=== PATIENT | male | born 1940 | race African-American/Black ===

== ENCOUNTER → 2020-08-04 13:08 | Outpatient (BNVA) | payer MEDICARE, MEDICAID, SELFPAY | PROVIDERS: Visit Provider Surgery | DX: G20 Parkinson's disease (principal) | CPT/HCPCS: 99204; 99214 ==

== ENCOUNTER 2020-08-17 15:13 | Inpatient (IN) | payer MEDICARE, SELFPAY ==
[2020-08-17] VITALS (9 sets, daily range): BP systolic 99–136; BP diastolic 62–77; PULSE 88–119; RESP 16–25; TEMP 36.8–38.9; O2SAT 96–100; BMI 16.5
--- NOTE | 2020-08-17 15:51 | CT_ITS ---
EXAM: CT scan of the chest, abdomen, and pelvis. INDICATION: Seizure. Concern for aspiration. Abdominal distention. COMPARISON: CT of chest 06/09/[address] abdomen pelvis 06/25/2020 TECHNIQUE: Multidetector helical imaging of the chest, abdomen, and pelvis was obtained from the thoracic inlet through the pubic symphysis. Coronal and sagittal reformatted images that were obtained were also reviewed. Evaluation is limited due to motion artifact. DLP: 918 mGy-cm FINDINGS: CHEST: Central airways are patent. Lungs are adequately aerated. Fine parenchymal evaluation is limited due to respiratory motion artifact, however, there is no gross lobar consolidation appreciated. There are mild emphysematous changes again noted. There is minimal dependent atelectasis appreciated. No pleural effusion or pneumothorax. No large pulmonary mass, however, evaluation for small pulmonary nodules is suboptimal. The heart is mildly enlarged. Coronary artery calcified are present. There is no pericardial effusion. A few nonpathologically enlarged mediastinal lymph nodes are again noted and appear stable. Nonaneurysmal thoracic aorta. No axillary lymphadenopathy. ABDOMEN/PELVIS: The liver is normal in size but demonstrates diffusely decreased attenuation. 1 cm hypodensity within the posterior right hepatic lobe which is too small to accurately characterize. The gallbladder is decompressed and therefore not accurately evaluated. The pancreas, spleen and adrenal glands are unremarkable. Symmetrically sized kidneys without renal calculi or hydronephrosis. Small bowel is nondilated but primarily Fluid-filled. There are scattered air-fluid levels within small bowel. The colon is also primarily fluid-filled with similar distention of the sigmoid colon and rectal vault. There is gaseous distention primarily involving the mid colon with some scattered nonspecific air-fluid levels. There is no gross retroperitoneal lymphadenopathy. Nonaneurysmal abdominal aorta which demonstrates moderate atherosclerotic disease. The bladder is well-distended and normal in appearance. Unremarkable prostate gland. No inguinal lymphadenopathy. No gross free pelvic fluid. OSSEOUS STRUCTURES Diffuse osteopenia. [id number] diffuse degenerative changes of the thoracolumbar spine. Similar sclerotic density of the T2 vertebral body. IMPRESSION: 1. Examination limited secondary to motion artifact. 2. Fine parenchymal evaluation is limited due to respiratory motion artifact, however, there is no gross lobar consolidation appreciated. 3. Chronic colonic distention which is primarily fluid-filled. Fluid is also noted throughout normal caliber loops of small bowel. There are scattered air-fluid levels throughout the small and large bowel. Findings are most suggestive of an infectious etiology. Clinical correlation is recommended. 4. Diffusely decreased liver attenuation suggesting hepatic steatosis. Correlation with liver enzymes recommended. This CT examination was performed using dose optimization techniques as appropriate, variously including the following: *Automated exposure control *Adjustment of mA and/or kV according to patient size (this includes techniques or standardized protocols for targeted exams where dose is matched to indication/reason for exam; i.e. extremities or head) *Use of iterative reconstruction technique
--- NOTE | 2020-08-17 15:51 | CT_ITS ---
EXAMINATION: CT HEAD WITHOUT CONTRAST CLINICAL INFORMATION: Seizure. COMPARISON: CTA head from 10/24/2018. TECHNIQUE: Contiguous axial imaging was performed from the skull base to vertex without intravenous administration of contrast. This CT examination was performed using dose optimization techniques as appropriate, variously including the following: *Automated exposure control. *Adjustment of mA and/or kV according to patient size (this includes techniques or standardized protocols for targeted exams where dose is matched to indication/reason for exam; i.e. extremities or head). *Use of iterative reconstruction technique. DLP: 733 mGy-cm FINDINGS: There is no evidence of acute intracranial hemorrhage or edematous territorial infarction. Basal ganglia mineralization. Confluent hypoattenuation in the periventricular and deep white matter. Pandey-white matter differentiation is preserved. There is a degree of proportional prominence of the ventricles and sulcal spaces that is progressed compared to 2018. However, the ventricles may be further disproportionately enlarged relative to the extraventricular CSF space. The posterior callosal angle is decreased (51 degrees) when measured on a corrected coronal image, orthogonal to the anterior commissure-posterior commissure line. No abnormal mass effect or midline shift. No extra-axial fluid collections. Calcific atherosclerotic disease of the intracranial internal carotid arteries. No hyperdense vessel sign. No acute soft tissue or osseous abnormalities. Advanced degeneration of the left temporomandibular joint. The mastoid air cells and paranasal sinuses are clear. Left-sided lens extraction. IMPRESSION: 1. No evidence of acute intracranial hemorrhage or edematous territorial infarction. 2. Chronic extensive underlying white matter disease. 3. Generalized cerebral volume loss. There is a degree of generalized cerebral volume loss has progressed compared to 2018. However, the ventricles may be further disproportionately enlarged relative to the extraventricular CSF space in the posterior callosal angle is decreased. Recommend correlation with symptoms of normal pressure hydrocephalus.
--- NOTE | 2020-08-17 15:55 | ED_ITS ---
HPI - Seizure General Chief Complaint: Seizure Stated Complaint: SEIZURE-LIKE ACTIVITY Time Seen by Provider: 08/17/20 15:47 Source: EMS Mode of arrival: EMS Limitations: altered mental status History of Present Illness HPI Narrative: 79 y/o male with history of Parkinson's dementia, dysphagia, COPD, CKD, seizures who is presenting from SNF with seizure like activity. Spoke with patient's daughter Jennifer who witnessed the event. She states when she went for a visit at the half-way today her dad was less responsive and his eyes were fluttering. She also states his hands were clenched and shaking. This hap pened for a few moments. She called his name and he turned his head and said her name and then these actions happened again. She states the nursing staff there was doing a sternal rub and having difficulty arousing him. She states he had COVID about 2 months ago and has not been the same since. His health is overall been declinging. At baseline he is his AAO x1, dependent of all ADL's. MD complaint: possible seizure Seizure History: Yes Place: Home Related Data Home Medications Medication Instructions Recorded Confirmed acetaminophen 325 mg tablet 650 mg PO Q4H PRN 08/04/20 albuterol sulfate 90 mcg/actuation 2 puff INHALATION Q4-6H PRN 08/04/20 aerosol inhaler amlodipine 10 mg tablet 10 mg PO DAILY 08/04/20 aspirin 81 mg tablet,delayed 81 mg PO DAILY 08/04/20 release bisacodyl 10 mg rectal suppository 10 mg [place] DAILY PRN 08/04/20 carbidopa 25 mg-levodopa 100 mg tab PO 08/04/20 tablet celecoxib 200 mg capsule 200 mg PO DAILY 08/04/20 cholecalciferol (vitamin D3) 1,250 1,250 mcg PO QWEEK 08/04/20 mcg (50,000 unit) tablet divalproex 125 mg capsule,delayed mg PO 08/04/20 release sprinkle docusate sodium 100 mg capsule 100 mg PO BID 08/04/20 donepezil 10 mg tablet 10 mg PO DAILY 08/04/20 escitalopram oxalate 5 mg tablet 5 mg PO DAILY 08/04/20 magnesium hydroxide 400 mg/5 mL 400 mg PO DAILY PRN 08/04/20 oral suspension memantine 5 mg tablet 5 mg PO BID 08/04/20 metoclopramide HCl 10 mg tablet 10 mg PO QID 08/04/20 polyethylene glycol 3350 17 17 g PO DAILY 08/04/20 gram/dose oral powder sodium bicarbonate 650 mg tablet 650 mg PO QID PRN 08/04/20 terazosin 1 mg capsule 1 mg PO DAILY 08/04/20 Allergies Allergy/AdvReac Type Severity Reaction Status Date / Time No Known Allergies Allergy Unverified 07/15/20 14:49 Review of Systems Review of Systems: Yes Unobtainable due to mental status PMFSH Past Medical History Attestation statement: The following information was validated with the patient. Source: unable to obtain Social History Social History Advance Directives: No Advance Directives Information Provided: No Physical Exam Vital Signs: Vital Signs: Vital Signs Temp Pulse Resp BP Pulse Ox 08/17/20 16:46 102 F H 105 H 18 120/68 99 08/17/20 15:39 127/77 08/17/20 15:23 102.0 F H 119 H 25 H 97 Body Mass Index 16.5 Appearance: minimally responsive, appears unwell Eyes: Pupils equal, round and sluggish to light ENT: Pharynx dry mucous membranes, Neck: Normal inspection. Neck supple. CVS:tachycardic, regular rhythm. Pulses normal. Respiratory:gurling respirations, mild respiratory distress. rhonchi throughout Abdomen: Softly distended, hyperactive BS. unable to assess tenderness. Skin: Skin warm and dry. Normal skin color. Normal skin turgor. No rashes. Extremities: No lower extremity edema. contractures to all 4 extremities Neuro: minimally responsive, does not respond to painful stimuli, eyes open upon manual opening, does not track. Course Course Course Narrative: 79 with multiple comorbidities presenting with seizure like activity - found to have a fever of 102 here with large liquid BM and abdominal distention. Mental status is poor but he is protecting his airway. FULL CODE status was confirmed with his LATHA Rodriguez, daughter. Ferraro scan pending as well as labs including valproic acid level. She states he does not have seizures often. Unclear if true seizure given he was verbal with her in the middle of the event. Broad spectrum abx ordered - ddx includes but not limited to colitis, pneumonia, UTI, C diff, cholecystitis. Reevaluation(s) Reevaluation #1: Mental status slowly improving, slightly more awake now. Valproic acid level low at 18 - spoke with Pharmacy about IV loading dose which has been ordered. CT scan limited due to motion artifact but shows infectious etiology with air- fluid levels throughout the entire small and large bowel - no obstruction noted. UA still pending. Patient has been broadly covered with vanco/zosyn but will add flagyl for additional anaerobic/intra-abdominal coverage. C diff added as well, given characteristics of BM here. Will require admission. Spoke with daughter and updated her on clinical condition. All questions were answered. Signed out to Tigist SHOOK. Time: 17:20 MDM - Seizure Lab Data Result diagrams: 08/17/20 16:09 08/17/20 16:09 Labs: Lab Results 08/17/20 08/17/20 08/17/20 Range/Units 16:09 16:09 16:09 WBC 12.1 H (4.8-10.8) X10*3/uL RBC 3.67 L (4.60-5.80) X10*6/uL Hgb 10.4 L (14.0-18.0) g/dl Hct 34.0 L (42-52) % MCV 92.6 (80-98) fL MCH 28.3 (27.0-33.0) pg MCHC 30.6 L (31.0-36.0) g/dl RDW 13.4 (11.0-16.0) % Plt Count 295 (160-400) X10*3/uL MPV 9.7 (9.4-12.4) fL Immature Gran % (Auto) 0.3 (0.0-0.4) % Neut % (Auto) 87.3 H (45-73) % Lymph % (Auto) 5.5 L (20-40) % [place] % (Auto) 6.6 (2-11) % Eos % (Auto) 0.1 (0-4) % Baso % (Auto) 0.2 (0-2) % Lymph # (Auto) 0.7 L (1.2-4.9) X10*3/uL [place] # (Auto) 0.8 (0.1-1.2) X10*3/uL Eos # (Auto) 0.0 (0.0-0.4) X10*3/uL Baso # (Auto) 0.0 (0.0-0.2) X10*3/uL Abs Immat Gran (auto) 0.04 H (0.00-0.03) X10*3/uL Absolute Neuts (auto) 10.6 H (2.0-8.3) X10*3/uL Absolute Nucleated RBC 0.000 (0.0-0.012) X10*3/uL Nucleated RBC % (auto) 0.0 (0.0-0.2) /100WBC Smear Tech's Comments VERIFIED Sodium 142 (135-145) mmol/L Potassium 4.1 (3.3-5.1) mmol/l Chloride 107 (96-108) mmol/L Carbon Dioxide 20 L (22-29) mmol/L Anion Gap 19 (12-20) BUN 34 H (9-16) mg/dL Creatinine 2.08 H (0.5-1.4) mg/dL Estim Creat Clear Calc 19.5 Estimated GFR 31 Random Glucose 150 H (60-115) mg/dL Calcium 9.9 (8.4-10.2) mg/dL Total Bilirubin 0.5 (0.0-1.0) mg/dL Direct Bilirubin 0.2 (0.0-0.5) mg/dL AST 19 (5-37) U/L ALT 6 (0-40) U/L Alkaline Phosphatase 60 (39-117) U/L Total Protein 8.9 H (6.5-8.0) g/dL Albumin 3.8 (3.5-5.0) g/dL Valproic Acid 18.9 L (50.0-100.0) mcg/mL Critical Care Time Critical Care Time Critical Care Time: Yes Total Critical Care Time: 45 Attestation: I attest to time spent caring for this patient. He is critically ill with life threatening condition that required frequent bedside monitoring and reassessment of his mental status and airway.
[2020-08-17 16:28] LABS: Basophils Percent Auto 0.2 % (0-2); Eosinophils Percent Auto 0.1 % (0-4); Hemoglobin 10.4 g/dl (14.0-18.0); Imm Gran Abs Auto 0.04 X10*3/uL (0.00-0.03); Imm Gran Pct Auto 0.3 % (0.0-0.4); Lymphocytes Absolute Auto 0.7 X10*3/uL (1.2-4.9); Lymphocytes Percent Auto 5.5 % (20-40); MANUAL DIFF FLAG SCAN; Mean Corpuscular HGB Conc 30.6 g/dl (31.0-36.0); Mean Corpuscular Hemoglobin 28.3 pg (27.0-33.0); Mean Corpuscular Volume 92.6 fL (80-98); Mean Platelet Volume 9.7 fL (9.4-12.4); Monocytes Absolute Auto 0.8 X10*3/uL (0.1-1.2); Monocytes Percent Auto 6.6 % (2-11); Neutrophils Absolute Auto 10.6 X10*3/uL (2.0-8.3); Neutrophils Percent Auto 87.3 % (45-73); Platelet Count 295 X10*3/uL (160-400); Red Blood Count 3.67 X10*6/uL (4.60-5.80); Red Cell Distribution Width 13.4 % (11.0-16.0); SCAN SMEAR FLAG 1; White Blood Count 12.1 X10*3/uL (4.8-10.8)
[2020-08-17] MEDS: 0.9 % Sodium Chloride 1,000 ML 999 ML IVCONT ×2 (16:30→17:58)
[2020-08-17] MEDS: Acetaminophen Supp 650 MG SUPP.RECT PR (16:30)
[2020-08-17 16:47] LABS: SLIDE REVIEW VERIFIED
[2020-08-17 16:50] LABS: Albumin Level 3.8 g/dL (3.5-5.0); Alkaline Phosphatase 60 U/L (39-117); Anion Gap 19 (12-20); Aspartate Amino Transferase 19 U/L (5-37); Bilirubin Direct 0.2 mg/dL (0.0-0.5); Bilirubin Total 0.5 mg/dL (0.0-1.0); Blood Urea Nitrogen 34 mg/dL (9-16); Calcium 9.9 mg/dL (8.4-10.2); Carbon Dioxide 20 mmol/L (22-29); Chloride 107 mmol/L (96-108); Creatinine Clr Calc Pharmacy 19.5; Estimated Glomerular Filt Rate 31; Glucose Random 150 mg/dL (60-115); Potassium 4.1 mmol/l (3.3-5.1); Sodium 142 mmol/L (135-145); Total Protein 8.9 g/dL (6.5-8.0)
[2020-08-17 16:52] LABS: Valproate 18.9 mcg/mL (50.0-100.0)
[2020-08-17 17:04] LABS: Alanine Aminotransferase 6 U/L (0-40)
[2020-08-17] MEDS: Piperacillin Sodium/Tazobactam 3.375 GM in 0.9 % Sodium Chloride 50 ML IV (17:06)
[2020-08-17 17:20] LABS: Base Excess VBG -3.4 mmol/L; HCO3 VBG 23 mmol/L; Oxygen Saturation VBG 70.8 %; PCO2 VBG 45 mmhg; PO2 VBG 42 mmhg; pH VBG 7.32 (7.32-7.43)
[2020-08-17 17:46] LABS: Lactic Acid 2.2 mmol/L (0.5-2.0)
[2020-08-17] MEDS: vancomycin HCL 750 MG in 0.9 % Sodium Chloride 250 ML 265 MG IV (17:54)
[2020-08-17 18:01] LABS: Glucose Urine UA NEG (NEG); Leukocyte Esterase Urine NEG (NEG); Nitrite Urine NEG (NEG); PH 5.5 (5.0-8.0); Specific Gravity - Urine >= 1.030 (1.005-1.025); Urine Blood NEG (NEG); Urine Ketones NEG (NEG); Urine Protein 2+ MG/DL (NEG-TRACE)
[2020-08-17 18:02] LABS: Appearance Urine CLEAR; Color Urine YELLOW
[2020-08-17 18:13] LABS: RBC Urine 0-2 /HPF (0)
[2020-08-17] MEDS: metroNIDAZOLE/NS 500 MG/100 ML PIGGYBACK 100 MG IV (19:16)
--- NOTE | 2020-08-17 19:17 | PC.NURSE ---
Pt awake and resting in stretcher watching tv. Ns and Flagyl up and running w/o difficulty, site intact. Pt on monitor with SR with hr 94, PO 98% on 2L NC.
[2020-08-17 19:20] LABS: SARS COV2 PCR INHOUSE POSITIVE (Negative)
[2020-08-17 19:34] LABS: Reflex Lactate? Lactic Acid Added
[2020-08-17 20:52] LABS: ~Lactic Acid-LAB USE ONLY 2.5 mmol/L (0.5-2.0)
--- NOTE | 2020-08-17 21:14 | P.HPIM_ITS ---
History of Present Illness Date of Service: 08/17/20 Chief Complaint: Seizure 79 y/o male with extensive PMHX including Parkinson disease with dementia and failure to thrive who presented from home due to Seizure like activity. Patient was discharged recently from our facility, admitted due to sepsis secondary to PNA, found to be covid positive 2 months ago. Now patient presented from SNF as was found by daughter in the facility to be having jerky like movements. Patient is known to have hx of seizure. Upon evaluation in the ED the valproic acid levels were found to be low for what a loading dose IV was given. Mental status of the patient is slowly getting back to baseline, awake but not following verbal commands. On previous admission mental state was noted to be AAOx1. Ferraro CT was ordered per ED and the only thing pertinent was evidence of air-fluid level in large/small bowel which was concerning for possible infectious etiology and as well in the ED patient had several watery bowel movement for what C diff work up was ordered and patient started on Broad spectrum antibx. Decision for admission was made at 5 pm but medicine called for admission at 8 pm 08/17/20. Patient seen and evaluated in the ED, laying down in bed in no acute distress, lethargic, not responsive to verbal stimuli. Abdomen noted to be distended but not tender to touch. vitals stable. Isolation room as repeat covid test today if found to be positive. Past Medical History: HTN, Constipation, Parkinson disease with features of dementia, seizures, BPH, CKD, COPD, Failure to thrive PSx: unknown Toxic habits: No documented hx of alcohol abuse, smoking or IVDA Review of Systems Review of Systems: Yes Other (unable to be obtained given mental status) [facility] Functional capacity: independent ambulation Family history: reviewed and not pertinent Social History Advance Directives: No Advance Directives Information Provided: No Meds Allergies Allergy/AdvReac Type Severity Reaction Status Date / Time No Known Allergies Allergy Unverified 07/15/20 14:49 Home Medications Medication Instructions Recorded Confirmed Type acetaminophen 325 mg tablet 650 mg PO Q4H PRN 08/04/20 History albuterol sulfate 90 mcg/actuation 2 puff INHALATION Q4-6H PRN 08/04/20 History aerosol inhaler amlodipine 10 mg tablet 10 mg PO DAILY 08/04/20 History aspirin 81 mg tablet,delayed 81 mg PO DAILY 08/04/20 History release bisacodyl 10 mg rectal suppository 10 mg [place] DAILY PRN 08/04/20 History carbidopa 25 mg-levodopa 100 mg tab PO 08/04/20 History tablet celecoxib 200 mg capsule 200 mg PO DAILY 08/04/20 History cholecalciferol (vitamin D3) 1,250 1,250 mcg PO QWEEK 08/04/20 History mcg (50,000 unit) tablet divalproex 125 mg capsule,delayed mg PO 08/04/20 History release sprinkle docusate sodium 100 mg capsule 100 mg PO BID 08/04/20 History donepezil 10 mg tablet 10 mg PO DAILY 08/04/20 History escitalopram oxalate 5 mg tablet 5 mg PO DAILY 08/04/20 History magnesium hydroxide 400 mg/5 mL 400 mg PO DAILY PRN 08/04/20 History oral suspension memantine 5 mg tablet 5 mg PO BID 08/04/20 History metoclopramide HCl 10 mg tablet 10 mg PO QID 08/04/20 History polyethylene glycol 3350 17 17 g PO DAILY 08/04/20 History gram/dose oral powder sodium bicarbonate 650 mg tablet 650 mg PO QID PRN 08/04/20 History terazosin 1 mg capsule 1 mg PO DAILY 08/04/20 History divalproex 500 mg PO BEDTIME 08/17/20 08/17/20 History Physical Exam Vital Signs and Narrative: Vital Signs: Last Vital Signs Temp 98.9 F 08/17/20 20:00 Pulse 95 08/17/20 20:00 Resp 16 08/17/20 20:00 BP 123/77 08/17/20 20:00 Pulse Ox 98 08/17/20 20:00 Body Mass Index 16.5 Const: General: no acute distress and lethargic Orientation/consciousness: lethargic HENMT: Head: Yes normal to inspection Eyes: General: appearance normal, both eyes and all related structures Neck: Yes normal visual inspection Chest: Chest palpation & inspection: normal inspection of the chest Resp: Effort & Inspection: normal respiratory effort Cardio: Jugular venous distension: no JVD Rhythm: regular rhythm Heart sounds: S1 normal heart sound present and S2 normal heart sound present GI: Inspection: Yes distended and Yes other (nontender ) Skin: General skin exam: no rashes or lesions noted Neuro: General: other (awake but lethargic, not responding to verbal stimuli ) Extrem: General: Yes other (mildly contracted ) Results Labs Labs: Laboratory Tests 08/17/20 08/17/20 08/17/20 16:09 16:09 16:09 WBC 12.1 H RBC 3.67 L Hgb 10.4 L Hct 34.0 L MCV 92.6 MCH 28.3 MCHC 30.6 L RDW 13.4 Plt Count 295 MPV 9.7 Immature Gran % (Auto) 0.3 Neut % (Auto) 87.3 H Lymph % (Auto) 5.5 L [place] % (Auto) 6.6 Eos % (Auto) 0.1 Baso % (Auto) 0.2 Lymph # (Auto) 0.7 L [place] # (Auto) 0.8 Eos # (Auto) 0.0 Baso # (Auto) 0.0 Abs Immat Gran (auto) 0.04 H Absolute Neuts (auto) 10.6 H Absolute Nucleated RBC 0.000 Nucleated RBC % (auto) 0.0 Smear Tech's Comments VERIFIED VBG pH VBG pCO2 VBG Oxygen Liters/Min VBG pO2 VBG HCO3 VBG O2 Saturation VBG Base Excess Sodium 142 Potassium 4.1 Chloride 107 Carbon Dioxide 20 L Anion Gap 19 BUN 34 H Creatinine 2.08 H Estim Creat Clear Calc 19.5 Estimated GFR 31 Random Glucose 150 H Lactic Acid Lactic Acid Fup @ 2Hr Calcium 9.9 Total Bilirubin 0.5 Direct Bilirubin 0.2 AST 19 ALT 6 Alkaline Phosphatase 60 Total Creatine Kinase Total Protein 8.9 H Albumin 3.8 Urine Color Urine Appearance Urine pH Ur Specific [place] Urine Protein Urine Glucose (UA) Urine Ketones Urine Blood Urine Nitrite Ur Leukocyte Esterase Urine RBC Urine WBC Ur Squamous Epith Cells Urine Bacteria Valproic Acid 18.9 L Coronavirus (PCR) 08/17/20 08/17/20 08/17/20 17:04 17:04 17:43 WBC RBC Hgb Hct MCV MCH MCHC RDW Plt Count MPV Immature Gran % (Auto) Neut % (Auto) Lymph % (Auto) [place] % (Auto) Eos % (Auto) Baso % (Auto) Lymph # (Auto) [place] # (Auto) Eos # (Auto) Baso # (Auto) Abs Immat Gran (auto) Absolute Neuts (auto) Absolute Nucleated RBC Nucleated RBC % (auto) Smear Tech's Comments VBG pH 7.32 VBG pCO2 45 VBG Oxygen Liters/Min VBG pO2 42 VBG HCO3 23 VBG O2 Saturation 70.8 VBG Base Excess -3.4 Sodium Potassium Chloride Carbon Dioxide Anion Gap BUN Creatinine Estim Creat Clear Calc Estimated GFR Random Glucose Lactic Acid 2.2 H* Lactic Acid Fup @ 2Hr Calcium Total Bilirubin Direct Bilirubin AST ALT Alkaline Phosphatase Total Creatine Kinase Total Protein Albumin Urine Color YELLOW Urine Appearance CLEAR Urine pH 5.5 Ur Specific [place] >= 1.030 H Urine Protein 2+ H Urine Glucose (UA) NEG Urine Ketones NEG Urine Blood NEG Urine Nitrite NEG Ur Leukocyte Esterase NEG Urine RBC 0-2 Urine WBC 1-4 Ur Squamous Epith Cells NONE Urine Bacteria NONE Valproic Acid Coronavirus (PCR) 08/17/20 08/17/20 08/17/20 17:43 18:51 20:15 WBC RBC Hgb Hct MCV MCH MCHC RDW Plt Count MPV Immature Gran % (Auto) Neut % (Auto) Lymph % (Auto) [place] % (Auto) Eos % (Auto) Baso % (Auto) Lymph # (Auto) [place] # (Auto) Eos # (Auto) Baso # (Auto) Abs Immat Gran (auto) Absolute Neuts (auto) Absolute Nucleated RBC Nucleated RBC % (auto) Smear Tech's Comments VBG pH VBG pCO2 VBG Oxygen Liters/Min VBG pO2 VBG HCO3 VBG O2 Saturation VBG Base Excess Sodium Potassium Chloride Carbon Dioxide Anion Gap BUN Creatinine Estim Creat Clear Calc Estimated GFR Random Glucose Lactic Acid Lactic Acid Fup @ 2Hr 2.5 H* Calcium Total Bilirubin Direct Bilirubin AST ALT Alkaline Phosphatase Total Creatine Kinase 299 H Total Protein Albumin Urine Color Urine Appearance Urine pH Ur Specific [place] Urine Protein Urine Glucose (UA) Urine Ketones Urine Blood Urine Nitrite Ur Leukocyte Esterase Urine RBC Urine WBC Ur Squamous Epith Cells Urine Bacteria Valproic Acid Coronavirus (PCR) POSITIVE A Assessment and Plan (1) Seizure disorder: Status: Acute (2) Chronic constipation: Status: Acute (3) Parkinsons disease: Problem details: He has been referred for peg tube placement because of his inconsistent oral intake. I explained to the daughter Danni Lee who is the healthcare proxy, the technique of PEG tube placement. I had a long discussion with her about the risks including but not limited to bleeding, infections, injury to bowel, tube dislodgement, loss of airway doing the procedure, leak around tube site, blood clots, pneumonia, as well as benefits and alternatives. She says he understands but does not feel ready to decide on this today. She states that she will think about it and will call the office once she decides to proceed. She was given educational literature on PEG tube placement and care. Status: Acute (4) Dementia: Status: Acute Seizure likely secondary to medication noncompliance Mental status now returning to normal Loading dose of valproate given per ED. Will continue with home meds phototypesetting equipment monitor / IMC Seizure precautions NPO as of now. Advance diet as tolerated (honey thick as per previous CAR PILOT eval on previous admission) Evaluated by Surgery for possible PEG placement but family still to decide Will continue with Zosyn for now for gram neg and anaerobic coverage given findings on CT of possible infectious process Follow up C diff studies Isolation for now given positive covid Neurology consult for seizure Infectious diseas consult given possible underlying GI infection
[2020-08-17] MEDS: 0.9 % Sodium Chloride 500 ML 75 ML IV (21:45)
[2020-08-17] MEDS: Piperacillin Sodium/Tazobactam 2.25 GM in 0.9 % Sodium Chloride 50 ML IV (21:53)
[2020-08-17 22:18] LABS: Reflex Lactate? 2 Y
[2020-08-17] MEDS: Heparin Sodium,Porcine 5,000 UNIT/ML VIAL 5000 UNIT SUBCUT (23:14)
[2020-08-17] MEDS: 0.9 % Sodium Chloride Flush 3 ML SYRINGE IVFLUSH (23:14)
[2020-08-18 00:03] LABS: ~Lactic Acid-LAB USE ONLY 2.7 mmol/L (0.5-2.0)
[2020-08-18] MEDS: 0.9 % Sodium Chloride 500 ML 999 ML IVCONT (00:40)
[2020-08-18 04:00] VITALS: BP 121/68; PULSE 94; RESP 20; TEMP 36.7; O2SAT 99
[2020-08-18] MEDS: 0.9 % Sodium Chloride 500 ML 75 ML IV ×3 (04:30→20:56)
[2020-08-18 05:29] LABS: CDIFF Ag Negative (Negative); CDIFF Internal ctrl Dots and bkg OK (V); CDiff Toxin Negative (Negative)
[2020-08-18] MEDS: Piperacillin Sodium/Tazobactam 2.25 GM in 0.9 % Sodium Chloride 50 ML IV ×3 (05:29→20:55)
[2020-08-18] MEDS: Heparin Sodium,Porcine 5,000 UNIT/ML VIAL 5000 UNIT SUBCUT ×3 (06:04→22:59)
[2020-08-18 06:28] LABS: MANUAL DIFF FLAG NO
[2020-08-18 06:40] LABS: Basophils Percent Auto 0.2 % (0-2); Eosinophils Percent Auto 0.1 % (0-4); Hematocrit 27.7 % (42-52); Hemoglobin 8.4 g/dl (14.0-18.0); Imm Gran Abs Auto 0.05 X10*3/uL (0.00-0.03); Imm Gran Pct Auto 0.3 % (0.0-0.4); Lymphocytes Absolute Auto 0.9 X10*3/uL (1.2-4.9); Lymphocytes Percent Auto 6.3 % (20-40); Mean Corpuscular HGB Conc 30.3 g/dl (31.0-36.0); Mean Corpuscular Hemoglobin 28.3 pg (27.0-33.0); Mean Corpuscular Volume 93.3 fL (80-98); Mean Platelet Volume 10.1 fL (9.4-12.4); Monocytes Absolute Auto 1.1 X10*3/uL (0.1-1.2); Monocytes Percent Auto 7.4 % (2-11); Neutrophils Absolute Auto 12.4 X10*3/uL (2.0-8.3); Neutrophils Percent Auto 85.7 % (45-73); Platelet Count 255 X10*3/uL (160-400); Red Blood Count 2.97 X10*6/uL (4.60-5.80); Red Cell Distribution Width 13.5 % (11.0-16.0); White Blood Count 14.5 X10*3/uL (4.8-10.8)
[2020-08-18 07:48] VITALS: BP 122/66; PULSE 83; RESP 18; TEMP 37.3; O2SAT 98
[2020-08-18 08:02] LABS: Anion Gap 16 (12-20); Blood Urea Nitrogen 34 mg/dL (9-16); Carbon Dioxide 17 mmol/L (22-29); Chloride 116 mmol/L (96-108); Creatinine Clr Calc Pharmacy 21.2; Estimated Glomerular Filt Rate 34; Glucose Random 119 mg/dL (60-115); Potassium 3.5 mmol/l (3.3-5.1); Sodium 145 mmol/L (135-145)
[2020-08-18 08:56] LABS: Calcium 8.7 mg/dL (8.4-10.2)
--- NOTE | 2020-08-18 10:40 | P.CDIC_ITS ---
CDI Concurrent Query Service Date: 08/18/20 Documentation Clarification: Please clarify if you are treating a proba ble/suspected/likely or confirmed: Sepsis, present on admission Provider Response: Other (Sepsis presented at admission) Other Diagnosis: Sepsis presented at admission PLEASE DO NOT DELETE/MODIFY EXISTING CONTENT Additional information is needed in order to code to the highest accuracy and appropriate Severity of Illness (SOI). Please clarify the information noted below in your progress notes and discharge summary. Risk Factors/Clinical Indicators/Treatments 79 year old male admitted with witnessed seizure, altered mental status, abdominal distention. T 102.0, P 119, RR 25, BP 123/77, 97% WBC 12.1 Repeat COVID test positive C Diff pending Treated with IV antibiotic, IVF, loading dose valproate CDS: Fanny Beltran RN Contact Number: [phone] Please Review the information above and exercise your independent professional judgment in responding to the query. If you concur, pleas document in the PROGRESS NOTES and DISCHARGE SUMMARY. If you do not agree with the query, please document in the query above. THIS QUERY IS PART OF THE PERMANENT MEDICAL RECORD
--- NOTE | 2020-08-18 10:49 | P.CDIC_ITS ---
CDI Concurrent Query Service Date: 08/18/20 Documentation Clarification: Please clarify if you are treating a proba ble/suspected/likely or confirmed: CKD stage 3 Provider Response: CKD Stage 3 PLEASE DO NOT DELETE/MODIFY EXISTING CONTENT Additional information is needed in order to code to the highest accuracy and appropriate Severity of Illness (SOI). Please clarify the information noted below in your progress notes and discharge summary. Risk Factors/Clinical Indicators/Treatments 79 year old male admitted with TINA on CKD. Past medical history: CKD, Parkinsons Dementia, FTT, COPD, Seizure BUN/Creatinine on admission: 34/2.08 BUN/Creatinine on 06/25/20: 13/1.60 CDS: Fanny Beltran RN Contact Number: [phone] Please Review the information above and exercise your independent professional judgment in responding to the query. If you concur, pleas document in the PROGRESS NOTES and DISCHARGE SUMMARY. If you do not agree with the query, please document in the query above. THIS QUERY IS PART OF THE PERMANENT MEDICAL RECORD
--- NOTE | 2020-08-18 11:19 | MHC.CM.PN ---
Patient is a LTC Resident at [facility] and per Daughter/HCP/Cherry, the goal is for him to return there. CM has initiated and will follow for dc planning. IMM addressed with Cherry. PER CHERRY- NO INFORMATION IS TO BE GIVEN OUT REGARDING PATIENT, TO ANYONE ELSE BUT HER, MD, ADMINISTRATION, RN AWARE (AND ASKED TO PASS ON IN SHIFT REPORT) and note put on front of chart.
--- NOTE | 2020-08-18 11:20 | PM.NEUROCN ---
History of Present Illness Data of Consult Primary Care Provider: Unknown Physician 79 y/o man with PMHx of dementia, parkinsonism, renal failure, and generalized seizure disorder since 2018. He was recently treated for sepsis and COVID infection. He was brought to hospital after he was found to be seizing. In ER he was noted be slowly recovering. At this time, he was unable to provide any history. Review of Systems Review of Systems: Unable to peform. [facility] Past Medical History Functional capacity: independent ambulation Family History Family history: reviewed and not pertinent Social History Social History Household Members: Other Housing Other:: [facility] Smoking Status: Unknown if ever smoked Use of substances other than those prescribed or required for medical reasons: Unable to respond Currently Displaying Signs/Symptoms of Drug Intoxication Withdrawal: No Advance Directives: No Advance Directives Information Provided: No Do you have thoughts of harming others: None Do you have a plan to hurt others: No Plan Recently lost weight without trying: Unsure service: No Current occupational status: retired [employer]s Allergies Allergy/AdvReac Type Severity Reaction Status Date / Time No Known Allergies Allergy Unverified 07/15/20 14:49 Home Medications Medication Instructions Recorded Confirmed Type acetaminophen 325 mg tablet 650 mg PO Q4H PRN 08/04/20 08/18/20 History albuterol sulfate 90 mcg/actuation 2 puff INHALATION Q4-6H PRN 08/04/20 08/18/20 History aerosol inhaler amlodipine 10 mg tablet 10 mg PO DAILY 08/04/20 08/18/20 History aspirin 81 mg tablet,delayed 81 mg PO DAILY 08/04/20 08/18/20 History release bisacodyl 10 mg rectal suppository 10 mg [place] DAILY PRN 08/04/20 08/18/20 History carbidopa 25 mg-levodopa 100 mg 2 tab PO 08/04/20 History tablet celecoxib 200 mg capsule 200 mg PO DAILY 08/04/20 08/18/20 History cholecalciferol (vitamin D3) 1,250 1,250 mcg PO QMONTH 08/04/20 08/18/20 History mcg (50,000 unit) tablet divalproex 125 mg capsule,delayed 250 mg PO QAM 08/04/20 08/18/20 History release sprinkle docusate sodium 100 mg capsule 100 mg PO BID 08/04/20 08/18/20 History donepezil 10 mg tablet 10 mg PO DAILY 08/04/20 08/18/20 History escitalopram oxalate 5 mg tablet 5 mg PO DAILY 08/04/20 08/18/20 History magnesium hydroxide 400 mg/5 mL 400 mg PO DAILY PRN 08/04/20 08/18/20 History oral suspension memantine 5 mg tablet 10 mg PO BID 08/04/20 08/18/20 History metoclopramide HCl 10 mg tablet 10 mg PO QID 08/04/20 08/18/20 History polyethylene glycol 3350 17 17 g PO DAILY 08/04/20 08/18/20 History gram/dose oral powder sodium bicarbonate 650 mg tablet 650 mg PO TID PRN 08/04/20 08/18/20 History terazosin 1 mg capsule 1 mg PO DAILY 08/04/20 08/18/20 History divalproex 500 mg PO BEDTIME 08/17/20 08/17/20 History Physical Exam Vital Signs: Vital Signs: Vital Signs Temp Pulse Resp BP Pulse Ox 08/18/20 07:48 99.2 F 83 18 122/66 98 08/18/20 04:00 98.1 F 94 20 121/68 99 08/17/20 23:49 98.7 F 88 20 116/66 96 08/17/20 22:00 98.2 F 104 H 22 H 117/74 100 08/17/20 20:00 98.9 F 95 16 123/77 98 08/17/20 18:30 95 24 H 120/67 98 08/17/20 18:01 98.9 F 96 99/62 99 08/17/20 17:45 102 H 108/64 100 08/17/20 16:46 102 F H 105 H 18 120/68 99 08/17/20 15:39 127/77 08/17/20 15:23 102.0 F H 119 H 25 H 97 Body Mass Index 16.5 Very drowy, not responsive to verbal, withdraws with pain, EOMI, unable to check visual talley. NO obvious shaking or movement or posturing. DTRs are absent, plantars are flat. Exam is limited. Results Labs CBC & Chem 7: 08/18/20 05:49 08/18/20 05:49 Labs: Short CBC 08/17/20 08/18/20 Range/Units 16:09 05:49 WBC 12.1 H 14.5 H (4.8-10.8) X10*3/uL Hgb 10.4 L 8.4 L (14.0-18.0) g/dl Hct 34.0 L 27.7 L (42-52) % Plt Count 295 255 (160-400) X10*3/uL BMP 08/17/20 08/18/20 16:09 05:49 Sodium 142 145 Potassium 4.1 3.5 Chloride 107 116 H Carbon Dioxide 20 L 17 L BUN 34 H 34 H Creatinine 2.08 H 1.91 H Calcium 9.9 8.7 Cardiac Enzymes 08/17/20 Range/Units 18:51 Total Creatine Kinase 299 H (38-174) U/L Liver Function 08/17/20 Range/Units 16:09 Total Bilirubin 0.5 (0.0-1.0) mg/dL Direct Bilirubin 0.2 (0.0-0.5) mg/dL AST 19 (5-37) U/L ALT 6 (0-40) U/L Alkaline Phosphatase 60 (39-117) U/L Albumin 3.8 (3.5-5.0) g/dL Urine 08/17/20 Range/Units 17:43 Urine Color YELLOW Urine Appearance CLEAR Urine pH 5.5 (5.0-8.0) Ur Specific [place] >= 1.030 H (1.005-1.025) Urine Protein 2+ H (NEG-TRACE) MG/DL Urine Glucose (UA) NEG (NEG) MG/DL CT WO: mod severe diff atrophy, mod severe MVD Assessment and Plan (1) Seizure disorder: Status: Acute Impression: uncontrolled seizure d/o rec: increase depakote to 500mg bid (2) Dementia: Status: Acute PRN treatment (3) Parkinsons disease: Problem details: He has been referred for peg tube placement because of his inconsistent oral intake. I explained to the daughter Danni Lee who is the healthcare proxy, the technique of PEG tube placement. I had a long discussion with her about the risks including but not limited to bleeding, infections, injury to bowel, tube dislodgement, loss of airway doing the procedure, leak around tube site, blood clots, pneumonia, as well as benefits and alternatives. She says he understands but does not feel ready to decide on this today. She states that she will think about it and will call the office once she decides to proceed. She was given educational literature on PEG tube placement and care. Status: Acute (4) Multifactorial dementia: Status: Acute (5) Cerebral microvascular disease: Status: Acute (6) Encephalopathy: Status: Acute Multifactorial encephalopathy rec: ideally, an LP to r/o encephalitis. If not, broad spectrum antibiotics including coverage for Herpes
[2020-08-18 11:47] VITALS: BP 143/80; PULSE 93; RESP 18; TEMP 38.2; O2SAT 95
[2020-08-18 13:21] VITALS: BMI 16.5
--- NOTE | 2020-08-18 13:24 | MHC.CLN ---
PT IS SEVERELY MALNOURISHED WILL START ENSURE AND MEGHNA TO PROMOTE WOUND HEALING AND INCREASE KC[facility] FAMILY DECIDING ON PEG PLACEMENT-PLEASE CONSULT IF TF NEEDED SEE ALSO NUTRITION ASSESSMENT
--- NOTE | 2020-08-18 13:26 | HO.PM.IMPN ---
Subjective Subjective Date of Service: 08/18/20 Interval History: Seen and evaluated this morning Sleepy, laying in his bed Opens eyes to stimuli Nonverbal this morning Reported fever overnight No other overnight events Physical Exam Vital Signs: Vital Signs: Vital Signs Temp Pulse Resp BP Pulse Ox 08/18/20 11:47 100.7 F H 93 18 143/80 H 95 08/18/20 07:48 99.2 F 83 18 122/66 98 08/18/20 04:00 98.1 F 94 20 121/68 99 08/17/20 23:49 98.7 F 88 20 116/66 96 08/17/20 22:00 98.2 F 104 H 22 H 117/74 100 08/17/20 20:00 98.9 F 95 16 123/77 98 08/17/20 18:30 95 24 H 120/67 98 08/17/20 18:01 98.9 F 96 99/62 99 08/17/20 17:45 102 H 108/64 100 08/17/20 16:46 102 F H 105 H 18 120/68 99 08/17/20 15:39 127/77 08/17/20 15:23 102.0 F H 119 H 25 H 97 Body Mass Index 16.5 Constitutional : Sleepy, difficult to arouse, not in distress Neck : Normal inspection, Supple Cardiovascular : RRR, S1 S2, no lower extremity edema Respiratory : Good bilateral air entry, no crackles, wheezes or rhonchi Gastrointestinal: soft, lax, Normal bowel sounds, Non tender Skin : Warm/Dry, No rash Neurological : Difficult to arouse, altered, No focal deficit Objective Data Current Medications Generic Name Dose Route Start Last Admin Trade Name Freq PRN Reason Stop Dose Admin Divalproex Sodium 500 mg 08/18/20 21:00 Divalproex Sodium Er 500 Mg Tab.Er.24h PO BEDTIME RAQUEL Heparin Sodium (Porcine) 5,000 unit 08/17/20 23:00 08/18/20 06:04 Heparin Sodium,Porcine 5,000 Unit/Ml Vial SUBCUT 5,000 unit Q8H RAQUEL Administration Sodium Chloride 500 mls @ 75 mls/hr 08/17/20 21:15 08/18/20 12:11 Ns IV 75 mls/hr .Q6H40M RAQUEL Administration Piperacillin Sod/Tazobactam 50 mls @ 100 mls/hr 08/17/20 22:00 08/18/20 06:05 Sod 2.25 gm/ Sodium Chloride IV Infused Q8H RAQUEL Infusion Sodium Chloride 3 ml 08/18/20 00:00 08/18/20 08:57 0.9 % Sodium Chloride Flush 3 Ml Syringe IVFLUSH Not Given QSHIFT RAQUEL Labs CBC & Chem 7: 08/18/20 05:49 08/18/20 05:49 Assessment and Plan (1) Seizure disorder: Status: Acute (2) Colitis: Status: Acute (3) Chronic constipation: Status: Acute (4) Parkinsons disease: Problem details: Status: Acute (5) Encephalopathy: Status: Acute Assessment and Plan: A 79 years old male with PMH of HTN, Parkinson's, seizure disorder, CKD who presents to the hospital home with breakthrough seizure activity and fever. Breakthrough seizure Secondary to low level valproic acid Go given IV valproic acid Restart his home medications Seizure precautions Advanced diet as tolerated Sepsis Intra-abdominal infection Pending blood cultures Spiking fevers, Elevated WBcs CT scan of the abdomen concerning of possible infection, colitis continue Zosyn IV next [place]yme to get GI evaluation Negative for C diff Foot wound to get wound care team Med reconciliation not Done yet, asked the nurse and pharmacy to fix id To resume his home medication afterward DVT PPX Heparin
[2020-08-18 15:33] VITALS: BP 150/68; PULSE 98; RESP 16; TEMP 38.6; O2SAT 93
[2020-08-18] MEDS: 0.9 % Sodium Chloride Flush 3 ML SYRINGE IVFLUSH ×2 (15:53→22:59)
[2020-08-18] MEDS: Acetaminophen Supp 650 MG SUPP.RECT PR (15:54)
[2020-08-18] MEDS: Divalproex Sodium Sprinkles 125 MG CAP.DR.SPR 500 MG PO (17:16)
[2020-08-18] MEDS: Carbidopa/Levodopa 25/100 TABLET 2 TAB PO (17:16)
[2020-08-18 19:15] VITALS: TEMP 37.2
[2020-08-18 19:18] VITALS: BP 115/61; PULSE 88; RESP 16; TEMP 37.3; O2SAT 94
[2020-08-18] MEDS: Memantine HCl 5 MG TABLET PO (20:54)
--- NOTE | 2020-08-18 22:16 | PC.NURSE ---
Pt unable to swallow 2100 medications, including depakote. Pt encouraged to swallow but pockets food in mouth. Suction needed. MD made aware, no new orders at this time. Will continue to monitor.
[2020-08-19] VITALS: BP 127/73; PULSE 93; RESP 20; TEMP 36.7; O2SAT 96
[2020-08-19] MEDS: 0.9 % Sodium Chloride 500 ML 75 ML IV (03:57)
[2020-08-19 04:00] VITALS: BP 135/71; PULSE 91; RESP 22; TEMP 37.4; O2SAT 92
[2020-08-19] MEDS: Piperacillin Sodium/Tazobactam 2.25 GM in 0.9 % Sodium Chloride 50 ML IV ×3 (05:18→22:10)
[2020-08-19 06:21] LABS: MANUAL DIFF FLAG NO
[2020-08-19 06:33] LABS: Basophils Percent Auto 0.3 % (0-2); Eosinophils Percent Auto 0.1 % (0-4); Hematocrit 27.8 % (42-52); Hemoglobin 8.6 g/dl (14.0-18.0); Imm Gran Abs Auto 0.08 X10*3/uL (0.00-0.03); Imm Gran Pct Auto 0.7 % (0.0-0.4); Lymphocytes Percent Auto 8.2 % (20-40); Mean Corpuscular HGB Conc 30.9 g/dl (31.0-36.0); Mean Corpuscular Hemoglobin 29.4 pg (27.0-33.0); Mean Corpuscular Volume 94.9 fL (80-98); Monocytes Absolute Auto 0.9 X10*3/uL (0.1-1.2); Monocytes Percent Auto 7.2 % (2-11); Neutrophils Percent Auto 83.5 % (45-73); Platelet Count 272 X10*3/uL (160-400); Red Blood Count 2.93 X10*6/uL (4.60-5.80); Red Cell Distribution Width 13.7 % (11.0-16.0)
[2020-08-19 06:56] LABS: INTERNATIONAL NORM RATIO 1.2 (0.9-1.1); Prothrombin Time 14.3 SEC (10.8-13.0)
[2020-08-19 07:18] LABS: Alanine Aminotransferase < 6 U/L (0-40); Albumin Level 3.2 g/dL (3.5-5.0); Alkaline Phosphatase 46 U/L (39-117); Anion Gap 13 (12-20); Aspartate Amino Transferase 12 U/L (5-37); Bilirubin Direct 0.2 mg/dL (0.0-0.5); Bilirubin Total 0.4 mg/dL (0.0-1.0); Blood Urea Nitrogen 28 mg/dL (9-16); Calcium 9.2 mg/dL (8.4-10.2); Carbon Dioxide 17 mmol/L (22-29); Chloride 121 mmol/L (96-108); Creatinine Clr Calc Pharmacy 25.2; Estimated Glomerular Filt Rate 42; Glucose Random 93 mg/dL (60-115); Potassium 3.1 mmol/l (3.3-5.1); Sodium 148 mmol/L (135-145); Total Protein 7.5 g/dL (6.5-8.0)
[2020-08-19 08:32] VITALS: BP 145/76; PULSE 87; RESP 18; TEMP 37.2; O2SAT 94
[2020-08-19] MEDS: Heparin Sodium,Porcine 5,000 UNIT/ML VIAL 5000 UNIT SUBCUT ×3 (08:32→23:41)
[2020-08-19] MEDS: Divalproex Sodium Sprinkles 125 MG CAP.DR.SPR 500 MG PO ×2 (08:32→22:08)
[2020-08-19] MEDS: 0.9 % Sodium Chloride Flush 3 ML SYRINGE IVFLUSH ×3 (08:33→23:41)
[2020-08-19] MEDS: Aspirin Enteric Coated 81 MG TABLET.DR PO (08:42)
[2020-08-19] MEDS: amLODIPine Besylate 10 MG TABLET PO (08:42)
[2020-08-19] MEDS: Carbidopa/Levodopa 25/100 TABLET 2 TAB PO ×3 (08:46→22:05)
[2020-08-19] MEDS: Donepezil HCl 10 MG TABLET PO (08:54)
[2020-08-19] MEDS: Memantine HCl 5 MG TABLET PO ×2 (08:54→22:05)
[2020-08-19] MEDS: KCl 20 mEq in 5 % Dextrose 20 MEQ/1,000 ML IV.SOLN 60 MEQ IVCONT (09:34)
[2020-08-19 12:24] VITALS: BP 126/61; PULSE 87; RESP 18; TEMP 36.3; O2SAT 97
--- NOTE | 2020-08-19 13:59 | P.PNIM_ITS ---
Subjective Subjective Interval History: Seen and evaluated this morning More awake this morning, nonverbal, laying in his bed Was able to eat with help from the nurse No other overnight events Physical Exam Vital Signs: Vital Signs: Vital Signs Temp Pulse Resp BP Pulse Ox 08/19/20 12:24 97.4 F 87 18 126/61 97 08/19/20 08:32 98.9 F 87 18 145/76 H 94 08/19/20 04:00 99.3 F 91 22 H 135/71 92 08/19/20 00:00 98.1 F 93 20 127/73 96 08/18/20 19:18 99.2 F 88 16 115/61 94 08/18/20 19:15 98.9 F 08/18/20 15:33 101.4 F H 98 16 150/68 H 93 Body Mass Index 16.5 Constitutional : More alert this morning, not in distress Neck : Normal inspection, Supple Cardiovascular : RRR, S1 S2, no lower extremity edema Respiratory : Good bilateral air entry, no crackles, wheezes or rhonchi Gastrointestinal: soft, lax, Normal bowel sounds, Non tender Skin : Warm/Dry, No rash Neurological : altered, nonverbal, No focal deficit Objective Data Current Medications Generic Name Dose Route Start Last Admin Trade Name Freq PRN Reason Stop Dose Admin Acetaminophen 650 mg 08/18/20 13:43 08/18/20 15:54 Acetaminophen Supp 650 Mg Supp.Rect MS 650 mg Q4H PRN Administration Pain and Fever Amlodipine Besylate 10 mg 08/19/20 09:00 08/19/20 08:42 Amlodipine Besylate 10 Mg Tablet PO 10 mg DAILY RAQUEL Administration Protocol Aspirin 81 mg 08/19/20 09:00 08/19/20 08:42 Aspirin Enteric Coated 81 Mg Tablet.Dr PO 81 mg DAILY RAQUEL Administration Carbidopa/Levodopa 2 tab 08/18/20 17:00 08/19/20 12:52 Carbidopa/Levodopa 25/100 Tablet PO 2 tab QID RAQUEL Administration Divalproex Sodium 500 mg 08/18/20 21:00 08/18/20 20:56 Divalproex Sodium Er 500 Mg Tab.Er.24h PO Not Given BEDTIME RAQUEL Divalproex Sodium 500 mg 08/18/20 16:45 08/19/20 08:32 Divalproex Sodium Sprinkles 125 Mg Spr PO 500 mg TID RAQUEL Administration Docusate Sodium 100 mg 08/18/20 21:00 08/19/20 08:46 Docusate Sodium 100 Mg Capsule PO Not Given BID ON LICENSE OF [facility] Donepezil HCl 10 mg 08/19/20 09:00 08/19/20 08:54 Donepezil Hcl 10 Mg Tablet PO 10 mg DAILY RAQUEL Administration Heparin Sodium (Porcine) 5,000 unit 08/17/20 23:00 08/19/20 08:32 Heparin Sodium,Porcine 5,000 Unit/Ml Vial SUBCUT 5,000 unit Q8H RAQUEL Administration Piperacillin Sod/Tazobactam 50 mls @ 100 mls/hr 08/17/20 22:00 08/19/20 05:57 Sod 2.25 gm/ Sodium Chloride IV Infused Q8H RAQUEL Infusion Potassium Chloride/Dextrose 20 meq in 1,000 mls @ 60 mls/hr 08/19/20 09:00 08/19/20 09:34 IVCONT 60 mls/hr .[id number] RAQUEL Administration Acyclovir Sodium 480 mg/ 109.6 mls @ 109.997 mls/hr 08/19/20 11:00 08/19/20 12:52 Dextrose IV 110 mls/hr Q24H RAQUEL Administration Memantine 5 mg 08/18/20 21:00 08/19/20 08:54 Memantine Hcl 5 Mg Tablet PO 5 mg BID RAQUEL Administration Polyethylene Glycol 17 gm 08/19/20 09:00 08/19/20 08:46 Polyethylene Glycol 3350 17 Gm Powd.Pack PO Not Given DAILY ON LICENSE OF [facility] Sodium Chloride 3 ml 08/18/20 00:00 08/19/20 08:33 0.9 % Sodium Chloride Flush 3 Ml Syringe IVFLUSH 3 ml QSHIFT RAQUEL Administration Labs CBC & Chem 7: 08/19/20 05:50 08/19/20 05:50 Microbiology Microbiology Results: Microbiology 08/17/20 17:04 Blood - Venous Blood Culture - Preliminary No growth after 24 hours. 08/17/20 16:09 Blood - Venous Blood Culture - Preliminary No growth after 24 hours. Assessment and Plan (1) Seizure disorder: Status: Acute (2) Colitis: Status: Acute (3) Chronic constipation: Status: Acute (4) Parkinsons disease: Problem details: Status: Acute (5) Encephalopathy: Status: Acute Assessment and Plan: A 79 years old male with PMH of HTN, Parkinson's, seizure disorder, CKD who presents to the hospital home with breakthrough seizure activity and fever. Breakthrough seizure, seizure disorder Secondary to low level valproic acid Start Valproic acid 500 mg bid Neurology input appreciate; possible meningitis Seems less likely given patient improved mental status off Abx continue Seizure precautions Advanced diet as tolerated Sepsis, resolved Intra-abdominal infection Pending blood cultures no more fevers, Elevated WBcs CT scan of the abdomen concerning of possible colitis continue Zosyn IV GI input appreciate; chronic picutre, constipation possible, consider NG tube to check stool Ag Negative for C diff Hypernatremia Na went up to 148 DC NS Start D5 Hypokalemia To give replacement with IVF follow BMP Foot wound No clear infection but mainly sloughing of skin and bad odor to get wound care team Parkinson Continue Sinemet, Memantin To resume rest of his home medication DVT PPX Heparin
--- NOTE | 2020-08-19 14:16 | CONS_ITS ---
DATE OF SERVICE: 08/19/2020 REFERRING PHYSICIAN: Kerwin Malloy MD REASON FOR CONSULTATION: Fever, abnormal CT, and question of intraabdominal infection. HISTORY OF PRESENT ILLNESS: The patient is a 79-year-old man, who was admitted to the hospital on August 17 after presenting to the emergency department from his nursing facility with seizure activity and failure to thrive. He reportedly had several watery bowel movements and C diff testing was obtained, which was negative. As part of his evaluation, he underwent CT scanning of the abdomen and pelvis, which is reviewed with Dr. Beasley. This shows dilation of loops of colon with fluid-filled liquid with air-fluid levels, small bowel also had fluid-filled areas, but no dilation. There was no surrounding inflammatory change. There was one area with possible thickening versus under distention in the descending colon. Nursing reports the patient has had some loose stools, but no rectal bleeding and no complaints of abdominal pain. The patient provides no history due to dementia and Parkinson disease. PAST MEDICAL HISTORY: 1. Colon polyps with last colonoscopy in 12/28/2015 with limited visualization due to a poor prep. 2. Parkinson disease. 3. Hypertension. 4. COPD. 5. Dementia. 6. Renal insufficiency. 7. Vitamin D deficiency. 8. COVID infection earlier this year. 9. Seizure disorder. 10. Failure to thrive. CURRENT MEDICATIONS: Current medication list is reviewed in the chart. ALLERGIES: THERE ARE NONE REPORTED. FAMILY HISTORY: This is reviewed in the chart and is noncontributory. SOCIAL HISTORY: He has been residing at the nursing facility and is not reported to smoke or abuse alcohol. REVIEW OF SYSTEMS: This is not obtainable. PHYSICAL EXAMINATION: GENERAL: Reveals a pleasant, elderly male, who provides no history. He does appear to answer yes or no to questions, although it is not clear how much he understands. VITAL SIGNS: Stable. He has had a T-max of 101.4 on August 18 at 15:33. SKIN: Anicteric. HEENT: No scleral icterus. NECK: Without lymphadenopathy or thyromegaly. LUNGS: Show diminished breath sounds. HEART: Regular, S1 and S2. No murmur. ABDOMEN: Soft. There is some mild distention. Bowel sounds are present. He does not appear to be tender to palpation. EXTREMITIES: Trace edema. LABORATORY DATA: White blood cell count of 12, hematocrit 27.8. CT scanning is reviewed as above. IMPRESSION: Abnormal CT scan with diarrhea. At this point, his CT scan is very similar in appearance to prior scans and I suspect he has some chronic constipative symptoms due to his limited mobility and bed rest. He has also had previous evaluation for this and was last seen by Dr. Persaud in 2018 with what was thought to be a postobstructive diarrhea. At this point, he appears to be tolerating a diet and I would recommend fiber supplementation with Metamucil. I would obtain stool specimens to rule out other treatable infectious etiologies, although he does not appear to have any evidence of colitis on his CT scan. The finding as described above is unclear in significance and could be further evaluated electively with colonoscopy if aggressive intervention is desired, although with his current clinical condition, he would probably require an NG tube placement for administration of a bowel prep given his limited colonoscopy in 2016. It seems unlikely that there is a significant finding in the area in question and he certainly does not appear to have any evidence of colitis or inflammatory bowel disease on CT scanning. I would recommend continuing supportive care. I do not see anything on his CT scan that clinically requires antibiotics from a GI standpoint unless his stool studies show something otherwise. Thanks for asking me to see him. I will follow him in the hospital with you. MD EVERT Flowers/SKYLA / [id number]
[2020-08-19 15:33] LABS: Anion Gap 13 (12-20); Blood Urea Nitrogen 29 mg/dL (9-16); Calcium 9.1 mg/dL (8.4-10.2); Carbon Dioxide 19 mmol/L (22-29); Chloride 121 mmol/L (96-108); Creatinine Clr Calc Pharmacy 23.6; Estimated Glomerular Filt Rate 39; Glucose Random 105 mg/dL (60-115); Potassium 2.9 mmol/l (3.3-5.1); Sodium 150 mmol/L (135-145)
[2020-08-19 15:37] VITALS: BP 117/58; PULSE 91; RESP 18; TEMP 36.1; O2SAT 96
--- NOTE | 2020-08-19 16:52 | P.CONGS_ITS ---
History of Present Illness Consult details Narrative: the patient is a 79-year-old male with multiple problems consistent with ho of HTN, Parkinson's, seizure disorder, CKD chronic constipation immobilization. He was admitted at the hospital for questionable increased seizure activity and colitis and in the process it was noted that he a wound on his right toe. He has not been mobile and not moving in walking. He had COVID about 2 months ago and since then has been more lethargic and week in his assisted. He has not been verbal and communicative d in a consistent accurate way Review of Systems Review of Systems: Yes Unobtainable due to mental condition [facility] Past Medical History Functional capacity: independent ambulation Family History Family history: reviewed and not pertinent Social History Social History Household Members: Other Housing Other:: [facility] Smoking Status: Unknown if ever smoked Use of substances other than those prescribed or required for medical reasons: Unable to respond Currently Displaying Signs/Symptoms of Drug Intoxication Withdrawal: No Advance Directives: No Advance Directives Information Provided: No Do you have thoughts of harming others: None Do you have a plan to hurt others: No Plan Recently lost weight without trying: Unsure service: No Current occupational status: retired Meds Allergies Allergy/AdvReac Type Severity Reaction Status Date / Time No Known Allergies Allergy Unverified 07/15/20 14:49 Home Medications Medication Instructions Recorded Confirmed Type acetaminophen 650 mg PO Q4H PRN 08/18/20 08/18/20 History albuterol sulfate 2 inh INHALATION Q4H PRN 08/18/20 08/18/20 History amlodipine 10 mg PO DAILY 08/18/20 08/18/20 History aspirin 81 mg PO DAILY 08/18/20 08/18/20 History bisacodyl 10 mg [place] DAILY PRN 08/18/20 08/18/20 History carbidopa-levodopa 2 tab PO QID 08/18/20 08/18/20 History carbidopa-levodopa [Sinemet] 2 tab PO QID 08/18/20 08/18/20 History celecoxib 200 mg PO DAILY 08/18/20 08/18/20 History cholecalciferol (vitamin D3) 1,250 mcg PO QMONTH 08/18/20 08/18/20 History divalproex 250 mg PO TID 08/18/20 08/18/20 History docusate sodium 100 mg PO BID 08/18/20 08/18/20 History donepezil 10 mg PO DAILY 08/18/20 08/18/20 History escitalopram oxalate 5 mg PO DAILY 08/18/20 08/18/20 History gabapentin 100 mg PO BID 08/18/20 08/18/20 History memantine 5 mg PO BID 08/18/20 08/18/20 History metoclopramide HCl 10 mg PO QIDACHS 08/18/20 08/18/20 History polyethylene glycol 3350 [Miralax] 17 g PO DAILY 08/18/20 08/18/20 History sodium bicarbonate 650 mg PO TID PRN 08/18/20 08/18/20 History terazosin 1 mg PO BEDTIME 08/18/20 08/18/20 History Physical Exam Vital Signs: Vital Signs: Vital Signs Temp Pulse Resp BP Pulse Ox 08/19/20 15:37 97.0 F 91 18 117/58 L 96 08/19/20 12:24 97.4 F 87 18 126/61 97 08/19/20 08:32 98.9 F 87 18 145/76 H 94 08/19/20 04:00 99.3 F 91 22 H 135/71 92 08/19/20 00:00 98.1 F 93 20 127/73 96 08/18/20 19:18 99.2 F 88 16 115/61 94 08/18/20 19:15 98.9 F Body Mass Index 16.5 Constitutional : More alert this morning, not in distress Skin: Other: patient has a wound along the medial aspect of his right great toe with skin breakdown down to some fatty tissue and sloughing off of the superficial epidermal lining. There is some discoloration mild odor. He has palpable pedal pulses. Wounds: wounds noted Results Labs Result diagrams: 08/19/20 05:50 08/19/20 14:47 Labs: Abnormal lab results 08/19/20 08/19/20 08/19/20 Range/Units 05:50 05:50 05:50 WBC 12.0 H (4.8-10.8) X10*3/uL RBC 2.93 L (4.60-5.80) X10*6/uL Hgb 8.6 L (14.0-18.0) g/dl Hct 27.8 L (42-52) % MCHC 30.9 L (31.0-36.0) g/dl Immature Gran % (Auto) 0.7 H (0.0-0.4) % Neut % (Auto) 83.5 H (45-73) % Lymph % (Auto) 8.2 L (20-40) % Lymph # (Auto) 1.0 L (1.2-4.9) X10*3/uL Abs Immat Gran (auto) 0.08 H (0.00-0.03) X10*3/uL Absolute Neuts (auto) 10.0 H (2.0-8.3) X10*3/uL PT 14.3 H (10.8-13.0) SEC INR 1.2 H (0.9-1.1) Sodium 148 H (135-145) mmol/L Potassium 3.1 L (3.3-5.1) mmol/l Chloride 121 H (96-108) mmol/L Carbon Dioxide 17 L (22-29) mmol/L BUN 28 H (9-16) mg/dL Creatinine 1.61 H (0.5-1.4) mg/dL Albumin 3.2 L (3.5-5.0) g/dL 08/19/ Range/Units 14:47 WBC (4.8-10.8) X10*3/uL RBC (4.60-5.80) X10*6/uL Hgb (14.0-18.0) g/dl Hct (42-52) % MCHC (31.0-36.0) g/dl Immature Gran % (Auto) (0.0-0.4) % Neut % (Auto) (45-73) % Lymph % (Auto) (20-40) % Lymph # (Auto) (1.2-4.9) X10*3/uL Abs Immat Gran (auto) (0.00-0.03) X10*3/uL Absolute Neuts (auto) (2.0-8.3) X10*3/uL PT (10.8-13.0) SEC INR (0.9-1.1) Sodium 150 H (135-145) mmol/L Potassium 2.9 L (3.3-5.1) mmol/l Chloride 121 H (96-108) mmol/L Carbon Dioxide 19 L (22-29) mmol/L BUN 29 H (9-16) mg/dL Creatinine 1.72 H (0.5-1.4) mg/dL Albumin (3.5-5.0) g/dL Short CBC 08/19/20 Range/Units 05:50 WBC 12.0 H (4.8-10.8) X10*3/uL Hgb 8.6 L (14.0-18.0) g/dl Hct 27.8 L (42-52) % Plt Count 272 (160-400) X10*3/uL BMP 08/19/20 08/19/20 05:50 14:47 Sodium 148 H 150 H Potassium 3.1 L 2.9 L Chloride 121 H 121 H Carbon Dioxide 17 L 19 L BUN 28 H 29 H Creatinine 1.61 H 1.72 H Calcium 9.2 9.1 Liver Function 08/19/20 Range/Units 05:50 Total Bilirubin 0.4 (0.0-1.0) mg/dL Direct Bilirubin 0.2 (0.0-0.5) mg/dL AST 12 (5-37) U/L ALT < 6 (0-40) U/L Alkaline Phosphatase 46 D (39-117) U/L Albumin 3.2 L (3.5-5.0) g/dL Urine 08/17/20 Range/Units 17:43 Urine Color YELLOW Urine Appearance CLEAR Urine pH 5.5 (5.0-8.0) Ur Specific [place] >= 1.030 H (1.005-1.025) Urine Protein 2+ H (NEG-TRACE) MG/DL Urine Glucose (UA) NEG (NEG) MG/DL All other labs normal. Assessment and Plan (1) Seizure disorder: Status: Acute (2) Colitis: Status: Acute (3) Chronic constipation: Status: Acute (4) Parkinsons disease: Problem details: Status: Acute (5) Encephalopathy: Status: Acute A 79 years old male withho PMH of HTN, Parkinson's, seizure disorder, CKD w presents to the hospital home with breakthrough seizure activity and fever. Patient with right medial foot wound probably secondary to some pressure from immobilization and being ill. Plan is to just cleaned off the area and apply some calcium alginate to the wound and wrap. He currently is on antibiotics 1st colitis and the medication will be helpful for his wound is well. Try to keep the leg elevated and prevent other pressure wounds from occurring on other areas of his sacrum back and extremities. If the patient is discharged in still has an open wound in place will be happy to see and follow him here in the wound care clinic as an outpatient.
[2020-08-19 20:00] VITALS: BP 130/68; PULSE 85; RESP 18; TEMP 36.2; O2SAT 96
[2020-08-19 21:13] LABS: Anion Gap 13 (12-20); Blood Urea Nitrogen 28 mg/dL (9-16); Calcium 9.1 mg/dL (8.4-10.2); Carbon Dioxide 19 mmol/L (22-29); Chloride 120 mmol/L (96-108); Creatinine Clr Calc Pharmacy 23.2; Estimated Glomerular Filt Rate 38; Glucose Random 133 mg/dL (60-115); Potassium 2.9 mmol/l (3.3-5.1); Sodium 149 mmol/L (135-145)
[2020-08-19] MEDS: KCl 20 mEq in 5 % Dextrose 20 MEQ/1,000 ML IV.SOLN 125 MEQ IVCONT (23:01)
[2020-08-20] VITALS (7 sets, daily range): BP systolic 134–167; BP diastolic 64–78; PULSE 73–100; RESP 18–20; TEMP 36.2–38.1; O2SAT 95–98
[2020-08-20 04:26] LABS: SARS COV2 IgG Positive (Negative)
[2020-08-20] MEDS: Piperacillin Sodium/Tazobactam 2.25 GM in 0.9 % Sodium Chloride 50 ML IV ×3 (06:02→21:29)
[2020-08-20] MEDS: Heparin Sodium,Porcine 5,000 UNIT/ML VIAL 5000 UNIT SUBCUT ×3 (06:04→23:30)
[2020-08-20 06:16] LABS: MANUAL DIFF FLAG NO
[2020-08-20 06:32] LABS: Basophils Percent Auto 0.3 % (0-2); Eosinophils Percent Auto 0.4 % (0-4); Hematocrit 26.5 % (42-52); Hemoglobin 8.1 g/dl (14.0-18.0); Imm Gran Abs Auto 0.06 X10*3/uL (0.00-0.03); Imm Gran Pct Auto 0.6 % (0.0-0.4); Lymphocytes Absolute Auto 0.9 X10*3/uL (1.2-4.9); Lymphocytes Percent Auto 8.7 % (20-40); Mean Corpuscular HGB Conc 30.6 g/dl (31.0-36.0); Mean Corpuscular Hemoglobin 28.7 pg (27.0-33.0); Mean Platelet Volume 9.8 fL (9.4-12.4); Monocytes Absolute Auto 0.9 X10*3/uL (0.1-1.2); Neutrophils Absolute Auto 8.7 X10*3/uL (2.0-8.3); Platelet Count 268 X10*3/uL (160-400); Red Blood Count 2.82 X10*6/uL (4.60-5.80); Red Cell Distribution Width 13.8 % (11.0-16.0); White Blood Count 10.6 X10*3/uL (4.8-10.8)
[2020-08-20 06:55] LABS: Alanine Aminotransferase < 6 U/L (0-40); Albumin Level 3.2 g/dL (3.5-5.0); Alkaline Phosphatase 44 U/L (39-117); Anion Gap 11 (12-20); Aspartate Amino Transferase 11 U/L (5-37); Bilirubin Direct 0.2 mg/dL (0.0-0.5); Bilirubin Total 0.3 mg/dL (0.0-1.0); Blood Urea Nitrogen 23 mg/dL (9-16); Carbon Dioxide 19 mmol/L (22-29); Chloride 117 mmol/L (96-108); Creatinine Clr Calc Pharmacy 25.5; Estimated Glomerular Filt Rate 42; Glucose Random 116 mg/dL (60-115); Potassium 3.1 mmol/l (3.3-5.1); Sodium 144 mmol/L (135-145); Total Protein 7.4 g/dL (6.5-8.0)
[2020-08-20] MEDS: Donepezil HCl 10 MG TABLET PO (07:51)
[2020-08-20] MEDS: Aspirin Enteric Coated 81 MG TABLET.DR PO (07:51)
[2020-08-20] MEDS: Carbidopa/Levodopa 25/100 TABLET 2 TAB PO ×3 (07:51→16:44)
[2020-08-20] MEDS: 0.9 % Sodium Chloride Flush 3 ML SYRINGE IVFLUSH ×3 (07:52→23:30)
[2020-08-20] MEDS: Divalproex Sodium Sprinkles 125 MG CAP.DR.SPR 500 MG PO (07:52)
[2020-08-20] MEDS: amLODIPine Besylate 10 MG TABLET PO (07:52)
[2020-08-20] MEDS: Memantine HCl 5 MG TABLET PO (07:52)
[2020-08-20] MEDS: KCl 20 mEq in 5 % Dextrose 20 MEQ/1,000 ML IV.SOLN 125 MEQ IVCONT ×2 (07:53→16:45)
[2020-08-20] MEDS: Docusate Sodium 100 MG CAPSULE PO (07:53)
[2020-08-20] MEDS: polyethylene glycoL 3350 17 GM POWD.PACK PO (07:53)
--- NOTE | 2020-08-20 11:12 | MHC.CLN ---
F/U PT CONTINUES WITH POOR PO DIET RX: PUREED WITH HT LIQ-APPROPRIATE ENSURE AND MEGHNA IN PLACE TO PROMOTE WOUND HEALING FOLLOWING
--- NOTE | 2020-08-20 15:32 | P.PNIM_ITS ---
Subjective Subjective Interval History: Seen and evaluated this morning More awake this morning, nonverbal, laying in his bed Was able to eat with help from the nurse No other overnight events Physical Exam Vital Signs: Vital Signs: Vital Signs Temp Pulse Resp BP Pulse Ox 08/20/20 11:05 100.0 F 73 143/75 H 95 08/20/20 08:00 98.2 F 74 18 134/64 98 08/20/20 03:34 99.2 F 77 18 142/67 H 97 08/20/20 00:00 98.3 F 76 18 143/71 H 98 08/19/20 20:00 97.2 F 85 18 130/68 96 08/19/20 15:37 97.0 F 91 18 117/58 L 96 Body Mass Index 16.5 Constitutional : More alert this morning, not in distress Neck : Normal inspection, Supple Cardiovascular : RRR, S1 S2, no lower extremity edema Respiratory : Good bilateral air entry, no crackles, wheezes or rhonchi Gastrointestinal: soft, lax, Normal bowel sounds, Non tender Skin : Warm/Dry, No rash Neurological : altered, nonverbal, No focal deficit Objective Data Current Medications Generic Name Dose Route Start Last Admin Trade Name Freq PRN Reason Stop Dose Admin Acetaminophen 650 mg 08/18/20 13:43 08/18/20 15:54 Acetaminophen Supp 650 Mg Supp.Rect [place] 650 mg Q4H PRN Administration Pain and Fever Amlodipine Besylate 10 mg 08/19/20 09:00 08/20/20 07:52 Amlodipine Besylate 10 Mg Tablet PO 10 mg DAILY RAQUEL Administration Protocol Aspirin 81 mg 08/19/20 09:00 08/20/20 07:51 Aspirin Enteric Coated 81 Mg Tablet. PO 81 mg DAILY RAQUEL Administration Carbidopa/Levodopa 2 tab 08/18/20 17:00 08/20/20 13:02 Carbidopa/Levodopa 25/100 Tablet PO 2 tab QID RAQUEL Administration Divalproex Sodium 500 mg 08/19/20 21:00 08/20/20 07:52 Divalproex Sodium Sprinkles 125 Mg Sage. PO 500 mg BID RAQUEL Administration Docusate Sodium 100 mg 08/18/20 21:00 08/20/20 07:53 Docusate Sodium 100 Mg Capsule PO 100 mg BID RAQUEL Administration Donepezil HCl 10 mg 08/19/20 09:00 08/20/20 07:51 Donepezil Hcl 10 Mg Tablet PO 10 mg DAILY RAQUEL Administration Heparin Sodium (Porcine) 5,000 unit 08/17/20 23:00 08/20/20 06:04 Heparin Sodium,Porcine 5,000 Unit/Ml Vial SUBCUT 5,000 unit Q8H RAQUEL Administration Piperacillin Sod/Tazobactam 50 mls @ 100 mls/hr 08/17/20 22:00 08/20/20 13:33 Sod 2.25 gm/ Sodium Chloride IV Infused Q8H RAQUEL Infusion Potassium Chloride/Dextrose 20 meq in 1,000 mls @ 125 mls/hr 08/19/20 09:00 08/20/20 07:53 IVCONT 125 mls/hr .Q8H RAQUEL Administration Acyclovir Sodium 480 mg/ 109.6 mls @ 109.997 mls/hr 08/19/20 11:00 08/20/20 12:06 Dextrose IV Infused Q24H RAQUEL Infusion Memantine 5 mg 08/18/20 21:00 08/20/20 07:52 Memantine Hcl 5 Mg Tablet PO 5 mg BID RAQUEL Administration Non-Formulary Medication 1 applicatio 08/20/20 09:00 08/20/20 07:52 Calcium Alginate TOPICAL 1 applicatio DAILY RAQUEL Administration Polyethylene Glycol 17 gm 08/19/20 09:00 08/20/20 07:53 Polyethylene Glycol 3350 17 Gm Powd.Pack PO 17 gm DAILY RAQUEL Administration Sodium Chloride 3 ml 08/18/20 00:00 08/20/20 07:52 0.9 % Sodium Chloride Flush 3 Ml Syringe IVFLUSH 3 ml QSHIFT RAQUEL Administration Labs CBC & Chem 7: 08/20/20 05:49 08/20/20 05:50 Microbiology Microbiology Results: Microbiology 08/17/20 17:04 Blood - Venous Blood Culture - Preliminary No growth after 48 hours. 08/17/20 16:09 Blood - Venous Blood Culture - Preliminary No growth after 48 hours. Assessment and Plan (1) Seizure disorder: Status: Acute (2) Colitis: Status: Acute (3) Chronic constipation: Status: Acute (4) Parkinsons disease: Problem details: Status: Acute (5) Encephalopathy: Status: Acute Assessment and Plan: A 79 years old male with PMH of HTN, Parkinson's, seizure disorder, CKD who presents to the hospital home with breakthrough seizure activity and fever. Breakthrough seizure, seizure disorder Secondary to low level valproic acid Continue Valproic acid 500 mg bid Neurology input appreciate; no need for CFS analysis or antiviral continue Seizure precautions Advanced diet as tolerated Sepsis, resolved Intra-abdominal infection Pending blood cultures no more fevers, Elevated WBcs CT scan of the abdomen concerning of possible colitis continue Zosyn IV GI input appreciate; chronic picutre, constipation possible, consider NG tube to check stool Ag Negative for C diff Hypernatremia Na improved to 144 this morning DC NS continue D5 Covid 19 Patient has positive test, had the infection previously No on O2, no respiratory symptoms at this point His general lethargy, hypernatremia could be half-way effects from the previous infection Hypokalemia improved To give replacement with IVF follow BMP Foot wound No clear infection but mainly sloughing of skin and bad odor wound care team input cleaned off the area and apply some calcium alginate to the wound and wrap follow up at wound clinic after dc Parkinson Continue Sinemet, Memantin To resume rest of his home medication DVT PPX Heparin
[2020-08-20] MEDS: Acetaminophen Supp 650 MG SUPP.RECT PR (20:12)
--- NOTE | 2020-08-21 01:20 | PC.NURSE ---
Pt @ 2029 lethargic and unable to swallow pm meds, attempt @ 2099 & 2129, opens eyes but does not open mouth for pm meds 9even after turning & cleaninng pt/. 2199 pt with turning/repos opens eyes & mouth & whispers that he'd try to swallow. once food in mouth eyes closed & would not swallow, despite encouragement, mason suctioned meds out. will [facility] hospitalist.
[2020-08-21 03:19] VITALS: BP 146/68; PULSE 86; RESP 19; TEMP 37.7; O2SAT 96
[2020-08-21] MEDS: Piperacillin Sodium/Tazobactam 2.25 GM in 0.9 % Sodium Chloride 50 ML IV ×3 (05:51→22:35)
[2020-08-21] MEDS: Heparin Sodium,Porcine 5,000 UNIT/ML VIAL 5000 UNIT SUBCUT ×3 (05:52→22:42)
[2020-08-21 06:53] LABS: MANUAL DIFF FLAG NO
[2020-08-21 07:10] VITALS: BP 129/57; PULSE 85; RESP 20; TEMP 37.6; O2SAT 98
[2020-08-21 07:12] LABS: Basophils Percent Auto 0.2 % (0-2); Eosinophils Percent Auto 0.3 % (0-4); Hematocrit 26.3 % (42-52); Hemoglobin 8.1 g/dl (14.0-18.0); Imm Gran Abs Auto 0.06 X10*3/uL (0.00-0.03); Imm Gran Pct Auto 0.6 % (0.0-0.4); Lymphocytes Percent Auto 9.4 % (20-40); Mean Corpuscular HGB Conc 30.8 g/dl (31.0-36.0); Mean Corpuscular Hemoglobin 28.4 pg (27.0-33.0); Mean Corpuscular Volume 92.3 fL (80-98); Mean Platelet Volume 9.8 fL (9.4-12.4); Monocytes Absolute Auto 0.8 X10*3/uL (0.1-1.2); Monocytes Percent Auto 7.9 % (2-11); Neutrophils Absolute Auto 8.3 X10*3/uL (2.0-8.3); Neutrophils Percent Auto 81.6 % (45-73); Platelet Count 288 X10*3/uL (160-400); Red Blood Count 2.85 X10*6/uL (4.60-5.80); White Blood Count 10.2 X10*3/uL (4.8-10.8)
[2020-08-21 07:36] LABS: Anion Gap 13 (12-20); Blood Urea Nitrogen 14 mg/dL (9-16); Calcium 8.8 mg/dL (8.4-10.2); Carbon Dioxide 17 mmol/L (22-29); Chloride 114 mmol/L (96-108); Creatinine Clr Calc Pharmacy 31.2; Estimated Glomerular Filt Rate 53; Glucose Random 97 mg/dL (60-115); Potassium 3.3 mmol/l (3.3-5.1); Sodium 141 mmol/L (135-145)
[2020-08-21] MEDS: 0.9 % Sodium Chloride Flush 3 ML SYRINGE IVFLUSH ×2 (07:52→14:08)
[2020-08-21] MEDS: KCl 20 mEq in 5 % Dextrose 20 MEQ/1,000 ML IV.SOLN 75 MEQ IVCONT (07:55)
[2020-08-21 11:06] VITALS: BP 116/69; PULSE 86; RESP 20; TEMP 37.7; O2SAT 97
--- NOTE | 2020-08-21 12:18 | HO.PM.IMPN ---
Subjective Subjective Interval History: Seen and evaluated this morning awake this morning with stimulation, nonverbal, laying in his bed not able to eat with help from the nurse No other overnight events Physical Exam Vital Signs: Vital Signs: Vital Signs Temp Pulse Resp BP Pulse Ox 08/21/20 11:06 99.8 F 86 20 116/69 97 08/21/20 07:10 99.7 F 85 20 129/57 L 98 08/21/20 03:19 99.9 F 86 19 146/68 H 96 08/20/20 23:21 100.2 F 86 19 140/64 H 98 08/20/20 19:12 100.5 F H 100 19 166/78 H 96 08/20/20 16:00 97.2 F 94 20 167/77 H 96 Body Mass Index 16.5 Constitutional : alert with stimulation, not interactive, not in distress Neck : Normal inspection, Supple Cardiovascular : RRR, S1 S2, no lower extremity edema Respiratory : Good bilateral air entry, no crackles, wheezes or rhonchi Gastrointestinal: soft, lax, Normal bowel sounds, Non tender Skin : Warm/Dry, No rash Neurological : altered, nonverbal, No focal deficit Objective Data Current Medications Generic Name Dose Route Start Last Admin Trade Name Freq PRN Reason Stop Dose Admin Acetaminophen 650 mg 08/18/20 13:43 08/20/20 20:12 Acetaminophen Supp 650 Mg Supp.Rect [place] 650 mg Q4H PRN Administration Pain and Fever Amlodipine Besylate 10 mg 08/19/20 09:00 08/21/20 08:36 Amlodipine Besylate 10 Mg Tablet PO Not Given DAILY [facility] Protocol Aspirin 81 mg 08/19/20 09:00 08/21/20 08:36 Aspirin Enteric Coated 81 Mg Tablet. PO Not Given DAILY [facility] Carbidopa/Levodopa 2 tab 08/18/20 17:00 08/21/20 08:36 Carbidopa/Levodopa 25/100 Tablet PO Not Given QID [facility] Divalproex Sodium 500 mg 08/19/20 21:00 08/21/20 08:36 Divalproex Sodium Sprinkles 125 Mg Cap. PO Not Given BID [facility] Docusate Sodium 100 mg 08/18/20 21:00 08/21/20 08:36 Docusate Sodium 100 Mg Capsule PO Not Given BID [facility] Donepezil HCl 10 mg 08/19/20 09:00 08/21/20 08:37 Donepezil Hcl 10 Mg Tablet PO Not Given DAILY [facility] Heparin Sodium (Porcine) 5,000 unit 08/17/20 23:00 08/21/20 05:52 Heparin Sodium,Porcine 5,000 Unit/Ml Vial SUBCUT 5,000 unit Q8H RAQUEL Administration Piperacillin Sod/Tazobactam 50 mls @ 100 mls/hr 08/17/20 22:00 08/21/20 07:08 Sod 2.25 gm/ Sodium Chloride IV Infused Q8H RAQUEL Infusion Potassium Chloride/Dextrose 20 meq in 1,000 mls @ 75 mls/hr 08/19/20 09:00 08/21/20 07:55 IVCONT 75 mls/hr .[id number] RAQUEL Administration Memantine 5 mg 08/18/20 21:00 08/21/20 08:37 Memantine Hcl 5 Mg Tablet PO Not Given BID [facility] Non-Formulary Medication 1 applicatio 08/20/20 09:00 08/21/20 07:53 Calcium Alginate TOPICAL 1 applicatio DAILY RAQUEL Administration Polyethylene Glycol 17 gm 08/19/20 09:00 08/21/20 08:37 Polyethylene Glycol 3350 17 Gm Powd.Pack PO Not Given DAILY [facility] Sodium Chloride 3 ml 08/18/20 00:00 08/21/20 07:52 0.9 % Sodium Chloride Flush 3 Ml Syringe IVFLUSH 3 ml QSHIFT RAQUEL Administration Labs CBC & Chem 7: 08/21/20 06:16 08/21/20 06:16 Microbiology Microbiology Results: Microbiology 08/17/20 17:04 Blood - Venous Blood Culture - Preliminary No growth after 48 hours. 08/17/20 16:09 Blood - Venous Blood Culture - Preliminary No growth after 48 hours. Assessment and Plan (1) Seizure disorder: Status: Acute (2) Colitis: Status: Acute (3) Chronic constipation: Status: Acute (4) Parkinsons disease: Problem details: Status: Acute (5) Encephalopathy: Status: Acute Assessment and Plan: A 79 years old male with PMH of HTN, Parkinson's, seizure disorder, CKD who presents to the hospital home with breakthrough seizure activity and fever. Breakthrough seizure, seizure disorder Secondary to low level valproic acid no more seizures inpatient Continue Valproic acid 500 mg bid Neurology input appreciate; no need for CFS analysis or antiviral continue Seizure precautions Advanced diet as tolerated Sepsis, resolved Intra-abdominal infection negative blood cultures no more fevers, Elevated WBcs CT scan of the abdomen concerning of possible colitis continue Zosyn IV GI input appreciate; chronic picutre, constipation possible, consider NG tube to check stool Ag Negative for C diff Hypernatremia Na improved to 141 this morning continue D5 Covid 19 Patient has positive test, had the infection previously Likelky immune, +ve IgG No on O2, no respiratory symptoms at this point His general lethargy, hypernatremia could be intermodal dispatcher effects from the previous infection Hypokalemia To give replacement with IVF follow BMP Foot wound No clear infection but mainly sloughing of skin and bad odor wound care team input cleaned off the area and apply some calcium alginate to the wound and wrap follow up at wound clinic after dc Parkinson Continue Sinemet, Memantin To resume rest of his home medication DVT PPX Heparin
--- NOTE | 2020-08-21 13:01 | W.MHC.ACPN ---
Advanced Care Planning Note Advanced Care Planning Note Discussed with: family member(s) and surrogate Time spent (in minutes): 20 Narrative: I had a chance to speak with the daughter and healthcare proxy the patient kyra oseguera. We discussed current hospital stay and ongoing medical problems with the goals of care. The patient presented to the hospital with reported seizures. It was also reported decreased oral intake, mental status and activity over the last few weeks. He has recent COVID-19 infection which she did not recover totally from it. Since admission the patient has been lethargic, barely waking up, not eating much and not taking all his oral medications. He has been treated for suspected colitis and hypernatremia. At this point the HCP would like to continue all the medical treatment. We discussed code status which she believe he should remain as full code. I explained CPR to her in the risk that carries for some on his age and medical problems but she insisted on keeping him as a full code. She will discuss that with her brother as well and will continue to follow up. Problems Discussed (1) Failure to thrive: (2) Seizure disorder: (3) Colitis: (4) Chronic constipation: (5) Parkinsons disease: (6) Encephalopathy: (7) Multifactorial dementia: (8) Epileptic seizure:
[2020-08-21 16:00] VITALS: BP 144/68; PULSE 87; RESP 20; TEMP 37.2; O2SAT 96
[2020-08-21] MEDS: Valproic Acid (as Sodium Salt) 500 MG in Dextrose 5 % 50 ML 55 MG IV (18:30)
[2020-08-21 20:00] VITALS: BP 151/72; PULSE 92; RESP 20; TEMP 38.6; O2SAT 94
[2020-08-21] MEDS: Acetaminophen Supp 650 MG SUPP.RECT PR (20:19)
[2020-08-21] MEDS: Carbidopa/Levodopa 25/100 TABLET 2 TAB PO (20:24)
[2020-08-21] MEDS: Memantine HCl 5 MG TABLET PO (20:24)
[2020-08-21 22:29] LABS: OBS Int Ctl Valid YES; OBS1 NEG (NEG)
[2020-08-21 22:56] LABS: Leukocytes Stool Qualitative NEGATIVE (NEGATIVE)
[2020-08-22] VITALS (7 sets, daily range): BP systolic 137–169; BP diastolic 63–74; PULSE 82–90; RESP 18–20; TEMP 36.6–37.4; O2SAT 95–98
[2020-08-22] MEDS: KCl 20 mEq in 5 % Dextrose 20 MEQ/1,000 ML IV.SOLN 50 MEQ IVCONT (02:37)
[2020-08-22] MEDS: Piperacillin Sodium/Tazobactam 2.25 GM in 0.9 % Sodium Chloride 50 ML IV (05:37)
--- NOTE | 2020-08-22 06:22 | PC.NURSE ---
PT LETHARGIC, DOES NOT MOVE UNLESS HE IS REPOSITIONED. WAS AWAKE OFF AND ON DURING THE NIGHT. WAS ABLE TO TAKE HIS HS MEDS CRUSHED IN APPLESAUCE. INCONTINENT OF LIQUID BROWN STOOL. RECTAL TUBE INSERTED WITHOUT DIFFICULTY. STOOL SAMPLE OBTAINED. JASEN CARE GIVEN. BARRIER CREAM APPLIED TO JASEN AREA. EXTERNAL MALE CATHETER IN PLACE DRAINING DHEERAJ URINE. TEMP UP TO 101.4 AX. PT RECEIVED TYLENOL SUPP WITH GOOD EFFECT. BEDBATH GIVEN. PT REPOSITIONED Q2H. ON SPECIAL CARE MATTRESS FOR SKIN. DSG RT FOOT D&I.
[2020-08-22] MEDS: Heparin Sodium,Porcine 5,000 UNIT/ML VIAL 5000 UNIT SUBCUT ×3 (06:41→23:12)
[2020-08-22 07:46] LABS: Anion Gap 14 (12-20); Blood Urea Nitrogen 13 mg/dL (9-16); Calcium 8.8 mg/dL (8.4-10.2); Carbon Dioxide 18 mmol/L (22-29); Chloride 112 mmol/L (96-108); Creatinine Clr Calc Pharmacy 32.2; Estimated Glomerular Filt Rate 55; Glucose Random 92 mg/dL (60-115); Potassium 3.4 mmol/l (3.3-5.1); Sodium 141 mmol/L (135-145)
[2020-08-22 09:11] LABS: Valproate 17.2 mcg/mL (50.0-100.0)
[2020-08-22] MEDS: Aspirin Enteric Coated 81 MG TABLET.DR PO (10:25)
[2020-08-22] MEDS: Carbidopa/Levodopa 25/100 TABLET 2 TAB PO ×3 (10:25→17:19)
[2020-08-22] MEDS: Valproic Acid (as Sodium Salt) 500 MG in Dextrose 5 % 50 ML 55 MG IV ×2 (10:25→23:17)
[2020-08-22] MEDS: amLODIPine Besylate 10 MG TABLET PO (10:26)
[2020-08-22] MEDS: Memantine HCl 5 MG TABLET PO (10:26)
[2020-08-22] MEDS: 0.9 % Sodium Chloride Flush 3 ML SYRINGE IVFLUSH ×3 (10:27→17:19)
[2020-08-22] MEDS: Donepezil HCl 10 MG TABLET PO (10:40)
[2020-08-22 11:35] LABS: CDIFF Ag Negative (Negative); CDIFF Internal ctrl Dots and bkg OK (V); CDiff Toxin Negative (Negative)
--- NOTE | 2020-08-22 11:55 | P.PNIM_ITS ---
Subjective Subjective Date of Service: 08/22/20 Interval History: Seen and evaluated this morning awake this morning with stimulation, nonverbal, laying in his bed very weak and wasnot able to eat with help from the nurse on most of the day yesterday and this morning No other overnight events Physical Exam Vital Signs: Vital Signs: Vital Signs Temp Pulse Resp BP Pulse Ox 08/22/20 08:00 99.4 F 82 20 138/64 96 08/22/20 03:25 98.3 F 87 20 143/63 H 98 08/22/20 00:11 99.2 F 90 18 140/74 H 95 08/21/20 20:00 101.4 F H 92 20 151/72 H 94 08/21/20 16:00 99.0 F 87 20 144/68 H 96 Body Mass Index 16.5 Constitutional : alert with stimulation, lethargic, not interactive, not in distress Neck : Normal inspection, Supple Cardiovascular : RRR, S1 S2, no lower extremity edema Respiratory : Good bilateral air entry, no crackles, wheezes or rhonchi Gastrointestinal: soft, lax, Normal bowel sounds, Non tender Skin : Warm/Dry, No rash Neurological : altered, nonverbal, No focal deficit Objective Data Current Medications Generic Name Dose Route Start Last Admin Trade Name Freq PRN Reason Stop Dose Admin Acetaminophen 650 mg 08/18/20 13:43 08/21/20 20:19 Acetaminophen Supp 650 Mg Supp.Rect [place] 650 mg Q4H PRN Administration Pain and Fever Amlodipine Besylate 10 mg 08/19/20 09:00 08/22/20 10:26 Amlodipine Besylate 10 Mg Tablet PO 10 mg DAILY RAQUEL Administration Protocol Aspirin 81 mg 08/19/20 09:00 08/22/20 10:25 Aspirin Enteric Coated 81 Mg Tablet.Dr PO 81 mg DAILY RAQUEL Administration Carbidopa/Levodopa 2 tab 08/18/20 17:00 08/22/20 10:25 Carbidopa/Levodopa 25/100 Tablet PO 2 tab QID RAQUEL Administration Docusate Sodium 100 mg 08/18/20 21:00 08/22/20 10:28 Docusate Sodium 100 Mg Capsule PO Not Given BID RAQUEL Donepezil HCl 10 mg 08/19/20 09:00 08/22/20 10:40 Donepezil Hcl 10 Mg Tablet PO 10 mg DAILY RAQUEL Administration Heparin Sodium (Porcine) 5,000 unit 08/17/20 23:00 08/22/20 06:41 Heparin Sodium,Porcine 5,000 Unit/Ml Vial SUBCUT 5,000 unit Q8H RAQUEL Administration Valproic Acid 500 mg/ Dextrose 55 mls @ 55 mls/hr 08/21/20 16:30 08/22/20 10:25 IV 55 mls/hr BID RAQUEL Administration Memantine 5 mg 08/18/20 21:00 08/22/20 10:26 Memantine Hcl 5 Mg Tablet PO 5 mg BID RAQUEL Administration Non-Formulary Medication 1 applicatio 08/20/20 09:00 08/22/20 10:27 Calcium Alginate TOPICAL 1 applicatio DAILY RAQUEL Administration Polyethylene Glycol 17 gm 08/19/20 09:00 08/22/20 10:28 Polyethylene Glycol 3350 17 Gm Powd.Pack PO Not Given DAILY RAQUEL Sodium Chloride 3 ml 08/18/20 00:00 08/22/20 10:27 0.9 % Sodium Chloride Flush 3 Ml Syringe IVFLUSH 3 ml QSHIFT RAQUEL Administration Labs CBC & Chem 7: 08/21/20 06:16 08/22/20 06:33 Microbiology Microbiology Results: Microbiology 08/21/20 21:51 Stool Stool Culture - Preliminary Culture in progress. 08/17/20 17:04 Blood - Venous Blood Culture - Preliminary No growth after 48 hours. 08/17/20 16:09 Blood - Venous Blood Culture - Preliminary No growth after 48 hours. Assessment and Plan (1) Failure to thrive: Status: Acute (2) Seizure disorder: Status: Acute (3) Colitis: Status: Acute (4) Chronic constipation: Status: Acute (5) Parkinsons disease: Problem details: Status: Acute (6) Encephalopathy: Status: Acute Assessment and Plan: A 79 years old male with PMH of HTN, Parkinson's, seizure disorder, CKD who presents to the hospital home with breakthrough seizure activity and fever. Breakthrough seizure, seizure disorder Secondary to low level valproic acid Continue Valproic acid 500 mg bid Neurology input appreciate; no need for CFS analysis or antiviral continue Seizure precautions Advanced diet as tolerated Sepsis, resolved Intra-abdominal infection, colitis Negative blood cultures no more fevers, Elevated WBcs CT scan of the abdomen concerning of possible colitis , GI does not thing the patient has acute infection though he received total of 5 days of antibiotics Discontinue Zosyn IV GI input appreciate; chronic picture, constipation possible, consider NG tube to check stool Ag diarrhea Rectal tube placed overnight Negative for C diff at admission, to recheck for ongoing diarrhea hold antibiotics for now Failure to Thrive Patient unable to eat or drink by himself, very weak to eat with anesthesiologist assistant Discussed with his HCP, to get a PICC tube Surgical consult placed for PEG tube placement Hypernatremia Na improved to 141 this morning DC NS continue D5 Covid 19 Patient has positive test, had the infection previously No on O2, no respiratory symptoms at this point His general lethargy, hypernatremia could be senior living effects from the previous infection Hypokalemia improved To give replacement with IVF follow BMP Foot wound No clear infection but mainly sloughing of skin and bad odor wound care team input cleaned off the area and apply some calcium alginate to the wound and wrap follow up at wound clinic after dc Parkinson Continue Sinemet, Memantin To resume rest of his home medication DVT PPX Heparin (7) Multifactorial dementia: Status: Acute (8) Epileptic seizure: Status: Acute
[2020-08-23] MEDS: 0.9 % Sodium Chloride Flush 3 ML SYRINGE IVFLUSH ×2 (00:22→08:47)
[2020-08-23 04:00] VITALS: BP 170/89; PULSE 97; RESP 18; TEMP 36.9; O2SAT 94
[2020-08-23 06:09] LABS: MANUAL DIFF FLAG NO
[2020-08-23 06:12] LABS: Basophils Percent Auto 0.3 % (0-2); Eosinophils Absolute Auto 0.2 X10*3/uL (0.0-0.4); Eosinophils Percent Auto 1.4 % (0-4); Hematocrit 25.9 % (42-52); Hemoglobin 8.2 g/dl (14.0-18.0); Imm Gran Abs Auto 0.07 X10*3/uL (0.00-0.03); Imm Gran Pct Auto 0.6 % (0.0-0.4); Lymphocytes Absolute Auto 1.1 X10*3/uL (1.2-4.9); Lymphocytes Percent Auto 9.9 % (20-40); Mean Corpuscular HGB Conc 31.7 g/dl (31.0-36.0); Mean Corpuscular Hemoglobin 28.8 pg (27.0-33.0); Mean Corpuscular Volume 90.9 fL (80-98); Monocytes Absolute Auto 0.8 X10*3/uL (0.1-1.2); Monocytes Percent Auto 7.3 % (2-11); Neutrophils Absolute Auto 9.2 X10*3/uL (2.0-8.3); Neutrophils Percent Auto 80.5 % (45-73); Platelet Count 283 X10*3/uL (160-400); Red Blood Count 2.85 X10*6/uL (4.60-5.80); Red Cell Distribution Width 14.1 % (11.0-16.0); White Blood Count 11.5 X10*3/uL (4.8-10.8)
[2020-08-23 06:38] LABS: Anion Gap 15 (12-20); Blood Urea Nitrogen 11 mg/dL (9-16); Calcium 9.2 mg/dL (8.4-10.2); Carbon Dioxide 18 mmol/L (22-29); Chloride 112 mmol/L (96-108); Creatinine Clr Calc Pharmacy 35.3; Estimated Glomerular Filt Rate > 60; Glucose Random 100 mg/dL (60-115); Potassium 3.7 mmol/l (3.3-5.1); Sodium 141 mmol/L (135-145)
[2020-08-23 08:00] VITALS: BP 158/83; PULSE 98; RESP 17; TEMP 36.6; O2SAT 96
[2020-08-23] MEDS: Dextrose 5 % 1,000 ML 50 ML IVCONT (08:47)
--- NOTE | 2020-08-23 09:11 | MHC.CM.PN ---
dc plan is to return to [facility] when medically stable. cm to cont. to follow.
[2020-08-23] MEDS: Valproic Acid (as Sodium Salt) 500 MG in Dextrose 5 % 50 ML 55 MG IV ×2 (10:53→20:10)
--- NOTE | 2020-08-23 11:29 | P.CONGS_ITS ---
History of Present Illness Consult details Consult date: 08/23/20 Narrative: 79-year-old male with longstanding Parkinson's disease, seizure disorder, admitted to the hospital for seizure episodes last 08/17/2020.r I had actually seen him in the office on August 04 for consultation for PEG tube placement. In view of his Parkinson's disease and dementia, he has had very inconsistent oral intake. His daughter Danni was not yet ready to decide on this at that time. However, the patient has had continued decrease in oral intake. He was therefore referred back to me as an inpatient today For PEG tube placement. The patient has had no further seizure episodes. He has also tested COVID positive in May 2020. He was tested last week and he was still positive although he had already has immunoglobulins as well. He does not have any obvious cough or fever. He is not communicative in does not have any significant verbal output. He has been bedbound for 2 years. Review of Systems Review of Systems: Yes Unobtainable due to mental condition PMFSH Past Medical History Functional capacity: independent ambulation Family History Family history: reviewed and not pertinent Social History Social History Household Members: Other Housing Other:: [facility] Smoking Status: Unknown if ever smoked Use of substances other than those prescribed or required for medical reasons: Unable to respond Currently Displaying Signs/Symptoms of Drug Intoxication Withdrawal: No Advance Directives: No Advance Directives Information Provided: No Do you have thoughts of harming others: None Do you have a plan to hurt others: No Plan Recently lost weight without trying: Unsure service: No Current occupational status: retired [employer] Allergies Allergy/AdvReac Type Severity Reaction Status Date / Time No Known Allergies Allergy Unverified 07/15/20 14:49 Home Medications Medication Instructions Recorded Confirmed Type acetaminophen 650 mg PO Q4H PRN 08/18/20 08/18/20 History albuterol sulfate 2 inh INHALATION Q4H PRN 08/18/20 08/18/20 History amlodipine 10 mg PO DAILY 08/18/20 08/18/20 History aspirin 81 mg PO DAILY 08/18/20 08/18/20 History bisacodyl 10 mg AR DAILY PRN 08/18/20 08/18/20 History carbidopa-levodopa 2 tab PO QID 08/18/20 08/18/20 History carbidopa-levodopa [Sinemet] 2 tab PO QID 08/18/20 08/18/20 History celecoxib 200 mg PO DAILY 08/18/20 08/18/20 History cholecalciferol (vitamin D3) 1,250 mcg PO QMONTH 08/18/20 08/18/20 History divalproex 250 mg PO TID 08/18/20 08/18/20 History docusate sodium 100 mg PO BID 08/18/20 08/18/20 History donepezil 10 mg PO DAILY 08/18/20 08/18/20 History escitalopram oxalate 5 mg PO DAILY 08/18/20 08/18/20 History gabapentin 100 mg PO BID 08/18/20 08/18/20 History memantine 5 mg PO BID 08/18/20 08/18/20 History metoclopramide HCl 10 mg PO QIDACHS 08/18/20 08/18/20 History polyethylene glycol 3350 [Miralax] 17 g PO DAILY 08/18/20 08/18/20 History sodium bicarbonate 650 mg PO TID PRN 08/18/20 08/18/20 History terazosin 1 mg PO BEDTIME 08/18/20 08/18/20 History Physical Exam Vital Signs: Vital Signs: Vital Signs Temp Pulse Resp BP Pulse Ox 08/23/20 08:00 97.8 F 98 17 158/83 H 96 08/23/20 04:00 98.5 F 97 18 170/89 H 94 08/22/20 23:56 98.9 F 84 19 169/73 H 96 08/22/20 19:35 98.6 F 84 18 143/71 H 98 08/22/20 16:35 97.9 F 82 18 137/73 96 08/22/20 12:00 85 18 Body Mass Index 16.5 Const: Other: Not communicative, appears bedbound General: no acute distress Neck: Neck: No lymphadenopathy Resp: Effort & Inspection: normal respiratory effort Auscultation: clear to auscultation bilaterally Cardio: Rate: regular rate GI: Other: Soft, nondistended, no guarding or rebound, no abdominal wall scars Neuro: Other: nonverbal, not communicative Results Labs Result diagrams: 08/23/20 05:43 08/23/20 05:43 Labs: Abnormal lab results 08/23/20 08/23/20 Range/Units 05:43 05:43 WBC 11.5 H (4.8-10.8) X10*3/uL RBC 2.85 L (4.60-5.80) X10*6/uL Hgb 8.2 L (14.0-18.0) g/dl Hct 25.9 L (42-52) % Immature Gran % (Auto) 0.6 H (0.0-0.4) % Neut % (Auto) 80.5 H (45-73) % Lymph % (Auto) 9.9 L (20-40) % Lymph # (Auto) 1.1 L (1.2-4.9) X10*3/uL Abs Immat Gran (auto) 0.07 H (0.00-0.03) X10*3/uL Absolute Neuts (auto) 9.2 H (2.0-8.3) X10*3/uL Chloride 112 H (96-108) mmol/L Carbon Dioxide 18 L (22-29) mmol/L Short CBC 08/23/20 Range/Units 05:43 WBC 11.5 H (4.8-10.8) X10*3/uL Hgb 8.2 L (14.0-18.0) g/dl Hct 25.9 L (42-52) % Plt Count 283 (160-400) X10*3/uL BMP 08/23/20 05:43 Sodium 141 Potassium 3.7 Chloride 112 H Carbon Dioxide 18 L BUN 11 Creatinine 1.15 Calcium 9.2 Urine 08/17/20 Range/Units 17:43 Urine Color YELLOW Urine Appearance CLEAR Urine pH 5.5 (5.0-8.0) Ur Specific [place] >= 1.030 H (1.005-1.025) Urine Protein 2+ H (NEG-TRACE) MG/DL Urine Glucose (UA) NEG (NEG) MG/DL All other labs normal. Imaging Abdomen CT scan report/results: report reviewed and image reviewed Assessment and Plan (1) Failure to thrive: Status: Acute 79-year-old male with Parkinson's disease, dementia, failure to thrive. He was referred to me for PEG tube placement. I had a long discussion with his daughter Danni at [phone]. I explained to her the technique of PEG tube placement which will be under anesthesia. I discussed the risks including but not limited to bleeding, infections, tube dislodgement, loss of airway, leakage around the PEG site, inherent risks of anesthesia, blood clots, pneumonia, as well as the benefits and alternatives. She says he understands and wants to proceed. The patient has tested COVID positive but has been covered positive since May. He also has positive antibodies already. As per the medical service, he is unlikely to be infective at this time. We will schedule him for PEG tube placement in the operating room tomorrow. I have discussed the above with the hospitalist service.
[2020-08-23 12:00] VITALS: BP 145/78; PULSE 90; RESP 19; TEMP 36.8; O2SAT 94
--- NOTE | 2020-08-23 13:16 | MHC.CLN ---
F/U PEG PLACEMENT SCHEDULED FOR 08/24 RECOMMEND TF JEVITY AT MAX GOAL RATE 60CC/HR WITH 120CC WATER FLUSHES Q SHIFT TO PROVIDE 1526KCALS (32KCALS/KG), 64G PROTEIN (1.3G/KG), 1562CC TOTAL WATER FROM FORMULA AND FLUSHES (32.5CC/KG) MONITOR TOLERANCE, RESIDUALS AND LYTES FOLLOWING
--- NOTE | 2020-08-23 14:50 | HO.PM.IMPN ---
Subjective Subjective Interval History: Seen and evaluated this morning More awake this morning, make eye contact and try to speak ,nonverbal, laying in his bed overall weakness and not eating much of his diet No other overnight events Physical Exam Vital Signs: Vital Signs: Vital Signs Temp Pulse Resp BP Pulse Ox 08/23/20 12:00 98.3 F 90 19 145/78 H 94 08/23/20 08:00 97.8 F 98 17 158/83 H 96 08/23/20 04:00 98.5 F 97 18 170/89 H 94 08/22/20 23:56 98.9 F 84 19 169/73 H 96 08/22/20 19:35 98.6 F 84 18 143/71 H 98 08/22/20 16:35 97.9 F 82 18 137/73 96 Body Mass Index 16.5 Constitutional : alert with stimulation, lethargic, mildly interactive, not in distress Neck : Normal inspection, Supple Cardiovascular : RRR, S1 S2, no lower extremity edema Respiratory : Good bilateral air entry, no crackles, wheezes or rhonchi Gastrointestinal: soft, lax, Normal bowel sounds, Non tender Skin : Warm/Dry, No rash Neurological : altered, nonverbal, No focal deficit Objective Data Current Medications Generic Name Dose Route Start Last Admin Trade Name Freq PRN Reason Stop Dose Admin Acetaminophen 650 mg 08/18/20 13:43 08/21/20 20:19 Acetaminophen Supp 650 Mg Supp.Rect RI 650 mg Q4H PRN Administration Pain and Fever Amlodipine Besylate 10 mg 08/19/20 09:00 08/23/20 08:48 Amlodipine Besylate 10 Mg Tablet PO Not Given DAILY [facility] Protocol Aspirin 81 mg 08/19/20 09:00 08/23/20 08:48 Aspirin Enteric Coated 81 Mg Tablet.Dr PO Not Given DAILY [facility] Carbidopa/Levodopa 2 tab 08/18/20 17:00 08/23/20 12:26 Carbidopa/Levodopa 25/100 Tablet PO Not Given QID [facility] Donepezil HCl 10 mg 08/19/20 09:00 08/23/20 08:49 Donepezil Hcl 10 Mg Tablet PO Not Given DAILY [facility] Heparin Sodium (Porcine) 5,000 unit 08/17/20 23:00 08/23/20 06:02 Heparin Sodium,Porcine 5,000 Unit/Ml Vial SUBCUT Not Given Q8H [facility] Dextrose 1,000 mls @ 50 mls/hr 08/23/20 08:45 08/23/20 08:47 D5w IVCONT 50 mls/hr .Q20H RAQUEL Administration Valproic Acid 500 mg/ Dextrose 55 mls @ 55 mls/hr 08/23/20 09:45 08/23/20 11:54 IV Infused BID RAQUEL Infusion Cefazolin Sodium/Dextrose 2 gm in 50 mls @ 100 mls/hr 08/23/20 14:25 Ancef IV 08/23/20 14:54 PREOP ONE Memantine 5 mg 08/18/20 21:00 08/23/20 08:49 Memantine Hcl 5 Mg Tablet PO Not Given BID [facility] Non-Formulary Medication 1 applicatio 08/20/20 09:00 08/23/20 08:49 Calcium Alginate TOPICAL 1 applicatio DAILY RAQUEL Administration Sodium Chloride 3 ml 08/18/20 00:00 08/23/20 08:47 0.9 % Sodium Chloride Flush 3 Ml Syringe IVFLUSH 3 ml QSHIFT RAQUEL Administration Labs CBC & Chem 7: 08/23/20 05:43 08/23/20 05:43 Microbiology Microbiology Results: Microbiology 08/21/20 21:51 Stool Stool Culture - Preliminary Normal so far. 08/17/20 17:04 Blood - Venous Blood Culture - Final No growth after 5 days. 08/17/20 16:09 Blood - Venous Blood Culture - Final No growth after 5 days. Assessment and Plan (1) Failure to thrive: Status: Acute (2) Seizure disorder: Status: Acute (3) Colitis: Status: Acute (4) Chronic constipation: Status: Acute (5) Parkinsons disease: Problem details: Status: Acute (6) Encephalopathy: Status: Acute Assessment and Plan: A 79 years old male with PMH of HTN, Parkinson's, seizure disorder, CKD who presents to the hospital home with breakthrough seizure activity and fever. Breakthrough seizure, seizure disorder Secondary to low level valproic acid Continue Valproic acid 500 mg bid Neurology input appreciate; no need for CFS analysis or antiviral continue Seizure precautions Advanced diet as tolerated Sepsis, resolved Intra-abdominal infection, colitis Negative blood cultures no more fevers, Elevated WBcs CT scan of the abdomen concerning of possible colitis , GI does not thing the patient has acute infection though he received total of 5 days of antibiotics Discontinue Zosyn IV GI input appreciate; chronic picture, constipation possible, consider NG tube pending stool cultures diarrhea improving Rectal tube placed 10\ Negative for C diff at admission, to recheck for ongoing diarrhea hold antibiotics and laxatives for now Failure to Thrive Patient unable to eat or drink by himself, very weak to eat with residential assistant Discussed with his HCP, to get a PICC tube Surgical consult placed for PEG tube placement Sunday morning Hypernatremia Na improved to 141 this morning continue D5 Covid 19 Patient has positive test, had the infection previously No on O2, no respiratory symptoms at this point His general lethargy, 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
--- NOTE | 2020-08-23 15:33 | PC.NURSE ---
Patient rectal tube removed at 1430, with 300cc of bile colored stool. Skin around coccyx discolored, barrier cream applied and patient being frequently repositioned off of buttocks and has an airloss bed.
[2020-08-23 15:54] VITALS: BP 169/83; PULSE 98; RESP 20; TEMP 36.4; O2SAT 97
[2020-08-23] MEDS: Heparin Sodium,Porcine 5,000 UNIT/ML VIAL 5000 UNIT SUBCUT ×2 (16:45→22:05)
[2020-08-23 19:38] VITALS: BP 147/75; PULSE 96; RESP 18; TEMP 36.8; O2SAT 95
[2020-08-24] VITALS (14 sets, daily range): BP systolic 114–162; BP diastolic 59–77; PULSE 79–99; RESP 18–20; TEMP 36.1–38.1; O2SAT 93–100; BMI 24.3
[2020-08-24] MEDS: Dextrose 5 % 1,000 ML 50 ML IVCONT (04:47)
[2020-08-24 06:35] LABS: MANUAL DIFF FLAG NO
[2020-08-24 06:45] LABS: Basophils Percent Auto 0.2 % (0-2); Eosinophils Absolute Auto 0.1 X10*3/uL (0.0-0.4); Eosinophils Percent Auto 1.1 % (0-4); Hematocrit 25.8 % (42-52); Hemoglobin 8.1 g/dl (14.0-18.0); Imm Gran Abs Auto 0.06 X10*3/uL (0.00-0.03); Imm Gran Pct Auto 0.6 % (0.0-0.4); Lymphocytes Percent Auto 10.2 % (20-40); Mean Corpuscular HGB Conc 31.4 g/dl (31.0-36.0); Mean Corpuscular Hemoglobin 28.1 pg (27.0-33.0); Mean Corpuscular Volume 89.6 fL (80-98); Mean Platelet Volume 9.9 fL (9.4-12.4); Monocytes Absolute Auto 0.9 X10*3/uL (0.1-1.2); Monocytes Percent Auto 9.6 % (2-11); Neutrophils Absolute Auto 7.6 X10*3/uL (2.0-8.3); Neutrophils Percent Auto 78.3 % (45-73); Platelet Count 306 X10*3/uL (160-400); Red Blood Count 2.88 X10*6/uL (4.60-5.80); Red Cell Distribution Width 14.2 % (11.0-16.0); White Blood Count 9.7 X10*3/uL (4.8-10.8)
[2020-08-24 07:13] LABS: Anion Gap 14 (12-20); Blood Urea Nitrogen 9 mg/dL (9-16); Calcium 8.9 mg/dL (8.4-10.2); Carbon Dioxide 20 mmol/L (22-29); Chloride 109 mmol/L (96-108); Estimated Glomerular Filt Rate > 60; Glucose Random 105 mg/dL (60-115); Potassium 3.1 mmol/l (3.3-5.1); Sodium 140 mmol/L (135-145)
[2020-08-24] MEDS: Valproic Acid (as Sodium Salt) 500 MG in Dextrose 5 % 50 ML 55 MG IV ×2 (08:22→20:20)
[2020-08-24] MEDS: 0.9 % Sodium Chloride Flush 3 ML SYRINGE IVFLUSH ×2 (08:24→16:49)
[2020-08-24 10:03] LABS: Adenovirus PCR Not Detected (Not Detect.); Bordetella parapertussis PCR Not Detected (Not Detect.); Bordetella pertussis PCR Not Detected (Not Detect.); Chlamydia pneumoniae PCR Not Detected (Not Detect.); Coronavirus 229E PCR Not Detected (Not Detect.); Coronavirus HKU1 PCR Not Detected (Not Detect.); Coronavirus NL63 PCR Not Detected (Not Detect.); Coronavirus OC43 PCR Not Detected (Not Detect.); Human metapneumovirus PCR Not Detected (Not Detect.); Influenza A PCR Not Detected (Not Detect.); Influenza B PCR Not Detected (Not Detect.); Mycoplasma pneumoniae PCR Not Detected (Not Detect.); Parainfluenza 1 PCR Not Detected (Not Detect.); Parainfluenza 2 PCR Not Detected (Not Detect.); Parainfluenza 3 PCR Not Detected (Not Detect.); Parainfluenza 4 PCR Not Detected (Not Detect.); RSV PCR Not Detected (Not Detect.); Rhino/Enterovirus PCR Not Detected (Not Detect.); SARS-CoV-2 PCR Not Detected (Not Detect.)
--- NOTE | 2020-08-24 12:03 | MHC.SHP ---
Pre-Procedural Eval Section B Chief Complaint: SEIZURE-LIKE ACTIVITY Allergies: Allergies Allergy/AdvReac Type Severity Reaction Status Date / Time No Known Allergies Allergy Unverified 07/15/20 14:49 Plan Patient has been examined and remains a candidate for the planned procedure
[2020-08-24] MEDS: ceFAZolin Sodium/Dextrose,Iso 2 GM/50 ML PIGGYBACK IV (12:43)
--- NOTE | 2020-08-24 13:11 | PM.OP ---
Brief Operative Note Date of procedure: 08/24/20 Pre-op diagnosis: Failure to thrive Post-op diagnosis: same Procedure: Percutaneous endoscopic gastrostomy tube placement Implants: PEG tube Surgeon: ALEXANDER HERNANDEZ MD Anesthesia: MAC Health Care Administrator: Gini Hernandez Estimated blood loss (mL): 2 Pathology: none sent Condition: stable Disposition: PACU
--- NOTE | 2020-08-24 13:18 | P.CONAN_ITS ---
[facility] Past Medical History Functional capacity: independent ambulation Social History Social History Household Members: Other Housing Other:: [facility] Smoking Status: Unknown if ever smoked Use of substances other than those prescribed or required for medical reasons: Unable to respond Currently Displaying Signs/Symptoms of Drug Intoxication Withdrawal: No Advance Directives: No Advance Directives Information Provided: No Do you have thoughts of harming others: None Do you have a plan to hurt others: No Plan Recently lost weight without trying: Unsure service: No Current occupational status: retired [employer] Allergies Allergy/AdvReac Type Severity Reaction Status Date / Time No Known Allergies Allergy Unverified 07/15/20 14:49 Home Medications Medication Instructions Recorded Confirmed Type acetaminophen 650 mg PO Q4H PRN 08/18/20 08/18/20 History albuterol sulfate 2 inh INHALATION Q4H PRN 08/18/20 08/18/20 History amlodipine 10 mg PO DAILY 08/18/20 08/18/20 History aspirin 81 mg PO DAILY 08/18/20 08/18/20 History bisacodyl 10 mg NE DAILY PRN 08/18/20 08/18/20 History carbidopa-levodopa 2 tab PO QID 08/18/20 08/18/20 History carbidopa-levodopa [Sinemet] 2 tab PO QID 08/18/20 08/18/20 History celecoxib 200 mg PO DAILY 08/18/20 08/18/20 History cholecalciferol (vitamin D3) 1,250 mcg PO QMONTH 08/18/20 08/18/20 History divalproex 250 mg PO TID 08/18/20 08/18/20 History docusate sodium 100 mg PO BID 08/18/20 08/18/20 History donepezil 10 mg PO DAILY 08/18/20 08/18/20 History escitalopram oxalate 5 mg PO DAILY 08/18/20 08/18/20 History gabapentin 100 mg PO BID 08/18/20 08/18/20 History memantine 5 mg PO BID 08/18/20 08/18/20 History metoclopramide HCl 10 mg PO QIDACHS 08/18/20 08/18/20 History polyethylene glycol 3350 [Miralax] 17 g PO DAILY 08/18/20 08/18/20 History sodium bicarbonate 650 mg PO TID PRN 08/18/20 08/18/20 History terazosin 1 mg PO BEDTIME 08/18/20 08/18/20 History Exam Exam Date and Time: August 24, 2020 1318 Height,Weight and Vital Signs: Height 5 ft 7 in Weight 70.632 kg Last Vital Signs Temp 97 F 08/24/20 12:21 Pulse 90 08/24/20 12:21 Resp 18 08/24/20 12:21 BP 149/66 H 08/24/20 12:21 Pulse Ox 97 08/24/20 12:21 Pertinent Lab Results Pertinent Lab Results: Laboratory Tests 08/17/20 08/17/20 08/17/20 16:09 16:09 16:09 WBC 12.1 H RBC 3.67 L Hgb 10.4 L Hct 34.0 L MCV 92.6 MCH 28.3 MCHC 30.6 L RDW 13.4 Plt Count 295 MPV 9.7 Immature Gran % (Auto) 0.3 Neut % (Auto) 87.3 H Lymph % (Auto) 5.5 L [place] % (Auto) 6.6 Eos % (Auto) 0.1 Baso % (Auto) 0.2 Lymph # (Auto) 0.7 L [place] # (Auto) 0.8 Eos # (Auto) 0.0 Baso # (Auto) 0.0 Abs Immat Gran (auto) 0.04 H Absolute Neuts (auto) 10.6 H Absolute Nucleated RBC 0.000 Nucleated RBC % (auto) 0.0 Smear Tech's Comments VERIFIED PT INR VBG pH VBG pCO2 VBG Oxygen Liters/Min VBG pO2 VBG HCO3 VBG O2 Saturation VBG Base Excess Sodium 142 Potassium 4.1 Chloride 107 Carbon Dioxide 20 L Anion Gap 19 BUN 34 H Creatinine 2.08 H Estim Creat Clear Calc 19.5 Estimated GFR 31 Random Glucose 150 H Lactic Acid Lactic Acid Fup @ 2Hr Lactic Acid Fup @ 4Hr Calcium 9.9 Total Bilirubin 0.5 Direct Bilirubin 0.2 AST 19 ALT 6 Alkaline Phosphatase 60 Total Creatine Kinase Total Protein 8.9 H Albumin 3.8 Urine Color Urine Appearance Urine pH Ur Specific [place] Urine Protein Urine Glucose (UA) Urine Ketones Urine Blood Urine Nitrite Ur Leukocyte Esterase Urine RBC Urine WBC Ur Squamous Epith Cells Urine Bacteria Stool Occult Blood Stool Leukocytes, Qual Valproic Acid 18.9 L Respiratory Panel Koehler Adenovirus (Rapid PCR) B.pert (TEM-PCR) B.parapertussis DNA PCR C. pneumoniae DNA (PCR) C. difficile Toxin A&B C. difficile Antigen C. difficile Interpret Coronavirus (PCR) Coronavirus OC43 (PCR) Coronavirus HKU1 (PCR) Coronavirus 229E (PCR) Coronavirus NL63 (PCR) Human Metapneumovir PCR Influenza A (RT-PCR) Influenza B (RT-PCR) M. pneumoniae (PCR) Parainfluenza 1 (PCR) Parainfluenza 2 (PCR) Parainfluenza 3 (PCR) Parainfluenza 4 (PCR) RSV (PCR) Entero/Rhino (PCR) SARS-CoV-2 RNA (RT-PCR) SARS-CoV-2 IgG Ab 08/17/20 08/17/20 08/17/20 17:04 17:04 17:43 WBC RBC Hgb Hct MCV MCH MCHC RDW Plt Count MPV Immature Gran % (Auto) Neut % (Auto) Lymph % (Auto) [place] % (Auto) Eos % (Auto) Baso % (Auto) Lymph # (Auto) [place] # (Auto) Eos # (Auto) Baso # (Auto) Abs Immat Gran (auto) Absolute Neuts (auto) Absolute Nucleated RBC Nucleated RBC % (auto) Smear Tech's Comments PT INR VBG pH 7.32 VBG pCO2 45 VBG Oxygen Liters/Min VBG pO2 42 VBG HCO3 23 VBG O2 Saturation 70.8 VBG Base Excess -3.4 Sodium Potassium Chloride Carbon Dioxide Anion Gap BUN Creatinine Estim Creat Clear Calc Estimated GFR Random Glucose Lactic Acid 2.2 H* Lactic Acid Fup @ 2Hr Lactic Acid Fup @ 4Hr Calcium Total Bilirubin Direct Bilirubin AST ALT Alkaline Phosphatase Total Creatine Kinase Total Protein Albumin Urine Color YELLOW Urine Appearance CLEAR Urine pH 5.5 Ur Specific [place] >= 1.030 H Urine Protein 2+ H Urine Glucose (UA) NEG Urine Ketones NEG Urine Blood NEG Urine Nitrite NEG Ur Leukocyte Esterase NEG Urine RBC 0-2 Urine WBC 1-4 Ur Squamous Epith Cells NONE Urine Bacteria NONE Stool Occult Blood Stool Leukocytes, Qual Valproic Acid Respiratory Panel Koehler Adenovirus (Rapid PCR) B.pert (TEM-PCR) B.parapertussis DNA PCR C. pneumoniae DNA (PCR) C. difficile Toxin A&B C. difficile Antigen C. difficile Interpret Coronavirus (PCR) Coronavirus OC43 (PCR) Coronavirus HKU1 (PCR) Coronavirus 229E (PCR) Coronavirus NL63 (PCR) Human Metapneumovir PCR Influenza A (RT-PCR) Influenza B (RT-PCR) M. pneumoniae (PCR) Parainfluenza 1 (PCR) Parainfluenza 2 (PCR) Parainfluenza 3 (PCR) Parainfluenza 4 (PCR) RSV (PCR) Entero/Rhino (PCR) SARS-CoV-2 RNA (RT-PCR) SARS-CoV-2 IgG Ab 08/17/20 08/17/20 08/17/20 17:43 18:51 20:15 WBC RBC Hgb Hct MCV MCH MCHC RDW Plt Count MPV Immature Gran % (Auto) Neut % (Auto) Lymph % (Auto) [place] % (Auto) Eos % (Auto) Baso % (Auto) Lymph # (Auto) [place] # (Auto) Eos # (Auto) Baso # (Auto) Abs Immat Gran (auto) Absolute Neuts (auto) Absolute Nucleated RBC Nucleated RBC % (auto) Smear Tech's Comments PT INR VBG pH VBG pCO2 VBG Oxygen Liters/Min VBG pO2 VBG HCO3 VBG O2 Saturation VBG Base Excess Sodium Potassium Chloride Carbon Dioxide Anion Gap BUN Creatinine Estim Creat Clear Calc Estimated GFR Random Glucose Lactic Acid Lactic Acid Fup @ 2Hr 2.5 H* Lactic Acid Fup @ 4Hr Calcium Total Bilirubin Direct Bilirubin AST ALT Alkaline Phosphatase Total Creatine Kinase 299 H Total Protein Albumin Urine Color Urine Appearance Urine pH Ur Specific [place] Urine Protein Urine Glucose (UA) Urine Ketones Urine Blood Urine Nitrite Ur Leukocyte Esterase Urine RBC Urine WBC Ur Squamous Epith Cells Urine Bacteria Stool Occult Blood Stool Leukocytes, Qual Valproic Acid Respiratory Panel Koehler Adenovirus (Rapid PCR) B.pert (TEM-PCR) B.parapertussis DNA PCR C. pneumoniae DNA (PCR) C. difficile Toxin A&B C. difficile Antigen C. difficile Interpret Coronavirus (PCR) POSITIVE A Coronavirus OC43 (PCR) Coronavirus HKU1 (PCR) Coronavirus 229E (PCR) Coronavirus NL63 (PCR) Human Metapneumovir PCR Influenza A (RT-PCR) Influenza B (RT-PCR) M. pneumoniae (PCR) Parainfluenza 1 (PCR) Parainfluenza 2 (PCR) Parainfluenza 3 (PCR) Parainfluenza 4 (PCR) RSV (PCR) Entero/Rhino (PCR) SARS-CoV-2 RNA (RT-PCR) SARS-CoV-2 IgG Ab 08/17/20 08/18/20 08/18/20 23:11 04:45 05:49 WBC 14.5 H RBC 2.97 L Hgb 8.4 L Hct 27.7 L MCV 93.3 MCH 28.3 MCHC 30.3 L RDW 13.5 Plt Count 255 MPV 10.1 Immature Gran % (Auto) 0.3 Neut % (Auto) 85.7 H Lymph % (Auto) 6.3 L [place] % (Auto) 7.4 Eos % (Auto) 0.1 Baso % (Auto) 0.2 Lymph # (Auto) 0.9 L [place] # (Auto) 1.1 Eos # (Auto) 0.0 Baso # (Auto) 0.0 Abs Immat Gran (auto) 0.05 H Absolute Neuts (auto) 12.4 H Absolute Nucleated RBC 0.000 Nucleated RBC % (auto) 0.0 Smear Tech's Comments PT INR VBG pH VBG pCO2 VBG Oxygen Liters/Min VBG pO2 VBG HCO3 VBG O2 Saturation VBG Base Excess Sodium Potassium Chloride Carbon Dioxide Anion Gap BUN Creatinine Estim Creat Clear Calc Estimated GFR Random Glucose Lactic Acid Lactic Acid Fup @ 2Hr Lactic Acid Fup @ 4Hr 2.7 H* Calcium Total Bilirubin Direct Bilirubin AST ALT Alkaline Phosphatase Total Creatine Kinase Total Protein Albumin Urine Color Urine Appearance Urine pH Ur Specific [place] Urine Protein Urine Glucose (UA) Urine Ketones Urine Blood Urine Nitrite Ur Leukocyte Esterase Urine RBC Urine WBC Ur Squamous Epith Cells Urine Bacteria Stool Occult Blood Stool Leukocytes, Qual Valproic Acid Respiratory Panel Koehler Adenovirus (Rapid PCR) B.pert (TEM-PCR) B.parapertussis DNA PCR C. pneumoniae DNA (PCR) C. difficile Toxin A&B Negative C. difficile Antigen Negative C. difficile Interpret SEE NOTE Coronavirus (PCR) Coronavirus OC43 (PCR) Coronavirus HKU1 (PCR) Coronavirus 229E (PCR) Coronavirus NL63 (PCR) Human Metapneumovir PCR Influenza A (RT-PCR) Influenza B (RT-PCR) M. pneumoniae (PCR) Parainfluenza 1 (PCR) Parainfluenza 2 (PCR) Parainfluenza 3 (PCR) Parainfluenza 4 (PCR) RSV (PCR) Entero/Rhino (PCR) SARS-CoV-2 RNA (RT-PCR) SARS-CoV-2 IgG Ab 08/18/20 08/19/20 08/19/20 05:49 05:50 05:50 WBC 12.0 H RBC 2.93 L Hgb 8.6 L Hct 27.8 L MCV 94.9 MCH 29.4 MCHC 30.9 L RDW 13.7 Plt Count 272 MPV 10.0 Immature Gran % (Auto) 0.7 H Neut % (Auto) 83.5 H Lymph % (Auto) 8.2 L [place] % (Auto) 7.2 Eos % (Auto) 0.1 Baso % (Auto) 0.3 Lymph # (Auto) 1.0 L [place] # (Auto) 0.9 Eos # (Auto) 0.0 Baso # (Auto) 0.0 Abs Immat Gran (auto) 0.08 H Absolute Neuts (auto) 10.0 H Absolute Nucleated RBC 0.000 Nucleated RBC % (auto) 0.0 Smear Tech's Comments PT 14.3 H INR 1.2 H VBG pH VBG pCO2 VBG Oxygen Liters/Min VBG pO2 VBG HCO3 VBG O2 Saturation VBG Base Excess Sodium 145 Potassium 3.5 Chloride 116 H Carbon Dioxide 17 L Anion Gap 16 BUN 34 H Creatinine 1.91 H Estim Creat Clear Calc 21.2 Estimated GFR 34 Random Glucose 119 H Lactic Acid Lactic Acid Fup @ 2Hr Lactic Acid Fup @ 4Hr Calcium 8.7 Total Bilirubin Direct Bilirubin AST ALT Alkaline Phosphatase Total Creatine Kinase Total Protein Albumin Urine Color Urine Appearance Urine pH Ur Specific [place] Urine Protein Urine Glucose (UA) Urine Ketones Urine Blood Urine Nitrite Ur Leukocyte Esterase Urine RBC Urine WBC Ur Squamous Epith Cells Urine Bacteria Stool Occult Blood Stool Leukocytes, Qual Valproic Acid Respiratory Panel Koehler Adenovirus (Rapid PCR) B.pert (TEM-PCR) B.parapertussis DNA PCR C. pneumoniae DNA (PCR) C. difficile Toxin A&B C. difficile Antigen C. difficile Interpret Coronavirus (PCR) Coronavirus OC43 (PCR) Coronavirus HKU1 (PCR) Coronavirus 229E (PCR) Coronavirus NL63 (PCR) Human Metapneumovir PCR Influenza A (RT-PCR) Influenza B (RT-PCR) M. pneumoniae (PCR) Parainfluenza 1 (PCR) Parainfluenza 2 (PCR) Parainfluenza 3 (PCR) Parainfluenza 4 (PCR) RSV (PCR) Entero/Rhino (PCR) SARS-CoV-2 RNA (RT-PCR) SARS-CoV-2 IgG Ab 08/19/20 08/19/20 08/19/20 05:50 14:47 16:57 WBC RBC Hgb Hct MCV MCH MCHC RDW Plt Count MPV Immature Gran % (Auto) Neut % (Auto) Lymph % (Auto) [place] % (Auto) Eos % (Auto) Baso % (Auto) Lymph # (Auto) [place] # (Auto) Eos # (Auto) Baso # (Auto) Abs Immat Gran (auto) Absolute Neuts (auto) Absolute Nucleated RBC Nucleated RBC % (auto) Smear Tech's Comments PT INR VBG pH VBG pCO2 VBG Oxygen Liters/Min VBG pO2 VBG HCO3 VBG O2 Saturation VBG Base Excess Sodium 148 H 150 H Potassium 3.1 L 2.9 L Chloride 121 H 121 H Carbon Dioxide 17 L 19 L Anion Gap 13 13 BUN 28 H 29 H Creatinine 1.61 H 1.72 H Estim Creat Clear Calc 25.2 23.6 Estimated GFR 42 39 Random Glucose 93 105 Lactic Acid Lactic Acid Fup @ 2Hr Lactic Acid Fup @ 4Hr Calcium 9.2 9.1 Total Bilirubin 0.4 Direct Bilirubin 0.2 AST 12 ALT < 6 Alkaline Phosphatase 46 D Total Creatine Kinase Total Protein 7.5 Albumin 3.2 L Urine Color Urine Appearance Urine pH Ur Specific [place] Urine Protein Urine Glucose (UA) Urine Ketones Urine Blood Urine Nitrite Ur Leukocyte Esterase Urine RBC Urine WBC Ur Squamous Epith Cells Urine Bacteria Stool Occult Blood Stool Leukocytes, Qual Valproic Acid Respiratory Panel Koehler Adenovirus (Rapid PCR) B.pert (TEM-PCR) B.parapertussis DNA PCR C. pneumoniae DNA (PCR) C. difficile Toxin A&B C. difficile Antigen C. difficile Interpret Coronavirus (PCR) Coronavirus OC43 (PCR) Coronavirus HKU1 (PCR) Coronavirus 229E (PCR) Coronavirus NL63 (PCR) Human Metapneumovir PCR Influenza A (RT-PCR) Influenza B (RT-PCR) M. pneumoniae (PCR) Parainfluenza 1 (PCR) Parainfluenza 2 (PCR) Parainfluenza 3 (PCR) Parainfluenza 4 (PCR) RSV (PCR) Entero/Rhino (PCR) SARS-CoV-2 RNA (RT-PCR) SARS-CoV-2 IgG Ab Positive 08/19/20 08/20/20 08/20/20 20:16 05:49 05:50 WBC 10.6 RBC 2.82 L Hgb 8.1 L Hct 26.5 L MCV 94.0 MCH 28.7 MCHC 30.6 L RDW 13.8 Plt Count 268 MPV 9.8 Immature Gran % (Auto) 0.6 H Neut % (Auto) 82.0 H Lymph % (Auto) 8.7 L [place] % (Auto) 8.0 Eos % (Auto) 0.4 Baso % (Auto) 0.3 Lymph # (Auto) 0.9 L [place] # (Auto) 0.9 Eos # (Auto) 0.0 Baso # (Auto) 0.0 Abs Immat Gran (auto) 0.06 H Absolute Neuts (auto) 8.7 H Absolute Nucleated RBC 0.000 Nucleated RBC % (auto) 0.0 Smear Tech's Comments PT INR VBG pH VBG pCO2 VBG Oxygen Liters/Min VBG pO2 VBG HCO3 VBG O2 Saturation VBG Base Excess Sodium 149 H 144 Potassium 2.9 L 3.1 L Chloride 120 H 117 H Carbon Dioxide 19 L 19 L Anion Gap 13 11 L BUN 28 H 23 H Creatinine 1.75 H 1.59 H Estim Creat Clear Calc 23.2 25.5 Estimated GFR 38 42 Random Glucose 133 H 116 H Lactic Acid Lactic Acid Fup @ 2Hr Lactic Acid Fup @ 4Hr Calcium 9.1 9.0 Total Bilirubin 0.3 Direct Bilirubin 0.2 AST 11 ALT < 6 Alkaline Phosphatase 44 Total Creatine Kinase Total Protein 7.4 Albumin 3.2 L Urine Color Urine Appearance Urine pH Ur Specific [place] Urine Protein Urine Glucose (UA) Urine Ketones Urine Blood Urine Nitrite Ur Leukocyte Esterase Urine RBC Urine WBC Ur Squamous Epith Cells Urine Bacteria Stool Occult Blood Stool Leukocytes, Qual Valproic Acid Respiratory Panel Koehler Adenovirus (Rapid PCR) B.pert (TEM-PCR) B.parapertussis DNA PCR C. pneumoniae DNA (PCR) C. difficile Toxin A&B C. difficile Antigen C. difficile Interpret Coronavirus (PCR) Coronavirus OC43 (PCR) Coronavirus HKU1 (PCR) Coronavirus 229E (PCR) Coronavirus NL63 (PCR) Human Metapneumovir PCR Influenza A (RT-PCR) Influenza B (RT-PCR) M. pneumoniae (PCR) Parainfluenza 1 (PCR) Parainfluenza 2 (PCR) Parainfluenza 3 (PCR) Parainfluenza 4 (PCR) RSV (PCR) Entero/Rhino (PCR) SARS-CoV-2 RNA (RT-PCR) SARS-CoV-2 IgG Ab 08/21/20 08/21/20 08/21/20 06:16 06:16 21:51 WBC 10.2 RBC 2.85 L Hgb 8.1 L Hct 26.3 L MCV 92.3 MCH 28.4 MCHC 30.8 L RDW 14.0 Plt Count 288 MPV 9.8 Immature Gran % (Auto) 0.6 H Neut % (Auto) 81.6 H Lymph % (Auto) 9.4 L [place] % (Auto) 7.9 Eos % (Auto) 0.3 Baso % (Auto) 0.2 Lymph # (Auto) 1.0 L [place] # (Auto) 0.8 Eos # (Auto) 0.0 Baso # (Auto) 0.0 Abs Immat Gran (auto) 0.06 H Absolute Neuts (auto) 8.3 Absolute Nucleated RBC 0.000 Nucleated RBC % (auto) 0.0 Smear Tech's Comments PT INR VBG pH VBG pCO2 VBG Oxygen Liters/Min VBG pO2 VBG HCO3 VBG O2 Saturation VBG Base Excess Sodium 141 Potassium 3.3 Chloride 114 H Carbon Dioxide 17 L Anion Gap 13 BUN 14 Creatinine 1.30 Estim Creat Clear Calc 31.2 Estimated GFR 53 Random Glucose 97 Lactic Acid Lactic Acid Fup @ 2Hr Lactic Acid Fup @ 4Hr Calcium 8.8 Total Bilirubin Direct Bilirubin AST ALT Alkaline Phosphatase Total Creatine Kinase Total Protein Albumin Urine Color Urine Appearance Urine pH Ur Specific [place] Urine Protein Urine Glucose (UA) Urine Ketones Urine Blood Urine Nitrite Ur Leukocyte Esterase Urine RBC Urine WBC Ur Squamous Epith Cells Urine Bacteria Stool Occult Blood NEG Stool Leukocytes, Qual Valproic Acid Respiratory Panel Koehler Adenovirus (Rapid PCR) B.pert (TEM-PCR) B.parapertussis DNA PCR C. pneumoniae DNA (PCR) C. difficile Toxin A&B C. difficile Antigen C. difficile Interpret Coronavirus (PCR) Coronavirus OC43 (PCR) Coronavirus HKU1 (PCR) Coronavirus 229E (PCR) Coronavirus NL63 (PCR) Human Metapneumovir PCR Influenza A (RT-PCR) Influenza B (RT-PCR) M. pneumoniae (PCR) Parainfluenza 1 (PCR) Parainfluenza 2 (PCR) Parainfluenza 3 (PCR) Parainfluenza 4 (PCR) RSV (PCR) Entero/Rhino (PCR) SARS-CoV-2 RNA (RT-PCR) SARS-CoV-2 IgG Ab 08/21/20 08/21/20 08/22/20 21:51 21:51 06:33 WBC RBC Hgb Hct MCV MCH MCHC RDW Plt Count MPV Immature Gran % (Auto) Neut % (Auto) Lymph % (Auto) [place] % (Auto) Eos % (Auto) Baso % (Auto) Lymph # (Auto) [place] # (Auto) Eos # (Auto) Baso # (Auto) Abs Immat Gran (auto) Absolute Neuts (auto) Absolute Nucleated RBC Nucleated RBC % (auto) Smear Tech's Comments PT INR VBG pH VBG pCO2 VBG Oxygen Liters/Min VBG pO2 VBG HCO3 VBG O2 Saturation VBG Base Excess Sodium 141 Potassium 3.4 Chloride 112 H Carbon Dioxide 18 L Anion Gap 14 BUN 13 Creatinine 1.26 Estim Creat Clear Calc 32.2 Estimated GFR 55 Random Glucose 92 Lactic Acid Lactic Acid Fup @ 2Hr Lactic Acid Fup @ 4Hr Calcium 8.8 Total Bilirubin Direct Bilirubin AST ALT Alkaline Phosphatase Total Creatine Kinase Total Protein Albumin Urine Color Urine Appearance Urine pH Ur Specific [place] Urine Protein Urine Glucose (UA) Urine Ketones Urine Blood Urine Nitrite Ur Leukocyte Esterase Urine RBC Urine WBC Ur Squamous Epith Cells Urine Bacteria Stool Occult Blood Stool Leukocytes, Qual NEGATIVE Valproic Acid 17.2 L Respiratory Panel Koehler Adenovirus (Rapid PCR) B.pert (TEM-PCR) B.parapertussis DNA PCR C. pneumoniae DNA (PCR) C. difficile Toxin A&B Negative C. difficile Antigen Negative C. difficile Interpret SEE NOTE Coronavirus (PCR) Coronavirus OC43 (PCR) Coronavirus HKU1 (PCR) Coronavirus 229E (PCR) Coronavirus NL63 (PCR) Human Metapneumovir PCR Influenza A (RT-PCR) Influenza B (RT-PCR) M. pneumoniae (PCR) Parainfluenza 1 (PCR) Parainfluenza 2 (PCR) Parainfluenza 3 (PCR) Parainfluenza 4 (PCR) RSV (PCR) Entero/Rhino (PCR) SARS-CoV-2 RNA (RT-PCR) SARS-CoV-2 IgG Ab 08/23/20 08/23/20 08/24/20 05:43 05:43 06:07 WBC 11.5 H 9.7 RBC 2.85 L 2.88 L Hgb 8.2 L 8.1 L Hct 25.9 L 25.8 L MCV 90.9 89.6 MCH 28.8 28.1 MCHC 31.7 31.4 RDW 14.1 14.2 Plt Count 283 306 MPV 10.0 9.9 Immature Gran % (Auto) 0.6 H 0.6 H Neut % (Auto) 80.5 H 78.3 H Lymph % (Auto) 9.9 L 10.2 L [place] % (Auto) 7.3 9.6 Eos % (Auto) 1.4 1.1 Baso % (Auto) 0.3 0.2 Lymph # (Auto) 1.1 L 1.0 L [place] # (Auto) 0.8 0.9 Eos # (Auto) 0.2 0.1 Baso # (Auto) 0.0 0.0 Abs Immat Gran (auto) 0.07 H 0.06 H Absolute Neuts (auto) 9.2 H 7.6 Absolute Nucleated RBC 0.000 0.000 Nucleated RBC % (auto) 0.0 0.0 Smear Tech's Comments PT INR VBG pH VBG pCO2 VBG Oxygen Liters/Min VBG pO2 VBG HCO3 VBG O2 Saturation VBG Base Excess Sodium 141 Potassium 3.7 Chloride 112 H Carbon Dioxide 18 L Anion Gap 15 BUN 11 Creatinine 1.15 Estim Creat Clear Calc 35.3 Estimated GFR > 60 Random Glucose 100 Lactic Acid Lactic Acid Fup @ 2Hr Lactic Acid Fup @ 4Hr Calcium 9.2 Total Bilirubin Direct Bilirubin AST ALT Alkaline Phosphatase Total Creatine Kinase Total Protein Albumin Urine Color Urine Appearance Urine pH Ur Specific [place] Urine Protein Urine Glucose (UA) Urine Ketones Urine Blood Urine Nitrite Ur Leukocyte Esterase Urine RBC Urine WBC Ur Squamous Epith Cells Urine Bacteria Stool Occult Blood Stool Leukocytes, Qual Valproic Acid Respiratory Panel Koehler Adenovirus (Rapid PCR) B.pert (TEM-PCR) B.parapertussis DNA PCR C. pneumoniae DNA (PCR) C. difficile Toxin A&B C. difficile Antigen C. difficile Interpret Coronavirus (PCR) Coronavirus OC43 (PCR) Coronavirus HKU1 (PCR) Coronavirus 229E (PCR) Coronavirus NL63 (PCR) Human Metapneumovir PCR Influenza A (RT-PCR) Influenza B (RT-PCR) M. pneumoniae (PCR) Parainfluenza 1 (PCR) Parainfluenza 2 (PCR) Parainfluenza 3 (PCR) Parainfluenza 4 (PCR) RSV (PCR) Entero/Rhino (PCR) SARS-CoV-2 RNA (RT-PCR) SARS-CoV-2 IgG Ab 08/24/20 08/24/20 06:07 09:52 WBC RBC Hgb Hct MCV MCH MCHC RDW Plt Count MPV Immature Gran % (Auto) Neut % (Auto) Lymph % (Auto) [place] % (Auto) Eos % (Auto) Baso % (Auto) Lymph # (Auto) [place] # (Auto) Eos # (Auto) Baso # (Auto) Abs Immat Gran (auto) Absolute Neuts (auto) Absolute Nucleated RBC Nucleated RBC % (auto) Smear Tech's Comments PT INR VBG pH VBG pCO2 VBG Oxygen Liters/Min VBG pO2 VBG HCO3 VBG O2 Saturation VBG Base Excess Sodium 140 Potassium 3.1 L Chloride 109 H Carbon Dioxide 20 L Anion Gap 14 BUN 9 Creatinine 1.07 Estim Creat Clear Calc 38.0 Estimated GFR > 60 Random Glucose 105 Lactic Acid Lactic Acid Fup @ 2Hr Lactic Acid Fup @ 4Hr Calcium 8.9 Total Bilirubin Direct Bilirubin AST ALT Alkaline Phosphatase Total Creatine Kinase Total Protein Albumin Urine Color Urine Appearance Urine pH Ur Specific [place] Urine Protein Urine Glucose (UA) Urine Ketones Urine Blood Urine Nitrite Ur Leukocyte Esterase Urine RBC Urine WBC Ur Squamous Epith Cells Urine Bacteria Stool Occult Blood Stool Leukocytes, Qual Valproic Acid Respiratory Panel Koehler See Note Adenovirus (Rapid PCR) Not Detected B.pert (TEM-PCR) Not Detected B.parapertussis DNA PCR Not Detected C. pneumoniae DNA (PCR) Not Detected C. difficile Toxin A&B C. difficile Antigen C. difficile Interpret Coronavirus (PCR) Coronavirus OC43 (PCR) Not Detected Coronavirus HKU1 (PCR) Not Detected Coronavirus 229E (PCR) Not Detected Coronavirus NL63 (PCR) Not Detected Human Metapneumovir PCR Not Detected Influenza A (RT-PCR) Not Detected Influenza B (RT-PCR) Not Detected M. pneumoniae (PCR) Not Detected Parainfluenza 1 (PCR) Not Detected Parainfluenza 2 (PCR) Not Detected Parainfluenza 3 (PCR) Not Detected Parainfluenza 4 (PCR) Not Detected RSV (PCR) Not Detected Entero/Rhino (PCR) Not Detected SARS-CoV-2 RNA (RT-PCR) Not Detected SARS-CoV-2 IgG Ab Airway Mallampati Class: III (Uncooperative to exam) TM Dist: >3cm Neck ROM: Limited (Uncooperative to exam) Loose/Missing/Broken Teeth: Yes (Uncooperative to exam; 1 or 2 natural lower teeth. Otherwise he seems to be edentulous) Heart: RRR Assessment and Plan Assessment Anesthesia Assessment: Anesthesia Plan Discussed (W daughter Jennifer) Final Anesthetic Review NPO: Yes ASA Class: IV Final Preanesthetic Review: Consent Obtained/Reviewed (From Jennifer (daughter)) Anesthetic Plan Anesthetic Plan: MAC: Disposition: Standard PACU
--- NOTE | 2020-08-24 13:45 | PC.NURSE ---
pt only scoring 7 on aldrette scale. pt is contracted and nonverbal at baseline. pt responds to touch with some movement.
--- NOTE | 2020-08-24 14:27 | P.PNIM_ITS ---
Subjective Subjective Date of Service: 08/24/20 Interval History: unable to obtain Respiratory Respiratory: Reports no additional respiratory complaints Gastrointestinal Gastrointestinal: Reports no additional gastrointestinal complaints Physical Exam Vital Signs: Vital Signs: Vital Signs Temp Pulse Resp BP Pulse Ox 08/24/20 13:45 96.9 F 82 18 138/66 99 08/24/20 13:30 80 18 121/62 100 08/24/20 13:25 79 20 120/60 100 08/24/20 13:20 79 18 119/59 L 100 08/24/20 13:15 96.9 F 80 20 114/60 100 08/24/20 12:21 97 F 90 18 149/66 H 97 08/24/20 07:52 97.6 F 86 18 156/76 H 97 08/24/20 03:15 99.1 F 90 19 162/77 H 93 08/24/20 00:36 99.3 F 08/24/20 00:00 100.6 F H 92 19 157/71 H 96 08/23/20 19:38 98.3 F 96 18 147/75 H 95 08/23/20 15:54 97.5 F 98 20 169/83 H 97 Body Mass Index 24.3 General: non verbal Resp: diminished CVS: S1,S2,RRR GI: soft, non tender, non distended Neuro: motor grossly intact Psych: ipmaired insight Objective Data Current Medications Generic Name Dose Route Start Last Admin Trade Name Freq PRN Reason Stop Dose Admin Acetaminophen 650 mg 08/18/20 13:43 08/21/20 20:19 Acetaminophen Supp 650 Mg Supp.Rect [place] 650 mg Q4H PRN Administration Pain and Fever Amlodipine Besylate 10 mg 08/19/20 09:00 08/24/20 08:24 Amlodipine Besylate 10 Mg Tablet PO Not Given DAILY [facility] Protocol Aspirin 81 mg 08/19/20 09:00 08/24/20 08:24 Aspirin Enteric Coated 81 Mg Tablet.Dr PO Not Given DAILY [facility] Carbidopa/Levodopa 2 tab 08/18/20 17:00 08/24/20 12:18 Carbidopa/Levodopa 25/100 Tablet PO Not Given QID [facility] Donepezil HCl 10 mg 08/19/20 09:00 08/24/20 08:24 Donepezil Hcl 10 Mg Tablet PO Not Given DAILY [facility] Heparin Sodium (Porcine) 5,000 unit 08/17/20 23:00 08/24/20 04:48 Heparin Sodium,Porcine 5,000 Unit/Ml Vial SUBCUT Not Given Q8H [facility] Dextrose 1,000 mls @ 50 mls/hr 08/23/20 08:45 08/24/20 04:47 D5w IVCONT 50 mls/hr .Q20H [facility] Administration Valproic Acid 500 mg/ Dextrose 55 mls @ 55 mls/hr 08/23/20 09:45 08/24/20 09:22 IV Infused BID [facility] Infusion Memantine 5 mg 08/18/20 21:00 08/24/20 08:24 Memantine Hcl 5 Mg Tablet PO Not Given BID [facility] Morphine Sulfate 2 mg 08/24/20 14:05 Morphine Sulfate 2 Mg/Ml Cartridge IVPUSH Q4H PRN Pain, Severe (Pain Scale 7-10) Non-Formulary Medication 1 applicatio 08/20/20 09:00 08/24/20 08:24 Calcium Alginate TOPICAL 1 applicatio DAILY [facility] Administration Ondansetron HCl 4 mg 08/24/20 13:23 Ondansetron Hcl 4 Mg/2 Ml Vial IVPUSH ONCE PRN Nausea and Vomiting Oxycodone HCl 5 mg 08/24/20 14:05 Oxycodone Hcl Immed Release 5 Mg Tablet PO Q4H PRN Pain, Moderate (Pain Scale 4-6 Sodium Chloride 3 ml 08/18/20 00:00 08/24/20 08:24 0.9 % Sodium Chloride Flush 3 Ml Syringe IVFLUSH 3 ml QSHIFT [facility] Administration Labs CBC & Chem 7: 08/24/20 06:07 08/24/20 06:07 Microbiology Microbiology Results: Microbiology 08/21/20 21:51 Stool Stool Culture - Final 08/17/20 17:04 Blood - Venous Blood Culture - Final No growth after 5 days. 08/17/20 16:09 Blood - Venous Blood Culture - Final No growth after 5 days. 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 Breakthrough seizure, seizure disorder Secondary to low level valproic acid Continue Valproic acid 500 mg bid Neurology input appreciate; no need for CSF analysis or antiviral continue Seizure precautions Advanced diet as tolerated Sepsis, resolved Intra-abdominal infection, colitis Negative blood cultures no more fevers, Elevated WBcs CT scan of the abdomen concerning of possible colitis , GI does not thing the patient has acute infection though he received total of 5 days of antibiotics Discontinued Zosyn IV GI input appreciate; chronic picture, constipation possible, consider NG tube pending stool cultures Failure to Thrive Patient unable to eat or drink by himself, very weak to eat with employment legal assistant plan for peg tube Covid 19 positive viral shedding, patient has positive antibodies, no active infection Foot wound No clear infection but mainly sloughing of skin and bad odor wound care team input cleaned off the area and apply some calcium alginate to the wound and wrap follow up at wound clinic after dc Parkinson Continue Sinemet, Memantin DVT PPX Heparin
--- NOTE | 2020-08-24 15:03 | W.PM.IDCN ---
History of Present Illness Data of Consult Service Date: 08/24/20 Requesting physician: Fransico Maloney Primary Care Provider: Unknown Physician HPI Reason for consult: COVID tests He has Parkinsons worsening and cant take po He was brought to ER for ?seizures and worsening jerky movements of body He had COVID with testing done in spring and positive PCR He has positive antibodies Review of Systems Review of Systems: Yes Unobtainable due to mental status Neurologic: Reports confusion Psychiatric: Psychiatric: Reports confusion [facility] Past Medical History Medical History (Updated 08/28/20 @ 14:44 by Sonny Persaud) Anemia Fever Functional capacity: independent ambulation Family History Family history: reviewed and not pertinent Social History Social History Household Members: Other Housing Other:: [facility] Smoking Status: Unknown if ever smoked Use of substances other than those prescribed or required for medical reasons: Unable to respond Currently Displaying Signs/Symptoms of Drug Intoxication Withdrawal: No Advance Directives: No Advance Directives Information Provided: No Do you have thoughts of harming others: None Do you have a plan to hurt others: No Plan Recently lost weight without trying: Unsure service: No Current occupational status: retired [employer] Allergies Allergy/AdvReac Type Severity Reaction Status Date / Time No Known Allergies Allergy Unverified 07/15/20 14:49 Home Medications Medication Instructions Recorded Confirmed Type acetaminophen 650 mg PO Q4H PRN 08/18/20 08/18/20 History albuterol sulfate 2 inh INHALATION Q4H PRN 08/18/20 08/18/20 History amlodipine 10 mg PO DAILY 08/18/20 08/18/20 History aspirin 81 mg PO DAILY 08/18/20 08/18/20 History bisacodyl 10 mg [place] DAILY PRN 08/18/20 08/18/20 History carbidopa-levodopa 2 tab PO QID 08/18/20 08/18/20 History carbidopa-levodopa [Sinemet] 2 tab PO QID 08/18/20 08/18/20 History celecoxib 200 mg PO DAILY 08/18/20 08/18/20 History cholecalciferol (vitamin D3) 1,250 mcg PO QMONTH 08/18/20 08/18/20 History divalproex 250 mg PO TID 08/18/20 08/18/20 History docusate sodium 100 mg PO BID 08/18/20 08/18/20 History donepezil 10 mg PO DAILY 08/18/20 08/18/20 History escitalopram oxalate 5 mg PO DAILY 08/18/20 08/18/20 History gabapentin 100 mg PO BID 08/18/20 08/18/20 History memantine 5 mg PO BID 08/18/20 08/18/20 History metoclopramide HCl 10 mg PO QIDACHS 08/18/20 08/18/20 History polyethylene glycol 3350 [Miralax] 17 g PO DAILY 08/18/20 08/18/20 History sodium bicarbonate 650 mg PO TID PRN 08/18/20 08/18/20 History terazosin 1 mg PO BEDTIME 08/18/20 08/18/20 History Physical Exam Vital Signs: Vital Signs: Vital Signs Temp Pulse Resp BP Pulse Ox 08/24/20 14:23 97.0 F 86 18 161/74 H 96 08/24/20 13:45 96.9 F 82 18 138/66 99 08/24/20 13:30 80 18 121/62 100 08/24/20 13:25 79 20 120/60 100 08/24/20 13:20 79 18 119/59 L 100 08/24/20 13:15 96.9 F 80 20 114/60 100 08/24/20 12:21 97 F 90 18 149/66 H 97 08/24/20 07:52 97.6 F 86 18 156/76 H 97 08/24/20 03:15 99.1 F 90 19 162/77 H 93 08/24/20 00:36 99.3 F 08/24/20 00:00 100.6 F H 92 19 157/71 H 96 08/23/20 19:38 98.3 F 96 18 147/75 H 95 08/23/20 15:54 97.5 F 98 20 169/83 H 97 Body Mass Index 24.3 Const: General: confusion and ill appearing Orientation/consciousness: confusion HENMT: Head: Yes normal to inspection Mouth: Normal oral and palatal mucosa present Eyes: General: appearance normal, both eyes and all related structures Resp: Effort & Inspection: normal respiratory effort Cardio: Rate: regular rate Rhythm: regular rhythm GI: Inspection: Yes normal to inspection : General: Yes no CVA tenderness Back/Spine/Pelvis: Back: no CVA tenderness Neuro: General: confusion Extrem: General: Yes normal to inspection Assessment and Plan (1) COVID-19: Problem details: He has positive nasal swab for months He probably had disease in spring He has antibodies positive Status: Acute OK for procedure GT under usual precautions for that procedure No further COVID testing Results Labs CBC & Chem 7: 08/29/20 05:52 08/29/20 05:52 Labs: Short CBC 08/24/20 Range/Units 06:07 WBC 9.7 (4.8-10.8) X10*3/uL Hgb 8.1 L (14.0-18.0) g/dl Hct 25.8 L (42-52) % Plt Count 306 (160-400) X10*3/uL BMP 08/24/20 06:07 Sodium 140 Potassium 3.1 L Chloride 109 H Carbon Dioxide 20 L BUN 9 Creatinine 1.07 Calcium 8.9 Microbiology Microbiology Results: Microbiology 08/21/20 21:51 Stool Stool Culture - Final 08/17/20 17:04 Blood - Venous Blood Culture - Final No growth after 5 days. 08/17/20 16:09 Blood - Venous Blood Culture - Final No growth after 5 days.
--- NOTE | 2020-08-24 15:43 | OP_ITS ---
SURGEON: Ran Rapp MD INDICATIONS: The patient is a 79-year-old male with a long history of Parkinson disease with progressive worsening, along with failure to thrive. I have been therefore asked to do a PEG tube placement. I explained this procedure to his daughter, Danni. I reviewed the risks including, but not limited to bleeding, infections, bowel injury, tube dislodgement, and leakage as well as benefits and alternatives, and he had given consent. PREOPERATIVE DIAGNOSIS: POSTOPERATIVE DIAGNOSIS: PROCEDURE PERFORMED: Percutaneous endoscopic gastrostomy tube placement. ESTIMATED BLOOD LOSS: COMPLICATIONS: ANESTHESIA: ASSISTANTS: Gini Hernandez PA-C. SPECIMENS: PREOPERATIVE DIAGNOSES: Parkinson's disease, failure to thrive. POSTOPERATIVE DIAGNOSES: Parkinson's disease, failure to thrive. DESCRIPTION OF PROCEDURE: The patient was brought to the operating room, placed in a slightly reclined position under monitored anesthesia care. A bite block was in position. A surgical time-out was done. I inserted the Olympus gastroscope through the bite block into the oropharynx. The vocal cords were visualized. The esophageal lesion was seen posterior to this. The esophageal lesion was intubated and we proceeded to gently advance the scope through the entire length of the esophagus into the stomach. The rugae were identified. We insufflated the stomach to distend this. We then observed for transillumination. We were able to clearly see transillumination. On the left upper quadrant just below the subcostal margin. We proceeded to apply finger pressure on this area and the indentation on the stomach was clearly seen with the gastroscope. I therefore chose this spot for the PEG tube. The large bore needle with a sheathwas inserted through this into the stomach lumen. The needle was removed. The plastic cannula sheath was kept in place and through this, the guidewire was inserted. We applied the snare on this guidewire and pulled this out through the oral cavity. We looped this guidewire with the feeding tube. We pulled out the guidewire from the abdominal wall and through the mouth into the esophagus all the way until this was snug on the abdominal wall. I reinserted the scope and the inner bolster of the feeding tube was seen and appeared to be in good position on the anterior stomach wall. We pulled out the gastroscope. We tightened the external bolster on the skin. The procedure was then completed. The patient tolerated the procedure well and there were no complications noted. There was minimal blood loss. The patient was then transferred to the recovery room with stable vital signs. MD MYRON Mao/SKYLA / [id number] MTDD
--- NOTE | 2020-08-24 15:50 | PM.EVENT ---
Event Note Event Note: seen earlier postop good pain control stable VS abd soft daughter Danni updated ok to start PEG feed tomorrow repeat COVID test this morning - negative
[2020-08-24] MEDS: Heparin Sodium,Porcine 5,000 UNIT/ML VIAL 5000 UNIT SUBCUT ×2 (16:49→22:41)
[2020-08-25] MEDS: Dextrose 5 % 1,000 ML 50 ML IVCONT (01:03)
[2020-08-25 03:31] VITALS: BP 127/71; PULSE 69; RESP 19; TEMP 36.2; O2SAT 95
[2020-08-25] MEDS: Heparin Sodium,Porcine 5,000 UNIT/ML VIAL 5000 UNIT SUBCUT ×2 (06:19→12:45)
[2020-08-25 06:21] LABS: MANUAL DIFF FLAG NO
[2020-08-25 06:41] LABS: Basophils Percent Auto 0.2 % (0-2); Eosinophils Percent Auto 0.3 % (0-4); Hematocrit 27.2 % (42-52); Hemoglobin 8.7 g/dl (14.0-18.0); Imm Gran Abs Auto 0.08 X10*3/uL (0.00-0.03); Imm Gran Pct Auto 0.7 % (0.0-0.4); Lymphocytes Percent Auto 9.1 % (20-40); Mean Corpuscular Hemoglobin 28.3 pg (27.0-33.0); Mean Corpuscular Volume 88.6 fL (80-98); Mean Platelet Volume 10.1 fL (9.4-12.4); Monocytes Absolute Auto 0.9 X10*3/uL (0.1-1.2); Monocytes Percent Auto 7.7 % (2-11); Neutrophils Absolute Auto 9.3 X10*3/uL (2.0-8.3); Platelet Count 322 X10*3/uL (160-400); Red Blood Count 3.07 X10*6/uL (4.60-5.80); Red Cell Distribution Width 14.4 % (11.0-16.0); White Blood Count 11.3 X10*3/uL (4.8-10.8)
[2020-08-25 06:55] LABS: Anion Gap 15 (12-20); Blood Urea Nitrogen 11 mg/dL (9-16); Calcium 8.8 mg/dL (8.4-10.2); Carbon Dioxide 22 mmol/L (22-29); Chloride 103 mmol/L (96-108); Creatinine Clr Calc Pharmacy 46.2; Estimated Glomerular Filt Rate 58; Glucose Fasting 115 mg/dL (60-99); Potassium 3.4 mmol/l (3.3-5.1); Sodium 137 mmol/L (135-145)
[2020-08-25 08:00] VITALS: BP 140/67; PULSE 101; RESP 20; TEMP 36.7; O2SAT 94
--- NOTE | 2020-08-25 08:01 | PC.NURSE ---
Dr Rapp saw patient post peg placement. Plan to start using today, trickle tube feed. Can give meds through tube as well. Dr Rapp will speak to hospitalist.
--- NOTE | 2020-08-25 08:32 | MHC.CM.PN ---
at this time dc plan is to return to [facility]. cm to cont. to follow.
--- NOTE | 2020-08-25 09:21 | PM.PNGS ---
Subjective Subjective Interval history: No events overnight Was in urinary retention however Physical Exam Vital Signs: Vital Signs: Vital Signs Temp Pulse Resp BP Pulse Ox 08/25/20 08:00 98.0 F 101 H 20 140/67 H 94 08/25/20 03:31 97.2 F 69 19 127/71 95 08/24/20 23:25 97.3 F 95 19 139/70 93 08/24/20 19:46 97.5 F 99 20 143/77 H 95 08/24/20 16:05 97.8 F 86 18 134/68 100 08/24/20 14:23 97.0 F 86 18 161/74 H 96 08/24/20 13:45 96.9 F 82 18 138/66 99 08/24/20 13:30 80 18 121/62 100 08/24/20 13:25 79 20 120/60 100 08/24/20 13:20 79 18 119/59 L 100 08/24/20 13:15 96.9 F 80 20 114/60 100 08/24/20 12:21 97 F 90 18 149/66 H 97 Body Mass Index 24.3 Const: General: no acute distress GI: Other: Soft, nondistended, no guarding or rebound, peg tube in place, site dry Progress Note: A&P Assessment and plan (1) Failure to thrive: Status: Acute Assessment and Plan: Status post PEG placement Okay to start feeds today at low rate, increased to target as per recommendations by the fire engine pump operator Abdomen soft Reported to be in urinary retention - straight catheterization as needed Discussed with hospitalist service Patient had negative COVID test yesterday - does not need isolation Fall Risk Details Current Medications: Current Medications Generic Name Dose Route Start Last Admin Trade Name Freq PRN Reason Stop Dose Admin Acetaminophen 650 mg 08/18/20 13:43 08/21/20 20:19 Acetaminophen Supp 650 Mg Supp.Rect [place] 650 mg Q4H PRN Administration Pain and Fever Amlodipine Besylate 10 mg 08/19/20 09:00 08/24/20 08:24 Amlodipine Besylate 10 Mg Tablet PO Not Given DAILY [facility] Protocol Aspirin 81 mg 08/19/20 09:00 08/24/20 08:24 Aspirin Enteric Coated 81 Mg Tablet.Dr PO Not Given DAILY [facility] Carbidopa/Levodopa 2 tab 08/18/20 17:00 08/24/20 21:35 Carbidopa/Levodopa 25/100 Tablet PO Not Given QID [facility] Donepezil HCl 10 mg 08/19/20 09:00 08/24/20 08:24 Donepezil Hcl 10 Mg Tablet PO Not Given DAILY [facility] Heparin Sodium (Porcine) 5,000 unit 08/17/20 23:00 08/25/20 06:19 Heparin Sodium,Porcine 5,000 Unit/Ml Vial SUBCUT 5,000 unit Q8H [facility] Administration Dextrose 1,000 mls @ 50 mls/hr 08/23/20 08:45 08/25/20 01:03 D5w IVCONT 50 mls/hr .Q20H [facility] Administration Valproic Acid 500 mg/ Dextrose 55 mls @ 55 mls/hr 08/23/20 09:45 08/24/20 21:35 IV Infused BID [facility] Infusion Memantine 5 mg 08/18/20 21:00 08/24/20 21:35 Memantine Hcl 5 Mg Tablet PO Not Given BID [facility] Morphine Sulfate 2 mg 08/24/20 14:05 Morphine Sulfate 2 Mg/Ml Cartridge IVPUSH Q4H PRN Pain, Severe (Pain Scale 7-10) Non-Formulary Medication 1 applicatio 08/20/20 09:00 08/24/20 08:24 Calcium Alginate TOPICAL 1 applicatio DAILY [facility] Administration Ondansetron HCl 4 mg 08/24/20 13:23 Ondansetron Hcl 4 Mg/2 Ml Vial IVPUSH ONCE PRN Nausea and Vomiting Oxycodone HCl 5 mg 08/24/20 14:05 Oxycodone Hcl Immed Release 5 Mg Tablet PO Q4H PRN Pain, Moderate (Pain Scale 4-6 Sodium Chloride 3 ml 08/18/20 00:00 08/25/20 02:47 0.9 % Sodium Chloride Flush 3 Ml Syringe IVFLUSH Not Given QSHIFT [facility] Time Spent With Patient Time: Total time spent is greater than 50% in coordination of care (as documented) at patient's floor/unit and/or counseling patient: Time with patient: less than 15 minutes
[2020-08-25] MEDS: Valproic Acid (as Sodium Salt) 500 MG in Dextrose 5 % 50 ML 55 MG IV ×2 (10:45→20:58)
[2020-08-25 10:47] VITALS: BP 140/67; PULSE 101
[2020-08-25] MEDS: amLODIPine Besylate 10 MG TABLET PO (10:47)
[2020-08-25] MEDS: Donepezil HCl 10 MG TABLET PO (10:47)
[2020-08-25] MEDS: Memantine HCl 5 MG TABLET PO ×2 (10:47→20:59)
[2020-08-25] MEDS: Carbidopa/Levodopa 25/100 TABLET 2 TAB PO ×4 (10:48→20:58)
[2020-08-25] MEDS: Aspirin Enteric Coated 81 MG TABLET.DR PO (10:48)
[2020-08-25] MEDS: 0.9 % Sodium Chloride Flush 3 ML SYRINGE IVFLUSH ×2 (10:49→16:57)
--- NOTE | 2020-08-25 11:09 | HO.PM.IMPN ---
Subjective Subjective Date of Service: 08/25/20 Interval History: no complaints Physical Exam Vital Signs: Vital Signs: Vital Signs Temp Pulse Resp BP Pulse Ox 08/25/20 10:47 101 H 140/67 H 08/25/20 08:00 98.0 F 101 H 20 140/67 H 94 08/25/20 03:31 97.2 F 69 19 127/71 95 08/24/20 23:25 97.3 F 95 19 139/70 93 08/24/20 19:46 97.5 F 99 20 143/77 H 95 08/24/20 16:05 97.8 F 86 18 134/68 100 08/24/20 14:23 97.0 F 86 18 161/74 H 96 08/24/20 13:45 96.9 F 82 18 138/66 99 08/24/20 13:30 80 18 121/62 100 08/24/20 13:25 79 20 120/60 100 08/24/20 13:20 79 18 119/59 L 100 08/24/20 13:15 96.9 F 80 20 114/60 100 08/24/20 12:21 97 F 90 18 149/66 H 97 Body Mass Index 24.3 General: non verbal Resp: diminished CVS: S1,S2,RRR GI: soft, non tender, non distended Neuro: motor grossly intact Psych: ipmaired insight Objective Data Current Medications Generic Name Dose Route Start Last Admin Trade Name Freq PRN Reason Stop Dose Admin Acetaminophen 650 mg 08/18/20 13:43 08/21/20 20:19 Acetaminophen Supp [address] 650 mg Q4H PRN Administration Pain and Fever Amlodipine Besylate 10 mg 08/19/20 09:00 08/25/20 10:47 Amlodipine Besylate 10 Mg Tablet PO 10 mg DAILY [facility] Administration Protocol Aspirin 81 mg 08/19/20 09:00 08/25/20 10:48 Aspirin Enteric Coated 81 Mg Tablet.Dr PO 81 mg DAILY [facility] Administration Carbidopa/Levodopa 2 tab 08/18/20 17:00 08/25/20 10:48 Carbidopa/Levodopa 25/100 Tablet PO 2 tab QID [facility] Administration Donepezil HCl 10 mg 08/19/20 09:00 08/25/20 10:47 Donepezil Hcl 10 Mg Tablet PO 10 mg DAILY [facility] Administration Heparin Sodium (Porcine) 5,000 unit 08/17/20 23:00 08/25/20 06:19 Heparin Sodium,Porcine 5,000 Unit/Ml Vial SUBCUT 5,000 unit Q8H [facility] Administration Valproic Acid 500 mg/ Dextrose 55 mls @ 55 mls/hr 08/23/20 09:45 08/25/20 10:45 IV 55 mls/hr BID [facility] Administration Memantine 5 mg 08/18/20 21:00 08/25/20 10:47 Memantine Hcl 5 Mg Tablet PO 5 mg BID [facility] Administration Morphine Sulfate 2 mg 08/24/20 14:05 Morphine Sulfate 2 Mg/Ml Cartridge IVPUSH Q4H PRN Pain, Severe (Pain Scale 7-10) Non-Formulary Medication 1 applicatio 08/20/20 09:00 08/24/20 08:24 Calcium Alginate TOPICAL 1 applicatio DAILY [facility] Administration Ondansetron HCl 4 mg 08/24/20 13:23 Ondansetron Hcl 4 Mg/2 Ml Vial IVPUSH ONCE PRN Nausea and Vomiting Oxycodone HCl 5 mg 08/24/20 14:05 Oxycodone Hcl Immed Release 5 Mg Tablet PO Q4H PRN Pain, Moderate (Pain Scale 4-6 Sodium Chloride 3 ml 08/18/20 00:00 08/25/20 10:49 0.9 % Sodium Chloride Flush 3 Ml Syringe IVFLUSH 3 ml QSHIFT [facility] Administration Labs CBC & Chem 7: 08/25/20 06:02 08/25/20 06:02 Microbiology Microbiology Results: Microbiology 08/21/20 21:51 Stool Stool Culture - Final 08/17/20 17:04 Blood - Venous Blood Culture - Final No growth after 5 days. 08/17/20 16:09 Blood - Venous Blood Culture - Final No growth after 5 days. 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
[2020-08-25 11:25] VITALS: BP 153/73; PULSE 103; RESP 18; TEMP 36.5; O2SAT 92
--- NOTE | 2020-08-25 13:56 | HO.POSTANES ---
Post Anesthesia Evaluation Post Anesthesia Evaluation Vital Signs: Vital Signs Temp Pulse Resp BP Pulse Ox 08/25/20 11:25 97.7 F 103 H 18 153/73 H 92 08/25/20 10:47 101 H 140/67 H 08/25/20 08:00 98.0 F 101 H 20 140/67 H 94 08/25/20 03:31 97.2 F 69 19 127/71 95 Anesthesia: Monitored Mental Status: Awake Pain Control: Satisfactory Nausea/Vomiting: None Hydration: Adequate Anesthesia-Related Issues: No Anes. Related Issues
[2020-08-25 16:00] VITALS: BP 132/80; PULSE 72; RESP 18; TEMP 36.7; O2SAT 94
[2020-08-25 19:29] VITALS: BP 113/61; PULSE 86; RESP 20; TEMP 36.8; O2SAT 93
[2020-08-26] VITALS (9 sets, daily range): BP systolic 114–148; BP diastolic 57–80; PULSE 62–101; RESP 16–22; TEMP 36.4–38.8; O2SAT 93–98; BMI 24.3
[2020-08-26] MEDS: Acetaminophen Supp 650 MG SUPP.RECT PR ×2 (02:16→22:21)
[2020-08-26] MEDS: Heparin Sodium,Porcine 5,000 UNIT/ML VIAL 5000 UNIT SUBCUT ×4 (02:17→21:39)
[2020-08-26 06:18] LABS: MANUAL DIFF FLAG NO
[2020-08-26 06:27] LABS: Basophils Percent Auto 0.2 % (0-2); Eosinophils Percent Auto 0.4 % (0-4); Hematocrit 27.8 % (42-52); Hemoglobin 8.5 g/dl (14.0-18.0); Imm Gran Abs Auto 0.06 X10*3/uL (0.00-0.03); Imm Gran Pct Auto 0.5 % (0.0-0.4); Lymphocytes Absolute Auto 0.8 X10*3/uL (1.2-4.9); Lymphocytes Percent Auto 7.4 % (20-40); Mean Corpuscular HGB Conc 30.6 g/dl (31.0-36.0); Mean Corpuscular Hemoglobin 28.1 pg (27.0-33.0); Mean Corpuscular Volume 92.1 fL (80-98); Mean Platelet Volume 11.8 fL (9.4-12.4); Monocytes Percent Auto 8.9 % (2-11); Neutrophils Absolute Auto 9.1 X10*3/uL (2.0-8.3); Neutrophils Percent Auto 82.6 % (45-73); Platelet Count 224 X10*3/uL (160-400); Red Blood Count 3.02 X10*6/uL (4.60-5.80); Red Cell Distribution Width 14.9 % (11.0-16.0); White Blood Count 11.1 X10*3/uL (4.8-10.8)
[2020-08-26 07:02] LABS: Anion Gap 15 (12-20); Blood Urea Nitrogen 17 mg/dL (9-16); Calcium 8.6 mg/dL (8.4-10.2); Carbon Dioxide 20 mmol/L (22-29); Chloride 105 mmol/L (96-108); Creatinine Clr Calc Pharmacy 40.8; Estimated Glomerular Filt Rate 50; Glucose Fasting 121 mg/dL (60-99); Potassium 3.3 mmol/l (3.3-5.1); Sodium 137 mmol/L (135-145)
[2020-08-26] MEDS: Carbidopa/Levodopa 25/100 TABLET 2 TAB PO ×3 (09:11→15:56)
[2020-08-26] MEDS: Aspirin Enteric Coated 81 MG TABLET.DR PO (09:11)
[2020-08-26] MEDS: amLODIPine Besylate 10 MG TABLET PO (09:11)
[2020-08-26] MEDS: Memantine HCl 5 MG TABLET PO (09:11)
[2020-08-26] MEDS: Donepezil HCl 10 MG TABLET PO (09:11)
[2020-08-26] MEDS: Valproic Acid (as Sodium Salt) 500 MG in Dextrose 5 % 50 ML 55 MG IV (09:12)
[2020-08-26] MEDS: 0.9 % Sodium Chloride Flush 3 ML SYRINGE IVFLUSH ×3 (09:12→21:40)
[2020-08-26] MEDS: Piperacillin Sodium/Tazobactam 3.375 GM in 0.9 % Sodium Chloride 50 ML IV ×2 (12:32→21:39)
--- NOTE | 2020-08-26 17:26 | HO.PM.IMPN ---
Subjective Subjective Date of Service: 08/26/20 Interval History: Breakthrough seizure Review of Systems No new seizure events, opens eyes as per staff that seems like similar yesterday. Physical Exam Vital Signs: Vital Signs: Vital Signs Temp Pulse Resp BP Pulse Ox 08/26/20 15:23 98.2 F 82 18 140/80 H 96 08/26/20 12:00 97.6 F 62 18 131/76 94 08/26/20 09:11 81 148/68 H 08/26/20 07:54 98.3 F 101 H 22 H 119/65 96 08/26/20 04:00 98.6 F 96 22 H 123/57 L 93 08/26/20 00:00 100.4 F 90 20 114/64 94 08/25/20 19:29 98.3 F 86 20 113/61 93 Body Mass Index 24.3 Physical exam: Cvs: rrr, [id number] , no murmur res: clear to auscultation ,no rhonchii or wheezing abd: no rebound or guarding ,nt, bs present. ext :pulses present , no cyanosis neuro: nonfocal. Objective Data Current Medications Generic Name Dose Route Start Last Admin Trade Name Freq PRN Reason Stop Dose Admin Acetaminophen 650 mg 08/18/20 13:43 08/26/20 02:16 Acetaminophen Supp 650 Mg Supp.Rect DE 650 mg Q4H PRN Administration Pain and Fever Amlodipine Besylate 10 mg 08/27/20 09:00 Amlodipine Besylate 10 Mg Tablet G-TUBE DAILY [facility] Protocol Aspirin 81 mg 08/26/20 17:23 Aspirin Enteric Coated 81 Mg Tablet.Dr PO DAILY [facility] Carbidopa/Levodopa 2 tab 08/26/20 21:00 Carbidopa/Levodopa 25/100 Tablet G-TUBE QID [facility] Donepezil HCl 10 mg 08/27/20 09:00 Donepezil Hcl 5 Mg Tablet G-TUBE DAILY [facility] Heparin Sodium (Porcine) 5,000 unit 08/17/20 23:00 08/26/20 15:00 Heparin Sodium,Porcine 5,000 Unit/Ml Vial SUBCUT 5,000 unit Q8H [facility] Administration Piperacillin Sod/Tazobactam 50 mls @ 100 mls/hr 08/26/20 12:00 08/26/20 13:02 Sod 3.375 gm/ Sodium Chloride IV Infused Q8H [facility] Infusion Memantine 5 mg 08/26/20 21:00 Memantine Hcl 5 Mg Tablet G-TUBE BID [facility] Non-Formulary Medication 1 applicatio 08/20/20 09:00 08/26/20 09:15 Calcium Alginate TOPICAL Not Given DAILY [facility] Ondansetron HCl 4 mg 08/24/20 13:23 Ondansetron Hcl 4 Mg/2 Ml Vial IVPUSH ONCE PRN Nausea and Vomiting Oxycodone HCl 5 mg 08/24/20 14:05 Oxycodone Hcl Immed Release 5 Mg Tablet PO Q4H PRN Pain, Moderate (Pain Scale 4-6 Sodium Chloride 3 ml 08/18/20 00:00 08/26/20 15:01 0.9 % Sodium Chloride Flush 3 Ml Syringe IVFLUSH 3 ml QSHIFT [facility] Administration Labs CBC & Chem 7: 08/26/20 05:42 08/27/20 05:42 Microbiology Microbiology Results: Microbiology 08/21/20 21:51 Stool Stool Culture - Final 08/17/20 17:04 Blood - Venous Blood Culture - Final No growth after 5 days. 08/17/20 16:09 Blood - Venous Blood Culture - Final No growth after 5 days. 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 1.Breakthrough seizure, seizure disorder Secondary to low level valproic acid Continue Valproic acid 500 mg bid As per chart review: Neurology arzate recommended to continue above valproic acid. 2.Sepsis, resolved Intra-abdominal infection, colitis Negative blood cultures Still has intermittent fevers , Elevated WBcs CT scan of the abdomen concerning of possible colitis , GI does not thing the patient has acute infection though he received total of 5 days of antibiotics Patient has intermittent fever-id recommended start back Zosyn . 3.Failure to Thrive Patient unable to eat or drink by himself, very weak to eat with esl instructional assistant s/p peg 08/24 started tube feeds today, jevity, goal of 60cc/hr Will add free water Hold morphine and oxycodone. 4.Covid 19 positive, now negative viral shedding, patient has positive antibodies, no active infection 5. Foot wound: No clear infection but mainly sloughing of skin and bad odor wound care team input cleaned off the area and apply some calcium alginate to the wound and wrap follow up at wound clinic after dc Parkinson Continue Sinemet, Memantin DVT PPX Heparin
[2020-08-26] MEDS: Memantine HCl 5 MG TABLET G-TUBE (21:39)
[2020-08-26] MEDS: Carbidopa/Levodopa 25/100 TABLET 2 TAB G-TUBE (21:39)
[2020-08-26] MEDS: Divalproex Sodium Sprinkles 125 MG CAP.DR.SPR 500 MG PO (21:39)
--- NOTE | 2020-08-27 | XR_ITS ---
EXAMINATION: XR CHEST CLINICAL INFORMATION: Fever. COMPARISON: 06/09/2020 chest radiograph. TECHNIQUE: Frontal view of the chest was obtained. FINDINGS: No significant abnormality is noted involving the heart, lungs, mediastinum, bony thorax or soft tissues. XR/XR chest 1V IMPRESSION: No acute cardiopulmonary process.
[2020-08-27 03:00] VITALS: BP 117/55; PULSE 88; RESP 20; TEMP 37.8; O2SAT 98
[2020-08-27] MEDS: Piperacillin Sodium/Tazobactam 3.375 GM in 0.9 % Sodium Chloride 50 ML IV (03:43)
[2020-08-27 06:52] LABS: Anion Gap 18 (12-20); Blood Urea Nitrogen 21 mg/dL (9-16); Calcium 8.6 mg/dL (8.4-10.2); Carbon Dioxide 20 mmol/L (22-29); Chloride 104 mmol/L (96-108); Estimated Glomerular Filt Rate 42; Glucose Random 118 mg/dL (60-115); Potassium 3.8 mmol/l (3.3-5.1); Sodium 138 mmol/L (135-145)
[2020-08-27 07:00] VITALS: BP 131/62; PULSE 95; RESP 22; TEMP 39.2; O2SAT 100
[2020-08-27] MEDS: Heparin Sodium,Porcine 5,000 UNIT/ML VIAL 5000 UNIT SUBCUT ×3 (08:14→20:35)
[2020-08-27] MEDS: 0.9 % Sodium Chloride 500 ML 80 ML IV (08:15)
[2020-08-27] MEDS: amLODIPine Besylate 10 MG TABLET G-TUBE (08:16)
[2020-08-27] MEDS: Divalproex Sodium Sprinkles 125 MG CAP.DR.SPR 500 MG PO ×2 (08:16→20:34)
[2020-08-27] MEDS: 0.9 % Sodium Chloride Flush 3 ML SYRINGE IVFLUSH ×2 (08:16→20:35)
[2020-08-27] MEDS: Carbidopa/Levodopa 25/100 TABLET 2 TAB G-TUBE ×4 (08:17→20:34)
[2020-08-27] MEDS: Donepezil HCl 5 MG TABLET 10 MG G-TUBE (08:17)
[2020-08-27] MEDS: Aspirin Enteric Coated 81 MG TABLET.DR PO (08:18)
[2020-08-27] MEDS: Memantine HCl 5 MG TABLET G-TUBE ×2 (08:18→20:34)
[2020-08-27] MEDS: Acetaminophen Supp 650 MG SUPP.RECT PR (09:28)
[2020-08-27 11:17] VITALS: BP 110/67; PULSE 80; RESP 18; TEMP 36.7; O2SAT 95
[2020-08-27 11:35] LABS: Lactic Acid 0.9 mmol/L (0.5-2.0)
--- NOTE | 2020-08-27 13:50 | HO.PM.IMPN ---
Subjective Subjective Date of Service: 08/27/20 Interval History: ? drug fevers vs met sepsis criteria Review of Systems Patient is awake try to mumble but otherwise unable to answer any questions Physical Exam Vital Signs: Vital Signs: Vital Signs Temp Pulse Resp BP Pulse Ox 08/27/20 11:17 98.1 F 80 18 110/67 95 08/27/20 07:00 102.6 F H 95 22 H 131/62 100 08/27/20 03:00 100.0 F 88 20 117/55 L 98 08/26/20 23:10 98.6 F 88 18 128/76 98 08/26/20 22:21 101.9 F H 08/26/20 20:00 98.3 F 90 16 123/60 93 08/26/20 15:23 98.2 F 82 18 140/80 H 96 Body Mass Index 24.3 Physical exam: Cvs: rrr, [id number] , no murmur res: Grossly fair air entry slightly diminished at bases. abd: no rebound or guarding ,nt, bs present. ext pulses present , no cyanosis neuro: nonfocal. Objective Data Current Medications Generic Name Dose Route Start Last Admin Trade Name Freq PRN Reason Stop Dose Admin Acetaminophen 650 mg 08/18/20 13:43 08/27/20 09:28 Acetaminophen Supp 650 Mg Supp.Rect [place] 650 mg Q4H PRN Administration Pain and Fever Acetaminophen 650 mg 08/27/20 09:41 Acetaminophen 325 Mg Tablet G-TUBE Q6H PRN Fever Amlodipine Besylate 10 mg 08/27/20 09:00 08/27/20 08:16 Amlodipine Besylate 10 Mg Tablet G-TUBE 10 mg DAILY [facility] Administration Protocol Aspirin 81 mg 08/26/20 17:23 08/27/20 08:18 Aspirin Enteric Coated 81 Mg Tablet. PO 81 mg DAILY [facility] Administration Carbidopa/Levodopa 2 tab 08/26/20 21:00 08/27/20 08:17 Carbidopa/Levodopa 25/100 Tablet G-TUBE 2 tab QID [facility] Administration Divalproex Sodium 500 mg 08/26/20 21:00 08/27/20 08:16 Divalproex Sodium Sprinkles 125 Mg Cap.Spr PO 500 mg BID [facility] Administration Donepezil HCl 10 mg 08/27/20 09:00 08/27/20 08:17 Donepezil Hcl 5 Mg Tablet G-TUBE 10 mg DAILY [facility] Administration Heparin Sodium (Porcine) 5,000 unit 08/17/20 23:00 08/27/20 08:14 Heparin Sodium,Porcine 5,000 Unit/Ml Vial SUBCUT 5,000 unit Q8H [facility] Administration Sodium Chloride 500 mls @ 80 mls/hr 08/27/20 08:00 08/27/20 08:15 Ns IV 08/27/20 14:14 80 mls/hr .[id number] [facility] Administration Memantine 5 mg 08/26/20 21:00 08/27/20 08:18 Memantine Hcl 5 Mg Tablet G-TUBE 5 mg BID [facility] Administration Non-Formulary Medication 1 applicatio 08/20/20 09:00 08/27/20 08:24 Calcium Alginate TOPICAL Not Given DAILY [facility] Ondansetron HCl 4 mg 08/24/20 13:23 Ondansetron Hcl 4 Mg/2 Ml Vial IVPUSH ONCE PRN Nausea and Vomiting Oxycodone HCl 5 mg 08/24/20 14:05 Oxycodone Hcl Immed Release 5 Mg Tablet PO Q4H PRN Pain, Moderate (Pain Scale 4-6 Sodium Chloride 3 ml 08/18/20 00:00 08/27/20 08:16 0.9 % Sodium Chloride Flush 3 Ml Syringe IVFLUSH 3 ml QSHIFT [facility] Administration Labs CBC & Chem 7: 08/27/20 17:30 08/27/20 05:42 Microbiology Microbiology Results: Microbiology 08/21/20 21:51 Stool Stool Culture - Final 08/17/20 17:04 Blood - Venous Blood Culture - Final No growth after 5 days. 08/17/20 16:09 Blood - Venous Blood Culture - Final No growth after 5 days. Assessment and Plan (1) Failure to thrive: Status: Acute (2) Encephalopathy: Status: Acute (3) Epileptic seizure: Status: Acute (4) Colitis: Status: Acute (5) Seizure disorder: Status: Acute (6) Chronic constipation: Status: Acute (7) Parkinsons disease: Problem details: Status: Acute (8) Multifactorial dementia: Status: Acute Assessment and Plan: A 79 years old male with PMH of HTN, Parkinson's, seizure disorder, CKD who presented to the hospital home with breakthrough seizure activity and fever. 1.Breakthrough seizure, seizure disorder Secondary to low level valproic acid Continue Valproic acid 500 mg bid As per chart review: Neurology arzate recommended to continue above valproic acid. 2.Sepsis Intra-abdominal infection, colitis Negative blood cultures Still has intermittent fevers , Elevated WBcs CT scan of the abdomen concerning of possible colitis , GI does not thing the patient has acute infection though he received total of 5 days of antibiotics Met sepsis criteria this morning-chest x-ray negative, lactic acid normal, blood cultures sent and UA added. Will continue to monitor with Zosyn Discussed with Dr. Ventura question of drug fever may need to take off Zosyn. 3. TINA question multifactorial-failure to thrive, urinary retention' Monitor PVR Straight cath as needed above 350 mL 4.Failure to Thrive Patient unable to eat or drink by himself, very weak to eat with executive sales assistant s/p peg 08/24 started tube feeds today, jevity, goal of 60cc/hr Will add free water Hold morphine and oxycodone. 5.Normocytic anemia : ? multifactorial repeated h/h seems 7.8 /24.9-? component of hemodilution on ivf type and cross iron panel ,b12 an folate added . occult blood added moniter h/h 6. tina/urinary retention: pvr and prn striaght cath -may need forte if needs frquent cath moniter renal function closely. 7.Covid 19 positive, now negative thought to be-viral shedding, patient has positive antibodies, no active infection 8. Foot wound: No clear infection but mainly sloughing of skin and bad odor wound care team input cleaned off the area and apply some calcium alginate to the wound and wrap follow up at wound clinic after dc 9.Parkinson Continue Sinemet, Memantin DVT PPX hold Heparin due to anemia , mech devices ordered .
[2020-08-27 14:48] LABS: Color Urine DARK YELLOW; Glucose Urine UA NEG (NEG); Leukocyte Esterase Urine NEG (NEG); Nitrite Urine NEG (NEG); PH 5.5 (5.0-8.0); Specific Gravity - Urine 1.025 (1.005-1.025); Urine Blood NEG (NEG); Urine Ketones NEG (NEG); Urine Protein 2+ MG/DL (NEG-TRACE)
[2020-08-27 14:49] LABS: Appearance Urine HAZY
[2020-08-27 14:55] LABS: Amorphous Sediment Urine 3+ /LPF; RBC Urine 0 /HPF (0); Squamous Epithelial Cell Urine 1+ /LPF; WBC Urine 0 /HPF (0-4)
[2020-08-27 15:00] VITALS: BP 140/63; PULSE 94; RESP 20; TEMP 36.4; O2SAT 93
[2020-08-27 15:56] LABS: Hematocrit 23.3 % (42-52); Hemoglobin 7.4 g/dl (14.0-18.0); Mean Corpuscular HGB Conc 31.8 g/dl (31.0-36.0); Mean Corpuscular Hemoglobin 28.2 pg (27.0-33.0); Mean Corpuscular Volume 88.9 fL (80-98); Mean Platelet Volume 10.5 fL (9.4-12.4); Platelet Count 317 X10*3/uL (160-400); Red Blood Count 2.62 X10*6/uL (4.60-5.80); Red Cell Distribution Width 14.6 % (11.0-16.0); White Blood Count 13.9 X10*3/uL (4.8-10.8)
--- NOTE | 2020-08-27 16:24 | PM.IDPN ---
Subjective Subjective Date of Service: 08/27/20 Interval History: he has fever to 102.4 Tmax He has no old lines His CXR is normal Objective Data Labs CBC & Chem 7: 08/29/20 05:52 08/29/20 05:52 Labs: Laboratory Results - last 24 hr 08/27/20 08/27/20 08/27/20 05:42 10:34 13:59 WBC RBC Hgb Hct MCV MCH MCHC RDW Plt Count MPV Absolute Nucleated RBC Nucleated RBC % (auto) Sodium 138 Potassium 3.8 Chloride 104 Carbon Dioxide 20 L Anion Gap 18 BUN 21 H Creatinine 1.60 H Estim Creat Clear Calc 35.0 Estimated GFR 42 Random Glucose 118 H Lactic Acid 0.9 Calcium 8.6 Urine Color DARK YELLOW Urine Appearance HAZY Urine pH 5.5 Ur Specific Fitzgerald 1.025 Urine Protein 2+ H Urine Glucose (UA) NEG Urine Ketones NEG Urine Blood NEG Urine Nitrite NEG Ur Leukocyte Esterase NEG Urine RBC 0 Urine WBC 0 Ur Squamous Epith Cells 1+ Amorphous Sediment 3+ Urine Bacteria NONE Granular Casts 1-4 08/27/20 15:21 WBC 13.9 H RBC 2.62 L Hgb 7.4 L Hct 23.3 L MCV 88.9 MCH 28.2 MCHC 31.8 RDW 14.6 Plt Count 317 D MPV 10.5 Absolute Nucleated RBC 0.000 Nucleated RBC % (auto) 0.0 Sodium Potassium Chloride Carbon Dioxide Anion Gap BUN Creatinine Estim Creat Clear Calc Estimated GFR Random Glucose Lactic Acid Calcium Urine Color Urine Appearance Urine pH Ur Specific Fitzgerald Urine Protein Urine Glucose (UA) Urine Ketones Urine Blood Urine Nitrite Ur Leukocyte Esterase Urine RBC Urine WBC Ur Squamous Epith Cells Amorphous Sediment Urine Bacteria Granular Casts Microbiology Microbiology Results: Microbiology 08/21/20 21:51 Stool Stool Culture - Final 08/17/20 17:04 Blood - Venous Blood Culture - Final No growth after 5 days. 08/17/20 16:09 Blood - Venous Blood Culture - Final No growth after 5 days. Physical Exam Vital Signs: Vital Signs: Vital Signs Temp Pulse Resp BP Pulse Ox 08/27/20 15:00 97.5 F 94 20 140/63 H 93 08/27/20 11:17 98.1 F 80 18 110/67 95 08/27/20 07:00 102.6 F H 95 22 H 131/62 100 08/27/20 03:00 100.0 F 88 20 117/55 L 98 08/26/20 23:10 98.6 F 88 18 128/76 98 08/26/20 22:21 101.9 F H 08/26/20 20:00 98.3 F 90 16 123/60 93 Body Mass Index 24.3 Const: General: cooperative HENMT: Head: Yes normal to inspection Ears: hearing grossly normal bilaterally Throat: Yes posterior oropharynx normal Resp: Effort & Inspection: normal respiratory effort Cardio: Rate: regular rate Rhythm: regular rhythm GI: Inspection: Yes normal to inspection Extrem: General: Yes normal to inspection Assessment and Plan Assessment and plan (1) Epileptic seizure: Status: Acute (2) Fever: Problem details: Fever may be due to drug fever,has been on Zosyn Also less likely clot There is no evidence of aspiration pneumonia Cultures pending Status: Acute Assessment and Plan: Hold antibiotics for now,await blood cultures Time Spent With Patient Time: Total time spent is greater than 50% in coordination of care (as documented) at patient's floor/unit and/or counseling patient: Time with patient: 15 - 24 minutes
[2020-08-27 18:08] LABS: Hematocrit 24.9 % (42-52); Hemoglobin 7.8 g/dl (14.0-18.0)
[2020-08-27 19:00] VITALS: BP 164/71; PULSE 101; RESP 16; TEMP 36.7; O2SAT 95
[2020-08-27 21:41] LABS: Alanine Aminotransferase 19 U/L (0-40); Albumin Level 2.9 g/dL (3.5-5.0); Alkaline Phosphatase 69 U/L (39-117); Aspartate Amino Transferase 52 U/L (5-37); Bilirubin Direct 0.2 mg/dL (0.0-0.5); Bilirubin Total 0.6 mg/dL (0.0-1.0); Total Protein 7.6 g/dL (6.5-8.0)
[2020-08-27] MEDS: 0.9 % Sodium Chloride 1,000 ML 80 ML IVCONT (22:21)
[2020-08-27 22:28] LABS: Hematocrit 21.6 % (42-52)
[2020-08-27 22:30] LABS: Hemoglobin 6.9 g/dl (14.0-18.0)
[2020-08-27 23:00] VITALS: BP 164/71; PULSE 101; RESP 16; TEMP 37.8; O2SAT 95
[2020-08-28] VITALS (16 sets, daily range): BP systolic 119–164; BP diastolic 60–72; PULSE 61–101; RESP 16–20; TEMP 36.1–38.2; O2SAT 93–98
--- NOTE | 2020-08-28 01:45 | PC.NURSE ---
PT HAD H/H DRAWN AT 2200. CRITICAL RESULT CALLED FROM LAB. PT DROPPED TO 6.9/21.6. NOTIFIED. 1 UNIT RBCS ORDERED AND IS CURRENTLY TRANSFUSING. VSS. NO S/SX REACTION. WILL CONTINUE TO MONITOR
[2020-08-28] MEDS: Acetaminophen 325 MG TABLET 650 MG G-TUBE (03:58)
[2020-08-28 07:11] LABS: Hematocrit 23.9 % (42-52); Hemoglobin 7.8 g/dl (14.0-18.0); Mean Corpuscular HGB Conc 32.6 g/dl (31.0-36.0); Mean Corpuscular Hemoglobin 28.2 pg (27.0-33.0); Mean Corpuscular Volume 86.3 fL (80-98); Mean Platelet Volume 10.4 fL (9.4-12.4); Platelet Count 322 X10*3/uL (160-400); Red Blood Count 2.77 X10*6/uL (4.60-5.80); Red Cell Distribution Width 14.5 % (11.0-16.0); White Blood Count 13.3 X10*3/uL (4.8-10.8)
[2020-08-28 07:38] LABS: Blood Urea Nitrogen 21 mg/dL (9-16); Creatinine Clr Calc Pharmacy 43.7; Estimated Glomerular Filt Rate 54; Glucose Random 127 mg/dL (60-115)
[2020-08-28 07:58] LABS: Anion Gap 14 (12-20); Carbon Dioxide 22 mmol/L (22-29); Chloride 105 mmol/L (96-108); Potassium 2.8 mmol/l (3.3-5.1); Sodium 138 mmol/L (135-145)
[2020-08-28] MEDS: Potassium Chloride/H20 10 MEQ/100 ML PIGGYBACK 100 MEQ IV ×2 (08:36→09:42)
[2020-08-28] MEDS: 0.9 % Sodium Chloride Flush 3 ML SYRINGE IVFLUSH ×3 (08:37→21:06)
[2020-08-28 08:43] LABS: Alanine Aminotransferase 10 U/L (0-40); Albumin Level 2.5 g/dL (3.5-5.0); Alkaline Phosphatase 64 U/L (39-117); Aspartate Amino Transferase 35 U/L (5-37); Bilirubin Direct 0.5 mg/dL (0.0-0.5); Iron 23 mcg/dL (45-160); Magnesium 2.1 mg/dL (1.6-2.6); Percent Iron Saturation 19 % (15-50); Total Iron Binding Capacity 122 mcg/dL (228-428); Total Protein 6.5 g/dL (6.5-8.0); Unsaturated Iron Binding 99 ug/dL
[2020-08-28 09:40] LABS: Ferritin 1939 ng/mL (20-250)
[2020-08-28] MEDS: Carbidopa/Levodopa 25/100 TABLET 2 TAB G-TUBE ×4 (10:30→21:05)
[2020-08-28] MEDS: Potassium Chloride Packet 20 MEQ PACKET 40 MEQ G-TUBE (10:30)
[2020-08-28] MEDS: Donepezil HCl 5 MG TABLET 10 MG G-TUBE (10:31)
[2020-08-28] MEDS: Memantine HCl 5 MG TABLET G-TUBE ×2 (10:31→21:05)
[2020-08-28] MEDS: Divalproex Sodium Sprinkles 125 MG CAP.DR.SPR 500 MG PO ×2 (10:31→21:05)
[2020-08-28] MEDS: Acetaminophen 325 MG TABLET 650 MG PO (10:31)
[2020-08-28] MEDS: polyethylene glycoL 3350 17 GM POWD.PACK G-TUBE (10:31)
[2020-08-28] MEDS: 0.9 % Sodium Chloride 1,000 ML 80 ML IVCONT (11:33)
[2020-08-28 12:21] LABS: OBS Int Ctl Valid YES; OBS1 NEG (NEG)
--- NOTE | 2020-08-28 13:07 | HO.PM.IMPN ---
Subjective Subjective Date of Service: 08/28/20 Interval History: anemia , tina . Review of Systems Patient seems more awake, try to mumble but otherwise nonverbal Physical Exam Vital Signs: Vital Signs: Vital Signs Temp Pulse Resp BP Pulse Ox 08/28/20 11:56 98.0 F 80 18 148/69 H 08/28/20 10:52 97.8 F 86 16 145/70 H 08/28/20 10:36 98.2 F 86 16 144/70 H 08/28/20 08:47 97.3 F 80 18 119/60 96 08/28/20 07:32 61 08/28/20 05:58 99.7 F 08/28/20 05:19 99.7 F 08/28/20 04:00 100.8 F H 89 17 132/64 93 08/28/20 03:00 100.8 F H 89 16 132/64 93 08/28/20 00:40 100.3 F 90 16 124/60 08/28/20 00:21 100.1 F 101 H 16 164/71 H 08/27/20 23:00 100.1 F 101 H 16 164/71 H 95 08/27/20 19:00 98.1 F 101 H 16 164/71 H 95 08/27/20 15:00 97.5 F 94 20 140/63 H 93 Body Mass Index 24.3 Physical exam: Cvs: rrr, [id number] , no murmur res: grossly fair air entry, no rales or wheezing abd: abd seems soft , nondistended , peg site seems clean /intact , no discharge , no rebound. ext pulses present , no cyanosis neuro: nonfocal. Objective Data Current Medications Generic Name Dose Route Start Last Admin Trade Name Freq PRN Reason Stop Dose Admin Acetaminophen 650 mg 08/18/20 13:43 08/27/20 09:28 Acetaminophen Supp 650 Mg Supp.Rect [place] 650 mg Q4H PRN Administration Pain and Fever Carbidopa/Levodopa 2 tab 08/26/20 21:00 08/28/20 10:30 Carbidopa/Levodopa 25/100 Tablet G-TUBE 2 tab QID [facility] Administration Divalproex Sodium 500 mg 08/26/20 21:00 08/28/20 10:31 Divalproex Sodium Sprinkles 125 Mg PO 500 mg BID [facility] Administration Donepezil HCl 10 mg 08/27/20 09:00 08/28/20 10:31 Donepezil Hcl 5 Mg Tablet G-TUBE 10 mg DAILY [facility] Administration Sodium Chloride 1,000 mls @ 80 mls/hr 08/27/20 21:30 08/28/20 11:33 Ns IVCONT 0 mls/hr .[id number] [facility] Infusion Memantine 5 mg 08/26/20 21:00 08/28/20 10:31 Memantine Hcl 5 Mg Tablet G-TUBE 5 mg BID [facility] Administration Non-Formulary Medication 1 applicatio 08/20/20 09:00 08/28/20 10:32 Calcium Alginate TOPICAL Not Given DAILY [facility] Ondansetron HCl 4 mg 08/24/20 13:23 Ondansetron Hcl 4 Mg/2 Ml Vial IVPUSH ONCE PRN Nausea and Vomiting Pantoprazole Sodium 40 mg 08/28/20 16:30 Pantoprazole Sodium 40 Mg/10 Ml Vial IVPUSH BID@0630,1630 [facility] Polyethylene Glycol 17 gm 08/28/20 09:00 08/28/20 10:31 Polyethylene Glycol 3350 17 Gm Powd.Pack G-TUBE 17 gm BID [facility] Administration Potassium Chloride 40 meq 08/28/20 09:00 08/28/20 10:30 Potassium Chloride Packet 20 Meq Packet G-TUBE 40 meq DAILY [facility] Administration Sodium Chloride 3 ml 08/18/20 00:00 08/28/20 08:37 0.9 % Sodium Chloride Flush 3 Ml Syringe IVFLUSH 3 ml QSHIFT [facility] Administration Labs CBC & Chem 7: 08/29/20 05:52 08/29/20 05:52 Microbiology Microbiology Results: Microbiology 08/27/20 10:44 Blood - Venous Blood Culture - Preliminary No growth after 24 hours. 08/21/20 21:51 Stool Stool Culture - Final 08/17/20 17:04 Blood - Venous Blood Culture - Final No growth after 5 days. 08/17/20 16:09 Blood - Venous Blood Culture - Final No growth after 5 days. Assessment and Plan (1) Failure to thrive: Status: Acute (2) Encephalopathy: Status: Acute (3) Epileptic seizure: Status: Acute (4) Colitis: Status: Acute (5) Seizure disorder: Status: Acute (6) Chronic constipation: Status: Acute (7) Parkinsons disease: Problem details: Status: Acute (8) Multifactorial dementia: Status: Acute Assessment and Plan: A 79 years old male with PMH of HTN, Parkinson's, seizure disorder, CKD who presented to the hospital home with breakthrough seizure activity and fever. 1.Breakthrough seizure, seizure disorder: Seems more awake today, only try to mumble Secondary to low level valproic acid Continue Valproic acid 500 mg via peg bid As per chart review: Neurology arzate recommended to continue above valproic acid. 2.Sepsis Intra-abdominal infection, colitis Negative blood cultures Still has intermittent fevers , Elevated WBcs CT scan of the abdomen concerning of possible colitis , GI does not thing the patient has acute infection though he received total of 5 days of antibiotics Met sepsis criteria this morning-chest x-ray negative, lactic acid normal, blood cultures sent and UA added. Will continue to monitor with Zosyn Discussed with Dr. Ventura question of drug fever may need to take off Zosyn. 3. TINA question multifactorial-failure to thrive, urinary retention' Probably due to urinary retention Forte 4.Failure to Thrive Patient unable to eat or drink by himself, very weak to eat with bindery library technical assistant s/p peg 08/24 started tube feeds today, jevity, goal of 60cc/hr Continue free water Of morphine and oxycodone Last bowel movement was yesterday, we will add MiraLax also. 5.Normocytic anemia : ? multifactorial repeated h/h seems 7.8 /24.9-? component of hemodilution on ivf type and cross iron -23 tibc:122 ferritin 1938 iron sat 19% ,b12 an folate -pending. occult blood added ppi hold asa and chemoprophyalx s/c heparin added 2 prbc since h/h around 7.8 . Slowly trending down since admission h/h arzate GI eval pending 6. tina/urinary retention: pvr and prn striaght cath -may need forte if needs frquent cath moniter renal function closely. 7.Covid 19 positive, now negative thought to be-viral shedding, patient has positive antibodies, no active infection 8. Foot wound: No clear infection but mainly sloughing of skin and bad odor wound care team input cleaned off the area and apply some calcium alginate to the wound and wrap follow up at wound clinic after dc 9.Parkinson Continue Sinemet, Memantin DVT PPX hold Heparin due to anemia , mech devices ordered .
[2020-08-28 14:16] LABS: Hematocrit 27.6 % (42-52)
[2020-08-28 14:31] LABS: Potassium 3.3 mmol/l (3.3-5.1)
--- NOTE | 2020-08-28 14:35 | P.PNGI_ITS ---
Subjective Subjective Date of Service: 08/28/20 Interval History: Asked to see re: drop in Hgb. Hx via his RN and the EMR. There is no report of melena nor BRBPR. He is s/p a PEG with Dr. Rapp on 08/24 and there is no description of any UGI pathology that would account for blood loss. Patient is nonverbal at this time, although does open his eyes. Physical Exam Vital Signs: Vital Signs: Vital Signs Temp Pulse Resp BP Pulse Ox 08/28/20 13:51 97.7 F 79 16 142/64 H 08/28/20 13:36 97.0 F 76 18 128/60 08/28/20 11:56 98.0 F 80 18 148/69 H 08/28/20 10:52 97.8 F 86 16 145/70 H 08/28/20 10:36 98.2 F 86 16 144/70 H 08/28/20 08:47 97.3 F 80 18 119/60 96 08/28/20 07:32 61 08/28/20 05:58 99.7 F 08/28/20 05:19 99.7 F 08/28/20 04:00 100.8 F H 89 17 132/64 93 08/28/20 03:00 100.8 F H 89 16 132/64 93 08/28/20 00:40 100.3 F 90 16 124/60 08/28/20 00:21 100.1 F 101 H 16 164/71 H 08/27/20 23:00 100.1 F 101 H 16 164/71 H 95 08/27/20 19:00 98.1 F 101 H 16 164/71 H 95 08/27/20 15:00 97.5 F 94 20 140/63 H 93 Body Mass Index 24.3 Eyes: Sclerae: sclerae normal GI: Inspection: Yes normal to inspection Palpation (GI): Soft to palpation and Tenderness to palpation present (GI) (Nontender) Auscultation: normal bowel sounds Objective Data Labs CBC & Chem 7: 08/28/20 13:30 Labs: Laboratory Results - last 24 hr 08/27/20 08/27/20 08/27/20 05:42 13:59 15:21 WBC 13.9 H RBC 2.62 L Hgb 7.4 L Hct 23.3 L MCV 88.9 MCH 28.2 MCHC 31.8 RDW 14.6 Plt Count 317 D MPV 10.5 Absolute Nucleated RBC 0.000 Nucleated RBC % (auto) 0.0 Sodium Potassium Chloride Carbon Dioxide Anion Gap BUN Creatinine Estim Creat Clear Calc Estimated GFR Random Glucose Calcium Magnesium Iron TIBC % Saturation Unsat Iron Binding Ferritin Total Bilirubin 0.6 Direct Bilirubin 0.2 AST 52 H ALT 19 Alkaline Phosphatase 69 D Total Protein 7.6 Albumin 2.9 L Urine Color DARK YELLOW Urine Appearance HAZY Urine pH 5.5 Ur Specific [place] 1.025 Urine Protein 2+ H Urine Glucose (UA) NEG Urine Ketones NEG Urine Blood NEG Urine Nitrite NEG Ur Leukocyte Esterase NEG Urine RBC 0 Urine WBC 0 Ur Squamous Epith Cells 1+ Amorphous Sediment 3+ Urine Bacteria NONE Granular Casts 1-4 Stool Occult Blood Blood Type Antibody Screen Crossmatch 08/27/20 08/27/20 08/27/20 17:29 17:30 22:12 WBC RBC Hgb 7.8 L 6.9 L* Hct 24.9 L 21.6 L MCV MCH MCHC RDW Plt Count MPV Absolute Nucleated RBC Nucleated RBC % (auto) Sodium Potassium Chloride Carbon Dioxide Anion Gap BUN Creatinine Estim Creat Clear Calc Estimated GFR Random Glucose Calcium Magnesium Iron TIBC % Saturation Unsat Iron Binding Ferritin Total Bilirubin Direct Bilirubin AST ALT Alkaline Phosphatase Total Protein Albumin Urine Color Urine Appearance Urine pH Ur Specific [place] Urine Protein Urine Glucose (UA) Urine Ketones Urine Blood Urine Nitrite Ur Leukocyte Esterase Urine RBC Urine WBC Ur Squamous Epith Cells Amorphous Sediment Urine Bacteria Granular Casts Stool Occult Blood Blood Type B Positive Antibody Screen NEGATIVE Crossmatch See Detail 08/28/20 08/28/20 08/28/20 06:18 06:18 11:48 WBC 13.3 H RBC 2.77 L Hgb 7.8 L Hct 23.9 L MCV 86.3 MCH 28.2 MCHC 32.6 RDW 14.5 Plt Count 322 MPV 10.4 Absolute Nucleated RBC 0.000 Nucleated RBC % (auto) 0.0 Sodium 138 Potassium 2.8 L D Chloride 105 Carbon Dioxide 22 Anion Gap 14 BUN 21 H Creatinine 1.28 Estim Creat Clear Calc 43.7 Estimated GFR 54 Random Glucose 127 H Calcium 8.0 L Magnesium 2.1 Iron 23 L TIBC 122 L % Saturation 19 Unsat Iron Binding 99 Ferritin 1939 H Total Bilirubin 1.0 Direct Bilirubin 0.5 AST 35 ALT 10 Alkaline Phosphatase 64 Total Protein 6.5 Albumin 2.5 L Urine Color Urine Appearance Urine pH Ur Specific [place] Urine Protein Urine Glucose (UA) Urine Ketones Urine Blood Urine Nitrite Ur Leukocyte Esterase Urine RBC Urine WBC Ur Squamous Epith Cells Amorphous Sediment Urine Bacteria Granular Casts Stool Occult Blood NEG Blood Type Antibody Screen Crossmatch 08/28/20 08/28/20 13:30 13:30 WBC RBC Hgb 9.0 L Hct 27.6 L MCV MCH MCHC RDW Plt Count MPV Absolute Nucleated RBC Nucleated RBC % (auto) Sodium Potassium 3.3 Chloride Carbon Dioxide Anion Gap BUN Creatinine Estim Creat Clear Calc Estimated GFR Random Glucose Calcium Magnesium Iron TIBC % Saturation Unsat Iron Binding Ferritin Total Bilirubin Direct Bilirubin AST ALT Alkaline Phosphatase Total Protein Albumin Urine Color Urine Appearance Urine pH Ur Specific [place] Urine Protein Urine Glucose (UA) Urine Ketones Urine Blood Urine Nitrite Ur Leukocyte Esterase Urine RBC Urine WBC Ur Squamous Epith Cells Amorphous Sediment Urine Bacteria Granular Casts Stool Occult Blood Blood Type Antibody Screen Crossmatch Microbiology Microbiology Results: Microbiology 08/27/20 10:44 Blood - Venous Blood Culture - Preliminary No growth after 24 hours. 08/21/20 21:51 Stool Stool Culture - Final 08/17/20 17:04 Blood - Venous Blood Culture - Final No growth after 5 days. 08/17/20 16:09 Blood - Venous Blood Culture - Final No growth after 5 days. Progress Note: A&P Assessment and plan (1) Anemia: Problem details: Imp: The anemia certainly seems chronic and there is no evidence of active GI bleeding at this time. His abdominal exam is benign. I suspect the anemia is in relation to chronic disease with worsening during in relation to his hospitalization, poor nutritional status, etc. Rec: Monitor Hgb. Transfuse as needed. I think a PPI via the Gtube would suffice, rather than IV. Hold all blood thinners like aspirin, Lovenox, etc. Would check Iron, B12, and Folate levels if not done recently. I don't think he requires any type of endoscopic GI intervention at this time, nor would he be a good candidate for that. Please call if I can be of further assistance. Thanks Status: Acute Assessment and Plan: See above. Fall Risk Details Current Medications: Current Medications Generic Name Dose Route Start Last Admin Trade Name Freq PRN Reason Stop Dose Admin Acetaminophen 650 mg 08/18/20 13:43 08/27/20 09:28 Acetaminophen Supp 650 Mg Supp.Rect [place] 650 mg Q4H PRN Administration Pain and Fever Carbidopa/Levodopa 2 tab 08/26/20 21:00 08/28/20 13:45 Carbidopa/Levodopa 25/100 Tablet G-TUBE 2 tab QID RAQUEL Administration Divalproex Sodium 500 mg 08/28/20 21:00 Divalproex Sodium Sprinkles 125 Mg Cap PO BID RAQUEL Donepezil HCl 10 mg 08/27/20 09:00 08/28/20 10:31 Donepezil Hcl 5 Mg Tablet G-TUBE 10 mg DAILY RAQUEL Administration Sodium Chloride 1,000 mls @ 80 mls/hr 08/27/20 21:30 08/28/20 11:33 Ns IVCONT 0 mls/hr .[id number] RAQUEL Infusion Memantine 5 mg 08/26/20 21:00 08/28/20 10:31 Memantine Hcl 5 Mg Tablet G-TUBE 5 mg BID RAQUEL Administration Non-Formulary Medication 1 applicatio 08/20/20 09:00 08/28/20 10:32 Calcium Alginate TOPICAL Not Given DAILY [facility]QUEL Ondansetron HCl 4 mg 08/24/20 13:23 Ondansetron Hcl 4 Mg/2 Ml Vial IVPUSH ONCE PRN Nausea and Vomiting Pantoprazole Sodium 40 mg 08/28/20 16:30 Pantoprazole Sodium 40 Mg/10 Ml Vial IVPUSH BID@0630,1630 RAQUEL Polyethylene Glycol 17 gm 08/28/20 09:00 08/28/20 10:31 Polyethylene Glycol 3350 17 Gm Powd.Pack G-TUBE 17 gm BID RAQUEL Administration Potassium Chloride 40 meq 08/28/20 09:00 08/28/20 10:30 Potassium Chloride Packet 20 Meq Packet G-TUBE 40 meq DAILY RAQUEL Administration Sodium Chloride 3 ml 08/18/20 00:00 08/28/20 08:37 0.9 % Sodium Chloride Flush 3 Ml Syringe IVFLUSH 3 ml QSHIFT RAQUEL Administration Time Spent With Patient Time: Total time spent is greater than 50% in coordination of care (as documented) at patient's floor/unit and/or counseling patient: Time with patient: 15 - 24 minutes
[2020-08-28] MEDS: Pantoprazole Sodium 40 MG/10 ML VIAL IVPUSH (17:12)
[2020-08-28 18:23] LABS: Hematocrit 31.1 % (42-52); Hemoglobin 10.3 g/dl (14.0-18.0)
--- NOTE | 2020-08-29 | CT_ITS ---
EXAMINATION: CT ABDOMEN AND PELVIS WITHOUT CONTRAST CLINICAL INFORMATION: Fevers. COMPARISON: CT scan of the abdomen and pelvis dated 08/17/2020 and 06/11/2020. TECHNIQUE: Multidetector volumetric imaging was performed from the superior aspect of the liver through the pubic symphysis. Sagittal and coronal reformatted images were obtained on the technologist workstation. This CT examination was performed using dose optimization techniques as appropriate, variously including the following: *Automated exposure control *Adjustment of mA and/or kV according to patient size (this includes techniques or standardized protocols for targeted exams where dose is matched to indication/reason for exam; i.e. extremities or head) *Use of iterative reconstruction technique DLP: 920 mGy-cm. FINDINGS: Evaluation limited due to extensive breathing motion artifact. Technologist states that patient was unable to follow breathing instructions. LUNG BASES: Mild dependent bibasilar atelectasis. LIVER, GALLBLADDER, AND BILIARY TREE: Small 0.9 cm low-attenuation mass in hepatic segment 6 again seen, unchanged from prior exams, likely a tiny cyst. No additional liver mass. No intra or extrahepatic ductal dilatation. The gallbladder is decompressed and suboptimally assessed, but grossly unremarkable with no evidence of radiopaque gallstones, gallbladder wall thickening, or obvious pericholecystic inflammatory changes. PANCREAS: Diffusely mildly atrophic and otherwise unremarkable on noncontrast study. SPLEEN, ADRENAL GLANDS: Unremarkable on noncontrast imaging. KIDNEYS AND URETERS: The kidneys are normal in size, shape, and attenuation. No hydronephrosis, hydroureter, or calculi seen. Mild nonspecific bilateral perinephric stranding. BLADDER: Decompressed by a Wade catheter and not adequately assessed. PELVIC VISCERA: Unremarkable. GASTROINTESTINAL TRACT: Again seen is marked dilatation of the rectosigmoid colon with large air-fluid level seen in the sigmoid colon and extensive liquid stool seen distending the entire rectum. Fluid is seen in the presacral space, increased from prior study. Findings are suggestive of stercoral colitis. There is also mild gaseous distention of the hepatic flexure and transverse colon. Remainder of the colon is decompressed with moderate amount of stool seen. Stomach and bowel loops are decompressed and unremarkable. Gastrostomy tube is seen in place. ABDOMINAL WALL: No significant hernia is appreciated. LYMPH NODES, VASCULAR: Abdominal aorta is normal in caliber with dense atherosclerotic calcifications of the distal aorta and iliofemoral vessels seen. No abdominal or pelvic adenopathy. OSSEOUS STRUCTURES: Prominent cystic changes in the femoral heads and to a lesser extent in the opposing acetabular roofs again seen, consistent with prominent degenerative changes, unchanged. Severe degenerative disc disease at the lumbosacral junction with grade 1 retrolisthesis of L5 on S1 is seen with prominent posterior disc osteophyte complex indenting the thecal sac. Mild degenerative disc disease seen throughout the lumbar spine. Diffuse osteopenia and mild superior endplate compression deformities of L1 and L2 again seen, unchanged. CT/CT abdomen pelvis wo con IMPRESSION: 1. Findings are suspicious for stercoral colitis with marked gaseous and stool distention of the rectosigmoid colon, air-fluid level, and increasing, though still small volume, free fluid in the presacral space. Close clinical correlation is requested. 2. Other incidental findings include a stable hepatic segment 6 lesion, likely a small cyst; mildly atrophic pancreas; atherosclerotic vascular disease; osteopenia and compression deformities in the upper lumbar spine.
--- NOTE | 2020-08-29 | XR_ITS ---
EXAMINATION: XR CHEST CLINICAL INFORMATION: Fever COMPARISON: 08/27/2020 TECHNIQUE: Portable AP upright view of the chest was obtained. FINDINGS: Cardiac silhouette is stable in size. The lung volumes are decreased with mild subsegmental atelectasis at both lung bases. No dominant consolidation or pleural effusion. No acute osseous abnormality. XR/XR chest 1V IMPRESSION: Low lung volumes with mild bibasilar subsegmental atelectasis.
[2020-08-29] MEDS: 0.9 % Sodium Chloride 1,000 ML 80 ML IVCONT ×2 (01:49→13:24)
[2020-08-29 03:29] VITALS: BP 137/77; PULSE 90; RESP 20; TEMP 36.9; O2SAT 98
[2020-08-29] MEDS: Pantoprazole Sodium 40 MG/10 ML VIAL IVPUSH (05:30)
[2020-08-29 07:07] LABS: Hematocrit 30.1 % (42-52); Hemoglobin 10.1 g/dl (14.0-18.0); Mean Corpuscular HGB Conc 33.6 g/dl (31.0-36.0); Mean Corpuscular Hemoglobin 28.9 pg (27.0-33.0); Mean Corpuscular Volume 86.2 fL (80-98); Mean Platelet Volume 10.2 fL (9.4-12.4); Platelet Count 357 X10*3/uL (160-400); Red Blood Count 3.49 X10*6/uL (4.60-5.80); Red Cell Distribution Width 15.4 % (11.0-16.0); White Blood Count 13.5 X10*3/uL (4.8-10.8)
[2020-08-29 07:24] LABS: Anion Gap 12 (12-20); Blood Urea Nitrogen 18 mg/dL (9-16); Calcium 7.6 mg/dL (8.4-10.2); Carbon Dioxide 23 mmol/L (22-29); Chloride 110 mmol/L (96-108); Creatinine Clr Calc Pharmacy 54.3; Estimated Glomerular Filt Rate > 60; Glucose Random 133 mg/dL (60-115); Potassium 3.3 mmol/l (3.3-5.1); Sodium 142 mmol/L (135-145)
[2020-08-29 07:50] VITALS: BP 139/67; PULSE 93; RESP 18; TEMP 39; O2SAT 96
[2020-08-29] MEDS: 0.9 % Sodium Chloride Flush 3 ML SYRINGE IVFLUSH ×3 (09:19→23:12)
[2020-08-29] MEDS: Donepezil HCl 10 MG TABLET G-TUBE (09:19)
[2020-08-29] MEDS: Divalproex Sodium Sprinkles 125 MG CAP.DR.SPR 500 MG PO ×2 (09:19→23:11)
[2020-08-29] MEDS: Carbidopa/Levodopa 25/100 TABLET 2 TAB G-TUBE ×4 (09:19→23:10)
[2020-08-29] MEDS: polyethylene glycoL 3350 17 GM POWD.PACK G-TUBE ×2 (09:20→23:12)
[2020-08-29] MEDS: Memantine HCl 5 MG TABLET G-TUBE ×2 (09:20→23:11)
[2020-08-29] MEDS: Acetaminophen Supp 650 MG SUPP.RECT PR (09:25)
[2020-08-29 10:54] VITALS: BP 157/74; PULSE 93; RESP 18; TEMP 38.3; O2SAT 96
[2020-08-29 11:00] VITALS: TEMP 38.3
[2020-08-29] MEDS: Heparin Sodium,Porcine 5,000 UNIT/ML VIAL 5000 UNIT SUBCUT ×2 (12:35→23:12)
--- NOTE | 2020-08-29 13:32 | HO.PM.IMPN ---
Subjective Subjective Date of Service: 08/29/20 Interval History: fevers ? drug fever Review of Systems Still awake but try to mumble still looks similar to yesterday, has intermittent fevers Physical Exam Vital Signs: Vital Signs: Vital Signs Temp Pulse Resp BP Pulse Ox 08/29/20 11:00 100.9 F H 08/29/20 10:54 100.9 F H 93 18 157/74 H 96 08/29/20 07:50 102.2 F H 93 18 139/67 96 08/29/20 03:29 98.5 F 90 20 137/77 98 08/28/20 23:58 97.9 F 83 20 149/72 H 95 08/28/20 19:50 98.3 F 85 16 135/62 98 08/28/20 15:33 97.7 F 76 16 150/71 H Body Mass Index 24.3 Physical exam Cvs: rrr, [id number] , no murmur res: clear to auscultation ,no rhonchii or wheezing abd: no rebound or guarding ,nt, bs present. ext pulses present , no cyanosis neuro: axo3 , nonfocal. Objective Data Current Medications Generic Name Dose Route Start Last Admin Trade Name Freq PRN Reason Stop Dose Admin Acetaminophen 650 mg 08/29/20 08:30 08/29/20 09:25 Acetaminophen Supp 650 Mg Supp.Rect [place] 650 mg Q6H PRN Administration fevers Carbidopa/Levodopa 2 tab 08/26/20 21:00 08/29/20 13:24 Carbidopa/Levodopa 25/100 Tablet G-TUBE 2 tab QID RAQUEL Administration Divalproex Sodium 500 mg 08/28/20 21:00 08/29/20 09:19 Divalproex Sodium Sprinkles 125 Mg CapSpr PO 500 mg BID RAQUEL Administration Donepezil HCl 10 mg 08/29/20 09:00 08/29/20 09:19 Donepezil Hcl 10 Mg Tablet G-TUBE 10 mg DAILY RAQUEL Administration Heparin Sodium (Porcine) 5,000 unit 08/29/20 11:30 08/29/20 12:35 Heparin Sodium,Porcine 5,000 Unit/Ml Vial SUBCUT 5,000 unit Q8H RAQUEL Administration Sodium Chloride 1,000 mls @ 80 mls/hr 08/27/20 21:30 08/29/20 13:24 Ns IVCONT 80 mls/hr .[id number] RAQUEL Administration Memantine 5 mg 08/26/20 21:00 08/29/20 09:20 Memantine Hcl 5 Mg Tablet G-TUBE 5 mg BID RAQUEL Administration Non-Formulary Medication 1 applicatio 08/20/20 09:00 08/29/20 09:19 Calcium Alginate TOPICAL Not Given DAILY [facility] Omeprazole 20 mg 08/29/20 16:30 Omeprazole 20 Mg Capsule.Dr PO BID@0630,1630 [facility] Ondansetron HCl 4 mg 08/24/20 13:23 Ondansetron Hcl 4 Mg/2 Ml Vial IVPUSH ONCE PRN Nausea and Vomiting Polyethylene Glycol 17 gm 08/28/20 09:00 08/29/20 09:20 Polyethylene Glycol 3350 17 Gm Powd.Pack G-TUBE 17 gm BID RAQUEL Administration Potassium Chloride 40 meq 08/28/20 09:00 08/29/20 09:33 Potassium Chloride Packet 20 Meq Packet G-TUBE Not Given DAILY [facility] Sodium Chloride 3 ml 08/18/20 00:00 08/29/20 09:19 0.9 % Sodium Chloride Flush 3 Ml Syringe IVFLUSH 3 ml QSHIFT RAQUEL Administration Labs CBC & Chem 7: 08/30/20 04:25 08/30/20 04:25 Microbiology Microbiology Results: Microbiology 08/27/20 10:44 Blood - Venous Blood Culture - Preliminary No growth after 48 hours. 08/27/20 10:34 Blood - Venous Blood Culture - Preliminary No growth after 24 hours. 08/21/20 21:51 Stool Stool Culture - Final 08/17/20 17:04 Blood - Venous Blood Culture - Final No growth after 5 days. 08/17/20 16:09 Blood - Venous Blood Culture - Final No growth after 5 days. Assessment and Plan (1) Failure to thrive: Status: Acute (2) Encephalopathy: Status: Acute (3) Epileptic seizure: Status: Acute (4) Colitis: Problem details: CT shows high fecal load cw constipation, with ?stercoral colitis in rectosigmoid unlikely to be causing fever fleet enema stool softeners abd soft, benign and not distended will follow dw Hospitalist Status: Acute (5) Seizure disorder: Status: Acute (6) Chronic constipation: Status: Acute (7) Parkinsons disease: Problem details: Status: Acute (8) Multifactorial dementia: Status: Acute Assessment and Plan: A 79 years old male with PMH of HTN, Parkinson's, seizure disorder, CKD who presented to the hospital home with breakthrough seizure activity and fever. 1.Breakthrough seizure, seizure disorder: Seems more awake today, only try to mumble Secondary to low level valproic acid Continue Valproic acid 500 mg via peg bid As per chart review: Neurology arzate recommended to continue above valproic acid. 2.Sepsis Intra-abdominal infection, colitis Negative blood cultures Still has intermittent fevers , Elevated WBcs CT scan of the abdomen concerning of possible colitis , GI does not thing the patient has acute infection though he received total of 5 days of antibiotics repeat workup last 2 days -chest x-ray negative, lactic acid normal, blood cultures neg and UA neg. Discussed with Dr. Ventura question of drug fever may need to take off Zosyn. 3. 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 5.Normocytic anemia : ? multifactorial -nutritonal? iron -23 tibc:122 ferritin 1939 iron sat 19% ,b12 an folate -pending. occult blood neg ppi switched ppi via peg hold asa h/h in 10 range Gi saw the patient -recomeded to start ppi yesterday , transfused 3 prbc yesterday, hold asa 6. tina/urinary retention: pvr and prn striaght cath -may need forte if needs frquent cath moniter renal function closely. 7.Covid 19 positive, now negative thought to be-viral shedding, patient has positive antibodies, no active infection 8. Foot wound: No clear infection but mainly sloughing of skin and bad odor wound care team input cleaned off the area and apply some calcium alginate to the wound and wrap follow up at wound clinic after dc 9.Parkinson Continue Sinemet, Memantin DVT PPX: chemoprophyalx s/c heparin put back bez fobt neg, mech devices ordered .
[2020-08-29 15:33] VITALS: BP 134/70; PULSE 84; RESP 36; TEMP 36.2; O2SAT 98
[2020-08-29 19:00] LABS: Glucose Urine UA NEG (NEG); Leukocyte Esterase Urine NEG (NEG); Nitrite Urine NEG (NEG); Urine Blood 3+ (NEG); Urine Ketones NEG (NEG); Urine Protein 2+ MG/DL (NEG-TRACE)
[2020-08-29 19:03] LABS: Appearance Urine HAZY; Color Urine YELLOW
--- NOTE | 2020-08-29 19:46 | PC.NURSE ---
shift update; pt drowsy, lethargic this am, temp 102.2, dr gray informed at 0800, rectal acetaminophen given; labs ordered; lung sounds clear; tolerating tf via peg; md states hold miralax and stool softeners this am due to 3 bm last shift; abd ct result md to hold tf, and to give enemas- pt with lge gas movement and small stool at 1800 sent for cx, leuk and cdiff; pt more alert this evening- family at bedside, pt conversing slightly; skin excoriated on coccyx and buttocks; stage II on buttocls, sin excoriated in lola area on scrotum and penis- barrier cream applied- on airloss mattress; report given to lloyd campbell at 1900
[2020-08-29 19:53] LABS: RBC Urine TNTC /HPF (0); Squamous Epithelial Cell Urine 1+ /LPF; WBC Urine 0-2 /HPF (0-4)
[2020-08-29 19:54] LABS: CDIFF Ag Negative (Negative); CDIFF Internal ctrl Dots and bkg OK (V); CDiff Toxin Negative (Negative)
[2020-08-29 20:02] VITALS: BP 160/87; PULSE 99; RESP 18; TEMP 37.1; O2SAT 98
[2020-08-29 20:03] LABS: Leukocytes Stool Qualitative MOD: 3-9/OIF (NEGATIVE)
[2020-08-30] VITALS (7 sets, daily range): BP systolic 136–146; BP diastolic 63–76; PULSE 87–102; RESP 18–20; TEMP 36.4–37.4; O2SAT 94–97
[2020-08-30] MEDS: 0.9 % Sodium Chloride 1,000 ML 80 ML IVCONT ×2 (03:12→16:43)
[2020-08-30 04:04] LABS: Folate 3.7 ng/mL (> or = 4.0); Vitamin B12 408 pg/mL (200-900)
[2020-08-30 05:27] LABS: Mean Corpuscular HGB Conc 32.3 g/dl (31.0-36.0); Mean Corpuscular Hemoglobin 28.1 pg (27.0-33.0); Mean Corpuscular Volume 87.1 fL (80-98); Mean Platelet Volume 10.4 fL (9.4-12.4); Platelet Count 390 X10*3/uL (160-400); Red Blood Count 3.56 X10*6/uL (4.60-5.80); Red Cell Distribution Width 15.3 % (11.0-16.0); White Blood Count 13.6 X10*3/uL (4.8-10.8)
[2020-08-30 05:57] LABS: Anion Gap 16 (12-20); Blood Urea Nitrogen 13 mg/dL (9-16); Calcium 8.1 mg/dL (8.4-10.2); Carbon Dioxide 22 mmol/L (22-29); Chloride 110 mmol/L (96-108); Creatinine Clr Calc Pharmacy 60.8; Estimated Glomerular Filt Rate > 60; Glucose Random 96 mg/dL (60-115); Potassium 3.8 mmol/l (3.3-5.1); Sodium 144 mmol/L (135-145)
--- NOTE | 2020-08-30 08:09 | PM.PNGS ---
Subjective Subjective Interval history: pt had PEG tube placed last tolerating tube feeds however, has had some fever with uknown etiology had CT done yesterday showing high fecal load in colon and suggestion of stercoral colitis Chemistry 08/28/20 08/28/20 08/29/20 06:18 13:30 05:52 Sodium 138 142 Potassium 2.8 L D 3.3 3.3 Carbon Dioxide 22 23 BUN 21 H 18 H Creatinine 1.28 1.03 Calcium 8.0 L 7.6 L 08/30/20 04:25 Sodium 144 Potassium 3.8 Carbon Dioxide 22 BUN 13 Creatinine 0.92 Calcium 8.1 L Hematology 08/27/20 08/27/20 08/27/20 15:21 17:30 22:12 WBC 13.9 H Hgb 7.4 L 7.8 L 6.9 L* Plt Count 317 D 08/28/20 08/28/20 08/28/20 06:18 13:30 18:08 WBC 13.3 H Hgb 7.8 L 9.0 L 10.3 L Plt Count 322 08/29/20 08/30/20 05:52 04:25 WBC 13.5 H 13.6 H Hgb 10.1 L 10.0 L Plt Count 357 390 Urinalysis 08/27/20 08/29/20 13:59 15:27 Urine Color DARK YELLOW YELLOW Urine Appearance HAZY HAZY Urine pH 5.5 6.0 Ur Specific [place] 1.025 1.020 Urine Protein 2+ H 2+ H Urine Glucose (UA) NEG NEG Urine Ketones NEG NEG Urine Blood NEG 3+ H Urine Nitrite NEG NEG Ur Leukocyte Esterase NEG NEG Urine RBC 0 TNTC H Urine WBC 0 0-2 Ur Squamous Epith Cells 1+ 1+ Physical Exam Vital Signs: Vital Signs: Vital Signs Temp Pulse Resp BP Pulse Ox 08/30/20 07:19 99.4 F 94 18 143/71 H 96 08/30/20 03:46 97.6 F 96 18 139/76 95 08/30/20 00:00 98.4 F 95 20 140/63 H 95 08/29/20 20:02 98.7 F 99 18 160/87 H 98 08/29/20 15:33 97.1 F 84 36 H 134/70 98 08/29/20 11:00 100.9 F H 08/29/20 10:54 100.9 F H 93 18 157/74 H 96 Body Mass Index 24.3 Const: Other: not communicative, not in distress Cardio: Rhythm: regular rhythm GI: Inspection: No distended Palpation (GI): Soft to palpation and no guarding Progress Note: A&P Assessment and plan (1) Colitis: Status: Acute (2) Colitis: Problem details: CT shows high fecal load cw constipation, with ?stercoral colitis in rectosigmoid unlikely to be causing fever fleet enema stool softeners abd soft, benign and not distended will follow dw Hospitalist Status: Acute Fall Risk Details Current Medications: Current Medications Generic Name Dose Route Start Last Admin Trade Name Freq PRN Reason Stop Dose Admin Acetaminophen 650 mg 08/29/20 08:30 08/29/20 09:25 Acetaminophen Supp 650 Mg Supp.Rect [place] 650 mg Q6H PRN Administration fevers Carbidopa/Levodopa 2 tab 08/26/20 21:00 08/29/20 23:10 Carbidopa/Levodopa 25/100 Tablet G-TUBE 2 tab QID RAQUEL Administration Divalproex Sodium 500 mg 08/28/20 21:00 08/29/20 23:11 Divalproex Sodium Sprinkles 125 Mg Cap.DrMerlySpr PO 500 mg BID RAQUEL Administration Donepezil HCl 10 mg 08/29/20 09:00 08/29/20 09:19 Donepezil Hcl 10 Mg Tablet G-TUBE 10 mg DAILY RAQUEL Administration Heparin Sodium (Porcine) 5,000 unit 08/30/20 07:00 Heparin Sodium,Porcine 5,000 Unit/Ml Vial SUBCUT Q8H [facility] Sodium Chloride 1,000 mls @ 80 mls/hr 08/27/20 21:30 08/30/20 03:12 Ns IVCONT 80 mls/hr .[id number] RAQUEL Administration Memantine 5 mg 08/26/20 21:00 08/29/20 23:11 Memantine Hcl 5 Mg Tablet G-TUBE 5 mg BID RAQUEL Administration Non-Formulary Medication 1 applicatio 08/20/20 09:00 08/29/20 09:19 Calcium Alginate TOPICAL Not Given DAILY RAQUEL Omeprazole 20 mg 08/30/20 06:30 08/30/20 06:21 Omeprazole 20 Mg/10 Ml Susp.Recon G-TUBE 20 mg BID@0630,1630 RAQUEL Administration Ondansetron HCl 4 mg 08/24/20 13:23 Ondansetron Hcl 4 Mg/2 Ml Vial IVPUSH ONCE PRN Nausea and Vomiting Polyethylene Glycol 17 gm 08/28/20 09:00 08/29/20 23:12 Polyethylene Glycol 3350 17 Gm Powd.Pack G-TUBE 17 gm BID RAQUEL Administration Potassium Chloride 40 meq 08/28/20 09:00 08/29/20 09:33 Potassium Chloride Packet 20 Meq Packet G-TUBE Not Given DAILY [facility] Sodium Biphosphate/Sodium Phosphate 133 ml 08/29/20 16:49 Sodium Phosphate,[place]-Dibasic 133 Ml Enema [place] ONCE PRN Constipation Sodium Chloride 3 ml 08/18/20 00:00 08/29/20 23:12 0.9 % Sodium Chloride Flush 3 Ml Syringe IVFLUSH 3 ml QSHIFT RAQUEL Administration Time Spent With Patient Time: Total time spent is greater than 50% in coordination of care (as documented) at patient's floor/unit and/or counseling patient: Time with patient: less than 15 minutes
[2020-08-30] MEDS: Potassium Chloride Packet 20 MEQ PACKET 40 MEQ G-TUBE (09:34)
[2020-08-30] MEDS: 0.9 % Sodium Chloride Flush 3 ML SYRINGE IVFLUSH ×3 (09:34→21:50)
[2020-08-30] MEDS: polyethylene glycoL 3350 17 GM POWD.PACK G-TUBE ×2 (09:34→21:50)
[2020-08-30] MEDS: Donepezil HCl 10 MG TABLET G-TUBE (09:35)
[2020-08-30] MEDS: Memantine HCl 5 MG TABLET G-TUBE ×2 (09:35→21:50)
[2020-08-30] MEDS: Carbidopa/Levodopa 25/100 TABLET 2 TAB G-TUBE ×4 (09:35→21:50)
[2020-08-30] MEDS: Divalproex Sodium Sprinkles 125 MG CAP.DR.SPR 500 MG PO ×2 (09:38→21:50)
--- NOTE | 2020-08-30 12:24 | MHC.CM.PN ---
per multi dis rounds dc plan to return to [facility]tc at [facility] likely 08/31 will notify nhome and update imm
[2020-08-30] MEDS: Sodium Phosphate,Mono-Dibasic 133 ML ENEMA PR (12:38)
--- NOTE | 2020-08-30 13:06 | P.PNIM_ITS ---
Subjective Subjective Date of Service: 08/30/20 Interval History: Intermittent fever, constipation Review of Systems Fever arzate slowly improving, seems more awake today mumbles some words, otherwise seems comfortable. Physical Exam Vital Signs: Vital Signs: Vital Signs Temp Pulse Resp BP Pulse Ox 08/30/20 11:11 99.4 F 102 H 20 136/74 94 08/30/20 07:19 99.4 F 94 18 143/71 H 96 08/30/20 03:46 97.6 F 96 18 139/76 95 08/30/20 00:00 98.4 F 95 20 140/63 H 95 08/29/20 20:02 98.7 F 99 18 160/87 H 98 08/29/20 15:33 97.1 F 84 36 H 134/70 98 Body Mass Index 24.3 Physical exam: heent: eyes anicteric Cvs: rrr, [id number] , no murmur res: grossly fair air entry, no rales or wheezing abd: abd seems soft , nondistended , peg site seems clean /intact , no discharge , no rebound. ext pulses present , no cyanosis neuro: nonfocal. Objective Data Current Medications Generic Name Dose Route Start Last Admin Trade Name Freq PRN Reason Stop Dose Admin Acetaminophen 650 mg 08/29/20 08:30 08/29/20 09:25 Acetaminophen Supp 650 Mg Supp.Rect [place] 650 mg Q6H PRN Administration fevers Carbidopa/Levodopa 2 tab 08/26/20 21:00 08/30/20 12:38 Carbidopa/Levodopa 25/100 Tablet G-TUBE 2 tab QID RAQUEL Administration Divalproex Sodium 500 mg 08/28/20 21:00 08/30/20 09:38 Divalproex Sodium Sprinkles 125 Mg CapSpr PO 500 mg BID RAQUEL Administration Donepezil HCl 10 mg 08/29/20 09:00 08/30/20 09:35 Donepezil Hcl 10 Mg Tablet G-TUBE 10 mg DAILY RAQUEL Administration Heparin Sodium (Porcine) 5,000 unit 08/30/20 07:00 Heparin Sodium,Porcine 5,000 Unit/Ml Vial SUBCUT Q8H RAQUEL Sodium Chloride 1,000 mls @ 80 mls/hr 08/27/20 21:30 08/30/20 12:39 Ns IVCONT Not Given .[id number] RAQUEL Memantine 5 mg 08/26/20 21:00 08/30/20 09:35 Memantine Hcl 5 Mg Tablet G-TUBE 5 mg BID RAQUEL Administration Non-Formulary Medication 1 applicatio 08/20/20 09:00 08/30/20 09:41 Calcium Alginate TOPICAL 1 applicatio DAILY RAQUEL Administration Omeprazole 20 mg 08/30/20 06:30 08/30/20 06:21 Omeprazole 20 Mg/10 Ml Susp.Recon G-TUBE 20 mg BID@0630,1630 RAQUEL Administration Ondansetron HCl 4 mg 08/24/20 13:23 Ondansetron Hcl 4 Mg/2 Ml Vial IVPUSH ONCE PRN Nausea and Vomiting Polyethylene Glycol 17 gm 08/28/20 09:00 08/30/20 09:34 Polyethylene Glycol 3350 17 Gm Powd.Pack G-TUBE 17 gm BID RAQUEL Administration Potassium Chloride 40 meq 08/28/20 09:00 08/30/20 09:34 Potassium Chloride Packet 20 Meq Packet G-TUBE 40 meq DAILY RAQUEL Administration Sodium Biphosphate/Sodium Phosphate 133 ml 08/29/20 16:49 Sodium Phosphate,[place]-Dibasic 133 Ml Enema [place] ONCE PRN Constipation Sodium Biphosphate/Sodium Phosphate 133 ml 08/30/20 09:48 08/30/20 12:38 Sodium Phosphate,[place]-Dibasic 133 Ml Enema [place] 133 ml ONCE PRN Administration Constipation Sodium Chloride 3 ml 08/18/20 00:00 08/30/20 09:34 0.9 % Sodium Chloride Flush 3 Ml Syringe IVFLUSH 3 ml QSHIFT RAQUEL Administration Labs CBC & Chem 7: 08/31/20 05:16 08/31/20 05:16 Microbiology Microbiology Results: Microbiology 08/29/20 18:46 Stool Stool Culture - Preliminary Normal so far. 08/27/20 10:44 Blood - Venous Blood Culture - Preliminary No growth after 48 hours. 08/27/20 10:34 Blood - Venous Blood Culture - Preliminary No growth after 24 hours. 08/21/20 21:51 Stool Stool Culture - Final 08/17/20 17:04 Blood - Venous Blood Culture - Final No growth after 5 days. 08/17/20 16:09 Blood - Venous Blood Culture - Final No growth after 5 days. Assessment and Plan (1) Seizure disorder: Status: Acute (2) Parkinsons disease: Problem details: Status: Acute (3) Failure to thrive: Status: Acute (4) Encephalopathy: Status: Acute (5) Epileptic seizure: Status: Acute (6) Colitis: Status: Acute (7) Chronic constipation: Status: Acute (8) Multifactorial dementia: Status: Acute Assessment and Plan: A 79 years old male with PMH of HTN, Parkinson's, seizure disorder, CKD who presented to the hospital home with breakthrough seizure activity and fever. 1.Breakthrough seizure, seizure disorder: Seems awake or today, an was few words could not able to say proper . Secondary to low level valproic acid Continue Valproic acid 500 mg via peg bid As per chart review: Neurology arzate recommended to continue above valproic acid. 2.Sepsis : Thought to be Intra-abdominal infection, colitis, received Zosyn treatment for that. Negative blood culturesx4 Still has low grade fevers , Elevated WBcs CT scan of the abdomen concerning of possible colitis , GI does not thing the patient has acute infection though he received total of 5 days of antibiotics repeat workup last 2 days -chest x-ray negative, lactic acid normal, blood cultures neg and UA neg. Discussed with surgery Dr. Rapp is and Infectious Disease: Stool studies are probably has some WBC because of constipation and leaking the stool around, stool cultures are preliminary negative, Will avoid antibiotics, given enema Also surgery recommended to start PEG feeding 3. TINA question multifactorial-failure to thrive, urinary retention Probably due to urinary retention TINA improved Wade 4.Failure to Thrive Patient unable to eat or drink by himself, very weak to eat with nurse practitioner physician assistant s/p peg 08/24 CT abdominal abdomen was done says shows stercolitis/constipation: Discussed with ID and surgery: As above surgery recommended to continue feeding today, enemas. 5.Normocytic anemia : ? multifactorial -nutritonal? iron -23 tibc:122 ferritin 1939 iron sat 19% ,b12 an folate -pending. occult blood neg ppi switched ppi via peg hold asa Patient is status post 3 PRBC 2 days back h/h in stable in 10 range 6.Covid 19 positive, now negative thought to be-viral shedding, patient has positive antibodies, no active infection 7. Foot wound: No clear infection but mainly sloughing of skin and bad odor wound care team input cleaned off the area and apply some calcium alginate to the wound and wrap also has small ? ulcer area foot we will ask wound to fu 8.Parkinson Continue Sinemet, Memantin Family is requesting for try of p.o. feed ,will add speech and swallow evaluation. DVT PPX: chemoprophyalx s/c heparin put back bez fobt neg, mech devices ordered .
--- NOTE | 2020-08-30 13:45 | MHC.CLN ---
F/U PT TOLERATING TF JEVITY AT MAX GOAL RATE 60CC/HR WITH 120CC WATER FLUSHES Q SHIFT TO PROVIDE 1526KCALS (32KCALS/KG), 64G PROTEIN (1.3G/KG), 1562CC TOTAL WATER FROM FORMULA AND FLUSHES (32.5CC/HR) NOTED NEW WOUNDS-TF PROVIDES APPRORPIATE PROTEIN NEEDS FOR WOUND HEALING WILL ADD MEGHNA FOR WOUNDS VIA TF FOLLOWING
--- NOTE | 2020-08-30 16:11 | PM.IDPN ---
Subjective Subjective Date of Service: 08/30/20 Interval History: he has no rashes,no seizures seen temperature down to tmax 100.9 Objective Data Labs CBC & Chem 7: 08/30/20 04:25 08/30/20 04:25 Labs: Laboratory Results - last 24 hr 08/28/20 08/29/20 08/29/20 06:18 15:27 18:46 WBC RBC Hgb Hct MCV MCH MCHC RDW Plt Count MPV Absolute Nucleated RBC Nucleated RBC % (auto) Sodium Potassium Chloride Carbon Dioxide Anion Gap BUN Creatinine Estim Creat Clear Calc Estimated GFR Random Glucose Calcium Vitamin B12 408 Folate 3.7 L Urine Color YELLOW Urine Appearance HAZY Urine pH 6.0 Ur Specific [place] 1.020 Urine Protein 2+ H Urine Glucose (UA) NEG Urine Ketones NEG Urine Blood 3+ H Urine Nitrite NEG Ur Leukocyte Esterase NEG Urine RBC TNTC H Urine WBC 0-2 Ur Squamous Epith Cells 1+ Urine Bacteria NONE Stool Leukocytes, Qual MOD: 3-9/OIF C. difficile Toxin A&B C. difficile Antigen C. difficile Interpret 08/29/20 08/30/20 08/30/20 18:46 04:25 04:25 WBC 13.6 H RBC 3.56 L Hgb 10.0 L Hct 31.0 L MCV 87.1 MCH 28.1 MCHC 32.3 RDW 15.3 Plt Count 390 MPV 10.4 Absolute Nucleated RBC 0.000 Nucleated RBC % (auto) 0.0 Sodium 144 Potassium 3.8 Chloride 110 H Carbon Dioxide 22 Anion Gap 16 BUN 13 Creatinine 0.92 Estim Creat Clear Calc 60.8 Estimated GFR > 60 Random Glucose 96 Calcium 8.1 L Vitamin B12 Folate Urine Color Urine Appearance Urine pH Ur Specific [place] Urine Protein Urine Glucose (UA) Urine Ketones Urine Blood Urine Nitrite Ur Leukocyte Esterase Urine RBC Urine WBC Ur Squamous Epith Cells Urine Bacteria Stool Leukocytes, Qual C. difficile Toxin A&B Negative C. difficile Antigen Negative C. difficile Interpret SEE NOTE Microbiology Microbiology Results: Microbiology 08/27/20 10:34 Blood - Venous Blood Culture - Preliminary No growth after 48 hours. 08/29/20 18:46 Stool Stool Culture - Preliminary Normal so far. 08/27/20 10:44 Blood - Venous Blood Culture - Preliminary No growth after 48 hours. 08/21/20 21:51 Stool Stool Culture - Final 08/17/20 17:04 Blood - Venous Blood Culture - Final No growth after 5 days. 08/17/20 16:09 Blood - Venous Blood Culture - Final No growth after 5 days. Physical Exam Vital Signs: Vital Signs: Vital Signs Temp Pulse Resp BP Pulse Ox 08/30/20 15:09 97.8 F 87 18 146/70 H 95 08/30/20 13:00 95 08/30/20 11:11 99.4 F 102 H 20 136/74 94 08/30/20 07:19 99.4 F 94 18 143/71 H 96 08/30/20 03:46 97.6 F 96 18 139/76 95 08/30/20 00:00 98.4 F 95 20 140/63 H 95 08/29/20 20:02 98.7 F 99 18 160/87 H 98 Body Mass Index 24.3 Const: General: healthy appearing Orientation/consciousness: oriented to person, oriented to place and oriented to time HENMT: Head: Yes normal to inspection Mouth: oropharynx normal Resp: Effort & Inspection: normal respiratory effort Cardio: Rate: regular rate Rhythm: regular rhythm GI: Inspection: Yes normal to inspection : General: Yes no CVA tenderness Back/Spine/Pelvis: Back: no CVA tenderness Skin: General skin exam: no rashes or lesions noted Neuro: General: oriented to person, oriented to place and oriented to time Extrem: General: Yes normal to inspection Assessment and Plan Assessment and plan (1) Fever, unknown origin: Problem details: This may be due to stercoral colitis I dont think this is a bacterial colitis Status: Acute Assessment and Plan: No antibiotics at this time Observe Time Spent With Patient Time: Total time spent is greater than 50% in coordination of care (as documented) at patient's floor/unit and/or counseling patient: Time with patient: 15 - 24 minutes
[2020-08-31] VITALS (8 sets, daily range): BP systolic 119–143; BP diastolic 66–71; PULSE 86–94; RESP 18; TEMP 36.9–37.6; O2SAT 92–97
[2020-08-31 06:27] LABS: Hematocrit 30.1 % (42-52); Hemoglobin 9.7 g/dl (14.0-18.0); Mean Corpuscular HGB Conc 32.2 g/dl (31.0-36.0); Mean Corpuscular Hemoglobin 28.3 pg (27.0-33.0); Mean Corpuscular Volume 87.8 fL (80-98); Mean Platelet Volume 10.3 fL (9.4-12.4); Platelet Count 380 X10*3/uL (160-400); Red Blood Count 3.43 X10*6/uL (4.60-5.80); Red Cell Distribution Width 15.3 % (11.0-16.0); White Blood Count 10.9 X10*3/uL (4.8-10.8)
[2020-08-31 07:04] LABS: Anion Gap 12 (12-20); Blood Urea Nitrogen 14 mg/dL (9-16); Carbon Dioxide 27 mmol/L (22-29); Chloride 108 mmol/L (96-108); Creatinine Clr Calc Pharmacy 64.3; Estimated Glomerular Filt Rate > 60; Glucose Random 141 mg/dL (60-115); Potassium 3.2 mmol/l (3.3-5.1); Sodium 144 mmol/L (135-145)
[2020-08-31] MEDS: 0.9 % Sodium Chloride Flush 3 ML SYRINGE IVFLUSH ×3 (08:27→20:30)
[2020-08-31] MEDS: Potassium Chloride Packet 20 MEQ PACKET 40 MEQ PO (08:27)
[2020-08-31] MEDS: Divalproex Sodium Sprinkles 125 MG CAP.DR.SPR 500 MG PO ×2 (08:27→20:30)
[2020-08-31] MEDS: Potassium Chloride Packet 20 MEQ PACKET 40 MEQ G-TUBE (08:27)
[2020-08-31] MEDS: Donepezil HCl 10 MG TABLET G-TUBE (08:28)
[2020-08-31] MEDS: Memantine HCl 5 MG TABLET G-TUBE ×2 (08:28→20:30)
[2020-08-31] MEDS: Carbidopa/Levodopa 25/100 TABLET 2 TAB G-TUBE ×4 (08:28→20:30)
[2020-08-31] MEDS: polyethylene glycoL 3350 17 GM POWD.PACK G-TUBE ×2 (08:28→20:30)
[2020-08-31 09:05] LABS: Alanine Aminotransferase 11 U/L (0-40); Albumin Level 2.4 g/dL (3.5-5.0); Alkaline Phosphatase 67 U/L (39-117); Aspartate Amino Transferase 34 U/L (5-37); Bilirubin Direct 0.4 mg/dL (0.0-0.5); Bilirubin Total 0.8 mg/dL (0.0-1.0); Magnesium 1.8 mg/dL (1.6-2.6); Total Protein 6.4 g/dL (6.5-8.0)
[2020-08-31] MEDS: Magnesium Sulfate/D5W 1 GM/100 ML PIGGYBACK IV (10:17)
--- NOTE | 2020-08-31 14:14 | P.PNGS_ITS ---
Subjective Subjective Interval history: pt sleeping, not waking up to verbal commands or questioning Physical Exam Vital Signs: Vital Signs: Vital Signs Temp Pulse Resp BP Pulse Ox 08/31/20 11:26 99.6 F 91 18 136/67 92 08/31/20 07:35 98.7 F 86 18 143/67 H 95 08/31/20 03:15 99 F 92 18 138/66 96 08/31/20 03:14 99 F 92 18 138/66 96 08/31/20 03:12 99 F 92 18 138/66 96 08/31/20 00:00 98.4 F 89 18 119/71 95 08/30/20 19:02 97.7 F 88 18 139/73 97 08/30/20 15:09 97.8 F 87 18 146/70 H 95 Body Mass Index 24.3 Const: Other: not communicative, not in distress Skin: Other: the right great toe and the tissue up to his dorsum foot medially has dry gangrenous tissue that is stable, closer proximal foot there is an area where the tissue is moist and draining purulent material a bit. ? deeper abscess. Neuro: Other: nonverbal, not communicative Progress Note: A&P Assessment and plan (1) Fever, unknown origin: Problem details: right great toe wound = pt has dry gangrene wound with stable tissue distally but proximally the tissue has wet gangrene and is worrisome as pt does have fevers. consider general surgery looking at wound and can do I nd D and debridement as needed to unroof any undrained pockets. culture drainage proximally. Status: Acute Assessment and Plan: No antibiotics at this time Observe Fall Risk Details Current Medications: Current Medications Generic Name Dose Route Start Last Admin Trade Name Freq PRN Reason Stop Dose Admin Acetaminophen 650 mg 08/29/20 08:30 08/29/20 09:25 Acetaminophen Supp 650 Mg Supp.Rect [place] 650 mg Q6H PRN Administration fevers Carbidopa/Levodopa 2 tab 08/26/20 21:00 08/31/20 12:07 Carbidopa/Levodopa 25/100 Tablet G-TUBE 2 tab QID RAQUEL Administration Divalproex Sodium 500 mg 08/28/20 21:00 08/31/20 08:27 Divalproex Sodium Sprinkles 125 Mg PO 500 mg BID RAQUEL Administration Donepezil HCl 10 mg 08/29/20 09:00 08/31/20 08:28 Donepezil Hcl 10 Mg Tablet G-TUBE 10 mg DAILY RAQUEL Administration Heparin Sodium (Porcine) 5,000 unit 08/30/20 07:00 Heparin Sodium,Porcine 5,000 Unit/Ml Vial SUBCUT Q8H RAQUEL Memantine 5 mg 08/26/20 21:00 08/31/20 08:28 Memantine Hcl 5 Mg Tablet G-TUBE 5 mg BID RAQUEL Administration Non-Formulary Medication 1 applicatio 08/20/20 09:00 08/31/20 08:28 Calcium Alginate TOPICAL 1 applicatio DAILY RAQUEL Administration Omeprazole 20 mg 08/30/20 06:30 08/31/20 05:30 Omeprazole 20 Mg/10 Ml Susp.Recon G-TUBE 20 mg BID@0630,1630 RAQUEL Administration Ondansetron HCl 4 mg 08/24/20 13:23 Ondansetron Hcl 4 Mg/2 Ml Vial IVPUSH ONCE PRN Nausea and Vomiting Polyethylene Glycol 17 gm 08/28/20 09:00 08/31/20 08:28 Polyethylene Glycol 3350 17 Gm Powd.Pack G-TUBE 17 gm BID RAQUEL Administration Potassium Chloride 40 meq 08/28/20 09:00 08/31/20 08:27 Potassium Chloride Packet 20 Meq Packet G-TUBE 40 meq DAILY RAQUEL Administration Sodium Biphosphate/Sodium Phosphate 133 ml 08/29/20 16:49 Sodium Phosphate,[place]-Dibasic 133 Ml Enema [place] ONCE PRN Constipation Sodium Biphosphate/Sodium Phosphate 133 ml 08/30/20 09:48 08/30/20 12:38 Sodium Phosphate,[place]-Dibasic 133 Ml Enema [place] 133 ml ONCE PRN Administration Constipation Sodium Chloride 3 ml 08/18/20 00:00 08/31/20 08:27 0.9 % Sodium Chloride Flush 3 Ml Syringe IVFLUSH 3 ml QSHIFT RAQUEL Administration Time Spent With Patient Time with patient: less than 15 minutes
--- NOTE | 2020-08-31 14:44 | PM.PNGS ---
Subjective Subjective Interval history: mental status the same had BMs after Fleet enemas yesterday back on tube feeds Physical Exam Vital Signs: Vital Signs: Vital Signs Temp Pulse Resp BP Pulse Ox 08/31/20 11:26 99.6 F 91 18 136/67 92 08/31/20 07:35 98.7 F 86 18 143/67 H 95 08/31/20 03:15 99 F 92 18 138/66 96 08/31/20 03:14 99 F 92 18 138/66 96 08/31/20 03:12 99 F 92 18 138/66 96 08/31/20 00:00 98.4 F 89 18 119/71 95 08/30/20 19:02 97.7 F 88 18 139/73 97 08/30/20 15:09 97.8 F 87 18 146/70 H 95 Body Mass Index 24.3 Const: Other: Not communicative, opens eyes periodically General: no acute distress GI: Other: Abdomen soft, nondistended, no guarding, no rebound, peg tube in place Progress Note: A&P Assessment and plan (1) Colitis: Problem details: CT shows high fecal load cw constipation, with ?stercoral colitis in rectosigmoid unlikely to be causing fever fleet enema stool softeners abd soft, benign and not distended will follow dw Hospitalist Status: Acute Assessment and Plan: Had good BMs after Fleet enemas Abdomen remained soft Okay to continue tube feeds Bowel regimen with stool softeners Family at bedside -updated Fall Risk Details Current Medications: Current Medications Generic Name Dose Route Start Last Admin Trade Name Freq PRN Reason Stop Dose Admin Acetaminophen 650 mg 08/29/20 08:30 08/29/20 09:25 Acetaminophen Supp 650 Mg Supp.Rect [place] 650 mg Q6H PRN Administration fevers Carbidopa/Levodopa 2 tab 08/26/20 21:00 08/31/20 12:07 Carbidopa/Levodopa 25/100 Tablet G-TUBE 2 tab QID RAQUEL Administration Divalproex Sodium 500 mg 08/28/20 21:00 08/31/20 08:27 Divalproex Sodium Sprinkles 125 Mg CapSpr PO 500 mg BID RAQUEL Administration Donepezil HCl 10 mg 08/29/20 09:00 08/31/20 08:28 Donepezil Hcl 10 Mg Tablet G-TUBE 10 mg DAILY RAQUEL Administration Heparin Sodium (Porcine) 5,000 unit 08/30/20 07:00 Heparin Sodium,Porcine 5,000 Unit/Ml Vial SUBCUT Q8H RAQUEL Memantine 5 mg 08/26/20 21:00 08/31/20 08:28 Memantine Hcl 5 Mg Tablet G-TUBE 5 mg BID RAQUEL Administration Non-Formulary Medication 1 applicatio 08/20/20 09:00 08/31/20 08:28 Calcium Alginate TOPICAL 1 applicatio DAILY RAQUEL Administration Omeprazole 20 mg 08/30/20 06:30 08/31/20 05:30 Omeprazole 20 Mg/10 Ml Susp.Recon G-TUBE 20 mg BID@0630,1630 RAQUEL Administration Ondansetron HCl 4 mg 08/24/20 13:23 Ondansetron Hcl 4 Mg/2 Ml Vial IVPUSH ONCE PRN Nausea and Vomiting Polyethylene Glycol 17 gm 08/28/20 09:00 08/31/20 08:28 Polyethylene Glycol 3350 17 Gm Powd.Pack G-TUBE 17 gm BID RAQUEL Administration Potassium Chloride 40 meq 08/28/20 09:00 08/31/20 08:27 Potassium Chloride Packet 20 Meq Packet G-TUBE 40 meq DAILY RAQUEL Administration Sodium Biphosphate/Sodium Phosphate 133 ml 08/29/20 16:49 Sodium Phosphate,[place]-Dibasic 133 Ml Enema [place] ONCE PRN Constipation Sodium Biphosphate/Sodium Phosphate 133 ml 08/30/20 09:48 08/30/20 12:38 Sodium Phosphate,[place]-Dibasic 133 Ml Enema [place] 133 ml ONCE PRN Administration Constipation Sodium Chloride 3 ml 08/18/20 00:00 08/31/20 08:27 0.9 % Sodium Chloride Flush 3 Ml Syringe IVFLUSH 3 ml QSHIFT RAQUEL Administration Time Spent With Patient Time: Total time spent is greater than 50% in coordination of care (as documented) at patient's floor/unit and/or counseling patient: Time with patient: less than 15 minutes
--- NOTE | 2020-08-31 15:19 | MHC.CM.PN ---
per request of dr gray called and spoke with kyra /debbi [phone] whoi was interested in imformation of homecare with the goal of taking pt home when dcd we talked about [facility] and [facility] home care she states she would need to have help in her home antwon 7 am to 6 pm pp urvashiny numbers given to debbi visitn yanely AND EZIO PT HAS BEEN AT [facility] FOR 3 YEARS she hAS NO COMPLAINTS ABOUT [facility] AND FEELS THAT THEY TREAT HER FATHER KINDLY she is concerned avout not being able to visit her father as often as she has been while hes been in the hospitialwe also discussed pt returning [facility] and until she is able to make home care arrangements,insuring a safe transitional disposition plan
--- NOTE | 2020-08-31 16:34 | HO.PM.IMPN ---
Subjective Subjective Date of Service: 08/31/20 Interval History: hypokaelmia Review of Systems Patient seems awake but seems little weaker than yesterday otherwise try to mumble some words Physical Exam Vital Signs: Vital Signs: Vital Signs Temp Pulse Resp BP Pulse Ox 08/31/20 15:50 99.4 F 91 18 140/68 H 97 08/31/20 11:26 99.6 F 91 18 136/67 92 08/31/20 07:35 98.7 F 86 18 143/67 H 95 08/31/20 03:15 99 F 92 18 138/66 96 08/31/20 03:14 99 F 92 18 138/66 96 08/31/20 03:12 99 F 92 18 138/66 96 08/31/20 00:00 98.4 F 89 18 119/71 95 08/30/20 19:02 97.7 F 88 18 139/73 97 Body Mass Index 24.3 Physical exam: Cvs: rrr, [id number] , no murmur res: clear to auscultation ,no rhonchii or wheezing abd: no rebound or guarding ,nt, bs present. ext pulses present , no cyanosis foot area : dry foot area rigth toe seems similar, closer proximal foot there is an area where the tissue is moist , mild draining serous neuro: axo3 , nonfocal. Objective Data Current Medications Generic Name Dose Route Start Last Admin Trade Name Freq PRN Reason Stop Dose Admin Acetaminophen 650 mg 08/29/20 08:30 08/29/20 09:25 Acetaminophen Supp 650 Mg Supp.Rect [place] 650 mg Q6H PRN Administration fevers Carbidopa/Levodopa 2 tab 08/26/20 21:00 08/31/20 16:00 Carbidopa/Levodopa 25/100 Tablet G-TUBE 2 tab QID RAQUEL Administration Divalproex Sodium 500 mg 08/28/20 21:00 08/31/20 08:27 Divalproex Sodium Sprinkles 125 Mg PO 500 mg BID RAQUEL Administration Donepezil HCl 10 mg 08/29/20 09:00 08/31/20 08:28 Donepezil Hcl 10 Mg Tablet G-TUBE 10 mg DAILY RAQUEL Administration Heparin Sodium (Porcine) 5,000 unit 08/30/20 07:00 Heparin Sodium,Porcine 5,000 Unit/Ml Vial SUBCUT Q8H RAQUEL Memantine 5 mg 08/26/20 21:00 08/31/20 08:28 Memantine Hcl 5 Mg Tablet G-TUBE 5 mg BID RAQUEL Administration Non-Formulary Medication 1 applicatio 08/20/20 09:00 08/31/20 08:28 Calcium Alginate TOPICAL 1 applicatio DAILY RAQUEL Administration Omeprazole 20 mg 08/30/20 06:30 08/31/20 15:54 Omeprazole 20 Mg/10 Ml Susp.Recon G-TUBE 20 mg BID@0630,1630 RAQUEL Administration Ondansetron HCl 4 mg 08/24/20 13:23 Ondansetron Hcl 4 Mg/2 Ml Vial IVPUSH ONCE PRN Nausea and Vomiting Polyethylene Glycol 17 gm 08/28/20 09:00 08/31/20 08:28 Polyethylene Glycol 3350 17 Gm Powd.Pack G-TUBE 17 gm BID RAQUEL Administration Potassium Chloride 40 meq 08/28/20 09:00 08/31/20 08:27 Potassium Chloride Packet 20 Meq Packet G-TUBE 40 meq DAILY RAQUEL Administration Sodium Biphosphate/Sodium Phosphate 133 ml 08/29/20 16:49 Sodium Phosphate,[place]-Dibasic 133 Ml Enema [place] ONCE PRN Constipation Sodium Biphosphate/Sodium Phosphate 133 ml 08/30/20 09:48 08/30/20 12:38 Sodium Phosphate,[place]-Dibasic 133 Ml Enema [place] 133 ml ONCE PRN Administration Constipation Sodium Chloride 3 ml 08/18/20 00:00 08/31/20 15:39 0.9 % Sodium Chloride Flush 3 Ml Syringe IVFLUSH 3 ml QSHIFT RAQUEL Administration Labs CBC & Chem 7: 08/31/20 05:16 08/31/20 05:16 Microbiology Microbiology Results: Microbiology 08/29/20 18:46 Stool Stool Culture - Preliminary Normal so far. 08/27/20 10:34 Blood - Venous Blood Culture - Preliminary No growth after 48 hours. 08/27/20 10:44 Blood - Venous Blood Culture - Preliminary No growth after 48 hours. 08/21/20 21:51 Stool Stool Culture - Final 08/17/20 17:04 Blood - Venous Blood Culture - Final No growth after 5 days. 08/17/20 16:09 Blood - Venous Blood Culture - Final No growth after 5 days. Assessment and Plan (1) Seizure disorder: Status: Acute (2) Parkinsons disease: Problem details: Status: Acute (3) Failure to thrive: Status: Acute (4) Encephalopathy: Status: Acute (5) Epileptic seizure: Status: Acute (6) Colitis: Status: Acute (7) Chronic constipation: Status: Acute (8) Multifactorial dementia: Status: Acute Assessment and Plan: A 79 years old male with PMH of HTN, Parkinson's, seizure disorder, CKD who presented to the hospital home with breakthrough seizure activity and fever. 1.Breakthrough seizure, seizure disorder: Seems awake or today, an was few words could not able to say proper . Secondary to low level valproic acid Continue Valproic acid 500 mg via peg bid As per chart review: Neurology arzate recommended to continue above valproic acid. will check depakote levels in am neurology fu in am 2.Sepsis : Thought to be Intra-abdominal infection, colitis, received Zosyn treatment for that. Negative blood culturesx4 Still has low grade fevers , Elevated WBcs CT scan of the abdomen concerning of possible colitis , GI does not thing the patient has acute infection though he received total of 5 days of antibiotics repeat workup last 2 days -chest x-ray negative, lactic acid normal, blood cultures neg and UA neg. Discussed with surgery Dr. Rapp is and Infectious Disease: Stool studies are probably has some WBC because of constipation and leaking the stool around, stool cultures are preliminary negative, Will avoid antibiotics, given enema Patient has produced significant bowel movements Also surgery recommended to start PEG feeding 3. TINA question multifactorial-failure to thrive, urinary retention Probably due to urinary retention TINA improved Wade 4.Failure to Thrive Patient unable to eat or drink by himself, very weak to eat with assistant teacher primary s/p peg 08/24 CT abdominal abdomen was done says shows stercolitis/constipation: Discussed with ID and surgery: As above surgery recommended to continue feeding today, enemas. 5.Normocytic anemia : ? multifactorial -nutritonal? iron -23 tibc:122 ferritin 1939 iron sat 19% ,b12 an folate -pending. occult blood neg ppi switched ppi via peg hold asa Patient is status post 3 PRBC 2 days back h/h in stable in 10 range 6.Covid 19 positive, now negative thought to be-viral shedding, patient has positive antibodies, no active infection 7. Foot wound: No clear infection but mainly sloughing of skin and bad odor wound care team input cleaned off the area and apply some calcium alginate to the wound and wrap. In in addition there is a small area on the proximal foot area-moist/mild serous drainage : Seen by wound care, recommended to check with the surgery if needed any debridement 8.Parkinson Continue Sinemet, Memantin Family is requesting for try of p.o. feed ,will add speech and swallow evaluation. DVT PPX: chemoprophyalx s/c heparin put back bez fobt neg, mech devices ordered .
[2020-09-01] VITALS (8 sets, daily range): BP systolic 130–174; BP diastolic 69–81; PULSE 73–95; RESP 16–20; TEMP 36.4–38.3; O2SAT 94–100
[2020-09-01] MEDS: Acetaminophen Supp 650 MG SUPP.RECT PR ×2 (01:33→23:35)
[2020-09-01 07:01] LABS: Hemoglobin 9.8 g/dl (14.0-18.0); Mean Corpuscular HGB Conc 31.6 g/dl (31.0-36.0); Mean Corpuscular Hemoglobin 28.3 pg (27.0-33.0); Mean Corpuscular Volume 89.6 fL (80-98); Mean Platelet Volume 10.1 fL (9.4-12.4); Platelet Count 401 X10*3/uL (160-400); Red Blood Count 3.46 X10*6/uL (4.60-5.80); Red Cell Distribution Width 15.6 % (11.0-16.0); White Blood Count 10.6 X10*3/uL (4.8-10.8)
[2020-09-01 07:08] LABS: Anion Gap 12 (12-20); Blood Urea Nitrogen 13 mg/dL (9-16); Calcium 7.9 mg/dL (8.4-10.2); Carbon Dioxide 28 mmol/L (22-29); Chloride 109 mmol/L (96-108); Creatinine Clr Calc Pharmacy 61.5; Estimated Glomerular Filt Rate > 60; Glucose Random 134 mg/dL (60-115); Potassium 3.6 mmol/l (3.3-5.1); Sodium 145 mmol/L (135-145)
[2020-09-01 07:09] LABS: Valproate 31.5 mcg/mL (50.0-100.0)
[2020-09-01] MEDS: Potassium Chloride Packet 20 MEQ PACKET 40 MEQ G-TUBE (08:34)
[2020-09-01] MEDS: Memantine HCl 5 MG TABLET G-TUBE ×2 (08:35→20:36)
[2020-09-01] MEDS: Divalproex Sodium Sprinkles 125 MG CAP.DR.SPR 500 MG PO ×2 (08:35→20:35)
[2020-09-01] MEDS: Donepezil HCl 10 MG TABLET G-TUBE (08:35)
[2020-09-01] MEDS: polyethylene glycoL 3350 17 GM POWD.PACK G-TUBE (08:35)
[2020-09-01] MEDS: Carbidopa/Levodopa 25/100 TABLET 2 TAB G-TUBE ×4 (08:35→20:36)
[2020-09-01] MEDS: 0.9 % Sodium Chloride Flush 3 ML SYRINGE IVFLUSH ×3 (08:36→23:13)
--- NOTE | 2020-09-01 10:49 | PM.NEUROCN ---
History of Present Illness Data of Consult Primary Care Provider: Unknown Physician 79 years old man with multifactorial dementia and encephalopathy. He was treated for seizure disorder in his mental status somewhat improved but now he was still not fully awake. He was unable to provide any history. Review of Systems Review of Systems: Unable to do review of system. Neurologic: Reports confusion Psychiatric: Psychiatric: Reports confusion PMFSH Past Medical History Medical History (Updated 08/31/20 @ 16:33 by Ben Romero MD) Anemia Colitis Fever Fever, unknown origin Functional capacity: independent ambulation Family History Family history: reviewed and not pertinent Social History Social History Household Members: Other Housing Other:: [facility] Smoking Status: Unknown if ever smoked Use of substances other than those prescribed or required for medical reasons: Unable to respond Currently Displaying Signs/Symptoms of Drug Intoxication Withdrawal: No Advance Directives: No Advance Directives Information Provided: No Do you have thoughts of harming others: None Do you have a plan to hurt others: No Plan Recently lost weight without trying: Unsure service: No Current occupational status: retired [employer] Allergies Allergy/AdvReac Type Severity Reaction Status Date / Time No Known Allergies Allergy Unverified 07/15/20 14:49 Home Medications Medication Instructions Recorded Confirmed Type acetaminophen 650 mg PO Q4H PRN 08/18/20 08/18/20 History albuterol sulfate 2 inh INHALATION Q4H PRN 08/18/20 08/18/20 History amlodipine 10 mg PO DAILY 08/18/20 08/18/20 History aspirin 81 mg PO DAILY 08/18/20 08/18/20 History bisacodyl 10 mg [place] DAILY PRN 08/18/20 08/18/20 History carbidopa-levodopa 2 tab PO QID 08/18/20 08/18/20 History carbidopa-levodopa [Sinemet] 2 tab PO QID 08/18/20 08/18/20 History celecoxib 200 mg PO DAILY 08/18/20 08/18/20 History cholecalciferol (vitamin D3) 1,250 mcg PO QMONTH 08/18/20 08/18/20 History divalproex 250 mg PO TID 08/18/20 08/18/20 History docusate sodium 100 mg PO BID 08/18/20 08/18/20 History donepezil 10 mg PO DAILY 08/18/20 08/18/20 History escitalopram oxalate 5 mg PO DAILY 08/18/20 08/18/20 History gabapentin 100 mg PO BID 08/18/20 08/18/20 History memantine 5 mg PO BID 08/18/20 08/18/20 History metoclopramide HCl 10 mg PO QIDACHS 08/18/20 08/18/20 History polyethylene glycol 3350 [Miralax] 17 g PO DAILY 08/18/20 08/18/20 History sodium bicarbonate 650 mg PO TID PRN 08/18/20 08/18/20 History terazosin 1 mg PO BEDTIME 08/18/20 08/18/20 History Physical Exam Vital Signs: Vital Signs: Vital Signs Temp Pulse Resp BP Pulse Ox 09/01/20 07:58 97.9 F 73 18 137/79 96 09/01/20 04:31 99.2 F 87 18 139/74 96 09/01/20 01:34 100.7 F H 09/01/20 00:00 101 F H 95 18 146/69 H 94 08/31/20 18:44 98.9 F 94 18 143/69 H 94 08/31/20 15:50 99.4 F 91 18 140/68 H 97 08/31/20 11:26 99.6 F 91 18 136/67 92 Body Mass Index 24.3 not responsive to verbal commands. Minimal response to pain. There was no eye jerking. Pupils were round reactive and midline. There was no abnormal posturing. Examination was limited. Const: General: confusion Orientation/consciousness: confusion Neuro: General: confusion Results Labs CBC & Chem 7: 09/01/20 05:31 09/01/20 05:31 Labs: Short CBC 09/01/20 Range/Units 05:31 WBC 10.6 (4.8-10.8) X10*3/uL Hgb 9.8 L (14.0-18.0) g/dl Hct 31.0 L (42-52) % Plt Count 401 H (160-400) X10*3/uL BMP 09/01/20 05:31 Sodium 145 Potassium 3.6 Chloride 109 H Carbon Dioxide 28 BUN 13 Creatinine 0.91 Calcium 7.9 L Microbiology Microbiology Results: Microbiology 08/29/20 18:46 Stool Stool Culture - Final 08/27/20 10:34 Blood - Venous Blood Culture - Preliminary No growth after 48 hours. 08/27/20 10:44 Blood - Venous Blood Culture - Preliminary No growth after 48 hours. 08/21/20 21:51 Stool Stool Culture - Final 08/17/20 17:04 Blood - Venous Blood Culture - Final No growth after 5 days. 08/17/20 16:09 Blood - Venous Blood Culture - Final No growth after 5 days. 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 Related to that he probably has parkinsonian features and he is taking relatively large dose of carbidopa levodopa. I also noticed that he is taking relatively large dose of metoclopramide, which could make parkinsonian symptoms worse and also could create confusion. I would request to really assess value of metoclopramide and either discontinue it or decrease the dose. An electroencephalogram can be done now that could help to rule out any possibility of nonconvulsive status. Any nonessential medicines should be stopped to make sure they are not interfering with his mental status. In that regard I will also check his Depakote level.
--- NOTE | 2020-09-01 11:23 | MHC.CLN ---
F/U PT WITH FEVER LAST NIGHT PER MD PT TOLERATING TF JEVITY AT MAX GOAL RATE 60CC/HR WITH 120CC WATER FLUSHES Q SHIFT TO PROVIDE 1526KCALS (32KCALS/KG), 64G PROTEIN (1.3G/KG), 1562CC TOTAL WATER FROM FORMULA AND FLUSHES (32.5CC/HR) NOTED NEW WOUNDS-TF PROVIDES APPROPRIATE PROTEIN NEEDS FOR WOUND HEALING MEGHNA IN PLACE FOR WOUNDS VIA TF MONITOR LYTES CLOSELY R/T FEVER-MAY INCREASE FREE WATER FLUSHES TO 240 Q SHIFT IF NEEDED MONITOR RESIDUALS AND TOLERANCE FOLLOWING
--- NOTE | 2020-09-01 12:50 | MHC.CM.PN ---
per rounds possible dc in 1 to 2 days md to speak to family re ?hospice md will let us know if an hospice omformational is indicated
--- NOTE | 2020-09-01 12:53 | P.PNGS_ITS ---
Subjective Subjective Interval history: Asked to evaluate patient because of ulcers on the right foot. He had been having temperature spikes. So far tolerating tube feeds Patient remains none verbal and non communicative Physical Exam Vital Signs: Vital Signs: Vital Signs Temp Pulse Resp BP Pulse Ox 09/01/20 12:00 97.5 F 90 20 144/69 H 100 09/01/20 07:58 97.9 F 73 18 137/79 96 09/01/20 04:31 99.2 F 87 18 139/74 96 09/01/20 01:34 100.7 F H 09/01/20 00:00 101 F H 95 18 146/69 H 94 08/31/20 18:44 98.9 F 94 18 143/69 H 94 08/31/20 15:50 99.4 F 91 18 140/68 H 97 Body Mass Index 24.3 Const: General: no acute distress Cardio: Rate: regular rate GI: Palpation (GI): Soft to palpation, nontender and no guarding Extrem: Other: Right foot: Medial aspect at the forefoot is note of a mu mmified area, about 7 x 5 cm in size, with an overlying dry eschar; on the heel of the right foot is note of a 3 x 3 cm stage 1-2 pressure ulcer, no drainage, with ecchymosis Progress Note: A&P Assessment and plan (1) Foot abscess, right: Status: Acute Assessment and Plan: There was an area of mummification on the right medial aspect of the foot as described above. I opened this up with scissors after prepping and draping. There was note of a small purulent collection underneath consistent with an abscess. I am unroof this area by excising and debriding the overlying skin and part of the subcutaneous layer using scissors. I debrided the rest of the surface and over the entire open wound with wet to dry dressings. I also opened of a part of the ulcer on the heel but there was no pus on this area. This more of acute inflammatory changes in the skin and soft tissue. I wrapped the entire foot with Kerlix roll. [place]ore precaution should be practiced. I will see him again to re-examined the foot tomorrow. Cultures of the abscess were sent. Fall Risk Details Current Medications: Current Medications Generic Name Dose Route Start Last Admin Trade Name Freq PRN Reason Stop Dose Admin Acetaminophen 650 mg 08/29/20 08:30 09/01/20 01:33 Acetaminophen Supp 650 Mg Supp.Rect [place] 650 mg Q6H PRN Administration fevers Carbidopa/Levodopa 2 tab 08/26/20 21:00 09/01/20 12:39 Carbidopa/Levodopa 25/100 Tablet G-TUBE 2 tab QID RAQUEL Administration Divalproex Sodium 500 mg 08/28/20 21:00 09/01/20 08:35 Divalproex Sodium Sprinkles 125 Mg Spr PO 500 mg BID RAQUEL Administration Donepezil HCl 10 mg 08/29/20 09:00 09/01/20 08:35 Donepezil Hcl 10 Mg Tablet G-TUBE 10 mg DAILY RAQUEL Administration Heparin Sodium (Porcine) 5,000 unit 08/30/20 07:00 Heparin Sodium,Porcine 5,000 Unit/Ml Vial SUBCUT Q8H RAQULE Memantine 5 mg 08/26/20 21:00 09/01/20 08:35 Memantine Hcl 5 Mg Tablet G-TUBE 5 mg BID RAQUEL Administration Non-Formulary Medication 1 applicatio 08/20/20 09:00 09/01/20 08:37 Calcium Alginate TOPICAL 1 applicatio DAILY RAQUEL Administration Omeprazole 20 mg 08/30/20 06:30 09/01/20 05:08 Omeprazole 20 Mg/10 Ml Susp.Recon G-TUBE 20 mg BID@0630,1630 RAQUEL Administration Ondansetron HCl 4 mg 08/24/20 13:23 Ondansetron Hcl 4 Mg/2 Ml Vial IVPUSH ONCE PRN Nausea and Vomiting Polyethylene Glycol 17 gm 08/28/20 09:00 09/01/20 08:35 Polyethylene Glycol 3350 17 Gm Powd.Pack G-TUBE 17 gm BID RAQUEL Administration Potassium Chloride 40 meq 08/28/20 09:00 09/01/20 08:34 Potassium Chloride Packet 20 Meq Packet G-TUBE 40 meq DAILY RAQUEL Administration Sodium Biphosphate/Sodium Phosphate 133 ml 08/29/20 16:49 Sodium Phosphate,[place]-Dibasic 133 Ml Enema [place] ONCE PRN Constipation Sodium Biphosphate/Sodium Phosphate 133 ml 08/30/20 09:48 08/30/20 12:38 Sodium Phosphate,[place]-Dibasic 133 Ml Enema [place] 133 ml ONCE PRN Administration Constipation Sodium Chloride 3 ml 08/18/20 00:00 09/01/20 08:36 0.9 % Sodium Chloride Flush 3 Ml Syringe IVFLUSH 3 ml QSHIFT RAQUEL Administration Time Spent With Patient Time: Total time spent is greater than 50% in coordination of care (as documented) at patient's floor/unit and/or counseling patient: Time with patient: 15 - 24 minutes
--- NOTE | 2020-09-01 16:19 | P.PNIM_ITS ---
Subjective Subjective Date of Service: 09/01/20 Interval History: seen and examined this AM he appears to be a bit more alert this AM not talking much; shakes head / lips no when asked if he in pain otherwise ROS limited Physical Exam 2 Vital Signs: Vital Signs: Vital Signs Temp Pulse Resp BP Pulse Ox 09/01/20 15:40 98.2 F 89 20 140/70 H 97 09/01/20 12:00 97.5 F 90 20 144/69 H 100 09/01/20 07:58 97.9 F 73 18 137/79 96 09/01/20 04:31 99.2 F 87 18 139/74 96 09/01/20 01:34 100.7 F H 09/01/20 00:00 101 F H 95 18 146/69 H 94 08/31/20 18:44 98.9 F 94 18 143/69 H 94 Body Mass Index 24.3 General - chronically ill appearing, not in any acute distress Cardiovascular - regular rate and rhythm, S1-S2 Lungs - non-labored breathing Abdomen - soft, non-tender, no rebound regarding Extremities - no edema bilaterally Neuro - awake and alert, no focal deficits Objective Data Current Medications Generic Name Dose Route Start Last Admin Trade Name Freq PRN Reason Stop Dose Admin Acetaminophen 650 mg 08/29/20 08:30 09/01/20 01:33 Acetaminophen Supp 650 Mg Supp.Rect [place] 650 mg Q6H PRN Administration fevers Carbidopa/Levodopa 2 tab 08/26/20 21:00 09/01/20 12:39 Carbidopa/Levodopa 25/100 Tablet G-TUBE 2 tab QID RAQUEL Administration Divalproex Sodium 500 mg 08/28/20 21:00 09/01/20 08:35 Divalproex Sodium Sprinkles 125 Mg CapMerlyDrMerlySpr PO 500 mg BID RAQUEL Administration Donepezil HCl 10 mg 08/29/20 09:00 09/01/20 08:35 Donepezil Hcl 10 Mg Tablet G-TUBE 10 mg DAILY RAQUEL Administration Heparin Sodium (Porcine) 5,000 unit 08/30/20 07:00 Heparin Sodium,Porcine 5,000 Unit/Ml Vial SUBCUT Q8H RAQUEL Piperacillin Sod/Tazobactam 50 mls @ 100 mls/hr 09/01/20 16:30 Sod 3.375 gm/ Sodium Chloride IV Q6H RAQUEL Doxycycline Hyclate 100 mg/ 250 mls @ 166.67 mls/hr 09/01/20 18:00 Sodium Chloride IV Q12H RAQUEL Memantine 5 mg 08/26/20 21:00 09/01/20 08:35 Memantine Hcl 5 Mg Tablet G-TUBE 5 mg BID RAQUEL Administration Non-Formulary Medication 1 applicatio 08/20/20 09:00 09/01/20 08:37 Calcium Alginate TOPICAL 1 applicatio DAILY RAQUEL Administration Omeprazole 20 mg 08/30/20 06:30 09/01/20 05:08 Omeprazole 20 Mg/10 Ml Susp.Recon G-TUBE 20 mg BID@0630,1630 RAQUEL Administration Ondansetron HCl 4 mg 08/24/20 13:23 Ondansetron Hcl 4 Mg/2 Ml Vial IVPUSH ONCE PRN Nausea and Vomiting Polyethylene Glycol 17 gm 08/28/20 09:00 09/01/20 08:35 Polyethylene Glycol 3350 17 Gm Powd.Pack G-TUBE 17 gm BID RAQUEL Administration Potassium Chloride 40 meq 08/28/20 09:00 09/01/20 08:34 Potassium Chloride Packet 20 Meq Packet G-TUBE 40 meq DAILY RAQUEL Administration Sodium Biphosphate/Sodium Phosphate 133 ml 08/29/20 16:49 Sodium Phosphate,[place]-Dibasic 133 Ml Enema [place] ONCE PRN Constipation Sodium Biphosphate/Sodium Phosphate 133 ml 08/30/20 09:48 08/30/20 12:38 Sodium Phosphate,[place]-Dibasic 133 Ml Enema [place] 133 ml ONCE PRN Administration Constipation Sodium Chloride 3 ml 08/18/20 00:00 09/01/20 08:36 0.9 % Sodium Chloride Flush 3 Ml Syringe IVFLUSH 3 ml QSHIFT RAQUEL Administration Labs CBC & Chem 7: 09/01/20 05:31 09/01/20 05:31 Microbiology Microbiology Results: Microbiology 09/01/20 12:38 Foot - Abscess Gram Stain - Final 08/27/20 10:34 Blood - Venous Blood Culture - Final No growth after 5 days. 08/27/20 10:44 Blood - Venous Blood Culture - Final No growth after 5 days. 08/29/20 18:46 Stool Stool Culture - Final 08/21/20 21:51 Stool Stool Culture - Final 08/17/20 17:04 Blood - Venous Blood Culture - Final No growth after 5 days. 08/17/20 16:09 Blood - Venous Blood Culture - Final No growth after 5 days. Assessment and Plan (1) Foot abscess, right: Status: Acute Assessment and Plan: This is a 79 yo M from SNF with a PMH of dementia, COPD, BPH, OA, ? seizure disorder, ? parkinsons who was brought to the ED on 08/17/2020 for what appeared to be seizure like activity. His hospital course has been complicated by multiple issues. 1. Breakthrough seizures Due to low dapakote level -- repeat levels 31; neurology follow up appreciated -- increase depakote to 750mg bid EEG ordered 2. Fevers / RLE chronic wounds / abscess, sepssis was having low grade temps and spiked a fever over night seen by gen surg (see their note) -- bedside I&D done of the LE -- cultures sent check blood cx and start zosyn + doxy ID on board 3. FTT s/p PEG on 08/24/2020 tolerating tube feeds -- continue the same 4. TINA multifactorial resolved 5. COVID 19 positive upon admission (repeat neg) likely 2/2 to viral shedding (had previous covid 19 infection) DVT pptx, heparin Full Code (will broach the topic with daughter again)
[2020-09-01] MEDS: Piperacillin Sodium/Tazobactam 3.375 GM in 0.9 % Sodium Chloride 50 ML IV ×2 (17:10→23:13)
[2020-09-01] MEDS: Doxycycline Hyclate 100 MG in 0.9 % Sodium Chloride 250 ML 166.67 MG IV (17:56)
[2020-09-01 20:39] LABS: Glucose Urine UA NEG (NEG); Leukocyte Esterase Urine TRACE (NEG); Nitrite Urine NEG (NEG); Specific Gravity - Urine 1.025 (1.005-1.025); Urine Blood 3+ (NEG); Urine Ketones NEG (NEG); Urine Protein 2+ MG/DL (NEG-TRACE)
[2020-09-01 20:40] LABS: Appearance Urine HAZY; Color Urine YELLOW
[2020-09-01 20:51] LABS: Bacteria Urine TRACE /LPF; Squamous Epithelial Cell Urine TRACE /LPF
[2020-09-02] VITALS (8 sets, daily range): BP systolic 140–168; BP diastolic 65–88; PULSE 83–92; RESP 17–20; TEMP 36.4–37.3; O2SAT 95–98
--- NOTE | 2020-09-02 | CT_ITS ---
EXAMINATION: CT FOOT WITHOUT CONTRAST, RIGHT CLINICAL INFORMATION: Osteomyelitis COMPARISON: Right foot 08/06/2017 TECHNIQUE: Was obtained to the right foot. Coronal and sagittal reformatted images are performed at the CT scanner This CT examination was performed using dose optimization techniques as appropriate, variously including the following: *Automated exposure control *Adjustment of mA and/or kV according to patient size (this includes techniques or standardized protocols for targeted exams where dose is matched to indication/reason for exam; i.e. extremities or head) *Use of iterative reconstruction technique DLP: 177 mGy-cm FINDINGS: There is ulceration of the skin with exposure of bone along the medial side of the foot involving the head and diaphyseal shaft of the 1st metatarsal and proximal phalanx of the great toe. There is gas in the soft tissues around the ulcer site. There is loss of the cortical margin of the medial head of the 1st metatarsal and also a portion of the periarticular bone at the medial side of the proximal phalanx of the great toe. Both the medial and the lateral sesamoid bone at the plantar side of the head of 1st metatarsal have indistinct cortex. These changes suggest focal osteomyelitis. No focal fluid collection or abscess. There is no fracture. No dislocation. There is osteopenia. CT/CT foot RT wo con IMPRESSION: Loss of soft tissue with ulceration around the 1st MTP joint. Changes consistent with osteomyelitis of the head of the 1st metatarsal, the proximal cortex of the great toe proximal phalanges and of the medial lateral sesamoid bones at the plantar side of the head of the 1st metatarsal.
[2020-09-02] MEDS: Piperacillin Sodium/Tazobactam 3.375 GM in 0.9 % Sodium Chloride 50 ML IV ×4 (05:20→22:53)
[2020-09-02] MEDS: Doxycycline Hyclate 100 MG in 0.9 % Sodium Chloride 250 ML 166.7 MG IV ×2 (05:58→17:49)
[2020-09-02] MEDS: 0.9 % Sodium Chloride Flush 3 ML SYRINGE IVFLUSH ×3 (07:46→23:30)
--- NOTE | 2020-09-02 08:26 | P.PNGS_ITS ---
Subjective Subjective Interval history: Patient is not communicative Eyes open spontaneously Tolerating PEG feeds Physical Exam Vital Signs: Vital Signs: Vital Signs Temp Pulse Resp BP Pulse Ox 09/02/20 08:00 98.3 F 83 18 146/70 H 96 09/02/20 03:49 98.7 F 84 17 140/65 H 95 09/02/20 00:52 99.2 F 09/01/20 23:24 100.7 F H 92 16 130/71 94 09/01/20 21:04 97.5 F 90 17 174/81 H 99 09/01/20 15:40 98.2 F 89 20 140/70 H 97 09/01/20 12:00 97.5 F 90 20 144/69 H 100 Body Mass Index 24.3 Const: Other: Not communicative, no verbal output General: no acute distress GI: Other: Soft, no guarding or rebound, peg tube in place Extrem: Other: Debridement site on the medial aspect of the right foot, with some residual fibrinous layer, no pus; stage I heel ulcer dry Progress Note: A&P Assessment and plan (1) Foot abscess, right: Status: Acute Assessment and Plan: The debridement and I and D site on the right foot appears clean Wet to dry dressing applied Entire foot dropped in Kerlix roll Keep both feet of bed with pillows on the calf Follow up on cultures from abscess yesterday Wound care Peg tube feeds ongoing Fall Risk Details Current Medications: Current Medications Generic Name Dose Route Start Last Admin Trade Name Freq PRN Reason Stop Dose Admin Acetaminophen 650 mg 08/29/20 08:30 09/01/20 23:35 Acetaminophen Supp 650 Mg Supp.Rect [place] 650 mg Q6H PRN Administration fevers Carbidopa/Levodopa 2 tab 08/26/20 21:00 09/01/20 20:36 Carbidopa/Levodopa 25/100 Tablet G-TUBE 2 tab QID RAQUEL Administration Divalproex Sodium 750 mg 09/02/20 09:00 Divalproex Sodium Sprinkles 125 Mg PO BID RAQUEL Donepezil HCl 10 mg 08/29/20 09:00 09/01/20 08:35 Donepezil Hcl 10 Mg Tablet G-TUBE 10 mg DAILY RAQUEL Administration Heparin Sodium (Porcine) 5,000 unit 08/30/20 07:00 Heparin Sodium,Porcine 5,000 Unit/Ml Vial SUBCUT Q8H RAQUEL Piperacillin Sod/Tazobactam 50 mls @ 100 mls/hr 09/01/20 17:00 09/02/20 06:07 Sod 3.375 gm/ Sodium Chloride IV Infused Q6H RAQUEL Infusion Doxycycline Hyclate 100 mg/ 250 mls @ 166.67 mls/hr 09/01/20 18:00 09/02/20 07:45 Sodium Chloride IV Infused Q12H RAQUEL Infusion Memantine 5 mg 08/26/20 21:00 09/01/20 20:36 Memantine Hcl 5 Mg Tablet G-TUBE 5 mg BID RAQUEL Administration Non-Formulary Medication 1 applicatio 08/20/20 09:00 09/01/20 08:37 Calcium Alginate TOPICAL 1 applicatio DAILY RAQUEL Administration Omeprazole 20 mg 08/30/20 06:30 09/02/20 05:59 Omeprazole 20 Mg/10 Ml Susp.Recon G-TUBE 20 mg BID@0630,1630 RAQUEL Administration Ondansetron HCl 4 mg 08/24/20 13:23 Ondansetron Hcl 4 Mg/2 Ml Vial IVPUSH ONCE PRN Nausea and Vomiting Polyethylene Glycol 17 gm 08/28/20 09:00 09/01/20 20:37 Polyethylene Glycol 3350 17 Gm Powd.Pack G-TUBE Not Given BID RAQUEL Potassium Chloride 40 meq 08/28/20 09:00 09/01/20 08:34 Potassium Chloride Packet 20 Meq Packet G-TUBE 40 meq DAILY RAQUEL Administration Sodium Biphosphate/Sodium Phosphate 133 ml 08/29/20 16:49 Sodium Phosphate,[place]-Dibasic 133 Ml Enema [place] ONCE PRN Constipation Sodium Biphosphate/Sodium Phosphate 133 ml 08/30/20 09:48 08/30/20 12:38 Sodium Phosphate,[place]-Dibasic 133 Ml Enema [place] 133 ml ONCE PRN Administration Constipation Sodium Chloride 3 ml 08/18/20 00:00 09/02/20 07:46 0.9 % Sodium Chloride Flush 3 Ml Syringe IVFLUSH 3 ml QSHIFT RAQUEL Administration Time Spent With Patient Time: Total time spent is greater than 50% in coordination of care (as documented) at patient's floor/unit and/or counseling patient: Time with patient: 15 - 24 minutes
--- NOTE | 2020-09-02 10:02 | MHC.SLORD ---
[address] [address] Speech & Hearing [phone] DATA DESIGNER attempted to see patient for dysphagia treatment. However, patient was unavailable as he was undergoing testing which may take up to an hour per staff. DATA DESIGNER to return later today for dysphagia treatment and PO trials. Name: Hay Lee Date of : 1940 Age: 79 Date of Registration: 08/17/20 Speech Language Pathology Order Status:
[2020-09-02] MEDS: Potassium Chloride Packet 20 MEQ PACKET 40 MEQ G-TUBE (10:14)
[2020-09-02] MEDS: Donepezil HCl 10 MG TABLET G-TUBE (10:15)
[2020-09-02] MEDS: polyethylene glycoL 3350 17 GM POWD.PACK G-TUBE ×2 (10:15→22:52)
[2020-09-02] MEDS: Memantine HCl 5 MG TABLET G-TUBE ×2 (10:15→22:53)
[2020-09-02] MEDS: Carbidopa/Levodopa 25/100 TABLET 2 TAB G-TUBE ×4 (10:15→22:52)
[2020-09-02] MEDS: Divalproex Sodium Sprinkles 125 MG CAP.DR.SPR 750 MG PO ×2 (11:12→22:53)
--- NOTE | 2020-09-02 12:21 | PM.IDPN ---
Subjective Subjective Date of Service: 09/02/20 Interval History: had right foot seen by surgery and drain abscess Objective Data Labs CBC & Chem 7: 09/08/20 05:34 09/08/20 05:34 Labs: Laboratory Results - last 24 hr 09/01/20 20:20 Urine Color YELLOW Urine Appearance HAZY Urine pH 6.0 Ur Specific [place] 1.025 Urine Protein 2+ H Urine Glucose (UA) NEG Urine Ketones NEG Urine Blood 3+ H Urine Nitrite NEG Ur Leukocyte Esterase TRACE H Urine RBC 76-150 H Urine WBC 5-9 H Ur Squamous Epith Cells TRACE Urine Bacteria TRACE Urine Yeast 2+ Microbiology Microbiology Results: Microbiology 09/01/20 12:38 Foot - Abscess Gram Stain - Final 09/01/20 12:38 Foot - Abscess Routine Culture - Preliminary Proteus species 08/27/20 10:34 Blood - Venous Blood Culture - Final No growth after 5 days. 08/27/20 10:44 Blood - Venous Blood Culture - Final No growth after 5 days. 08/29/20 18:46 Stool Stool Culture - Final 08/21/20 21:51 Stool Stool Culture - Final 08/17/20 17:04 Blood - Venous Blood Culture - Final No growth after 5 days. 08/17/20 16:09 Blood - Venous Blood Culture - Final No growth after 5 days. Physical Exam Vital Signs: Vital Signs: Vital Signs Temp Pulse Resp BP Pulse Ox 09/02/20 12:00 98.2 F 92 20 168/88 H 97 09/02/20 08:00 98.3 F 83 18 146/70 H 96 09/02/20 03:49 98.7 F 84 17 140/65 H 95 09/02/20 00:52 99.2 F 09/01/20 23:24 100.7 F H 92 16 130/71 94 09/01/20 21:04 97.5 F 90 17 174/81 H 99 09/01/20 15:40 98.2 F 89 20 140/70 H 97 Body Mass Index 24.3 Const: General: cooperative Eyes: General: appearance normal, both eyes and all related structures Resp: Effort & Inspection: normal respiratory effort Cardio: Rate: regular rate Rhythm: regular rhythm GI: Inspection: Yes normal to inspection Extrem: Other: right foot open wound,eschar Assessment and Plan Assessment and plan (1) Fever, unknown origin: Problem details: Foot wound Possible source fever Had been quiet before Status: Acute Assessment and Plan: Would check CT foot Continue antibiotics until results back Time Spent With Patient Time: Total time spent is greater than 50% in coordination of care (as documented) at patient's floor/unit and/or counseling patient: Time with patient: less than 15 minutes
--- NOTE | 2020-09-02 13:22 | HO.PM.IMPN ---
Subjective Subjective Date of Service: 09/02/20 Interval History: no new events low grade temp over night -- tmax. 100.7 whipsering no to pain otherwise ROS difficult due to baseline mentation Physical Exam Vital Signs: Vital Signs: Vital Signs Temp Pulse Resp BP Pulse Ox 09/02/20 12:46 95 09/02/20 12:00 98.2 F 92 20 168/88 H 97 09/02/20 08:00 98.3 F 83 18 146/70 H 96 09/02/20 03:49 98.7 F 84 17 140/65 H 95 09/02/20 00:52 99.2 F 09/01/20 23:24 100.7 F H 92 16 130/71 94 09/01/20 21:04 97.5 F 90 17 174/81 H 99 09/01/20 15:40 98.2 F 89 20 140/70 H 97 Body Mass Index 24.3 General - chronically ill appearing, not in any acute distress Cardiovascular - regular rate and rhythm, S1-S2 Lungs - non-labored breathing Abdomen - soft, non-tender, no rebound regarding Extremities - no edema bilaterally Neuro - awake and alert, no focal deficits Objective Data Current Medications Generic Name Dose Route Start Last Admin Trade Name Freq PRN Reason Stop Dose Admin Acetaminophen 650 mg 08/29/20 08:30 09/01/20 23:35 Acetaminophen Supp 650 Mg Supp.Rect [place] 650 mg Q6H PRN Administration fevers Carbidopa/Levodopa 2 tab 08/26/20 21:00 09/02/20 10:15 Carbidopa/Levodopa 25/100 Tablet G-TUBE 2 tab QID RAQUEL Administration Divalproex Sodium 750 mg 09/02/20 09:00 09/02/20 11:12 Divalproex Sodium Sprinkles 125 Mg CapSpr PO 750 mg BID RAQUEL Administration Donepezil HCl 10 mg 08/29/20 09:00 09/02/20 10:15 Donepezil Hcl 10 Mg Tablet G-TUBE 10 mg DAILY RAQUEL Administration Heparin Sodium (Porcine) 5,000 unit 08/30/20 07:00 Heparin Sodium,Porcine 5,000 Unit/Ml Vial SUBCUT Q8H RAQUEL Piperacillin Sod/Tazobactam 50 mls @ 100 mls/hr 09/01/20 17:00 11/05/20 11:13 Sod 3.375 gm/ Sodium Chloride IV Infused Q6H RAQUEL Infusion Doxycycline Hyclate 100 mg/ 250 mls @ 166.67 mls/hr 09/01/20 18:00 09/02/20 07:45 Sodium Chloride IV Infused Q12H RAQUEL Infusion Memantine 5 mg 08/26/20 21:00 09/02/20 10:15 Memantine Hcl 5 Mg Tablet G-TUBE 5 mg BID RAQUEL Administration Non-Formulary Medication 1 applicatio 08/20/20 09:00 09/02/20 10:15 Calcium Alginate TOPICAL 1 applicatio DAILY RAQUEL Administration Omeprazole 20 mg 08/30/20 06:30 09/02/20 05:59 Omeprazole 20 Mg/10 Ml Susp.Recon G-TUBE 20 mg BID@0630,1630 RAQUEL Administration Ondansetron HCl 4 mg 08/24/20 13:23 Ondansetron Hcl 4 Mg/2 Ml Vial IVPUSH ONCE PRN Nausea and Vomiting Polyethylene Glycol 17 gm 08/28/20 09:00 09/02/20 10:15 Polyethylene Glycol 3350 17 Gm Powd.Pack G-TUBE 17 gm BID RAQUEL Administration Potassium Chloride 40 meq 08/28/20 09:00 09/02/20 10:14 Potassium Chloride Packet 20 Meq Packet G-TUBE 40 meq DAILY RAQUEL Administration Sodium Biphosphate/Sodium Phosphate 133 ml 08/29/20 16:49 Sodium Phosphate,[place]-Dibasic 133 Ml Enema [place] ONCE PRN Constipation Sodium Biphosphate/Sodium Phosphate 133 ml 08/30/20 09:48 08/30/20 12:38 Sodium Phosphate,[place]-Dibasic 133 Ml Enema NE 133 ml ONCE PRN Administration Constipation Sodium Chloride 3 ml 08/18/20 00:00 09/02/20 07:46 0.9 % Sodium Chloride Flush 3 Ml Syringe IVFLUSH 3 ml QSHIFT RAQUEL Administration Labs CBC & Chem 7: 09/01/20 05:31 09/01/20 05:31 Microbiology Microbiology Results: Microbiology 09/01/20 12:38 Foot - Abscess Gram Stain - Final 09/01/20 12:38 Foot - Abscess Routine Culture - Preliminary Proteus species 08/27/20 10:34 Blood - Venous Blood Culture - Final No growth after 5 days. 08/27/20 10:44 Blood - Venous Blood Culture - Final No growth after 5 days. 08/29/20 18:46 Stool Stool Culture - Final 08/21/20 21:51 Stool Stool Culture - Final 08/17/20 17:04 Blood - Venous Blood Culture - Final No growth after 5 days. 08/17/20 16:09 Blood - Venous Blood Culture - Final No growth after 5 days. Assessment and Plan (1) Foot abscess, right: Status: Acute Assessment and Plan: This is a 79 yo M from SNF with a PMH of dementia, COPD, BPH, OA, ? seizure disorder, ? parkinsons who was brought to the ED on 08/17/2020 for what appeared to be seizure like activity. His hospital course has been complicated by multiple issues. 1. Breakthrough seizures Due to low -- dapakote level -- repeat levels 31; neurology follow up appreciated -- increased depakote to 750mg bid, recheck in 4/5 days EEG ordered 2. Fevers / RLE chronic wounds / abscess, sepsis zosyn/doxy I&D done by Gen Surg, f/u cultures doxy/zosyn for now ID input appreciated -- CT foot ordered 3. FTT s/p PEG on 08/24/2020 tolerating tube feeds -- continue the same 4. TINA multifactorial resolved 5. COVID 19 positive upon admission (repeat neg) likely 2/2 to viral shedding (had previous covid 19 infection) DVT pptx, heparin Full Code (will broach the topic with daughter again) dispo: home -- d/w the daughter, wishes to take care of her father at home. CM working on helping her arrange the appropriate services. have told her that she likely needs 24/7 care at this point.
--- NOTE | 2020-09-02 15:16 | MHC.CM.PN ---
SRINIVAS spoke to pts daughter Jennifer ([phone]) who reports she would like to take the pt home at [place] as she feels he has been getting worse in the SNF and she has been unable to see him as much as she would like. She reports she can provide some care but works during the day so she would need some assistance. SRINIVAS discussed [facility] vs [facility]. CM contacted [facility] and learned that although they typically try to see a pt within 5 days of a referral it has been taking closer to 10 days. SRINIVAS was informed once the assessment was done, if the family wanted to hire their own guest service agent they would have to apply for an EIN number through the IRS and then complete all of the paperwork for each [employer]. According to pts insurance, age and diagnosis, CM was informed the pt would be eligible for the [employer] managed care plan. CM was informed the most [employer] hours someone would get is 37 per week. SRINIVAS also informed the referral cannot be entered into the system until the pt is discharged from the hospital. CM must call the Referrals and information dept and [facility] ([phone]) when the pt discharges so the referral can be activated. SRINIVAS called Jennifer back and gave her the above information. Since the pt has been in a SNF for years, he does not have a PCP in the community and would need one to get a VNA. Jennifer reports he used to see Dr Branch and she would like him to see him again. She also asked if Dr Branch could come see the pt while he was in patient so that the VNA could start. SRINIVAS explained the barriers and agreed to contact Dr Branch's office to see if pt could get an appointment however explained to Jennifer that the pt would need an appointment as soon as possible so may need to see another provider. SRINIVAS also asked Jennifer how she would get pt transported to a PCP appt. Pt does have [facility] and could get PT1 transport however would need to get established with a PCP before this could be done. SRINIVAS called Dr Branch's office to see if a new pt appt could be made. SRINIVAS informed Dr Branch is scheduling past the new year for new patients. SRINIVAS informed the soonest new pt appt available was with Dr Edson Medellin on September 28, 2020 at 1345 hours. Appt scheduled. SRINIVAS left a message for the info and referrals department at [facility] requesting a return call to determine if they are able to complete the pt assessment while he is in the SNF. Per VM message, liaison was done for the day. CM will call again tomorrow. CM called Jennifer back and gave her the above info. For 09/03/20: CM will contact [facility] to determine if they are able to see pt in the SNF if he returns there and if they are able to arrange for the necessary DME. T/W will also determine if CM can arrange pts BLS transport to his PCP appt prior to his DC. Pts daughter, Jennifer, is aware CM will call her tomorrow to resume DC planning.
[2020-09-03] VITALS (7 sets, daily range): BP systolic 138–167; BP diastolic 66–98; PULSE 86–95; RESP 18–20; TEMP 36.4–37.1; O2SAT 94–97
[2020-09-03] MEDS: Piperacillin Sodium/Tazobactam 3.375 GM in 0.9 % Sodium Chloride 50 ML IV ×4 (05:22→22:11)
[2020-09-03] MEDS: Doxycycline Hyclate 100 MG in 0.9 % Sodium Chloride 250 ML 166.7 MG IV (05:58)
[2020-09-03 06:12] LABS: MANUAL DIFF FLAG NO
[2020-09-03 06:57] LABS: Basophils Percent Auto 0.5 % (0-2); Eosinophils Absolute Auto 0.3 X10*3/uL (0.0-0.4); Eosinophils Percent Auto 3.8 % (0-4); Hematocrit 30.2 % (42-52); Hemoglobin 9.2 g/dl (14.0-18.0); Imm Gran Pct Auto 1.3 % (0.0-0.4); Lymphocytes Absolute Auto 0.8 X10*3/uL (1.2-4.9); Lymphocytes Percent Auto 10.3 % (20-40); Mean Corpuscular HGB Conc 30.5 g/dl (31.0-36.0); Mean Corpuscular Volume 92.1 fL (80-98); Mean Platelet Volume 10.3 fL (9.4-12.4); Monocytes Absolute Auto 0.7 X10*3/uL (0.1-1.2); Monocytes Percent Auto 8.5 % (2-11); Neutrophils Percent Auto 75.6 % (45-73); Platelet Count 329 X10*3/uL (160-400); Red Blood Count 3.28 X10*6/uL (4.60-5.80); Red Cell Distribution Width 15.6 % (11.0-16.0); White Blood Count 7.9 X10*3/uL (4.8-10.8)
[2020-09-03 07:03] LABS: Anion Gap 15 (12-20); Blood Urea Nitrogen 14 mg/dL (9-16); Calcium 7.8 mg/dL (8.4-10.2); Carbon Dioxide 25 mmol/L (22-29); Chloride 108 mmol/L (96-108); Creatinine Clr Calc Pharmacy 57.7; Estimated Glomerular Filt Rate > 60; Glucose Random 142 mg/dL (60-115); Potassium 4.7 mmol/l (3.3-5.1); Sodium 143 mmol/L (135-145)
--- NOTE | 2020-09-03 08:28 | P.PNGS_ITS ---
Subjective Subjective Interval history: no events reported on PEG feeds Physical Exam Vital Signs: Vital Signs: Last Vital Signs Temp 97.6 F 09/03/20 07:53 Pulse 87 09/03/20 07:53 Resp 20 09/03/20 07:53 BP 138/66 09/03/20 07:53 Pulse Ox 94 09/03/20 07:53 Body Mass Index 24.3 Const: Other: not communicative GI: Palpation (GI): Soft to palpation, not firm and nontender Progress Note: A&P Assessment and plan (1) Foot abscess, right: Status: Acute Assessment and Plan: open debrided area dry, no residual pus dressings changed wet to dry applied, wrapped in Kerlix keep feet off of bed continue wound care ffup abscess cultures Fall Risk Details Current Medications: Current Medications Generic Name Dose Route Start Last Admin Trade Name Freq PRN Reason Stop Dose Admin Acetaminophen 650 mg 08/29/20 08:30 09/01/20 23:35 Acetaminophen Supp 650 Mg Supp.Rect [place] 650 mg Q6H PRN Administration fevers Carbidopa/Levodopa 2 tab 08/26/20 21:00 09/02/20 22:52 Carbidopa/Levodopa 25/100 Tablet G-TUBE 2 tab QID RAQUEL Administration Divalproex Sodium 750 mg 09/02/20 09:00 09/02/20 22:53 Divalproex Sodium Sprinkles 125 Mg CapSpr PO 750 mg BID RAQUEL Administration Donepezil HCl 10 mg 08/29/20 09:00 09/02/20 10:15 Donepezil Hcl 10 Mg Tablet G-TUBE 10 mg DAILY RAQUEL Administration Heparin Sodium (Porcine) 5,000 unit 08/30/20 07:00 Heparin Sodium,Porcine 5,000 Unit/Ml Vial SUBCUT Q8H RAQUEL Piperacillin Sod/Tazobactam 50 mls @ 100 mls/hr 09/01/20 17:00 09/03/20 05:52 Sod 3.375 gm/ Sodium Chloride IV Infused Q6H RAQUEL Infusion Doxycycline Hyclate 100 mg/ 250 mls @ 166.67 mls/hr 09/01/20 18:00 09/03/20 05:58 Sodium Chloride IV 166.7 mls/hr Q12H RAQUEL Administration Memantine 5 mg 08/26/20 21:00 09/02/20 22:53 Memantine Hcl 5 Mg Tablet G-TUBE 5 mg BID RAQUEL Administration Non-Formulary Medication 1 applicatio 08/20/20 09:00 09/02/20 10:15 Calcium Alginate TOPICAL 1 applicatio DAILY RAQUEL Administration Omeprazole 20 mg 08/30/20 06:30 09/03/20 06:03 Omeprazole 20 Mg/10 Ml Susp.Recon G-TUBE 20 mg BID@0630,1630 RAQUEL Administration Ondansetron HCl 4 mg 08/24/20 13:23 Ondansetron Hcl 4 Mg/2 Ml Vial IVPUSH ONCE PRN Nausea and Vomiting Polyethylene Glycol 17 gm 08/28/20 09:00 09/02/20 22:52 Polyethylene Glycol 3350 17 Gm Powd.Pack G-TUBE 17 gm BID RAQUEL Administration Potassium Chloride 40 meq 08/28/20 09:00 09/02/20 10:14 Potassium Chloride Packet 20 Meq Packet G-TUBE 40 meq DAILY RAQUEL Administration Sodium Biphosphate/Sodium Phosphate 133 ml 08/29/20 16:49 Sodium Phosphate,[place]-Dibasic 133 Ml Enema [place] ONCE PRN Constipation Sodium Biphosphate/Sodium Phosphate 133 ml 08/30/20 09:48 08/30/20 12:38 Sodium Phosphate,[place]-Dibasic 133 Ml Enema CO 133 ml ONCE PRN Administration Constipation Sodium Chloride 3 ml 08/18/20 00:00 09/02/20 23:30 0.9 % Sodium Chloride Flush 3 Ml Syringe IVFLUSH 3 ml QSHIFT RAQUEL Administration Time Spent With Patient Time: Total time spent is greater than 50% in coordination of care (as documented) at patient's floor/unit and/or counseling patient: Time with patient: 15 - 24 minutes
[2020-09-03] MEDS: Donepezil HCl 10 MG TABLET G-TUBE (09:29)
[2020-09-03] MEDS: Carbidopa/Levodopa 25/100 TABLET 2 TAB G-TUBE ×4 (09:29→22:10)
[2020-09-03] MEDS: Memantine HCl 5 MG TABLET G-TUBE ×2 (09:29→22:10)
[2020-09-03] MEDS: Potassium Chloride Packet 20 MEQ PACKET 40 MEQ G-TUBE (09:38)
[2020-09-03] MEDS: Divalproex Sodium Sprinkles 125 MG CAP.DR.SPR 750 MG PO (09:38)
[2020-09-03] MEDS: polyethylene glycoL 3350 17 GM POWD.PACK G-TUBE ×2 (09:38→22:11)
[2020-09-03] MEDS: 0.9 % Sodium Chloride Flush 3 ML SYRINGE IVFLUSH ×2 (11:58→16:49)
--- NOTE | 2020-09-03 12:05 | MHC.CM.PN ---
CM contacted [facility] services ([phone]) and spoke to the referrals and info dept. CM was informed if the pt returns to the SNF, the pt/daughter can be assigned an [facility] CM who would do an assessment with him while at the SNF to determine his needs and what he is eligible for. CM also informed the pt would still need another assessment once home to see him in his permanent environment and get a clearer picture of what he will need. CM called pts daughter, Jennifer ([phone]) and gave her the above information. Jennifer reports being worried about the pt returning to the SNF. She reports she does not want to lose him in the time it takes to get things set up at home however she also understands the barriers to pt going home right from acute hospitalization. If pt returns to [facility] SNF, the facility will transport him to his new PCP appt scheduled for 09/28/20 at 1345. While at the SNF, Jennifer can also work with the [facility] CM from [facility] to get things arranged at home. They can begin pts paperwork, apply for an EIN number and Jenniefr can look for care takers. Jennifer is aware there will be a length of time pt is without operations dispatcher once home as they cannot begin until after pts home assessment by [facility]. Currently, the SNF is receiving pts SSI check, Jennifer is hoping once the pt is home, the check will again be sent to him and can be used for his home care. Jennifer is also worried about not being able to see the pt when he returns to the SNF. She reports the pt did have a GROCERY STORE CLERK there that he was close to and that took good care of him, however she has been out due to an injury and since then, Jennifer does not feel the pt has been getting the same level of care. Jennifer is hopeful that they will allow her to see him if she uses appropriate PPE and asks that CM run this by their sustainability coordinator. CM agreed to find out if Jennifer would have any opportunity to see the pt once he returned. SRINIVAS also discussed choosing a VNA that would be ready to start once pt attends his new pt appt with Dr Medellin. Jennifer was not familiar with any of the agencies in the area. SRINIVAS left a list of VNAs in pts room and Jennifer will review it when she visits this afternoon. CM contact number left with list. Current DC plan is for pt to return to [facility] with a referral to [facility] and a VNA yet to be chosen. Pt will see his new PCP, Edson Medellin at [address] [place] [address] on 09/28/20 at 1345, after which he will be eligible for VNA services. While at the SNF, pts daughterJennifer will work with [facility] CM to coordinate pts discharge to her home.
--- NOTE | 2020-09-03 13:11 | MHC.CLN ---
F/U PT CONTIUES WITH LOW GRADE FEVER PER MD PT TOLERATING TF JEVITY AT MAX GOAL RATE 60CC/HR WITH 120CC WATER FLUSHES Q SHIFT TO PROVIDE 1526KCALS (32KCALS/KG), 64G PROTEIN (1.3G/KG), 1562CC TOTAL WATER FROM FORMULA AND FLUSHES (32.5CC/HR) MEGHNA IN PLACE FOR WOUNDS VIA TF MONITOR LYTES CLOSELY R/T FEVER-MAY INCREASE FREE WATER FLUSHES TO 240 Q SHIFT IF NEEDED MONITOR RESIDUALS AND TOLERANCE FOLLOWING
--- NOTE | 2020-09-03 14:58 | PM.IDPN ---
Subjective Subjective Date of Service: 09/03/20 Interval History: right great toe area skin breakdown and abscess area has broken down and drained purulence Klebsiella from wound,culture pending Objective Data Labs CBC & Chem 7: 09/03/20 05:22 09/03/20 05:22 Labs: Laboratory Results - last 24 hr 09/03/20 09/03/20 05:22 05:22 WBC 7.9 RBC 3.28 L Hgb 9.2 L Hct 30.2 L MCV 92.1 MCH 28.0 MCHC 30.5 L RDW 15.6 Plt Count 329 MPV 10.3 Immature Gran % (Auto) 1.3 H Neut % (Auto) 75.6 H Lymph % (Auto) 10.3 L [place] % (Auto) 8.5 Eos % (Auto) 3.8 Baso % (Auto) 0.5 Lymph # (Auto) 0.8 L [place] # (Auto) 0.7 Eos # (Auto) 0.3 Baso # (Auto) 0.0 Abs Immat Gran (auto) 0.10 H Absolute Neuts (auto) 6.0 Absolute Nucleated RBC 0.000 Nucleated RBC % (auto) 0.0 Sodium 143 Potassium 4.7 D Chloride 108 Carbon Dioxide 25 Anion Gap 15 BUN 14 Creatinine 0.97 Estim Creat Clear Calc 57.7 Estimated GFR > 60 Random Glucose 142 H Calcium 7.8 L Microbiology Microbiology Results: Microbiology 09/01/20 20:20 Urine Catheterized - Wade Catheter Urine Culture - Preliminary Culture in progress. 09/01/20 12:38 Foot - Abscess Gram Stain - Final 09/01/20 12:38 Foot - Abscess Routine Culture - Preliminary Proteus mirabilis 09/01/20 17:04 Blood - Venous Blood Culture - Preliminary No growth after 24 hours. 09/01/20 17:04 Blood - Venous Blood Culture - Preliminary No growth after 24 hours. 08/27/20 10:34 Blood - Venous Blood Culture - Final No growth after 5 days. 08/27/20 10:44 Blood - Venous Blood Culture - Final No growth after 5 days. 08/29/20 18:46 Stool Stool Culture - Final 08/21/20 21:51 Stool Stool Culture - Final 08/17/20 17:04 Blood - Venous Blood Culture - Final No growth after 5 days. 08/17/20 16:09 Blood - Venous Blood Culture - Final No growth after 5 days. Physical Exam Vital Signs: Vital Signs: Last Vital Signs Temp 98.1 F 09/03/20 11:36 Pulse 95 09/03/20 11:36 Resp 18 09/03/20 11:36 BP 150/80 H 09/03/20 11:36 Pulse Ox 95 09/03/20 13:00 Body Mass Index 24.3 Const: General: cooperative Eyes: General: appearance normal, both eyes and all related structures Resp: Effort & Inspection: normal respiratory effort Auscultation: clear to auscultation bilaterally Cardio: Rate: regular rate Rhythm: regular rhythm GI: Palpation (GI): nontender Extrem: Other: open area right great toe no purulence at this time Assessment and Plan Assessment and plan (1) Osteomyelitis of foot, right, acute: Problem details: Patient CT proximal great toe osteomyelitis and sesamoid bone Proteus Likely cause of fevers as abscess just became evident yesterday Status: Acute Assessment and Plan: Would continue Zosyn Await cultures results Needs PICC line Antibiotic type to be determined Time Spent With Patient Time: Total time spent is greater than 50% in coordination of care (as documented) at patient's floor/unit and/or counseling patient: Time with patient: 15 - 24 minutes
--- NOTE | 2020-09-03 16:46 | P.PNIM_ITS ---
Subjective Subjective Interval History: no new events appears more alert today still denies any pain (foot) Physical Exam Vital Signs: Vital Signs: Last Vital Signs Temp 98.7 F 09/03/20 16:00 Pulse 91 09/03/20 16:00 Resp 18 09/03/20 16:00 BP 167/98 H 09/03/20 16:00 Pulse Ox 97 09/03/20 16:00 Body Mass Index 24.3 General - chronically ill appearing, not in any acute distress Cardiovascular - regular rate and rhythm, S1-S2 Lungs - non-labored breathing Abdomen - soft, non-tender, no rebound regarding Extremities - no edema bilaterally, dressing in place R foot Neuro - awake and alert, no focal deficits Objective Data Current Medications Generic Name Dose Route Start Last Admin Trade Name Freq PRN Reason Stop Dose Admin Acetaminophen 650 mg 08/29/20 08:30 09/01/20 23:35 Acetaminophen Supp 650 Mg Supp.Rect [place] 650 mg Q6H PRN Administration fevers Carbidopa/Levodopa 2 tab 08/26/20 21:00 09/03/20 13:33 Carbidopa/Levodopa 25/100 Tablet G-TUBE 2 tab QID RAQUEL Administration Donepezil HCl 10 mg 08/29/20 09:00 09/03/20 09:29 Donepezil Hcl 10 Mg Tablet G-TUBE 10 mg DAILY RAQUEL Administration Heparin Sodium (Porcine) 5,000 unit 08/30/20 07:00 Heparin Sodium,Porcine 5,000 Unit/Ml Vial SUBCUT Q8H RAQEUL Piperacillin Sod/Tazobactam 50 mls @ 100 mls/hr 09/01/20 17:00 09/03/20 12:35 Sod 3.375 gm/ Sodium Chloride IV Infused Q6H RAQUEL Infusion Memantine 5 mg 08/26/20 21:00 09/03/20 09:29 Memantine Hcl 5 Mg Tablet G-TUBE 5 mg BID RAQUEL Administration Non-Formulary Medication 1 applicatio 08/20/20 09:00 09/03/20 11:59 Calcium Alginate TOPICAL Not Given DAILY RAQUEL Omeprazole 20 mg 08/30/20 06:30 09/03/20 06:03 Omeprazole 20 Mg/10 Ml Susp.Recon G-TUBE 20 mg BID@0630,1630 RAQUEL Administration Ondansetron HCl 4 mg 08/24/20 13:23 Ondansetron Hcl 4 Mg/2 Ml Vial IVPUSH ONCE PRN Nausea and Vomiting Polyethylene Glycol 17 gm 08/28/20 09:00 09/03/20 09:38 Polyethylene Glycol 3350 17 Gm Powd.Pack G-TUBE 17 gm BID RAQUEL Administration Potassium Chloride 40 meq 08/28/20 09:00 09/03/20 09:38 Potassium Chloride Packet 20 Meq Packet G-TUBE 40 meq DAILY RAQUEL Administration Sodium Biphosphate/Sodium Phosphate 133 ml 08/29/20 16:49 Sodium Phosphate,[place]-Dibasic 133 Ml Enema [place] ONCE PRN Constipation Sodium Biphosphate/Sodium Phosphate 133 ml 08/30/20 09:48 08/30/20 12:38 Sodium Phosphate,[place]-Dibasic 133 Ml Enema [place] 133 ml ONCE PRN Administration Constipation Sodium Chloride 3 ml 08/18/20 00:00 09/03/20 11:58 0.9 % Sodium Chloride Flush 3 Ml Syringe IVFLUSH 3 ml QSHIFT RAQUEL Administration Valproic Acid 500 mg 09/03/20 15:52 Valproic Acid (As Sodium Salt) 250 Mg/5 Ml Solution PO TID [facility] Labs CBC & Chem 7: 09/03/20 05:22 09/03/20 05:22 Microbiology Microbiology Results: Microbiology 09/01/20 20:20 Urine Catheterized - Wade Catheter Urine Culture - Preliminary Culture in progress. 09/01/20 12:38 Foot - Abscess Gram Stain - Final 09/01/20 12:38 Foot - Abscess Routine Culture - Preliminary Proteus mirabilis 09/01/20 17:04 Blood - Venous Blood Culture - Preliminary No growth after 24 hours. 09/01/20 17:04 Blood - Venous Blood Culture - Preliminary No growth after 24 hours. 08/27/20 10:34 Blood - Venous Blood Culture - Final No growth after 5 days. 08/27/20 10:44 Blood - Venous Blood Culture - Final No growth after 5 days. 08/29/20 18:46 Stool Stool Culture - Final 08/21/20 21:51 Stool Stool Culture - Final 08/17/20 17:04 Blood - Venous Blood Culture - Final No growth after 5 days. 08/17/20 16:09 Blood - Venous Blood Culture - Final No growth after 5 days. Assessment and Plan (1) Foot abscess, right: Status: Acute Assessment and Plan: This is a 79 yo M from SNF with a PMH of dementia, COPD, BPH, OA, ? seizure disorder, ? parkinsons who was brought to the ED on 08/17/2020 for what appeared to be seizure like activity. His hospital course has been complicated by multiple issues. 1. RLE osteo likely cause of his fever CT done, showing osteo continue zosyn (stop doxy), cx growing proteus -- change antibiotics some C&S finalized blood cx negative to date -- will ultimately need PICC line once blood cx neg @ 48 hours ID input appreciated Gen Surg input appreicated 2. Breakthrough seizures Due to low -- dapakote level -- repeat levels 31; neurology follow up appreciated was on depakote sprinkes, difficult to admin now with g-tube change to PO liquids -- 500mg TID (equal to 750mg BID sprinkles) 3. FTT s/p PEG on 08/24/2020 tolerating tube feeds -- continue the same 4. TINA multifactorial resolved 5. COVID 19 positive upon admission (repeat neg) likely 2/2 to viral shedding (had previous covid 19 infection) DVT pptx, heparin Full Code (will broach the topic with daughter again) dispo:given need for picc / antibiotics -- suspect he will need SNF for the time being with the ultimate goal to go back to SNF per daughter wishes
[2020-09-04] MEDS: 0.9 % Sodium Chloride Flush 3 ML SYRINGE IVFLUSH ×4 (02:33→21:07)
[2020-09-04 04:00] VITALS: BP 159/89; PULSE 95; RESP 16; TEMP 36.8; O2SAT 97
[2020-09-04] MEDS: Piperacillin Sodium/Tazobactam 3.375 GM in 0.9 % Sodium Chloride 50 ML IV ×2 (06:13→14:04)
[2020-09-04 08:00] VITALS: BP 149/68; PULSE 72; RESP 20; TEMP 36.9; O2SAT 96
[2020-09-04] MEDS: Donepezil HCl 10 MG TABLET G-TUBE (10:13)
[2020-09-04] MEDS: Carbidopa/Levodopa 25/100 TABLET 2 TAB G-TUBE ×4 (10:13→20:59)
[2020-09-04] MEDS: Memantine HCl 5 MG TABLET G-TUBE ×2 (10:14→20:59)
[2020-09-04] MEDS: Potassium Chloride Packet 20 MEQ PACKET 40 MEQ G-TUBE (10:14)
[2020-09-04 11:32] VITALS: BP 143/66; PULSE 70; RESP 18; TEMP 36.3; O2SAT 97
--- NOTE | 2020-09-04 11:44 | HO.PM.IMPN ---
Subjective Subjective Date of Service: 09/04/20 Interval History: seen and examined this AM unchanged Physical Exam Vital Signs: Vital Signs: Last Vital Signs Temp 97.3 F 09/04/20 11:32 Pulse 70 09/04/20 11:32 Resp 18 09/04/20 11:32 BP 143/66 H 09/04/20 11:32 Pulse Ox 97 09/04/20 11:32 Body Mass Index 24.3 General - chronically ill appearing, not in any acute distress Cardiovascular - regular rate and rhythm, S1-S2 Lungs - non-labored breathing Abdomen - soft, non-tender, no rebound regarding Extremities - no edema bilaterally, dressing in place R foot Neuro - awake and alert, no focal deficits Objective Data Current Medications Generic Name Dose Route Start Last Admin Trade Name Freq PRN Reason Stop Dose Admin Acetaminophen 650 mg 08/29/20 08:30 09/01/20 23:35 Acetaminophen Supp 650 Mg Supp.Rect LA 650 mg Q6H PRN Administration fevers Carbidopa/Levodopa 2 tab 08/26/20 21:00 09/04/20 10:13 Carbidopa/Levodopa 25/100 Tablet G-TUBE 2 tab QID RAQUEL Administration Donepezil HCl 10 mg 08/29/20 09:00 09/04/20 10:13 Donepezil Hcl 10 Mg Tablet G-TUBE 10 mg DAILY RAQUEL Administration Heparin Sodium (Porcine) 5,000 unit 08/30/20 07:00 Heparin Sodium,Porcine 5,000 Unit/Ml Vial SUBCUT Q8H RAQUEL Piperacillin Sod/Tazobactam 50 mls @ 100 mls/hr 09/01/20 17:00 09/04/20 07:58 Sod 3.375 gm/ Sodium Chloride IV Infused Q6H RAQUEL Infusion Memantine 5 mg 08/26/20 21:00 09/04/20 10:14 Memantine Hcl 5 Mg Tablet G-TUBE 5 mg BID RAQUEL Administration Non-Formulary Medication 1 applicatio 08/20/20 09:00 09/03/20 11:59 Calcium Alginate TOPICAL Not Given DAILY RAQUEL Omeprazole 20 mg 08/30/20 06:30 09/04/20 06:14 Omeprazole 20 Mg/10 Ml Susp.Recon G-TUBE 20 mg BID@0630,1630 RAQUEL Administration Ondansetron HCl 4 mg 08/24/20 13:23 Ondansetron Hcl 4 Mg/2 Ml Vial IVPUSH ONCE PRN Nausea and Vomiting Polyethylene Glycol 17 gm 08/28/20 09:00 09/04/20 10:15 Polyethylene Glycol 3350 17 Gm Powd.Pack G-TUBE Not Given BID RAQUEL Potassium Chloride 40 meq 08/28/20 09:00 09/04/20 10:14 Potassium Chloride Packet 20 Meq Packet G-TUBE 40 meq DAILY RAQUEL Administration Sodium Biphosphate/Sodium Phosphate 133 ml 08/29/20 16:49 Sodium Phosphate,[place]-Dibasic 133 Ml Enema [place] ONCE PRN Constipation Sodium Biphosphate/Sodium Phosphate 133 ml 08/30/20 09:48 08/30/20 12:38 Sodium Phosphate,[place]-Dibasic 133 Ml Enema LA 133 ml ONCE PRN Administration Constipation Sodium Chloride 3 ml 08/18/20 00:00 09/04/20 10:15 0.9 % Sodium Chloride Flush 3 Ml Syringe IVFLUSH 3 ml QSHIFT RAQUEL Administration Valproic Acid 500 mg 09/03/20 15:52 09/04/20 10:13 Valproic Acid (As Sodium Salt) 250 Mg/5 Ml Solution PO 500 mg TID RAQUEL Administration Labs CBC & Chem 7: 09/03/20 05:22 09/03/20 05:22 Microbiology Microbiology Results: Microbiology 09/01/20 20:20 Urine Catheterized - Wade Catheter Urine Culture - Preliminary Yeast 09/01/20 12:38 Foot - Abscess Gram Stain - Final 09/01/20 12:38 Foot - Abscess Routine Culture - Final Proteus mirabilis 09/01/20 17:04 Blood - Venous Blood Culture - Preliminary No growth after 48 hours. 09/01/20 17:04 Blood - Venous Blood Culture - Preliminary No growth after 48 hours. 08/27/20 10:34 Blood - Venous Blood Culture - Final No growth after 5 days. 08/27/20 10:44 Blood - Venous Blood Culture - Final No growth after 5 days. 08/29/20 18:46 Stool Stool Culture - Final 08/21/20 21:51 Stool Stool Culture - Final 08/17/20 17:04 Blood - Venous Blood Culture - Final No growth after 5 days. 08/17/20 16:09 Blood - Venous Blood Culture - Final No growth after 5 days. Assessment and Plan (1) Foot abscess, right: Status: Acute Assessment and Plan: This is a 79 yo M from [facility] with a PMH of dementia, COPD, BPH, OA, ? seizure disorder, ? parkinsons who was brought to the ED on 08/17/2020 for what appeared to be seizure like activity. His hospital course has been complicated by multiple issues. 1. RLE osteo resistant proteus growing zosyn for now -- ID input on which termite renewal inspector antibiotics will need picc line -- no coverage for picc insertion over the weekend, likely Sunday. ID/Gen Surg consults appreciated dressing changes per gen surg recs. 2. Breakthrough seizures change to PO liquids -- 500mg TID (equal to 750mg BID sprinkles) due to ease of admin from g-tube check levels Sunday AM 3. FTT s/p PEG on 08/24/2020 tolerating tube feeds -- continue the same 4. TINA multifactorial resolved 5. COVID 19 positive upon admission (repeat neg) likely 2/2 to viral shedding (had previous covid 19 infection) DVT pptx, heparin Full Code (will broach the topic with daughter again) dispo:given need for picc / antibiotics -- suspect he will need SNF for the time being with the ultimate goal to go back to SNF per daughter wishes
--- NOTE | 2020-09-04 11:56 | HO.PM.IMPN ---
Subjective Subjective Date of Service: 09/04/20 Interval History: seen and examined this AM unchanged Physical Exam Vital Signs: Vital Signs: Last Vital Signs Temp 97.3 F 09/04/20 11:32 Pulse 70 09/04/20 11:32 Resp 18 09/04/20 11:32 BP 143/66 H 09/04/20 11:32 Pulse Ox 97 09/04/20 11:32 Body Mass Index 24.3 General - chronically ill appearing, not in any acute distress Cardiovascular - regular rate and rhythm, S1-S2 Lungs - non-labored breathing Abdomen - soft, non-tender, no rebound regarding Extremities - no edema bilaterally, dressing in place R foot Neuro - awake and alert, no focal deficits Objective Data Current Medications Generic Name Dose Route Start Last Admin Trade Name Freq PRN Reason Stop Dose Admin Acetaminophen 650 mg 08/29/20 08:30 09/01/20 23:35 Acetaminophen Supp 650 Mg Supp.Rect [place] 650 mg Q6H PRN Administration fevers Carbidopa/Levodopa 2 tab 08/26/20 21:00 09/04/20 10:13 Carbidopa/Levodopa 25/100 Tablet G-TUBE 2 tab QID RAQUEL Administration Donepezil HCl 10 mg 08/29/20 09:00 09/04/20 10:13 Donepezil Hcl 10 Mg Tablet G-TUBE 10 mg DAILY RAQUEL Administration Heparin Sodium (Porcine) 5,000 unit 08/30/20 07:00 Heparin Sodium,Porcine 5,000 Unit/Ml Vial SUBCUT Q8H RAQUEL Piperacillin Sod/Tazobactam 50 mls @ 100 mls/hr 09/01/20 17:00 09/04/20 07:58 Sod 3.375 gm/ Sodium Chloride IV Infused Q6H RAQUEL Infusion Memantine 5 mg 08/26/20 21:00 09/04/20 10:14 Memantine Hcl 5 Mg Tablet G-TUBE 5 mg BID RAQUEL Administration Non-Formulary Medication 1 applicatio 08/20/20 09:00 09/03/20 11:59 Calcium Alginate TOPICAL Not Given DAILY RAQUEL Omeprazole 20 mg 08/30/20 06:30 09/04/20 06:14 Omeprazole 20 Mg/10 Ml Susp.Recon G-TUBE 20 mg BID@0630,1630 RAQUEL Administration Ondansetron HCl 4 mg 08/24/20 13:23 Ondansetron Hcl 4 Mg/2 Ml Vial IVPUSH ONCE PRN Nausea and Vomiting Polyethylene Glycol 17 gm 08/28/20 09:00 09/04/20 10:15 Polyethylene Glycol 3350 17 Gm Powd.Pack G-TUBE Not Given BID RAQUEL Potassium Chloride 40 meq 08/28/20 09:00 09/04/20 10:14 Potassium Chloride Packet 20 Meq Packet G-TUBE 40 meq DAILY RAQUEL Administration Sodium Biphosphate/Sodium Phosphate 133 ml 08/29/20 16:49 Sodium Phosphate,[place]-Dibasic 133 Ml Enema [place] ONCE PRN Constipation Sodium Biphosphate/Sodium Phosphate 133 ml 08/30/20 09:48 08/30/20 12:38 Sodium Phosphate,[place]-Dibasic 133 Ml Enema [place] 133 ml ONCE PRN Administration Constipation Sodium Chloride 3 ml 08/18/20 00:00 09/04/20 10:15 0.9 % Sodium Chloride Flush 3 Ml Syringe IVFLUSH 3 ml QSHIFT RAQUEL Administration Valproic Acid 500 mg 09/03/20 15:52 09/04/20 10:13 Valproic Acid (As Sodium Salt) 250 Mg/5 Ml Solution PO 500 mg TID RAQUEL Administration Labs CBC & Chem 7: 09/03/20 05:22 09/03/20 05:22 Microbiology Microbiology Results: Microbiology 09/01/20 20:20 Urine Catheterized - Wade Catheter Urine Culture - Preliminary Yeast 09/01/20 12:38 Foot - Abscess Gram Stain - Final 09/01/20 12:38 Foot - Abscess Routine Culture - Final Proteus mirabilis 09/01/20 17:04 Blood - Venous Blood Culture - Preliminary No growth after 48 hours. 09/01/20 17:04 Blood - Venous Blood Culture - Preliminary No growth after 48 hours. 08/27/20 10:34 Blood - Venous Blood Culture - Final No growth after 5 days. 08/27/20 10:44 Blood - Venous Blood Culture - Final No growth after 5 days. 08/29/20 18:46 Stool Stool Culture - Final 08/21/20 21:51 Stool Stool Culture - Final 08/17/20 17:04 Blood - Venous Blood Culture - Final No growth after 5 days. 08/17/20 16:09 Blood - Venous Blood Culture - Final No growth after 5 days. Assessment and Plan (1) Foot abscess, right: Status: Acute Assessment and Plan: This is a 79 yo M from [facility] with a PMH of dementia, COPD, BPH, OA, ? seizure disorder, ? parkinsons who was brought to the ED on 08/17/2020 for what appeared to be seizure like activity. His hospital course has been complicated by multiple issues. 1. RLE osteo resistant proteus growing zosyn for now -- ID input on which intermodal dispatcher antibiotics will need picc line -- no coverage for picc insertion over the weekend, likely Sunday. ID/Gen Surg consults appreciated dressing changes per gen surg recs. 2. Breakthrough seizures change to PO liquids -- 500mg TID (equal to 750mg BID sprinkles) due to ease of admin from g-tube check levels Sunday 3. FTT s/p PEG on 08/24/2020 tolerating tube feeds -- continue the same 4. TINA multifactorial resolved 5. COVID 19 positive upon admission (repeat neg) likely 2/2 to viral shedding (had previous covid 19 infection) DVT pptx, heparin Full Code (will broach the topic with daughter again) dispo:given need for picc / antibiotics -- suspect he will need SNF for the time being with the ultimate goal to go back to SNF per daughter wishes daily discussion with the daughter on going
[2020-09-04 13:00] VITALS: O2SAT 97
[2020-09-04 16:00] VITALS: BP 136/78; PULSE 86; RESP 18; TEMP 36.4; O2SAT 96
[2020-09-04 20:00] VITALS: BP 139/68; PULSE 91; RESP 18; TEMP 36.3; O2SAT 93
--- NOTE | 2020-09-04 22:18 | PM.EVENT ---
Event Note Date of Service: 09/04/2020 Event Note: Would give Merem for ESBL for 6 weeks
[2020-09-05] VITALS (7 sets, daily range): BP systolic 124–193; BP diastolic 62–88; PULSE 88–99; RESP 18–20; TEMP 36.3–37.9; O2SAT 94–96
[2020-09-05] MEDS: Potassium Chloride Packet 20 MEQ PACKET 40 MEQ G-TUBE (08:22)
[2020-09-05] MEDS: Donepezil HCl 10 MG TABLET G-TUBE (08:22)
[2020-09-05] MEDS: Memantine HCl 5 MG TABLET G-TUBE ×2 (08:22→21:24)
[2020-09-05] MEDS: Carbidopa/Levodopa 25/100 TABLET 2 TAB G-TUBE ×4 (08:22→21:23)
[2020-09-05] MEDS: 0.9 % Sodium Chloride Flush 3 ML SYRINGE IVFLUSH ×2 (08:25→16:57)
--- NOTE | 2020-09-05 11:49 | P.PNIM_ITS ---
Subjective Subjective Interval History: seen and examined this AM resting comfortably no events reported by staff training and development manager Physical Exam Vital Signs: Vital Signs: Last Vital Signs Temp 97.6 F 09/05/20 11:14 Pulse 88 09/05/20 11:14 Resp 20 09/05/20 11:14 BP 135/62 09/05/20 11:14 Pulse Ox 95 09/05/20 11:14 Body Mass Index 24.3 General - chronically ill appearing, not in any acute distress Cardiovascular - regular rate and rhythm, S1-S2 Lungs - non-labored breathing Abdomen - soft, non-tender, no rebound regarding Extremities - no edema bilaterally, dressing in place R foot Neuro - awake and alert, no focal deficits Objective Data Current Medications Generic Name Dose Route Start Last Admin Trade Name Freq PRN Reason Stop Dose Admin Acetaminophen 650 mg 08/29/20 08:30 09/01/20 23:35 Acetaminophen Supp 650 Mg Supp.Rect HI 650 mg Q6H PRN Administration fevers Carbidopa/Levodopa 2 tab 08/26/20 21:00 09/05/20 08:22 Carbidopa/Levodopa 25/100 Tablet G-TUBE 2 tab QID RAQUEL Administration Donepezil HCl 10 mg 08/29/20 09:00 09/05/20 08:22 Donepezil Hcl 10 Mg Tablet G-TUBE 10 mg DAILY RAQUEL Administration Heparin Sodium (Porcine) 5,000 unit 08/30/20 07:00 Heparin Sodium,Porcine 5,000 Unit/Ml Vial SUBCUT Q8H RAQUEL Meropenem 1 gm/ Sodium 100 mls @ 100 mls/hr 09/04/20 16:00 09/05/20 10:45 Chloride IV Infused Q8H RAQUEL Infusion Memantine 5 mg 08/26/20 21:00 09/05/20 08:22 Memantine Hcl 5 Mg Tablet G-TUBE 5 mg BID RAQUEL Administration Non-Formulary Medication 1 applicatio 08/20/20 09:00 09/04/20 14:05 Calcium Alginate TOPICAL Not Given DAILY RAQUEL Omeprazole 20 mg 08/30/20 06:30 09/05/20 05:55 Omeprazole 20 Mg/10 Ml Susp.Recon G-TUBE 20 mg BID@0630,1630 RAQUEL Administration Ondansetron HCl 4 mg 08/24/20 13:23 Ondansetron Hcl 4 Mg/2 Ml Vial IVPUSH ONCE PRN Nausea and Vomiting Polyethylene Glycol 17 gm 08/28/20 09:00 09/05/20 08:25 Polyethylene Glycol 3350 17 Gm Powd.Pack G-TUBE Not Given BID RAQUEL Potassium Chloride 40 meq 08/28/20 09:00 09/05/20 08:22 Potassium Chloride Packet 20 Meq Packet G-TUBE 40 meq DAILY RAQUEL Administration Sodium Biphosphate/Sodium Phosphate 133 ml 08/29/20 16:49 Sodium Phosphate,[place]-Dibasic 133 Ml Enema [place] ONCE PRN Constipation Sodium Biphosphate/Sodium Phosphate 133 ml 08/30/20 09:48 08/30/20 12:38 Sodium Phosphate,[place]-Dibasic 133 Ml Enema [place] 133 ml ONCE PRN Administration Constipation Sodium Chloride 3 ml 08/18/20 00:00 09/05/20 08:25 0.9 % Sodium Chloride Flush 3 Ml Syringe IVFLUSH 3 ml QSHIFT RAQUEL Administration Valproic Acid 500 mg 09/03/20 15:52 09/05/20 08:24 Valproic Acid (As Sodium Salt) 250 Mg/5 Ml Solution PO 500 mg TID RAQUEL Administration Labs CBC & Chem 7: 09/03/20 05:22 09/03/20 05:22 Microbiology Microbiology Results: Microbiology 09/01/20 20:20 Urine Catheterized - Wade Catheter Urine Culture - Final Shanthi albicans 09/01/20 12:38 Foot - Abscess Gram Stain - Final 09/01/20 12:38 Foot - Abscess Routine Culture - Final Proteus mirabilis 09/01/20 17:04 Blood - Venous Blood Culture - Preliminary No growth after 48 hours. 09/01/20 17:04 Blood - Venous Blood Culture - Preliminary No growth after 48 hours. 08/27/20 10:34 Blood - Venous Blood Culture - Final No growth after 5 days. 08/27/20 10:44 Blood - Venous Blood Culture - Final No growth after 5 days. 08/29/20 18:46 Stool Stool Culture - Final 08/21/20 21:51 Stool Stool Culture - Final 08/17/20 17:04 Blood - Venous Blood Culture - Final No growth after 5 days. 08/17/20 16:09 Blood - Venous Blood Culture - Final No growth after 5 days. Assessment and Plan (1) Foot abscess, right: Status: Acute Assessment and Plan: This is a 79 yo M from SNF with a PMH of dementia, COPD, BPH, OA, ? seizure disorder, ? parkinsons who was brought to the ED on 08/17/2020 for what appeared to be seizure like activity. His hospital course has been complicated by multiple issues. 1. RLE osteo resistant proteus growing [place] 6 weeks -- end date 10/15/2020 repeat blood cx negative @ 48 hours, PICC line tomorrow ID/Gen Surg consults appreciated dressing changes per gen surg recs. 2. Breakthrough seizures depakote PO liquids -- 500mg TID (equal to 750mg BID sprinkles) due to ease of admin from g-tube check levels tomorrow AM 3. FTT s/p PEG on 08/24/2020 tolerating tube feeds -- continue the same 4. TINA multifactorial resolved 5. COVID 19 positive upon admission (repeat neg) likely 2/2 to viral shedding (had previous covid 19 infection) DVT pptx, heparin Full Code (will broach the topic with daughter again) dispo:given need for picc / antibiotics -- suspect he will need SNF for the time being with the ultimate goal to go back to SNF per daughter wishes daily discussion with the daughter on going
--- NOTE | 2020-09-05 11:54 | MHC.CM.PN ---
Clinical updates sent to [facility]. They were made aware of pts need for IV Abx post discharge and the plan to transition pt to daughters home once care is in place. [facility] will be responsible for bringing pt to his new PCP appt on 09/28/20 at 1345 after which a visiting nurse can be arranged for when pt returns home. Once pt is discharged, CM will make a referral to [facility] for an Options Care CM to assist pt/daughter with coordinating the pts transition from NH to daughters.
[2020-09-05] MEDS: Acetaminophen Supp 650 MG SUPP.RECT PR (16:57)
[2020-09-05] MEDS: polyethylene glycoL 3350 17 GM POWD.PACK G-TUBE (21:24)
[2020-09-06] VITALS (7 sets, daily range): BP systolic 124–144; BP diastolic 69–84; PULSE 92–97; RESP 16–20; TEMP 37.2–37.7; O2SAT 91–98
[2020-09-06] MEDS: 0.9 % Sodium Chloride Flush 3 ML SYRINGE IVFLUSH ×4 (00:35→20:12)
[2020-09-06 06:56] LABS: Valproate 6.1 mcg/mL (50.0-100.0)
[2020-09-06] MEDS: Memantine HCl 5 MG TABLET G-TUBE ×2 (09:12→20:12)
[2020-09-06] MEDS: polyethylene glycoL 3350 17 GM POWD.PACK G-TUBE ×2 (09:12→20:11)
[2020-09-06] MEDS: Carbidopa/Levodopa 25/100 TABLET 2 TAB G-TUBE ×3 (09:12→20:11)
[2020-09-06] MEDS: Donepezil HCl 10 MG TABLET G-TUBE (09:12)
[2020-09-06] MEDS: Potassium Chloride Packet 20 MEQ PACKET 40 MEQ G-TUBE (09:12)
--- NOTE | 2020-09-06 09:45 | MHC.CM.PN ---
CM received a call from pts daughter/HCP, Jennifer who reports she reviewed the list of visiting nurse agencies provided and would like a referral to [facility]. Jennifer reports she plans to apply for the EIN number with the IRS soon but had questions regarding what she should sign. Jennifer is the HCP and POA for this pt. CM reminded her that once the pt is discharged, CM will contact [facility] and make a referral for [facility] case management program. Once that is complete, [facility] will assign a CM to assist Jennifer in coordinating her fathers transition from the NH to her home. CM will call Jennifer back after rounds to discuss DC plans further and provide any available updates.
--- NOTE | 2020-09-06 14:12 | MHC.CLN ---
F/U PT TOLERATING TF JEVITY AT MAX GOAL RATE 60CC/HR WITH 120CC WATER FLUSHES Q SHIFT TO PROVIDE 1526KCALS (32KCALS/KG), 64G PROTEIN (1.3G/KG), 1562CC TOTAL WATER FROM FORMULA AND FLUSHES (32.5CC/HR) MEGHNA IN PLACE FOR WOUNDS VIA TF MONITOR RESIDUALS, TOLERANCE, AND LYTES FOLLOWING
--- NOTE | 2020-09-06 14:43 | MHC.CM.PN ---
CM spoke to pts daughter/HCP, Jennifer Lee ([phone]) and informed her of the plan for pt to return to [facility] tomorrow for his 6 weeks of IV Abx. She is aware that this fiction and nonfiction prose writer is off tomorrow but once the pt discharges, the covering CM will contact [facility] and ensure that the referral is initiated. CM will contact [facility] today to let them know the plan to DC tomorrow and obtain a contact name for the person in the Information and Referrals Department. Jennifer also asked if this fiction and nonfiction prose writer could discuss the possibility of being able to visit her father at the [place] with the liaison. CM agreed
--- NOTE | 2020-09-06 16:01 | MHC.CM.PN ---
SRINIVAS contacted [facility] liaison who reports they are currently allowing family visits for 45 minutes one time per week. She reports sometimes pts can have more visits depending on how many they have scheduled. CM confirmed visitors do not need covid tests before visiting, they will be screed at the door. This information was relayed to Jennifer who reported she used to be able to go directly up to patients room which she preferred because she was able to make sure the pt was being cared for properly. SRINIVAS explained no facilities were allowing people to come in freely like that at this time and encouraged her to discuss concerns with the content director or charge nurse of the unit where pt will be going. SRINIVAS also explained the pt may go to a different unit now that he will be there on his short term benefit and has a plan to transition home. SRINIVAS also contacted [facility] and spoke to Arvin Dubose ([phone]) in the Information and Referrals Department. She informed this freelance copywriter that the referral could be taken today and took the pts information. She also reported that they would assign the pt and his daughter one of two correctional casework specialist, either Ayaka or Angela. She also reported that since the plan is for pt to go to his daughters home in [place], they would have to transition his case to [facility] as that is out of their catchment area. She reported they would start the process though since he would be in [place] for at least 6 weeks from [place] and the CM would get everything prepared for the transition to [facility]. Arvin asked that the pts DC summary be sent to her via email at [email or web address] [facility] will send it once available. Jennifer was contacted again with information provided by [facility] and assured CM would contact her once a DC time was determined tomorrow. Jennifer also had questions regarding nursing care, SRINIVAS contacted Este[facility] F[facility] and communicated daughters questions
--- NOTE | 2020-09-06 17:26 | P.PNIM_ITS ---
Subjective Subjective Interval History: seen and examined this AM no new issues unable to place picc line due to pt being contracted, needs cotton tomorrow Physical Exam Vital Signs: Vital Signs: Last Vital Signs Temp 99.3 F 09/06/20 11:19 Pulse 96 09/06/20 11:19 Resp 20 09/06/20 11:19 BP 143/76 H 09/06/20 11:19 Pulse Ox 91 L 09/06/20 13:00 Body Mass Index 24.3 General - chronically ill appearing, not in any acute distress Cardiovascular - regular rate and rhythm, S1-S2 Lungs - non-labored breathing Abdomen - soft, non-tender, no rebound regarding Extremities - no edema bilaterally, dressing in place R foot Neuro - awake and alert, no focal deficits Objective Data Current Medications Generic Name Dose Route Start Last Admin Trade Name Freq PRN Reason Stop Dose Admin Acetaminophen 650 mg 08/29/20 08:30 09/05/20 16:57 Acetaminophen Supp 650 Mg Supp.Rect [place] 650 mg Q6H PRN Administration fevers Carbidopa/Levodopa 2 tab 08/26/20 21:00 09/06/20 09:12 Carbidopa/Levodopa 25/100 Tablet G-TUBE 2 tab QID RAQUEL Administration Donepezil HCl 10 mg 08/29/20 09:00 09/06/20 09:12 Donepezil Hcl 10 Mg Tablet G-TUBE 10 mg DAILY RAQUEL Administration Heparin Sodium (Porcine) 5,000 unit 08/30/20 07:00 Heparin Sodium,Porcine 5,000 Unit/Ml Vial SUBCUT Q8H RAQUEL Meropenem 1 gm/ Sodium 100 mls @ 100 mls/hr 09/04/20 16:00 09/06/20 10:13 Chloride IV Infused Q8H RAQUEL Infusion Valproic Acid 1,000 mg/ 60 mls @ 60 mls/hr 09/06/20 12:15 Dextrose IV ONCE RAQUEL Memantine 5 mg 08/26/20 21:00 09/06/20 09:12 Memantine Hcl 5 Mg Tablet G-TUBE 5 mg BID RAQUEL Administration Non-Formulary Medication 1 applicatio 08/20/20 09:00 09/06/20 10:37 Calcium Alginate TOPICAL Not Given DAILY RAQUEL Omeprazole 20 mg 08/30/20 06:30 09/06/20 06:27 Omeprazole 20 Mg/10 Ml Susp.Recon G-TUBE Not Given BID@0630,1630 [facility] Ondansetron HCl 4 mg 08/24/20 13:23 Ondansetron Hcl 4 Mg/2 Ml Vial IVPUSH ONCE PRN Nausea and Vomiting Polyethylene Glycol 17 gm 08/28/20 09:00 09/06/20 09:12 Polyethylene Glycol 3350 17 Gm Powd.Pack G-TUBE 17 gm BID RAQUEL Administration Potassium Chloride 40 meq 08/28/20 09:00 09/06/20 09:12 Potassium Chloride Packet 20 Meq Packet G-TUBE 40 meq DAILY RAQUEL Administration Sodium Biphosphate/Sodium Phosphate 133 ml 08/29/20 16:49 Sodium Phosphate,[place]-Dibasic 133 Ml Enema [place] ONCE PRN Constipation Sodium Biphosphate/Sodium Phosphate 133 ml 08/30/20 09:48 08/30/20 12:38 Sodium Phosphate,[place]-Dibasic 133 Ml Enema [place] 133 ml ONCE PRN Administration Constipation Sodium Chloride 3 ml 08/18/20 00:00 09/06/20 09:13 0.9 % Sodium Chloride Flush 3 Ml Syringe IVFLUSH 3 ml QSHIFT RAQUEL Administration Valproic Acid 500 mg 09/03/20 15:52 09/06/20 09:12 Valproic Acid (As Sodium Salt) 250 Mg/5 Ml Solution PO 500 mg TID RAQUEL Administration Labs CBC & Chem 7: 09/03/20 05:22 09/03/20 05:22 Microbiology Microbiology Results: Microbiology 09/01/20 20:20 Urine Catheterized - Wade Catheter Urine Culture - Final Shanthi albicans 09/01/20 12:38 Foot - Abscess Gram Stain - Final 09/01/20 12:38 Foot - Abscess Routine Culture - Final Proteus mirabilis 09/01/20 17:04 Blood - Venous Blood Culture - Preliminary No growth after 48 hours. 09/01/20 17:04 Blood - Venous Blood Culture - Preliminary No growth after 48 hours. 08/27/20 10:34 Blood - Venous Blood Culture - Final No growth after 5 days. 08/27/20 10:44 Blood - Venous Blood Culture - Final No growth after 5 days. 08/29/20 18:46 Stool Stool Culture - Final 08/21/20 21:51 Stool Stool Culture - Final 08/17/20 17:04 Blood - Venous Blood Culture - Final No growth after 5 days. 10/20/20 16:09 Blood - Venous Blood Culture - Final No growth after 5 days. Assessment and Plan (1) Foot abscess, right: Status: Acute Assessment and Plan: This is a 79 yo M from SNF with a PMH of dementia, COPD, BPH, OA, ? seizure disorder, ? parkinsons who was brought to the ED on 08/17/2020 for what appeared to be seizure like activity. His hospital course has been complicated by multiple issues. 1. RLE osteo resistant proteus growing [place] 6 weeks -- end date 10/15/2020 repeat blood cx negative @ 48 hours; unable to place picc due to patient being contracted; plan for cotton cath -- stop tube feeds at midnight, pre-op labs tomorrow ID/Gen Surg consults appreciated dressing changes per gen surg recs. 2. Breakthrough seizures levels subtherapeutic -- however patient without clinical seizures. EEG without seizure activity (verbally told by Dr. Collins). Give 1g IV depakote + continue 500mg TID. Will need close monitoring of levels at SNF and further adjustments. 3. FTT s/p PEG on 08/24/2020 tolerating tube feeds -- continue the same 4. TINA multifactorial resolved 5. COVID 19 positive upon admission (repeat neg) likely 2/2 to viral shedding (had previous covid 19 infection) DVT pptx, heparin (dc'ed for cotton per IR request -- resume post cotton) Full Code dispo:back to SNF once Cotton placed daily discussion with the daughter on going
[2020-09-06] MEDS: Valproic Acid (as Sodium Salt) 1,000 MG in Dextrose 5 % 50 ML 60 MG IV (22:01)
[2020-09-07] VITALS (9 sets, daily range): BP systolic 114–145; BP diastolic 65–77; PULSE 91–101; RESP 18–20; TEMP 36.4–37.3; O2SAT 94–97
--- NOTE | 2020-09-07 | IR_ITS ---
EXAMINATION: TUNNELED CATHETER PLACEMENT CLINICAL INFORMATION: Long-term IV antibiotic requirement for right foot osteomyelitis COMPARISON: None TECHNIQUE: Procedure and risks and benefits including bleeding, infection and pneumothorax were discussed with the patient's healthcare proxy, his daughter by telephone, and informed consent was obtained. All elements of maximal sterile barrier technique followed including use of cap, mask, sterile gown, sterile gloves, a sterile full body drape and hand hygiene. Also followed skin preparation with 2% chlorhexidine for cutaneous antisepsis, and sterile ultrasound preparation with sterile gel and probe cover when applicable. The right neck and upper chest were prepped and draped in the usual sterile fashion. The skin and soft tissues were anesthetized with 1% lidocaine plain. Using ultrasound guidance and a 5 [place] micropuncture system, right internal jugular vein access was obtained. Over an 018 wire, a 5 [place] dilator was positioned in the SVC. The skin and soft tissues of the right upper anterior chest were anesthetized with lidocaine plain. A small incision was made. A subcutaneous tunnel from the chest to the neck incision was anesthetized with 1% lidocaine plain. Using a tunneler, a 5 [place] single lumen proline catheter was tunneled from the chest to the neck incision. An 018 guidewire was advanced through the 5 [place] dilator into the IVC. Using bent wire technique, catheter length was estimated and the catheter was cut. Catheter length is 20.5 cm. The catheter was fed centrally through the peel-away sheath. The neck incision was closed using a 3 oh absorbable subcuticular suture. The chest incision was closed using a 3 oh absorbable mattress suture. The catheter had good blood return, flushed easily and was instilled with 5 mL heparin 500 unit per mL solution. Total sedation time was 0.3 minutes. Patient received Versed 0.5 mg and fentanyl 25 mcg intravenously during the procedure. Patient dose 19 CG Y per centimeter squared. 1 saved fluoroscopic image. Real-time ultrasound guidance was used to document vein patency and for needle entry. A single ultrasound image was recorded. FINDINGS: There is a right internal jugular catheter with tip projecting over the SVC. IR/IR us guide venous access IMPRESSION: Right internal jugular 5 [place] proline catheter placement.
[2020-09-07 07:11] LABS: Hematocrit 29.4 % (42-52); Hemoglobin 8.9 g/dl (14.0-18.0); Mean Corpuscular HGB Conc 30.3 g/dl (31.0-36.0); Mean Corpuscular Hemoglobin 28.2 pg (27.0-33.0); Mean Platelet Volume 10.9 fL (9.4-12.4); Platelet Count 282 X10*3/uL (160-400); Red Blood Count 3.16 X10*6/uL (4.60-5.80); White Blood Count 10.3 X10*3/uL (4.8-10.8)
[2020-09-07 07:18] LABS: INTERNATIONAL NORM RATIO 1.1 (0.9-1.1); Prothrombin Time 13.4 SEC (10.8-13.0)
[2020-09-07 07:40] LABS: Anion Gap 13 (12-20); Blood Urea Nitrogen 19 mg/dL (9-16); Calcium 8.6 mg/dL (8.4-10.2); Carbon Dioxide 24 mmol/L (22-29); Chloride 105 mmol/L (96-108); Creatinine Clr Calc Pharmacy 46.2; Estimated Glomerular Filt Rate 58; Glucose Random 91 mg/dL (60-115); Potassium 4.7 mmol/l (3.3-5.1); Sodium 137 mmol/L (135-145)
[2020-09-07] MEDS: 0.9 % Sodium Chloride Flush 3 ML SYRINGE IVFLUSH ×3 (07:52→21:48)
[2020-09-07] MEDS: Memantine HCl 5 MG TABLET G-TUBE ×2 (10:18→21:48)
[2020-09-07] MEDS: Carbidopa/Levodopa 25/100 TABLET 2 TAB G-TUBE ×4 (10:18→21:48)
[2020-09-07] MEDS: Donepezil HCl 10 MG TABLET G-TUBE (10:18)
[2020-09-07] MEDS: Potassium Chloride Packet 20 MEQ PACKET 40 MEQ G-TUBE (10:18)
--- NOTE | 2020-09-07 10:50 | P.PNIM_ITS ---
Subjective Subjective Date of Service: 09/07/20 Interval History: non verbal Physical Exam Vital Signs: Vital Signs: Last Vital Signs Temp 99.1 F 09/07/20 07:28 Pulse 91 09/07/20 07:28 Resp 20 09/07/20 07:28 BP 138/66 09/07/20 07:28 Pulse Ox 97 09/07/20 07:28 Body Mass Index 24.3 General - chronically ill appearing, not in any acute distress Cardiovascular - regular rate and rhythm, S1-S2 Lungs - non-labored breathing Abdomen - soft, non-tender, no rebound regarding Extremities - no edema bilaterally, dressing in place R foot Neuro - awake and alert, no focal deficits Objective Data Current Medications Generic Name Dose Route Start Last Admin Trade Name Freq PRN Reason Stop Dose Admin Acetaminophen 650 mg 08/29/20 08:30 09/05/20 16:57 Acetaminophen Supp 650 Mg Supp.Rect [place] 650 mg Q6H PRN Administration fevers Carbidopa/Levodopa 2 tab 08/26/20 21:00 09/07/20 10:18 Carbidopa/Levodopa 25/100 Tablet G-TUBE 2 tab QID RAQUEL Administration Donepezil HCl 10 mg 08/29/20 09:00 09/07/20 10:18 Donepezil Hcl 10 Mg Tablet G-TUBE 10 mg DAILY RAQUEL Administration Meropenem 1 gm/ Sodium 100 mls @ 100 mls/hr 09/04/20 16:00 09/07/20 10:17 Chloride IV Infused Q8H RAQUEL Infusion Valproic Acid 1,000 mg/ 60 mls @ 60 mls/hr 09/06/20 12:15 09/06/20 23:27 Dextrose IV Infused ONCE RAQUEL Infusion Memantine 5 mg 08/26/20 21:00 09/07/20 10:18 Memantine Hcl 5 Mg Tablet G-TUBE 5 mg BID RAQUEL Administration Non-Formulary Medication 1 applicatio 08/20/20 09:00 09/07/20 10:27 Calcium Alginate TOPICAL Not Given DAILY RAQUEL Omeprazole 20 mg 08/30/20 06:30 09/07/20 04:45 Omeprazole 20 Mg/10 Ml Susp.Recon G-TUBE Not Given BID@0630,1630 RAQUEL Ondansetron HCl 4 mg 08/24/20 13:23 Ondansetron Hcl 4 Mg/2 Ml Vial IVPUSH ONCE PRN Nausea and Vomiting Polyethylene Glycol 17 gm 08/28/20 09:00 09/07/20 10:19 Polyethylene Glycol 3350 17 Gm Powd.Pack G-TUBE Not Given BID RAQUEL Potassium Chloride 40 meq 08/28/20 09:00 09/07/20 10:18 Potassium Chloride Packet 20 Meq Packet G-TUBE 40 meq DAILY RAQUEL Administration Sodium Biphosphate/Sodium Phosphate 133 ml 08/29/20 16:49 Sodium Phosphate,[place]-Dibasic 133 Ml Enema [place] ONCE PRN Constipation Sodium Biphosphate/Sodium Phosphate 133 ml 08/30/20 09:48 08/30/20 12:38 Sodium Phosphate,[place]-Dibasic 133 Ml Enema [place] 133 ml ONCE PRN Administration Constipation Sodium Chloride 3 ml 08/18/20 00:00 09/07/20 07:52 0.9 % Sodium Chloride Flush 3 Ml Syringe IVFLUSH 3 ml QSHIFT RAQEUL Administration Valproic Acid 500 mg 09/03/20 15:52 09/07/20 10:18 Valproic Acid (As Sodium Salt) 250 Mg/5 Ml Solution PO 500 mg TID RAQUEL Administration Labs CBC & Chem 7: 09/07/20 05:17 09/07/20 05:17 Microbiology Microbiology Results: Microbiology 09/01/20 17:04 Blood - Venous Blood Culture - Final No growth after 5 days. 09/01/20 17:04 Blood - Venous Blood Culture - Final No growth after 5 days. 09/01/20 20:20 Urine Catheterized - Wade Catheter Urine Culture - Final Shanthi albicans 09/01/20 12:38 Foot - Abscess Gram Stain - Final 09/01/20 12:38 Foot - Abscess Routine Culture - Final Proteus mirabilis 08/27/20 10:34 Blood - Venous Blood Culture - Final No growth after 5 days. 08/27/20 10:44 Blood - Venous Blood Culture - Final No growth after 5 days. 08/29/20 18:46 Stool Stool Culture - Final 08/21/20 21:51 Stool Stool Culture - Final 08/17/20 17:04 Blood - Venous Blood Culture - Final No growth after 5 days. 08/17/20 16:09 Blood - Venous Blood Culture - Final No growth after 5 days. Assessment and Plan (1) Foot abscess, right: Status: Acute Assessment and Plan: This is a 79 yo M from SNF with a PMH of dementia, COPD, BPH, OA, ? seizure disorder, ? parkinsons who was brought to the ED on 08/17/2020 for what appeared to be seizure like activity. His hospital course has been complicated by multiple issues. 1. RLE osteo resistant proteus growing [place] 6 weeks -- end date 10/15/2020 repeat blood cx negative @ 48 hours; unable to place picc due to patient being contracted; plan for cotton cath today ID/Gen Surg consults appreciated dressing changes per gen surg recs. 2. Breakthrough seizures levels subtherapeutic -- however patient without clinical seizures. EEG without seizure activity (verbally told by Dr. Collins). Give 1g IV depakote + continue 500mg TID. Will need close monitoring of levels at SNF and further adjustments. 3. FTT s/p PEG on 08/24/2020 tolerating tube feeds -- continue the same 4. TINA multifactorial resolved 5. COVID 19 positive upon admission (repeat neg) likely 2/2 to viral shedding (had previous covid 19 infection) DVT pptx, heparin (dc'ed for cotton per IR request -- resume post cotton) Full Code dispo:back to SNF once Cotton placed daily discussion with the daughter on going
--- NOTE | 2020-09-07 16:09 | HO.RADPN ---
RADIOLOGY Narrative Narrative: Right IJ 5 Fr single lumen Proline catheter placed. Tip in SVC.
[2020-09-07] MEDS: Heparin Sodium,Porcine 1,000 UNIT/ML VIAL 500 UNIT IV (16:18)
[2020-09-07] MEDS: polyethylene glycoL 3350 17 GM POWD.PACK G-TUBE (21:48)
[2020-09-08 04:00] VITALS: BP 150/75; PULSE 96; RESP 18; TEMP 36.9; O2SAT 96
[2020-09-08 06:31] LABS: MANUAL DIFF FLAG NO
[2020-09-08 06:48] LABS: Basophils Percent Auto 0.3 % (0-2); Eosinophils Absolute Auto 0.3 X10*3/uL (0.0-0.4); Eosinophils Percent Auto 3.4 % (0-4); Hematocrit 30.8 % (42-52); Hemoglobin 9.4 g/dl (14.0-18.0); Imm Gran Abs Auto 0.04 X10*3/uL (0.00-0.03); Imm Gran Pct Auto 0.5 % (0.0-0.4); Lymphocytes Absolute Auto 1.1 X10*3/uL (1.2-4.9); Lymphocytes Percent Auto 11.8 % (20-40); Mean Corpuscular HGB Conc 30.5 g/dl (31.0-36.0); Mean Corpuscular Hemoglobin 28.2 pg (27.0-33.0); Mean Corpuscular Volume 92.5 fL (80-98); Mean Platelet Volume 10.6 fL (9.4-12.4); Monocytes Absolute Auto 0.6 X10*3/uL (0.1-1.2); Monocytes Percent Auto 6.3 % (2-11); Neutrophils Absolute Auto 6.9 X10*3/uL (2.0-8.3); Neutrophils Percent Auto 77.7 % (45-73); Platelet Count 261 X10*3/uL (160-400); Red Blood Count 3.33 X10*6/uL (4.60-5.80); Red Cell Distribution Width 14.7 % (11.0-16.0); White Blood Count 8.9 X10*3/uL (4.8-10.8)
[2020-09-08 07:04] LABS: Anion Gap 13 (12-20); Blood Urea Nitrogen 21 mg/dL (9-16); Calcium 8.8 mg/dL (8.4-10.2); Carbon Dioxide 23 mmol/L (22-29); Chloride 105 mmol/L (96-108); Creatinine Clr Calc Pharmacy 41.7; Estimated Glomerular Filt Rate 51; Glucose Fasting 157 mg/dL (60-99); Potassium 4.6 mmol/l (3.3-5.1); Sodium 136 mmol/L (135-145)
[2020-09-08] MEDS: 0.9 % Sodium Chloride Flush 3 ML SYRINGE IVFLUSH (07:35)
[2020-09-08 07:44] VITALS: BP 141/77; PULSE 93; RESP 18; TEMP 37.4; O2SAT 96
[2020-09-08] MEDS: Carbidopa/Levodopa 25/100 TABLET 2 TAB G-TUBE ×2 (10:21→13:36)
[2020-09-08] MEDS: Memantine HCl 5 MG TABLET G-TUBE (10:22)
[2020-09-08] MEDS: polyethylene glycoL 3350 17 GM POWD.PACK G-TUBE (10:22)
[2020-09-08] MEDS: Potassium Chloride Packet 20 MEQ PACKET 40 MEQ G-TUBE (10:23)
[2020-09-08] MEDS: Donepezil HCl 10 MG TABLET G-TUBE (10:23)
[2020-09-08] MEDS: Acetaminophen Supp 650 MG SUPP.RECT PR (10:33)
--- NOTE | 2020-09-08 10:59 | PM.DS ---
DS: Providers Provider Date of admission: 08/17/20 21:49 Primary care physician: Unknown Physician Consults: 08/17/20 21:27 Consult to Infectious Diseases Routine Consulting Provider: Infectious Disease Reason for consultation: GI infection Has provider been notified: No 08/17/20 22:37 Consult to Physician Routine Consulting Provider: [facility] Reason for consultation: Seizures Has provider been notified: No 08/18/20 13:45 Consult to Gastroenterology Routine Consulting Provider: Sonny Persaud Reason for consultation: Fever, abnormal CT abd, suspected intraabdominal infection 08/18/20 16:33 Consult to Wound Care Provider Routine Consulting Provider: [facility] W[facility] Care Management Reason for consultation: for your kind evaluation of foot wound and skin breakage 08/22/20 08:50 Consult to General Surgery Routine Consulting Provider: Siria Wagoner Reason for consultation: PEG tube placement for nutrition. 08/24/20 09:26 Consult to Infectious Diseases Routine Consulting Provider: Sofía Ventura Reason for consultation: clearance for G tube, persistently positive covid pcr, +igG 08/28/20 08:12 Consult to Gastroenterology Routine Consulting Provider: [facility] Gastroenterology Services Reason for consultation: ANEMIA , unclear etiology Has provider been notified: No 09/02/20 10:31 Consult to Wound Care Provider Routine Consulting Provider: Rich Webber Reason for consultation: wound staging clarification on bilat buttocks - ? contact dermatitis/stage2 DS: Diagnosis Discharge Diagnosis (1) Osteomyelitis of foot, right, acute: Status: Acute Problem details: Patient CT proximal great toe osteomyelitis and sesamoid bone Proteus Likely cause of fevers as abscess just became evident yesterday (2) Fever: Status: Acute Problem details: Fever may be due to drug fever,has been on Zosyn Also less likely clot There is no evidence of aspiration pneumonia Cultures pending (3) Encephalopathy: Status: Acute (4) Failure to thrive: Status: Acute (5) Epileptic seizure: Status: Acute (6) Dementia: Status: Acute (7) Parkinsons disease: Status: Acute Problem details: DS: Medications Discharge Medications Home Medications: Home Medications Medication Instructions Recorded Confirmed acetaminophen 650 mg PO Q4H PRN 08/18/20 08/18/20 albuterol sulfate 2 inh INHALATION Q4H PRN 08/18/20 08/18/20 amlodipine 10 mg PO DAILY 08/18/20 08/18/20 aspirin 81 mg PO DAILY 08/18/20 08/18/20 bisacodyl 10 mg RI DAILY PRN 08/18/20 08/18/20 carbidopa-levodopa 2 tab PO QID 08/18/20 08/18/20 carbidopa-levodopa [Sinemet] 2 tab PO QID 08/18/20 08/18/20 celecoxib 200 mg PO DAILY 08/18/20 08/18/20 cholecalciferol (vitamin D3) 1,250 mcg PO QMONTH 08/18/20 08/18/20 docusate sodium 100 mg PO BID 08/18/20 08/18/20 donepezil 10 mg PO DAILY 08/18/20 08/18/20 escitalopram oxalate 5 mg PO DAILY 08/18/20 08/18/20 gabapentin 100 mg PO BID 08/18/20 08/18/20 memantine 5 mg PO BID 08/18/20 08/18/20 metoclopramide HCl 10 mg PO QIDACHS 08/18/20 08/18/20 polyethylene glycol 3350 [Miralax] 17 g PO DAILY 08/18/20 08/18/20 terazosin 1 mg PO BEDTIME 08/18/20 08/18/20 Previous Rx's Medication Instructions Recorded meropenem 1 g IV Q8H 37 Days ea 09/08/20 valproic acid (as sodium salt) 500 mg PO TID #500 ml 09/08/20 DS: Summary Hospital Course Hospital Course: patient had prolonged hospital stay please see medical record for full summary. In brief, patient was admitted for seizure-like activity and failure to thrive. For his breakthrough seizures he was given IV Depakote and at discharge his Depakote has been increased to 500 mg t.i.d. via as new G-tube. Patient was noted to have sepsis, his initial source was unclear and he was given IV Zosyn for 5 days, sepsis eventually resolved at that time. for his FTT he underwent g tube placement which was unremarkable and has been tolerating feeds. course was then complicated by fevers found to be du eto right foot osteomyeltitis with abscess growing proteus. he will be treated with 6 weeks merem at [facility]. Time Spent with Patient Time attestation: Total time spent providing and/or coordinating discharge services: Physical Exam Vital Signs: Vital Signs: Last Vital Signs Temp 99.4 F 09/08/20 07:44 Pulse 93 09/08/20 07:44 Resp 18 09/08/20 07:44 BP 141/77 H 09/08/20 07:44 Pulse Ox 96 09/08/20 07:44 Body Mass Index 24.3 General: minimally verbal, lethargic, no acute distress Resp: CTA bilateral CVS: S1,S2,RRR GI: soft, non tender, non distended Neuro: canntop participate Psych: impaired insight DS: Data Data Completed and Pending Labs on day of discharge: 08/17/20 Breakfast NPO Diet 08/17/20 15:50 0.9 % Sodium Chloride [Ns] 1,000 ml IVCONT 999 mls/hr 08/17/20 15:51 CT abdomen pelvis wo con Stat CT chest wo con Stat CT head/brain w con Stat 08/17/20 16:09 Basic Metabolic Panel Stat Complete Blood Count Auto Diff Stat Liver Panel Stat SLIDE REVIEW Stat Valproate Stat 08/17/20 16:11 Acetaminophen Supp [Tylenol Supp] 650 mg RI ONCE ONE Piperacillin Sodium/Tazobactam [Zosyn] 3.375 gm 0.9 % Sodium Chloride [Ns] 50 ml IV ONCE 08/17/20 16:12 vancomycin HCL 750 mg 0.9 % Sodium Chloride [Ns] 250 ml IV ONCE 08/17/20 16:44 Piperacillin Sodium/Tazobactam [Zosyn] 3.375 gm IV .STK-MED ONE 08/17/20 16:58 Valproic Acid (as Sodium Salt) [Depacon] 960 mg 0.9 % Sodium Chloride [Ns] 100 ml IV ONCE 08/17/20 17:04 Lactic Acid Stat Venous Blood Gas Stat Blood Culture X2 [BC] Stat 08/17/20 17:19 metroNIDAZOLE/NS [Flagyl] 500 mg in 100 ml IV ONCE 08/17/20 17:43 SARS COV2 PCR INHOUSE Stat 08/17/20 17:46 vancomycin HCL 750 mg IV .STK-MED ONE 08/17/20 18:00 0.9 % Sodium Chloride [Ns] 1,000 ml IVCONT 999 mls/hr 08/17/20 18:51 Creatine Kinase Total Stat 08/17/20 20:15 ~Lactic Acid-LAB USE ONLY Stat 08/17/20 20:56 Transfer Order Routine 08/17/20 21:15 0.9 % Sodium Chloride [Ns] 500 ml IV 75 mls/hr 08/17/20 21:52 Piperacillin Sodium/Tazobactam [Zosyn] 2.25 gm IV .STK-MED ONE 08/17/20 22:00 Piperacillin Sodium/Tazobactam [Zosyn] 2.25 gm 0.9 % Sodium Chloride [Ns] 50 ml IV Q8H 08/17/20 22:37 Intake and Output QSHIFTE Vital Signs Q4HR 08/17/20 23:00 Heparin Sodium,Porcine 5,000 unit SUBCUT Q8H Piperacillin Sodium/Tazobactam [Zosyn] 3.375 gm 0.9 % Sodium Chloride [Ns] 50 ml IV Q6H 08/17/20 23:11 ~Lactic Acid-LAB USE ONLY Stat 08/18/20 00:25 0.9 % Sodium Chloride [Ns] 500 ml IVCONT 999 mls/hr 08/18/20 04:45 CDiff with Reflex to PCR Stat 08/18/20 05:23 Piperacillin Sodium/Tazobactam [Zosyn] 2.25 gm IV .STK-MED ONE 08/18/20 05:49 Basic Metabolic Panel Routine Complete Blood Count Auto Diff Routine 08/18/20 13:43 Acetaminophen Supp [Tylenol Supp] 650 mg RI Q4H PRN 08/18/20 15:32 Piperacillin Sodium/Tazobactam [Zosyn] 2.25 gm IV .STK-MED ONE 08/18/20 Lunch Regular Diet 08/18/20 16:45 Divalproex Sodium Sprinkles [Depakote Sprinkles] 500 mg PO TID 08/18/20 17:00 Carbidopa/Levodopa 25/100 [Sinemet 25/100] 2 tab PO QID 08/18/20 20:46 Piperacillin Sodium/Tazobactam [Zosyn] 2.25 gm IV .STK-MED ONE 08/18/20 21:00 Divalproex Sodium ER [Depakote ER] 500 mg PO BEDTIME Docusate Sodium [Colace] 100 mg PO BID Memantine HCl [Namenda] 5 mg PO BID 08/19/20 05:13 Piperacillin Sodium/Tazobactam [Zosyn] 2.25 gm IV .STK-MED ONE 08/19/20 05:50 Basic Metabolic Panel DAILY@0600 Complete Blood Count Auto Diff DAILY@0600 Liver Panel Routine Prothrombin Time INR DAILY@0600 08/19/20 09:00 Aspirin Enteric Coated [Ecotrin] 81 mg PO DAILY Dextrose 5 % [D5w] 1,000 ml IVCONT 50 mls/hr Donepezil HCl [Aricept] 10 mg PO DAILY KCl 20 mEq in 5 % Dextrose 20 meq in 1,000 ml IVCONT 50 mls/hr amLODIPine Besylate [Norvasc] 10 mg PO DAILY polyethylene glycoL 3350 [Miralax] 17 gm PO DAILY 08/19/20 09:15 Acyclovir Sodium [Zovirax] 480 mg Dextrose 5 % [D5w] 100 ml IV Q8H 08/19/20 11:00 Acyclovir Sodium [Zovirax] 480 mg Dextrose 5 % [D5w] 100 ml IV Q24H 08/19/20 14:31 Piperacillin Sodium/Tazobactam [Zosyn] 2.25 gm IV .STK-MED ONE 08/19/20 14:47 Basic Metabolic Panel Routine 08/19/20 16:57 SARS COV2 IgG Routine 08/19/20 20:16 Basic Metabolic Panel Routine 08/19/20 21:00 Divalproex Sodium Sprinkles [Depakote Sprinkles] 500 mg PO BID 08/19/20 21:33 Piperacillin Sodium/Tazobactam [Zosyn] 2.25 gm IV .STK-MED ONE 08/20/20 05:39 Piperacillin Sodium/Tazobactam [Zosyn] 2.25 gm IV .STK-MED ONE 08/20/20 05:49 Complete Blood Count Auto Diff DAILY@0600 08/20/20 05:50 Basic Metabolic Panel DAILY@0600 Liver Panel Routine 08/20/20 13:01 Piperacillin Sodium/Tazobactam [Zosyn] 2.25 gm IV .STK-MED ONE 08/20/20 20:05 Piperacillin Sodium/Tazobactam [Zosyn] 2.25 gm IV .STK-MED ONE 08/21/20 05:25 Piperacillin Sodium/Tazobactam [Zosyn] 2.25 gm IV .STK-MED ONE 08/21/20 06:16 Basic Metabolic Panel DAILY@0600 Complete Blood Count Auto Diff DAILY@0600 08/21/20 13:01 Piperacillin Sodium/Tazobactam [Zosyn] 2.25 gm IV .STK-MED ONE 08/21/20 16:30 Valproic Acid (as Sodium Salt) [Depacon] 500 mg Dextrose 5 % [D5w] 50 ml IV BID 08/21/20 21:51 CDiff with Reflex to PCR Urgent [id number] Routine Ova and Parasites Routine WBC Stool [Leukocytes Stool Qualitative] Routine Stool Culture Routine 08/21/20 22:22 Piperacillin Sodium/Tazobactam [Zosyn] 2.25 gm IV .STK-MED ONE 08/22/20 05:13 Piperacillin Sodium/Tazobactam [Zosyn] 2.25 gm IV .STK-MED ONE 08/22/20 06:33 Basic Metabolic Panel DAILY@0600 Valproate Routine 08/22/20 10:14 Add Laboratory Test Urgent 08/22/20 Lunch Regular Diet 08/23/20 05:43 Basic Metabolic Panel DAILY@0600 Complete Blood Count Auto Diff DAILY@0600 08/23/20 08:45 Dextrose 5 % [D5w] 1,000 ml IVCONT 50 mls/hr 08/23/20 09:45 Valproic Acid (as Sodium Salt) [Depacon] 500 mg Dextrose 5 % [D5w] 50 ml IV BID 08/23/20 Breakfast NPO Diet 08/23/20 14:25 ceFAZolin Sodium/Dextrose,Iso [Ancef] 2 gm in 50 ml IV PREOP 08/23/20 Lunch Regular Diet 08/24/20 06:07 Basic Metabolic Panel DAILY@0600 Complete Blood Count Auto Diff DAILY@0600 08/24/20 09:52 Respiratory Panel Stat 08/24/20 12:04 ceFAZolin Sodium/Dextrose,Iso [Ancef] 2 gm in 50 ml .ROUTE As directed 08/24/20 12:27 Lidocaine HCl 1 % MPF [Xylocaine 1 % MPF] 5 ml .ROUTE .STK-MED ONE 08/24/20 12:47 Lidocaine HCl 2 % MPF [Xylocaine 2 % MPF] 5 ml .ROUTE .STK-MED ONE propofoL [Diprivan] 200 mg IVPUSH .STK-MED ONE 08/24/20 13:13 Transfer Order Routine 08/24/20 13:23 Vital Signs Q5MIN 08/24/20 14:05 Morphine Sulfate 2 mg IVPUSH Q4H PRN oxyCODONE HCl Immed Release [Roxicodone] 5 mg PO Q4H PRN 08/24/20 14:05 Communication Order NOW 08/25/20 06:02 BMP [Basic Metabolic Panel Fasting] Routine Complete Blood Count Auto Diff Routine 08/26/20 05:42 BMP [Basic Metabolic Panel Fasting] Routine Complete Blood Count Auto Diff Routine 08/26/20 12:00 Piperacillin Sodium/Tazobactam [Zosyn] 3.375 gm 0.9 % Sodium Chloride [Ns] 50 ml IV Q8H 08/26/20 12:24 Piperacillin Sodium/Tazobactam [Zosyn] 3.375 gm IV .STK-MED ONE 08/26/20 17:23 Aspirin Enteric Coated [Ecotrin] 81 mg PO DAILY 08/26/20 21:00 Divalproex Sodium Sprinkles [Depakote Sprinkles] 500 mg PO BID 08/26/20 21:36 Piperacillin Sodium/Tazobactam [Zosyn] 3.375 gm IV .STK-MED ONE 08/27/20 XR chest 1V Urgent 08/27/20 03:36 Piperacillin Sodium/Tazobactam [Zosyn] 3.375 gm IV .STK-MED ONE 08/27/20 05:42 Basic Metabolic Panel DAILY@0600 Liver Panel Routine 08/27/20 08:00 0.9 % Sodium Chloride [Ns] 500 ml IV 80 mls/hr 08/27/20 09:00 Donepezil HCl [Aricept] 10 mg G-TUBE DAILY amLODIPine Besylate [Norvasc] 10 mg G-TUBE DAILY 08/27/20 09:41 Acetaminophen [Tylenol] 650 mg G-TUBE Q6H PRN 08/27/20 10:34 Lactic Acid Urgent Blood Culture X2 [BC] Urgent 08/27/20 13:40 Bladder Scan QSHIFT 08/27/20 15:21 Complete Blood Count no Diff Urgent 08/27/20 17:29 Red Blood Cells Urgent Type and Screen Urgent 08/27/20 17:30 Hemoglobin and Hematocrit Urgent 08/27/20 21:04 Insulin Lispro [Humalog] 10 unit SUBCUT ONCE ONE 08/27/20 21:24 Add Laboratory Test Urgent 08/27/20 21:30 0.9 % Sodium Chloride [Ns] 1,000 ml IVCONT 80 mls/hr 08/27/20 22:12 Hemoglobin and Hematocrit Routine 08/28/20 06:18 Basic Metabolic Panel DAILY@0600 Complete Blood Count no Diff DAILY@0600 Ferritin Routine IRON PROFILE Routine Liver Panel Routine Magnesium Routine Vitamin B12 and Folate Routine 08/28/20 08:15 Potassium Chloride/H20 10 meq in 100 ml IV Q1H 08/28/20 08:23 Acetaminophen [Tylenol] 650 mg PO ONCE ONE 08/28/20 08:24 Add Laboratory Test Urgent Add Laboratory Test Urgent 08/28/20 11:48 OBSX1 Urgent 08/28/20 13:30 Hemoglobin and Hematocrit Routine Potassium Routine 08/28/20 16:30 Pantoprazole Sodium [Protonix] 40 mg IVPUSH BID@0630,1630 08/28/20 18:08 Hemoglobin and Hematocrit Routine 08/28/20 21:00 Divalproex Sodium Sprinkles [Depakote Sprinkles] 500 mg PO BID 08/29/20 CT abdomen pelvis wo con Urgent XR chest 1V Stat 08/29/20 05:52 Basic Metabolic Panel DAILY@0600 Complete Blood Count no Diff DAILY@0600 08/29/20 09:00 Donepezil HCl [Aricept] 10 mg G-TUBE DAILY 08/29/20 11:30 Heparin Sodium,Porcine 5,000 unit SUBCUT Q8H 08/29/20 16:30 Omeprazole [PriLOSEC] 20 mg PO BID@0630,1630 08/29/20 18:46 CDiff with Reflex to PCR Urgent Leukocytes Stool Qualitative Urgent Stool Culture Urgent 08/30/20 04:25 Basic Metabolic Panel DAILY@0600 Complete Blood Count no Diff DAILY@0600 08/30/20 07:00 Heparin Sodium,Porcine 5,000 unit SUBCUT Q8H 08/30/20 Lunch Tube Feeding Diet 08/31/20 05:16 Basic Metabolic Panel DAILY@0600 Complete Blood Count no Diff DAILY@0600 Liver Panel Routine Magnesium Routine 08/31/20 08:04 Potassium Chloride Packet [Klor-Con Packet] 40 meq PO ONCE ONE 08/31/20 08:37 Add Laboratory Test Urgent 08/31/20 10:06 Magnesium Sulfate/D5W 1 gm in 100 ml IV ONCE 09/01/20 05:31 Basic Metabolic Panel DAILY@0600 Complete Blood Count no Diff DAILY@0600 Valproate Routine 09/01/20 12:38 Routine Culture w Gram Stain Routine 09/01/20 17:00 Piperacillin Sodium/Tazobactam [Zosyn] 3.375 gm 0.9 % Sodium Chloride [Ns] 50 ml IV Q6H 09/01/20 17:02 Piperacillin Sodium/Tazobactam [Zosyn] 3.375 gm IV .STK-MED ONE 09/01/20 17:04 Blood Culture X2 [BC] Routine 09/01/20 17:47 Doxycycline Hyclate [Vibramycin] 100 mg IV .STK-MED ONE 09/01/20 18:00 Doxycycline Hyclate [Vibramycin] 100 mg 0.9 % Sodium Chloride [Ns] 250 ml IV Q12H 09/01/20 20:20 Urine Culture Routine 09/01/20 23:08 Piperacillin Sodium/Tazobactam [Zosyn] 3.375 gm IV .STK-MED ONE 09/02/20 CT foot RT wo con Routine 09/02/20 05:16 Piperacillin Sodium/Tazobactam [Zosyn] 3.375 gm IV .STK-MED ONE 09/02/20 05:49 Doxycycline Hyclate [Vibramycin] 100 mg IV .STK-MED ONE 09/02/20 09:00 Divalproex Sodium Sprinkles [Depakote Sprinkles] 750 mg PO BID 09/02/20 10:10 Piperacillin Sodium/Tazobactam [Zosyn] 3.375 gm IV .STK-MED ONE 09/02/20 16:29 Piperacillin Sodium/Tazobactam [Zosyn] 3.375 gm IV .STK-MED ONE 09/02/20 17:44 Doxycycline Hyclate [Vibramycin] 100 mg IV .STK-MED ONE 09/02/20 22:29 Piperacillin Sodium/Tazobactam [Zosyn] 3.375 gm IV .STK-MED ONE 09/03/20 05:19 Piperacillin Sodium/Tazobactam [Zosyn] 3.375 gm IV .STK-MED ONE 09/03/20 05:22 Basic Metabolic Panel DAILY@0600 Complete Blood Count Auto Diff DAILY@0600 09/03/20 05:48 Doxycycline Hyclate [Vibramycin] 100 mg IV .STK-MED ONE 09/03/20 11:56 Piperacillin Sodium/Tazobactam [Zosyn] 3.375 gm IV .STK-MED ONE 09/03/20 16:36 Piperacillin Sodium/Tazobactam [Zosyn] 3.375 gm IV .STK-MED ONE 09/03/20 22:03 Piperacillin Sodium/Tazobactam [Zosyn] 3.375 gm IV .STK-MED ONE 09/04/20 06:03 Piperacillin Sodium/Tazobactam [Zosyn] 3.375 gm IV .STK-MED ONE 09/04/20 13:59 Piperacillin Sodium/Tazobactam [Zosyn] 3.375 gm IV .STK-MED ONE 09/04/20 17:02 Meropenem 1 gm IV .STK-MED ONE 09/05/20 00:01 Meropenem 1 gm IV .STK-MED ONE 09/05/20 08:14 Meropenem 1 gm IV .STK-MED ONE 09/05/20 16:46 Meropenem 1 gm IV .STK-MED ONE 09/06/20 00:28 Meropenem 1 gm IV .STK-MED ONE 09/06/20 05:53 Valproate Routine 09/06/20 09:06 Meropenem 1 gm IV .STK-MED ONE 09/06/20 12:03 Valproic Acid (as Sodium Salt) [Depacon] 1,000 mg Dextrose 5 % [D5w] 50 ml IV ONCE 09/06/20 12:15 Valproic Acid (as Sodium Salt) [Depacon] 1,000 mg Dextrose 5 % [D5w] 50 ml IV ONCE 09/06/20 17:47 Meropenem 1 gm IV .STK-MED ONE 09/06/20 23:58 Meropenem 1 gm IV .STK-MED ONE 09/07/20 05:17 Basic Metabolic Panel DAILY@0600 Complete Blood Count no Diff DAILY@0600 Prothrombin Time INR DAILY@0600 09/07/20 07:35 Meropenem 1 gm IV .STK-MED ONE 09/07/20 Breakfast NPO Diet 09/07/20 14:40 Midazolam HCl/PF [Versed] 2 mg IVPUSH .STK-MED ONE Naloxone HCl [Narcan] 0.4 mg .ROUTE .STK-MED ONE fentaNYL citrate/PF [Sublimaze] 50 mcg .ROUTE .STK-MED ONE flumazeniL [Romazicon] 0.05 mg .ROUTE .STK-MED ONE 09/07/20 15:02 Heparin Sodium (Porcine)/NS/PF 1,000 unit in 500 ml IV As directed Heparin Sodium,Porcine Flush 500 unit IVFLUSH .STK-MED ONE Lidocaine HCl 1%/Epi 1:100,000 [Xylocaine 1 %-EPI 1:100,000] 30 ml .ROUTE .STK-MED ONE 09/07/20 16:07 Vital Signs Q30M 09/07/20 16:15 Lidocaine HCl 1%/Epi 1:100,000 [Xylocaine 1 %-EPI 1:100,000] 30 ml SUBCUT ONCE ONE 09/07/20 16:16 Heparin Sodium,Porcine Flush 500 unit 0.9 % Sodium Chloride Flush [NS Flush] 5 ml IVFLUSH ONCE 09/07/20 16:17 Heparin Sodium,Porcine 500 unit IV ONCE ONE 09/07/20 17:26 Meropenem 1 gm IV .STK-MED ONE 09/08/20 00:55 Meropenem 1 gm IV .STK-MED ONE 09/08/20 05:34 BMP [Basic Metabolic Panel Fasting] Routine Complete Blood Count Auto Diff Routine 09/08/20 07:24 Meropenem 1 gm IV .STK-MED ONE Laboratory Last Values WBC 8.9 X10*3/uL (4.8-10.8) 09/08/20 05:34 RBC 3.33 X10*6/uL (4.60-5.80) L 09/08/20 05:34 Hgb 9.4 g/dl (14.0-18.0) L 09/08/20 05:34 Hct 30.8 % (42-52) L 09/08/20 05:34 MCV 92.5 fL (80-98) 09/08/20 05:34 MCH 28.2 pg (27.0-33.0) 09/08/20 05:34 MCHC 30.5 g/dl (31.0-36.0) L 09/08/20 05:34 RDW 14.7 % (11.0-16.0) 09/08/20 05:34 Plt Count 261 X10*3/uL (160-400) 09/08/20 05:34 MPV 10.6 fL (9.4-12.4) 09/08/20 05:34 Immature Gran % (Auto) 0.5 % (0.0-0.4) H 09/08/20 05:34 Neut % (Auto) 77.7 % (45-73) H 09/08/20 05:34 Lymph % (Auto) 11.8 % (20-40) L 09/08/20 05:34 Mobile % (Auto) 6.3 % (2-11) 09/08/20 05:34 Eos % (Auto) 3.4 % (0-4) 09/08/20 05:34 Baso % (Auto) 0.3 % (0-2) 09/08/20 05:34 Lymph # (Auto) 1.1 X10*3/uL (1.2-4.9) L 09/08/20 05:34 Mobile # (Auto) 0.6 X10*3/uL (0.1-1.2) 09/08/20 05:34 Eos # (Auto) 0.3 X10*3/uL (0.0-0.4) 09/08/20 05:34 Baso # (Auto) 0.0 X10*3/uL (0.0-0.2) 09/08/20 05:34 Abs Immat Gran (auto) 0.04 X10*3/uL (0.00-0.03) H 09/08/20 05:34 Absolute Neuts (auto) 6.9 X10*3/uL (2.0-8.3) 09/08/20 05:34 Absolute Nucleated RBC 0.000 X10*3/uL (0.0-0.012) 09/08/20 05:34 Nucleated RBC % (auto) 0.0 /100WBC (0.0-0.2) 09/08/20 05:34 Smear Tech's Comments VERIFIED 08/17/20 16:09 PT 13.4 SEC (10.8-13.0) H 09/07/20 05:17 INR 1.1 (0.9-1.1) 09/07/20 05:17 VBG pH 7.32 (7.32-7.43) 08/17/20 17:04 VBG pCO2 45 mmhg 08/17/20 17:04 VBG Oxygen Liters/Min 08/17/20 17:04 VBG pO2 42 mmhg 08/17/20 17:04 VBG HCO3 23 mmol/L 08/17/20 17:04 VBG O2 Saturation 70.8 % 08/17/20 17:04 VBG Base Excess -3.4 mmol/L 08/17/20 17:04 Sodium 136 mmol/L (135-145) 09/08/20 05:34 Potassium 4.6 mmol/l (3.3-5.1) 09/08/20 05:34 Chloride 105 mmol/L (96-108) 09/08/20 05:34 Carbon Dioxide 23 mmol/L (22-29) 09/08/20 05:34 Anion Gap 13 (12-20) 09/08/20 05:34 BUN 21 mg/dL (9-16) H 09/08/20 05:34 Creatinine 1.34 mg/dL (0.5-1.4) 09/08/20 05:34 Estim Creat Clear Calc 41.7 09/08/20 05:34 Estimated GFR 51 09/08/20 05:34 Random Glucose 91 mg/dL (60-115) D 09/07/20 05:17 Fasting Glucose 157 mg/dL (60-99) H 09/08/20 05:34 Lactic Acid 0.9 mmol/L (0.5-2.0) 08/27/20 10:34 Lactic Acid Fup @ 2Hr 2.5 mmol/L (0.5-2.0) H* 08/17/20 20:15 Lactic Acid Fup @ 4Hr 2.7 mmol/L (0.5-2.0) H* 08/17/20 23:11 Calcium 8.8 mg/dL (8.4-10.2) 09/08/20 05:34 Magnesium 1.8 mg/dL (1.6-2.6) 08/31/20 05:16 Iron 23 mcg/dL (45-160) L 08/28/20 06:18 TIBC 122 mcg/dL (228-428) L 08/28/20 06:18 % Saturation 19 % (15-50) 08/28/20 06:18 Unsat Iron Binding 99 ug/dL 08/28/20 06:18 Ferritin 1939 ng/mL (20-250) H 08/28/20 06:18 Total Bilirubin 0.8 mg/dL (0.0-1.0) 08/31/20 05:16 Direct Bilirubin 0.4 mg/dL (0.0-0.5) 08/31/20 05:16 AST 34 U/L (5-37) 08/31/20 05:16 ALT 11 U/L (0-40) 08/31/20 05:16 Alkaline Phosphatase 67 U/L (39-117) 08/31/20 05:16 Total Creatine Kinase 299 U/L (38-174) H 08/17/20 18:51 Total Protein 6.4 g/dL (6.5-8.0) L 08/31/20 05:16 Albumin 2.4 g/dL (3.5-5.0) L 08/31/20 05:16 Vitamin B12 408 pg/mL (200-900) 08/28/20 06:18 Folate 3.7 ng/mL (> or = 4.0) L 08/28/20 06:18 Urine Color YELLOW 09/01/20 20:20 Urine Appearance HAZY 09/01/20 20:20 Urine pH 6.0 (5.0-8.0) 09/01/20 20:20 Ur Specific [place] 1.025 (1.005-1.025) 09/01/20 20:20 Urine Protein 2+ MG/DL (NEG-TRACE) H 09/01/20 20:20 Urine Glucose (UA) NEG MG/DL (NEG) 09/01/20 20:20 Urine Ketones NEG MG/DL (NEG) 09/01/20 20:20 Urine Blood 3+ (NEG) H 09/01/20 20:20 Urine Nitrite NEG (NEG) 09/01/20 20:20 Ur Leukocyte Esterase TRACE (NEG) H 09/01/20 20:20 Urine RBC 76-150 /HPF (0) H 09/01/20 20:20 Urine WBC 5-9 /HPF (0-4) H 09/01/20 20:20 Ur Squamous Epith Cells TRACE /LPF 09/01/20 20:20 Amorphous Sediment 3+ /LPF 08/27/20 13:59 Urine Bacteria TRACE /LPF 09/01/20 20:20 Granular Casts 1-4 /LPF 08/27/20 13:59 Urine Yeast 2+ /HPF 09/01/20 20:20 Stool Occult Blood NEG (NEG) 08/28/20 11:48 Stool Leukocytes, Qual MOD: 3-9/OIF (NEGATIVE) 08/29/20 18:46 Valproic Acid 6.1 mcg/mL (50.0-100.0) L 09/06/20 05:53 Respiratory Panel [place] See Note 08/24/20 09:52 Adenovirus (Rapid PCR) Not Detected (Not Detect.) 08/24/20 09:52 B.pert (TEM-PCR) Not Detected (Not Detect.) 08/24/20 09:52 B.parapertussis DNA PCR Not Detected (Not Detect.) 08/24/20 09:52 C. pneumoniae DNA (PCR) Not Detected (Not Detect.) 08/24/20 09:52 C. difficile Toxin A&B Negative (Negative) 08/29/20 18:46 C. difficile Antigen Negative (Negative) 08/29/20 18:46 C. difficile Interpret SEE NOTE 08/29/20 18:46 Coronavirus (PCR) POSITIVE (Negative) A 08/17/20 17:43 Coronavirus OC43 (PCR) Not Detected (Not Detect.) 08/24/20 09:52 Coronavirus HKU1 (PCR) Not Detected (Not Detect.) 08/24/20 09:52 Coronavirus 229E (PCR) Not Detected (Not Detect.) 08/24/20 09:52 Coronavirus NL63 (PCR) Not Detected (Not Detect.) 08/24/20 09:52 Human Metapneumovir PCR Not Detected (Not Detect.) 08/24/20 09:52 Influenza A (RT-PCR) Not Detected (Not Detect.) 08/24/20 09:52 Influenza B (RT-PCR) Not Detected (Not Detect.) 08/24/20 09:52 M. pneumoniae (PCR) Not Detected (Not Detect.) 08/24/20 09:52 Parainfluenza 1 (PCR) Not Detected (Not Detect.) 08/24/20 09:52 Parainfluenza 2 (PCR) Not Detected (Not Detect.) 08/24/20 09:52 Parainfluenza 3 (PCR) Not Detected (Not Detect.) 08/24/20 09:52 Parainfluenza 4 (PCR) Not Detected (Not Detect.) 08/24/20 09:52 RSV (PCR) Not Detected (Not Detect.) 08/24/20 09:52 Entero/Rhino (PCR) Not Detected (Not Detect.) 08/24/20 09:52 SARS-CoV-2 RNA (RT-PCR) Not Detected (Not Detect.) 08/24/20 09:52 SARS-CoV-2 IgG Ab Positive (Negative) 08/19/20 16:57 O & P Trichrome Stain SEE NOTE 08/21/20 21:51 Blood Type B Positive 08/27/20 17:29 Antibody Screen NEGATIVE 08/27/20 17:29 Crossmatch See Detail 08/27/20 17:29 Discharge Plan Discharge Patient Disposition: er SNF Referrals: Linda Newman MD [Physician] - Sofía Ventura MD [Physician] - Siria Wagoner MD [Physician] - Physician,Unknown [Primary Care Provider] - Discharge Medications: New meropenem 1 gram Recon Soln 1 g IV Q8H 37 Days RF: 0 valproic acid (as sodium salt) 250 mg/5 mL (5 mL) Solution 500 mg PO TID Qty: 500 RF: 0 Continued acetaminophen 325 mg Tablet 650 mg PO Q4H PRN (Reason: Fever Or Pain) RF: 0 polyethylene glycol 3350 [Miralax] 17 gram Powder In Packet 17 g PO DAILY RF: 0 donepezil 10 mg Tablet 10 mg PO DAILY RF: 0 terazosin 1 mg Capsule 1 mg PO BEDTIME RF: 0 aspirin 81 mg Tablet,Delayed Release (Dr/Ec) 81 mg PO DAILY RF: 0 amlodipine 10 mg Tablet 10 mg PO DAILY RF: 0 bisacodyl 10 mg Suppository 10 mg RI DAILY PRN (Reason: Constipation) RF: 0 docusate sodium 100 mg Capsule 100 mg PO BID RF: 0 carbidopa-levodopa 25-100 mg tablet 2 tab PO QID RF: 0 carbidopa-levodopa [Sinemet] 25-100 mg Tablet 2 tab PO QID RF: 0 memantine 10 mg Tablet 5 mg PO BID RF: 0 escitalopram oxalate 5 mg Tablet 5 mg PO DAILY RF: 0 cholecalciferol (vitamin D3) 1,250 mcg (50,000 unit) Tablet 1,250 mcg PO QMONTH RF: 0 albuterol sulfate 90 mcg/actuation Aerosol Powdr Breath Activated 2 inh INHALATION Q4H PRN (Reason: Shortness Of Breath) RF: 0 celecoxib 200 mg capsule 200 mg PO DAILY RF: 0 gabapentin 100 mg capsule 100 mg PO BID RF: 0 metoclopramide HCl 10 mg tablet 10 mg PO QIDACHS RF: 0 Discontinued sodium bicarbonate 650 mg Tablet 650 mg PO TID PRN (Reason: Indigestion) RF: 0 divalproex 125 mg Capsule, Delayed Rel Sprinkle 250 mg PO TID RF: 0 Discharge Orders: Discharge Order (Routine); Ordered 09/08/20 Ordered By: Fransico Maloney Diet: other Activity on Discharge: As tolerated Visit Report Forms: Patient Portal Discharge page Care Plan Goals: avoid hospitalization Health Concerns: osteomyelitis Plan of Treatment: 6 weeks of merem iv with weekly labs, continue tube feeding
[2020-09-08 11:33] VITALS: BP 129/75; PULSE 94; RESP 20; TEMP 37.4; O2SAT 95
--- NOTE | 2020-09-08 11:41 | MHC.CM.PN ---
Patient will be discharged today back to [facility] at 2pm via BLS transport. Nurse aware, left detailed message with suma Rodriguez and left call back number.
[2020-09-08 13:00] VITALS: O2SAT 96
== END 2020-09-08 15:10 | disposition skilled nursing facility (03) | DRG 854 ==
LOC: HO.ED 20:15 → HO.IMC 21:51
PROVIDERS: Anesthesiology; Family Medicine; Internal Medicine; Internal Medicine Gastroenterology; Physician Assistant; Student in an Organized Health Care Education/Training Program; Surgery; Admitting Provider Internal Medicine; Emergency Provider Emergency Medicine; Visit Provider Internal Medicine
PROC: 0DH63UZ Insertion of Feeding Device into Stomach, Percutaneous Approach (ICD-10-PCS; principal; 2020-08-24 12:30)
DX: A41.9 Sepsis, unspecified organism (principal); N17.9 Acute kidney failure, unspecified; A09 Infectious gastroenteritis and colitis, unspecified; L02.611 Cutaneous abscess of right foot; M86.171 Other acute osteomyelitis, right ankle and foot; E87.0 Hyperosmolality and hypernatremia; G20 Parkinson's disease; F02.80 Dementia in other diseases classified elsewhere, unspecified severity, without behavioral disturbance, psychotic disturbance, mood disturbance, and anxiety; G40.909 Epilepsy, unspecified, not intractable, without status epilepticus; N18.30 Chronic kidney disease, stage 3 unspecified; E87.6 Hypokalemia; R33.9 Retention of urine, unspecified; K59.09 Other constipation; B96.4 Proteus (mirabilis) (morganii) as the cause of diseases classified elsewhere; R62.7 Adult failure to thrive; Z68.24 Body mass index [BMI] 24.0-24.9, adult; D63.1 Anemia in chronic kidney disease; I12.9 Hypertensive chronic kidney disease with stage 1 through stage 4 chronic kidney disease, or unspecified chronic kidney disease; Z86.19 Personal history of other infectious and parasitic diseases; Z91.14 Patient's other noncompliance with medication regimen; Z79.1 Long term (current) use of non-steroidal anti-inflammatories (NSAID); Z79.82 Long term (current) use of aspirin; Z79.899 Other long term (current) drug therapy
CPT/HCPCS: 36415; 70460; 71045; 71250; 73700; 74176; 76937; 77001; 80048; 80076; 80164; 81001; 81003; 82272; 82550; 82607; 82728; 82746; 82803; 83540; 83605; 83735; 84132; 85014; 85018; 85025; 85027; 85610; 86769; 86850; 86900; 86901; 86920; 86923; 87040; 87045; 87046; 87071; 87077; 87086; 87177; 87186; 87205; 87209; 87324; 87449; 87633; 87635; 89055; 92526; 92610; 95816; 96361; 96365; 96367; 97167; 99024; 99152; 99221; 99223; 99231; 99232; 99284; 99291; C1758; J0133; J0690; J1642; J2185; J2543; J3475; P9016

== ENCOUNTER 2020-10-24 09:33 | Inpatient (IN) | payer MEDICARE, MEDICAID, SELFPAY ==
[2020-10-24] VITALS (7 sets, daily range): BP systolic 113–129; BP diastolic 68–76; PULSE 84–92; RESP 16–22; TEMP 36.6–36.9; O2SAT 96–99; BMI 21.4
--- NOTE | 2020-10-24 10:00 | XR_ITS ---
EXAMINATION: XR CHEST CLINICAL INFORMATION: Congested, cough. COMPARISON: Chest 08/29/2020 TECHNIQUE: Frontal view of the chest was obtained. FINDINGS: The lungs are hypoexpanded but clear. The heart size and pulmonary vascularity is normal. No gross bony abnormality. XR/XR chest 1V IMPRESSION: Hyperexpanded lungs without acute process.
--- NOTE | 2020-10-24 10:02 | CT_ITS ---
EXAMINATION: CT ABDOMEN AND PELVIS WITHOUT CONTRAST CLINICAL INFORMATION: Abdominal pain and distention, history of PEG tube COMPARISON: CT abdomen and pelvis 08/29/2020 TECHNIQUE: Multidetector volumetric imaging was performed from the superior aspect of the liver through the pubic symphysis. Sagittal and coronal reformatted images were obtained on the technologist's workstation. This CT examination was performed using dose optimization techniques as appropriate, variously including the following: *Automated exposure control *Adjustment of mA and/or kV according to patient size (this includes techniques or standardized protocols for targeted exams where dose is matched to indication/reason for exam; i.e. extremities or head) *Use of iterative reconstruction technique DLP: 836 mGy-cm FINDINGS: LUNG BASES: The visualized lung bases are unremarkable. Some minimal left basilar atelectasis is present. LIVER, GALLBLADDER, AND BILIARY TREE: The liver is normal in size, shape, and attenuation. Again seen is a subcentimeter hypodensity at the tip of the right lobe of the liver (series 3 image 36). No worrisome focal hepatic lesion or biliary ductal dilatation is present. Gallbladder not well seen as compressed by dilated bowel. PANCREAS: Unremarkable. SPLEEN: Unremarkable. ADRENAL GLANDS: Unremarkable. KIDNEYS AND URETERS: The kidneys are normal in size, shape, and attenuation. No hydronephrosis, hydroureter, or calculi seen. No perinephric stranding. BLADDER: Wade catheter is present in the bladder which is partially decompressed and contains some air. GASTROINTESTINAL TRACT: A PEG tube is in the stomach which is decompressed. The rectum is fluid-filled and the sigmoid colon is dilated. The previously seen fluid in the presacral space is no longer present. The transverse colon is now dilated compared to the prior study measuring maximum of 7 cm. There is also gaseous distention of all bowel loops measuring up to 3.8 cm in diameter, some with air-fluid levels. No free air or pneumatosis is seen. No transition zone is seen to suggest an area of focal obstruction. ABDOMINAL WALL: No significant hernia is appreciated. LYMPH NODES: No retroperitoneal lymphadenopathy is seen. VASCULAR: Calcific atherosclerotic plaque present in the aorta and iliofemoral vessels. A right external iliac vascular stent is present. PELVIC VISCERA: Prostate and seminal vesicles unremarkable. OSSEOUS STRUCTURES: Degenerative changes present in the spine most marked at L5-S1. There is unchanged superior endplate compression involving L1 and L2. Marked degenerative change again seen in both hips with subchondral cyst formation. CT/CT abdomen pelvis wo con IMPRESSION: The abdominal distention is secondary to gaseous distention of the rectosigmoid as well as the right and transverse colon along with dilated small bowel. The descending colon is of normal caliber. An obstructing lesion is not seen and the findings are suggestive of marked ileus. Continued follow-up is recommended. Other incidental findings as described above.
--- NOTE | 2020-10-24 10:13 | ED.ABDPAIN ---
HPI - Abdominal Pain General Chief Complaint: Abdominal Pain Stated Complaint: abd distention Time Seen by Provider: 10/24/20 09:56 Source: EMS Mode of arrival: EMS Limitations: altered mental status History of Present Illness HPI narrative: 80 y/o male with history of Parkinson's dementia, dysphagia s/p PEG placement 08/24, COPD, CKD, seizures, hx right foot osteomyelitis w/ abscess s/p 6 weeks of abx & recent AKA who presents to ED from [facility] with reports of abdominal distention and pain since last night. Staff at [facility] turned off his tube feedings but the distention persisted. No reports of vomiting, diarrhea or fever. History is limited as patient is non-verbal. He was admitted here 08/17 - 09/08 for multiple issues including seizures, LE osteomyelitis, TINA, FTT. Unknown where his surgical amputation was performed. MD elicited complaint: abdominal pain Pertinent past history: other (hx PEG tube placement ) Pain Consistency: constant Location: diffuse Severity: moderate Associated symptoms: denies other symptoms Related Data Home Medications Medication Instructions Recorded Confirmed acetaminophen 650 mg PO Q4H PRN 08/18/20 08/18/20 albuterol sulfate 2 inh INHALATION Q4H PRN 08/18/20 08/18/20 amlodipine 10 mg PO DAILY 08/18/20 08/18/20 aspirin 81 mg PO DAILY 08/18/20 08/18/20 bisacodyl 10 mg CA DAILY PRN 08/18/20 08/18/20 carbidopa-levodopa 2 tab PO QID 08/18/20 08/18/20 carbidopa-levodopa [Sinemet] 2 tab PO QID 08/18/20 08/18/20 celecoxib 200 mg PO DAILY 08/18/20 08/18/20 cholecalciferol (vitamin D3) 1,250 mcg PO QMONTH 08/18/20 08/18/20 docusate sodium 100 mg PO BID 08/18/20 08/18/20 donepezil 10 mg PO DAILY 08/18/20 08/18/20 escitalopram oxalate 5 mg PO DAILY 08/18/20 08/18/20 gabapentin 100 mg PO BID 08/18/20 08/18/20 memantine 5 mg PO BID 08/18/20 08/18/20 metoclopramide HCl 10 mg PO QIDACHS 08/18/20 08/18/20 polyethylene glycol 3350 [Miralax] 17 g PO DAILY 08/18/20 08/18/20 terazosin 1 mg PO BEDTIME 08/18/20 08/18/20 Previous Rx's Medication Instructions Recorded meropenem 1 g IV Q8H 37 Days ea 09/08/20 valproic acid (as sodium salt) 500 mg PO TID #500 ml 09/08/20 Allergies Allergy/AdvReac Type Severity Reaction Status Date / Time No Known Allergies Allergy Verified 10/14/20 10:23 Review of Systems Review of Systems Yes Unobtainable due to mental condition and Unobtainable due to mental status Physical Exam Vital Signs: Vital Signs: Last Vital Signs Temp 98.5 F 10/24/20 12:08 Pulse 92 10/24/20 12:08 Resp 22 H 10/24/20 12:08 BP 125/75 10/24/20 12:08 Pulse Ox 98 10/24/20 12:08 Body Mass Index 21.4 Appearance: Alert, elderly male laying in bed, contracted UE. No acute distress. Eyes: Pupils equal, round and reactive to light. Right gaze preference ENT: dry mucus membranes Neck: Normal inspection. Neck supple. CVS: Normal heart rate and rhythm. Pulses normal. Respiratory: No respiratory distress. scattered rhonchi throughout, congested cough Abdomen: Soft, grossly distended and tympanic to percussion. Skin: Skin warm and dry. Normal skin color. Normal skin turgor. No rashes. Extremities:UE contracted bilaterally. s/p right AKA, katherine in place with wound healing appropriate, no discharge. left LE contracted. Neuro: awake, alert, does not follow commands or track. Course Course Course Narrative: 80 y/o male with multiple comorbidities including recent PEG and recent AKA presenting with acute onset abd distention concern for SBO, ileus or PEG tube dislodgement. Will get labs and CT scan for further evaluation. Reevaluation(s) Reevaluation #1: CT scan shows marked ileus, no obstructing lesion seen. WBC 14.7. Dr. Peter was TT at 12pm - recommended coverage with abx given leukocytosis and disimpaction for visible stool ball on CT. This was attempted at the bedside without success. No stool ball palpated, liquid stool drained along with significant amounts of air. Reevaluation #2: UA grossly positive for infection. Covered with Zoysn. TT hospitalist at 12:30 for admission. Consultations Consultation #1: Dr. Peter from General Surgery MDM - Abdominal Pain Lab Data Result diagrams: 10/24/20 11:08 10/24/20 11:08 Labs: Lab Results 10/24/20 10/24/20 10/24/20 Range/Units 11:07 11:07 11:08 WBC 14.7 H (4.8-10.8) X10*3/uL RBC 3.39 L (4.60-5.80) X10*6/uL Hgb 9.4 L (14.0-18.0) g/dl Hct 30.3 L (42-52) % MCV 89.4 (80-98) fL MCH 27.7 (27.0-33.0) pg MCHC 31.0 (31.0-36.0) g/dl RDW 16.0 (11.0-16.0) % Plt Count 331 D (160-400) X10*3/uL MPV 9.7 (9.4-12.4) fL Immature Gran % (Auto) 0.3 (0.0-0.4) % Neut % (Auto) 72.0 (45-73) % Lymph % (Auto) 17.2 L (20-40) % [place] % (Auto) 6.9 (2-11) % Eos % (Auto) 3.3 (0-4) % Baso % (Auto) 0.3 (0-2) % Lymph # (Auto) 2.5 (1.2-4.9) X10*3/uL [place] # (Auto) 1.0 (0.1-1.2) X10*3/uL Eos # (Auto) 0.5 H (0.0-0.4) X10*3/uL Baso # (Auto) 0.0 (0.0-0.2) X10*3/uL Abs Immat Gran (auto) 0.04 H (0.00-0.03) X10*3/uL Absolute Neuts (auto) 10.6 H (2.0-8.3) X10*3/uL Absolute Nucleated RBC 0.000 (0.0-0.012) X10*3/uL Nucleated RBC % (auto) 0.0 (0.0-0.2) /100WBC Hold Blue Top Sodium (135-145) mmol/L Potassium (3.3-5.1) mmol/l Chloride (96-108) mmol/L Carbon Dioxide (22-29) mmol/L Anion Gap (12-20) BUN (9-16) mg/dL Creatinine (0.5-1.4) mg/dL Estim Creat Clear Calc Estimated GFR Random Glucose (60-115) mg/dL Lactic Acid (0.5-2.0) mmol/L Calcium (8.4-10.2) mg/dL Magnesium 2.6 (1.6-2.6) mg/dL Total Bilirubin (0.0-1.0) mg/dL Direct Bilirubin (0.0-0.5) mg/dL AST (5-37) U/L ALT (0-40) U/L Alkaline Phosphatase (39-117) U/L B-Natriuretic Peptide (<100) pg/mL Total Protein (6.5-8.0) g/dL Albumin (3.5-5.0) g/dL Procalcitonin 0.18 ng/mL Urine Color Urine Appearance Urine pH (5.0-8.0) Ur Specific [place] (1.005-1.025) Urine Protein (NEG-TRACE) MG/DL Urine Glucose (UA) (NEG) MG/DL Urine Ketones (NEG) MG/DL Urine Blood (NEG) Urine Nitrite (NEG) Ur Leukocyte Esterase (NEG) Urine RBC (0) /HPF Urine WBC (0-4) /HPF Urine WBC Clumps Ur Squamous Epith Cells /LPF Urine Bacteria /LPF Urine Yeast /HPF COVID-19 ([facility]) (Negative) COVID-19 Clin Com 10/24/20 10/24/20 10/24/20 Range/Units 11:08 11:08 11:08 WBC (4.8-10.8) X10*3/uL RBC (4.60-5.80) X10*6/uL Hgb (14.0-18.0) g/dl Hct (42-52) % MCV (80-98) fL MCH (27.0-33.0) pg MCHC (31.0-36.0) g/dl RDW (11.0-16.0) % Plt Count (160-400) X10*3/uL MPV (9.4-12.4) fL Immature Gran % (Auto) (0.0-0.4) % Neut % (Auto) (45-73) % Lymph % (Auto) (20-40) % [place] % (Auto) (2-11) % Eos % (Auto) (0-4) % Baso % (Auto) (0-2) % Lymph # (Auto) (1.2-4.9) X10*3/uL [place] # (Auto) (0.1-1.2) X10*3/uL Eos # (Auto) (0.0-0.4) X10*3/uL Baso # (Auto) (0.0-0.2) X10*3/uL Abs Immat Gran (auto) (0.00-0.03) X10*3/uL Absolute Neuts (auto) (2.0-8.3) X10*3/uL Absolute Nucleated RBC (0.0-0.012) X10*3/uL Nucleated RBC % (auto) (0.0-0.2) /100WBC Hold Blue Top SEE NOTE Sodium 138 (135-145) mmol/L Potassium 4.7 (3.3-5.1) mmol/l Chloride 107 (96-108) mmol/L Carbon Dioxide 22 (22-29) mmol/L Anion Gap 14 (12-20) BUN 57 H D (9-16) mg/dL Creatinine 1.44 H (0.5-1.4) mg/dL Estim Creat Clear Calc 40.3 Estimated GFR 47 Random Glucose 101 (60-115) mg/dL Lactic Acid 1.4 (0.5-2.0) mmol/L Calcium 9.2 (8.4-10.2) mg/dL Magnesium (1.6-2.6) mg/dL Total Bilirubin 0.4 (0.0-1.0) mg/dL Direct Bilirubin 0.3 (0.0-0.5) mg/dL AST 20 D (5-37) U/L ALT 31 (0-40) U/L Alkaline Phosphatase 98 D (39-117) U/L B-Natriuretic Peptide (<100) pg/mL Total Protein 8.3 H D (6.5-8.0) g/dL Albumin 3.1 L D (3.5-5.0) g/dL Procalcitonin ng/mL Urine Color Urine Appearance Urine pH (5.0-8.0) Ur Specific [place] (1.005-1.025) Urine Protein (NEG-TRACE) MG/DL Urine Glucose (UA) (NEG) MG/DL Urine Ketones (NEG) MG/DL Urine Blood (NEG) Urine Nitrite (NEG) Ur Leukocyte Esterase (NEG) Urine RBC (0) /HPF Urine WBC (0-4) /HPF Urine WBC Clumps Ur Squamous Epith Cells /LPF Urine Bacteria /LPF Urine Yeast /HPF COVID-19 ([facility]) (Negative) COVID-19 Clin Com 10/24/20 10/24/20 10/24/20 Range/Units 11:23 12:01 12:01 WBC (4.8-10.8) X10*3/uL RBC (4.60-5.80) X10*6/uL Hgb (14.0-18.0) g/dl Hct (42-52) % MCV (80-98) fL MCH (27.0-33.0) pg MCHC (31.0-36.0) g/dl RDW (11.0-16.0) % Plt Count (160-400) X10*3/uL MPV (9.4-12.4) fL Immature Gran % (Auto) (0.0-0.4) % Neut % (Auto) (45-73) % Lymph % (Auto) (20-40) % [place] % (Auto) (2-11) % Eos % (Auto) (0-4) % Baso % (Auto) (0-2) % Lymph # (Auto) (1.2-4.9) X10*3/uL [place] # (Auto) (0.1-1.2) X10*3/uL Eos # (Auto) (0.0-0.4) X10*3/uL Baso # (Auto) (0.0-0.2) X10*3/uL Abs Immat Gran (auto) (0.00-0.03) X10*3/uL Absolute Neuts (auto) (2.0-8.3) X10*3/uL Absolute Nucleated RBC (0.0-0.012) X10*3/uL Nucleated RBC % (auto) (0.0-0.2) /100WBC Hold Blue Top Sodium (135-145) mmol/L Potassium (3.3-5.1) mmol/l Chloride (96-108) mmol/L Carbon Dioxide (22-29) mmol/L Anion Gap (12-20) BUN (9-16) mg/dL Creatinine (0.5-1.4) mg/dL Estim Creat Clear Calc Estimated GFR Random Glucose (60-115) mg/dL Lactic Acid (0.5-2.0) mmol/L Calcium (8.4-10.2) mg/dL Magnesium (1.6-2.6) mg/dL Total Bilirubin (0.0-1.0) mg/dL Direct Bilirubin (0.0-0.5) mg/dL AST (5-37) U/L ALT (0-40) U/L Alkaline Phosphatase (39-117) U/L B-Natriuretic Peptide 20 (<100) pg/mL Total Protein (6.5-8.0) g/dL Albumin (3.5-5.0) g/dL Procalcitonin ng/mL Urine Color YELLOW Urine Appearance CLOUDY Urine pH 6.0 (5.0-8.0) Ur Specific [place] 1.025 (1.005-1.025) Urine Protein 2+ H (NEG-TRACE) MG/DL Urine Glucose (UA) NEG (NEG) MG/DL Urine Ketones NEG (NEG) MG/DL Urine Blood 3+ H (NEG) Urine Nitrite NEG (NEG) Ur Leukocyte Esterase 2+ H (NEG) Urine RBC 30-49 H (0) /HPF Urine WBC 76-150 H (0-4) /HPF Urine WBC Clumps NOTED Ur Squamous Epith Cells NONE /LPF Urine Bacteria TRACE /LPF Urine Yeast 2+ /HPF COVID-19 ([facility]ESS[facility]) Negative (Negative) COVID-19 Clin Com See Note Critical Care Time Critical Care Time Critical Care Time: No Discharge Plan Discharge Clinical Impression: Ileus, Acute UTI Patient Disposition: Admitted As Inpatient [facility] Past Medical History Attestation statement: The following information was validated with the patient. Medical History Anemia Colitis Epileptic Fever Fever, unknown origin Foot abscess, right Gastroenteritis/colitis, infectious History of right above knee amputation Osteomyelitis of ankle or foot, right, acute Osteomyelitis of ankle, right, acute Osteomyelitis of foot, right, acute Parkinson disease Prostatic hyperplasia Surgical History History of skin graft Family History Family History (Updated 10/14/20 @ 10:25 by Ashlyn Montoya [facility]) Father No problems noted. Mother Hypertension Tuberculosis Maternal Grandmother Stroke Daughter Stroke Social History Social History Household Members: Other Smoking Status: Unknown if ever smoked Advance Directives: No Advance Directives Information Provided: No service: No Current occupational status: retired
[2020-10-24 11:17] LABS: Basophils Percent Auto 0.3 % (0-2); Eosinophils Absolute Auto 0.5 X10*3/uL (0.0-0.4); Eosinophils Percent Auto 3.3 % (0-4); Hematocrit 30.3 % (42-52); Hemoglobin 9.4 g/dl (14.0-18.0); Imm Gran Abs Auto 0.04 X10*3/uL (0.00-0.03); Imm Gran Pct Auto 0.3 % (0.0-0.4); Lymphocytes Absolute Auto 2.5 X10*3/uL (1.2-4.9); Lymphocytes Percent Auto 17.2 % (20-40); MANUAL DIFF FLAG NO; Mean Corpuscular Hemoglobin 27.7 pg (27.0-33.0); Mean Corpuscular Volume 89.4 fL (80-98); Mean Platelet Volume 9.7 fL (9.4-12.4); Monocytes Percent Auto 6.9 % (2-11); Neutrophils Absolute Auto 10.6 X10*3/uL (2.0-8.3); Platelet Count 331 X10*3/uL (160-400); Red Blood Count 3.39 X10*6/uL (4.60-5.80); White Blood Count 14.7 X10*3/uL (4.8-10.8)
[2020-10-24 11:38] LABS: Lactic Acid 1.4 mmol/L (0.5-2.0)
[2020-10-24 11:44] LABS: Magnesium 2.6 mg/dL (1.6-2.6)
[2020-10-24 11:44] LABS: Alanine Aminotransferase 31 U/L (0-40); Albumin Level 3.1 g/dL (3.5-5.0); Alkaline Phosphatase 98 U/L (39-117); Anion Gap 14 (12-20); Aspartate Amino Transferase 20 U/L (5-37); Bilirubin Direct 0.3 mg/dL (0.0-0.5); Bilirubin Total 0.4 mg/dL (0.0-1.0); Blood Urea Nitrogen 57 mg/dL (9-16); Calcium 9.2 mg/dL (8.4-10.2); Carbon Dioxide 22 mmol/L (22-29); Chloride 107 mmol/L (96-108); Creatinine Clr Calc Pharmacy 40.3; Estimated Glomerular Filt Rate 47; Glucose Random 101 mg/dL (60-115); Potassium 4.7 mmol/l (3.3-5.1); Sodium 138 mmol/L (135-145); Total Protein 8.3 g/dL (6.5-8.0)
[2020-10-24 11:56] LABS: B Type Natriuretic Peptide 20 pg/mL (<100)
[2020-10-24 12:02] LABS: Procalcitonin 0.18 ng/mL
[2020-10-24 12:09] LABS: Glucose Urine UA NEG (NEG); Leukocyte Esterase Urine 2+ (NEG); Nitrite Urine NEG (NEG); Specific Gravity - Urine 1.025 (1.005-1.025); Urine Blood 3+ (NEG); Urine Ketones NEG (NEG); Urine Protein 2+ MG/DL (NEG-TRACE)
[2020-10-24 12:11] LABS: Appearance Urine CLOUDY; Color Urine YELLOW
[2020-10-24 12:22] LABS: RBC Urine 30-49 /HPF (0)
[2020-10-24 12:23] LABS: Bacteria Urine TRACE /LPF; WBC Clumps Urine NOTED
[2020-10-24] MEDS: 0.9 % Sodium Chloride 1,000 ML 999 ML IVCONT (12:31)
[2020-10-24] MEDS: Piperacillin Sodium/Tazobactam 3.375 GM in 0.9 % Sodium Chloride 50 ML IV ×2 (12:31→21:21)
[2020-10-24 12:33] LABS: COVID-19 Test Negative (Negative); IDNOW Serial# 9DD0AD1C
--- NOTE | 2020-10-24 13:59 | PM.IMHP ---
History of Present Illness Date of Service: 10/24/20 <JOHNY Castaneda - Last Filed: 10/24/20 14:28> Chief Complaint: Abdominal distension <JOHNY Castaneda - Last Filed: 10/24/20 14:28> This is an 80-year-old male with a history of Parkinson's disease, dementia among others who was sent from nursing facility due to abdominal distension. Patient is primarily nonverbal and bed-bound at baseline. He has Forte catheter as well as PEG tube. He was recently discharged from [facility] for right AKA. He is unable to provide any significant history. Lab work revealed leukocytosis with white count of 14.7 and mild renal insufficiency with creatinine of 1.44 up from a baseline of 1.2-1.3. He underwent a CT scan of his abdomen which showed ileus. The Emergency Room provider discussed the case with the surgical team who requested manual disimpaction. Manual disimpaction was attempted; air and liquid stool was expelled but no hard stool was removed. His urinalysis was also consistent with UTI. He was started on IV antibiotics and a decision was made to admit him for further management. <JOHNY Castaneda - Last Filed: 10/24/20 14:28> Review of Systems Review of Systems: Yes Unobtainable due to mental status <JOHNY Castaneda - Last Filed: 10/24/20 14:28> [facility] Medical History: Medical History (Updated 10/24/20 @ 14:10 by JOHNY Castaneda) Anemia Cerebral microvascular disease Colitis COPD (chronic obstructive pulmonary disease) COVID-19 Dementia Epileptic Foot abscess, right Gastroenteritis/colitis, infectious History of right above knee amputation Multifactorial dementia Osteomyelitis of foot, right, acute Parkinson disease Prostatic hyperplasia <JOHNY Castaneda - Last Filed: 10/24/20 14:28> Functional capacity: bed bound <JOHNY Castaneda - Last Filed: 10/24/20 14:28> Family History: Family History Father No problems noted. Mother Hypertension Tuberculosis Maternal Grandmother Stroke Daughter Stroke <JOHNY Castaneda - Last Filed: 10/24/20 14:28> Surgical History: Surgical History (Updated 10/24/20 @ 14:10 by JOHNY Castaneda) History of skin graft PEG (percutaneous endoscopic gastrostomy) status <JOHNY Castaneda - Last Filed: 10/24/20 14:28> Social History: Social History Household Members: Other Smoking Status: Unknown if ever smoked Advance Directives: No Advance Directives Information Provided: No service: No Current occupational status: retired <JOHNY Castaneda - Last Filed: 10/24/20 14:28> Meds Allergies/Adverse reactions: Allergies Allergy/AdvReac Type Severity Reaction Status Date / Time No Known Allergies Allergy Verified 10/14/20 10:23 <JOHNY Castaneda - Last Filed: 10/24/20 14:28> Home medications: Home Medications Medication Instructions Recorded Confirmed Type acetaminophen 650 mg FEEDING TUBE Q4H PRN 08/18/20 10/24/20 History albuterol sulfate 2 inh INHALATION Q4H PRN 08/18/20 10/24/20 History amlodipine 10 mg FEEDING TUBE DAILY 08/18/20 10/24/20 History bisacodyl 10 mg [place] DAILY PRN 08/18/20 10/24/20 History carbidopa-levodopa 2 tab FEEDING TUBE QID 08/18/20 10/24/20 History celecoxib 200 mg FEEDING TUBE DAILY 08/18/20 10/24/20 History cholecalciferol (vitamin D3) 1,250 mcg FEEDING TUBE QMONTH 08/18/20 10/24/20 History docusate sodium 100 mg PO BID 08/18/20 10/24/20 History donepezil 10 mg FEEDING TUBE DAILY 08/18/20 10/24/20 History escitalopram oxalate 5 mg FEEDING TUBE DAILY 08/18/20 10/24/20 History memantine 10 mg FEEDING TUBE BID 08/18/20 10/24/20 History metoclopramide HCl 10 mg FEEDING TUBE QIDACHS 08/18/20 10/24/20 History terazosin 1 mg FEEDING TUBE BEDTIME 08/18/20 10/24/20 History aspirin 81 mg FEEDING TUBE DAILY 10/24/20 10/24/20 History clopidogrel 75 mg FEEDING TUBE DAILY 10/24/20 10/24/20 History pravastatin 20 mg FEEDING TUBE DAILY 10/24/20 10/24/20 History valproic acid (as sodium salt) 1,000 mg FEEDING TUBE TID 10/24/20 10/24/20 History <JOHNY Castaneda - Last Filed: 10/24/20 14:28> Physical Exam Vital Signs and Narrative: Vital Signs: Last Vital Signs Temp 98.5 F 10/24/20 12:08 Pulse 92 10/24/20 12:08 Resp 22 H 10/24/20 12:08 BP 125/75 10/24/20 12:08 Pulse Ox 98 10/24/20 12:08 Body Mass Index 21.4 <JOHNY Castaneda - Last Filed: 10/24/20 14:28> This is an 80-year-old male resting in bed comfortably. Appears to be in no acute distress. He is awake and alert although not currently responding to my questions. Baseline is oriented x1, minimally verbal. Head-atraumatic normocephalic Eyes-pupils are equal round reactive to light Cardiovascular regular rate and rhythm Respiratory-normal respiratory effort normal respiratory distress GI abdomen softly distended; peg tube in place - forte draining small amount of yellow urine Musculoskeletal-status post right AKA. Left lower extremity contracture. Bilateral hand contractures Skin-warm and dry <JOHNY Castaneda - Last Filed: 10/24/20 14:28> Results Labs CBC and Chem 7: : 10/24/20 11:08 10/24/20 11:08 <JOHNY Castaneda - Last Filed: 10/24/20 14:28> Labs: Laboratory Results - last 24 hr 10/24/20 10/24/20 10/24/20 11:07 11:07 11:08 MCV 89.4 MCH 27.7 MCHC 31.0 RDW 16.0 Plt Count 331 D MPV 9.7 Immature Gran % (Auto) 0.3 Neut % (Auto) 72.0 Lymph % (Auto) 17.2 L [place] % (Auto) 6.9 Eos % (Auto) 3.3 Baso % (Auto) 0.3 Lymph # (Auto) 2.5 [place] # (Auto) 1.0 Eos # (Auto) 0.5 H Baso # (Auto) 0.0 Abs Immat Gran (auto) 0.04 H Absolute Neuts (auto) 10.6 H Absolute Nucleated RBC 0.000 Nucleated RBC % (auto) 0.0 Hold Blue Top Anion Gap Estim Creat Clear Calc Estimated GFR Random Glucose Lactic Acid Calcium Magnesium 2.6 Total Bilirubin Direct Bilirubin AST ALT Alkaline Phosphatase B-Natriuretic Peptide Total Protein Albumin Procalcitonin 0.18 Urine Color Urine Appearance Urine pH Ur Specific [place] Urine Protein Urine Glucose (UA) Urine Ketones Urine Blood Urine Nitrite Ur Leukocyte Esterase Urine RBC Urine WBC Urine WBC Clumps Ur Squamous Epith Cells Urine Bacteria Urine Yeast COVID-19 (JESSIE) COVID-19 iHandle 10/24/20 10/24/20 10/24/20 11:08 11:08 11:08 MCV MCH MCHC RDW Plt Count MPV Immature Gran % (Auto) Neut % (Auto) Lymph % (Auto) [place] % (Auto) Eos % (Auto) Baso % (Auto) Lymph # (Auto) [place] # (Auto) Eos # (Auto) Baso # (Auto) Abs Immat Gran (auto) Absolute Neuts (auto) Absolute Nucleated RBC Nucleated RBC % (auto) Hold Blue Top SEE NOTE Anion Gap 14 Estim Creat Clear Calc 40.3 Estimated GFR 47 Random Glucose 101 Lactic Acid 1.4 Calcium 9.2 Magnesium Total Bilirubin 0.4 Direct Bilirubin 0.3 AST 20 D ALT 31 Alkaline Phosphatase 98 D B-Natriuretic Peptide Total Protein 8.3 H D Albumin 3.1 L D Procalcitonin Urine Color Urine Appearance Urine pH Ur Specific [place] Urine Protein Urine Glucose (UA) Urine Ketones Urine Blood Urine Nitrite Ur Leukocyte Esterase Urine RBC Urine WBC Urine WBC Clumps Ur Squamous Epith Cells Urine Bacteria Urine Yeast COVID-19 (JESSIE) COVID-19 iHandle 10/24/20 10/24/20 10/24/20 11:23 12:01 12:01 MCV MCH MCHC RDW Plt Count MPV Immature Gran % (Auto) Neut % (Auto) Lymph % (Auto) [place] % (Auto) Eos % (Auto) Baso % (Auto) Lymph # (Auto) [place] # (Auto) Eos # (Auto) Baso # (Auto) Abs Immat Gran (auto) Absolute Neuts (auto) Absolute Nucleated RBC Nucleated RBC % (auto) Hold Blue Top Anion Gap Estim Creat Clear Calc Estimated GFR Random Glucose Lactic Acid Calcium Magnesium Total Bilirubin Direct Bilirubin AST ALT Alkaline Phosphatase B-Natriuretic Peptide 20 Total Protein Albumin Procalcitonin Urine Color YELLOW Urine Appearance CLOUDY Urine pH 6.0 Ur Specific [place] 1.025 Urine Protein 2+ H Urine Glucose (UA) NEG Urine Ketones NEG Urine Blood 3+ H Urine Nitrite NEG Ur Leukocyte Esterase 2+ H Urine RBC 30-49 H Urine WBC 76-150 H Urine WBC Clumps NOTED Ur Squamous Epith Cells NONE Urine Bacteria TRACE Urine Yeast 2+ COVID-19 (JESSIE) Negative COVID-19 Clin Com See Note <JOHNY Castaneda - Last Filed: 10/24/20 14:28> Imaging Radiologist's Impressions: Impressions Chest X-Ray 10/24/20 10:00 IMPRESSION: Hyperexpanded lungs without acute process. Abdomen/Pelvis CT 10/24/20 10:02 IMPRESSION: The abdominal distention is secondary to gaseous distention of the rectosigmoid as well as the right and transverse colon along with dilated small bowel. The descending colon is of normal caliber. An obstructing lesion is not seen and the findings are suggestive of marked ileus. Continued follow-up is recommended. Other incidental findings as described above. <JOHNY Castaneda - Last Filed: 10/24/20 14:28> Assessment and Plan (1) Ileus: Status: Acute <JOHNY Castaneda - Last Filed: 10/24/20 14:28> This is an 80-year-old male with a history of Parkinson's disease, dementia, COPD, seizure disorder, BPH, right leg osteomyelitis/gangrene status post recent right [id number] amputation at [facility] who was sent from group home facility due to abdominal distension found to have ileus Ileus Manual disimpaction attempted in the ED IV zosyn per surgical team rec Surgical consult Hold tube feeds for now UTI On antibiotics for ileus, will cover urine source Follow-up urine culture Sepsis focused exam completed Lactic acid within normal limits Follow-up blood cultures Mild renal insufficiency Gentle IV fluid Follow renal function Hold Celebrex Dementia Continue donepezil, memantine Seizure disorder Continue valproic acid BPH Continue terazosin Parkinson's disease Continue Sinemet Hypertension Continue Norvasc Mood Continue escitalopram Hyperlipidemia Continue statin Peripheral vascular disease Continue aspirin, Plavix s/p recent right AKA at [facility] d/c on 10/16 with instructions for katherine to be removed in 2-3 weeks Anemia H/H at baseline Follow CBC diet tube feeds on hold due to ileus DVT prophylaxis-Lovenox Code status-full code This case was discussed with Dr. Morrison <JOHNY Castaneda - Last Filed: 10/24/20 14:28>
--- NOTE | 2020-10-24 15:05 | PC.NURSE ---
ZOSYN NOT ADMINISTERED ORDERED AT 1400 D/T PT JUST FINISHED INITIAL DOSE OF ZOSYN 45 MIN PRIOR AND ORDER IS FOR Q6H
[2020-10-24] MEDS: 0.9 % Sodium Chloride 1,000 ML 75 ML IVCONT (15:15)
[2020-10-24] MEDS: Carbidopa/Levodopa 25/100 TABLET 2 TAB PO ×2 (17:21→22:27)
[2020-10-24] MEDS: Doxazosin Mesylate 1 MG TABLET PO (22:27)
[2020-10-24] MEDS: Memantine HCl 10 MG TABLET PO (22:27)
[2020-10-24] MEDS: Docusate Sodium 100 MG/10 ML LIQUID G-TUBE (22:27)
[2020-10-25] VITALS (7 sets, daily range): BP systolic 113–135; BP diastolic 65–86; PULSE 79–92; RESP 18–20; TEMP 36.2–36.8; O2SAT 94–100; BMI 21.4
[2020-10-25] MEDS: Piperacillin Sodium/Tazobactam 3.375 GM in 0.9 % Sodium Chloride 50 ML IV ×4 (01:33→20:14)
[2020-10-25] MEDS: Enoxaparin Sodium 40 MG/0.4 ML SYRINGE SUBCUT (01:38)
[2020-10-25] MEDS: Metoclopramide HCl 10 MG TABLET PO ×4 (01:40→21:52)
[2020-10-25] MEDS: 0.9 % Sodium Chloride 1,000 ML 75 ML IVCONT ×2 (03:23→17:03)
[2020-10-25 06:49] LABS: MANUAL DIFF FLAG NO
[2020-10-25 07:07] LABS: Basophils Percent Auto 0.4 % (0-2); Eosinophils Absolute Auto 0.4 X10*3/uL (0.0-0.4); Eosinophils Percent Auto 4.2 % (0-4); Hematocrit 30.6 % (42-52); Hemoglobin 9.3 g/dl (14.0-18.0); Imm Gran Abs Auto 0.03 X10*3/uL (0.00-0.03); Imm Gran Pct Auto 0.4 % (0.0-0.4); Lymphocytes Absolute Auto 1.7 X10*3/uL (1.2-4.9); Mean Corpuscular HGB Conc 30.4 g/dl (31.0-36.0); Mean Corpuscular Hemoglobin 27.8 pg (27.0-33.0); Mean Corpuscular Volume 91.3 fL (80-98); Mean Platelet Volume 9.9 fL (9.4-12.4); Monocytes Absolute Auto 0.5 X10*3/uL (0.1-1.2); Monocytes Percent Auto 6.3 % (2-11); Neutrophils Absolute Auto 5.6 X10*3/uL (2.0-8.3); Neutrophils Percent Auto 67.7 % (45-73); Platelet Count 319 X10*3/uL (160-400); Red Blood Count 3.35 X10*6/uL (4.60-5.80); Red Cell Distribution Width 16.1 % (11.0-16.0); White Blood Count 8.3 X10*3/uL (4.8-10.8)
[2020-10-25 07:22] LABS: Anion Gap 13 (12-20); Blood Urea Nitrogen 46 mg/dL (9-16); Calcium 9.2 mg/dL (8.4-10.2); Carbon Dioxide 22 mmol/L (22-29); Chloride 112 mmol/L (96-108); Estimated Glomerular Filt Rate 52; Glucose Random 88 mg/dL (60-115); Potassium 4.6 mmol/l (3.3-5.1); Sodium 142 mmol/L (135-145)
--- NOTE | 2020-10-25 08:54 | MHC.CM.PN ---
Patient is mostly non-verbal and bed bound at baseline; CM spoke with Daughter/HCP/Jennifer. The goal for dc is for Patient to return to [facility] and CM has initiated and will follow for dc planning. Eventually, Jennifer would like to take Patient home and she is working with [facility]. CM addressed IMM with Jennifer and the original will be mailed certified letter to her and a copy has been placed on the chart. PCP is Dr. Hermes Obrien.
--- NOTE | 2020-10-25 09:16 | P.PNIM_ITS ---
Subjective Subjective Date of Service: 10/25/20 Interval History: Seen in follow-up for ileus and UTI. Baseline confusion no new issues. Review of Systems Review of Systems: Yes Unobtainable due to mental status Physical Exam Vital Signs: Vital Signs: Last Vital Signs Temp 98.2 F 10/25/20 08:00 Pulse 92 10/25/20 08:00 Resp 18 10/25/20 08:00 BP 131/86 10/25/20 08:00 Pulse Ox 94 10/25/20 08:00 Body Mass Index 21.4 Const: Other: General: , confused at baseline. Resp: Normal respiratory effort CVS: S1,S2,RRR GI: Absent bowel sounds, + distention Skin: No rash Neuro: motor grossly intact Psych: appropriate affect Objective Data Current Medications Generic Name Dose Route Start Last Admin Trade Name Freq PRN Reason Stop Dose Admin Albuterol Sulfate 2 puff 10/24/20 17:13 Albuterol Sulfate 90 Mcg 8 Gm Inhaler INHALE Q4H PRN Shortness Of Breath Amlodipine Besylate 10 mg 10/25/20 09:00 Amlodipine Besylate 10 Mg Tablet PO DAILY [facility] Protocol Aspirin 81 mg 10/25/20 09:00 Aspirin Enteric Coated 81 Mg Tablet.Dr PO DAILY [facility] Bisacodyl 10 mg 10/25/20 00:53 Bisacodyl 10 Mg Supp.Rect PA DAILY PRN Constipation Carbidopa/Levodopa 2 tab 10/24/20 17:13 10/24/20 22:27 Carbidopa/Levodopa 25/100 Tablet PO 2 tab QID RAQUEL Administration Clopidogrel Bisulfate 75 mg 10/25/20 09:00 Clopidogrel Bisulfate 75 Mg Tablet PO DAILY [facility] Docusate Sodium 100 mg 10/24/20 21:21 10/24/20 22:27 Docusate Sodium 100 Mg/10 Ml Liquid G-TUBE 100 mg BID RAQUEL Administration Donepezil HCl 10 mg 10/25/20 09:00 Donepezil Hcl 10 Mg Tablet PO DAILY [facility] Doxazosin Mesylate 1 mg 10/24/20 21:00 10/24/20 22:27 Doxazosin Mesylate 1 Mg Tablet PO 1 mg BEDTIME RAQUEL Administration Enoxaparin Sodium 40 mg 10/25/20 02:00 10/25/20 01:38 Enoxaparin Sodium 40 Mg/0.4 Ml Syringe SUBCUT 40 mg Q24H RAQUEL Administration Escitalopram Oxalate 5 mg 10/25/20 09:00 Escitalopram Oxalate 5 Mg Tablet PO DAILY RAQUEL Sodium Chloride 1,000 mls @ 75 mls/hr 10/24/20 14:00 10/25/20 03:23 Ns IVCONT 75 mls/hr .[id number] RAQUEL Administration Piperacillin Sod/Tazobactam 50 mls @ 100 mls/hr 10/24/20 14:00 10/25/20 02:13 Sod 3.375 gm/ Sodium Chloride IV Infused Q6H RAQUEL Infusion Memantine 10 mg 10/24/20 21:00 10/24/20 22:27 Memantine Hcl 10 Mg Tablet PO 10 mg BID RAQUEL Administration Metoclopramide HCl 10 mg 10/25/20 00:53 10/25/20 01:40 Metoclopramide Hcl 10 Mg Tablet PO 10 mg QIDACHS [facility] Administration Pharmacy Consult 1 each 10/24/20 12:47 Consult Rx Perform Med Rec MISCELLANE ONCE PRN Consult order Polyethylene Glycol 17 gm 10/25/20 09:00 Polyethylene Glycol 3350 17 Gm Powd.Pack PO DAILY [facility] Pravastatin Sodium 20 mg 10/25/20 09:00 Pravastatin Sodium 20 Mg Tablet PO DAILY [facility] Sodium Chloride 3 ml 10/25/20 00:53 10/25/20 01:25 0.9 % Sodium Chloride Flush 3 Ml Syringe IVFLUSH Not Given QSHIFT [facility] Valproic Acid 1,000 mg 10/24/20 15:00 10/24/20 22:26 Valproic Acid (As Sodium Salt) 250 Mg/5 Ml Solution G-TUBE 1,000 mg TID RAQUEL Administration Labs CBC & Chem 7: 10/25/20 05:45 10/25/20 05:45 Assessment and Plan (1) Ileus: Status: Acute Assessment and Plan: 80-year-old male with a history of Parkinson's disease, dementia, COPD, seizure disorder, BPH, right leg osteomyelitis/gangrene status post recent right [id number] amputation at [facility] who was sent from snf facility due to abdominal distension found to have ileus Ileus Manual disimpaction attempted in the ED IV zosyn per surgical team rec Surgical consult Hold tube feeds for now UTI On antibiotics for ileus, will cover urine source Follow-up urine culture Sepsis focused exam completed Lactic acid within normal limits Follow-up blood cultures Mild renal insufficiency--improved Gentle IV fluid Follow renal function Hold Celebrex Dementia Continue donepezil, memantine Seizure disorder Continue valproic acid BPH Continue terazosin Parkinson's disease Continue Sinemet Hypertension Continue Norvasc Mood Continue escitalopram Hyperlipidemia Continue statin Peripheral vascular disease Continue aspirin, Plavix s/p recent right AKA at [facility] d/c on 10/16 with instructions for katherine to be removed in 2-3 weeks Anemia H/H at baseline Follow CBC diet tube feeds on hold due to ileus DVT prophylaxis-Lovenox
[2020-10-25] MEDS: Memantine HCl 10 MG TABLET PO ×2 (09:32→20:21)
[2020-10-25] MEDS: Aspirin Enteric Coated 81 MG TABLET.DR PO (09:32)
[2020-10-25] MEDS: Escitalopram Oxalate 5 MG TABLET PO (09:32)
[2020-10-25] MEDS: amLODIPine Besylate 10 MG TABLET PO (09:33)
[2020-10-25] MEDS: polyethylene glycoL 3350 17 GM POWD.PACK PO (09:33)
[2020-10-25] MEDS: 0.9 % Sodium Chloride Flush 3 ML SYRINGE IVFLUSH (09:33)
[2020-10-25] MEDS: Clopidogrel Bisulfate 75 MG TABLET PO (09:33)
[2020-10-25] MEDS: Pravastatin Sodium 20 MG TABLET PO (09:33)
[2020-10-25] MEDS: Docusate Sodium 100 MG/10 ML LIQUID G-TUBE ×2 (09:33→20:15)
[2020-10-25] MEDS: Carbidopa/Levodopa 25/100 TABLET 2 TAB PO ×4 (09:33→21:52)
[2020-10-25] MEDS: Donepezil HCl 10 MG TABLET PO (09:33)
--- NOTE | 2020-10-25 13:05 | P.CONGS_ITS ---
History of Present Illness Consult details Consult date: 10/25/20 Narrative: 80-year-old male with history of Parkinson's disease, dementia, admitted from the halfway yesterday because of abdominal distension. He is nonverbal and had undergone a PEG tube placement for failure to thrive last July 2020. He had a CAT scan done in the ER showing gaseous distention of the small and l arge bowel suggestive of ileus. The surgical service was therefore consulted. The patient currently appears comfortable. He is bed-bound and does not respond to any questions verbally. He is non communicative. Review of Systems Review of Systems: Yes Unobtainable due to mental condition PMFSH Past Medical History Medical History Anemia Cerebral microvascular disease Colitis COPD (chronic obstructive pulmonary disease) COVID-19 Dementia Epileptic Foot abscess, right Gastroenteritis/colitis, infectious History of right above knee amputation Multifactorial dementia Osteomyelitis of foot, right, acute Parkinson disease Prostatic hyperplasia Functional capacity: bed bound Family History Family History Father No problems noted. Mother Hypertension Tuberculosis Maternal Grandmother Stroke Daughter Stroke Surgical History Surgical History History of skin graft PEG (percutaneous endoscopic gastrostomy) status Social History Social History Household Members: Unknown / Unable to assess Housing: Unknown / Unable to assess Smoking Status: Unknown if ever smoked Use of substances other than those prescribed or required for medical reasons: Unable to respond Advance Directives: No Advance Directives Information Provided: No Do you have thoughts of harming others: None Do you have a plan to hurt others: No Plan Recently lost weight without trying: Unsure service: No Current occupational status: retired Meds Allergies Allergy/AdvReac Type Severity Reaction Status Date / Time No Known Allergies Allergy Verified 10/14/20 10:23 Home Medications Medication Instructions Recorded Confirmed Type acetaminophen 650 mg FEEDING TUBE Q4H PRN 08/18/20 10/24/20 History albuterol sulfate 2 inh INHALATION Q4H PRN 08/18/20 10/24/20 History amlodipine 10 mg FEEDING TUBE DAILY 08/18/20 10/24/20 History bisacodyl 10 mg [place] DAILY PRN 08/18/20 10/24/20 History carbidopa-levodopa 2 tab FEEDING TUBE QID 08/18/20 10/24/20 History celecoxib 200 mg FEEDING TUBE DAILY 08/18/20 10/24/20 History cholecalciferol (vitamin D3) 1,250 mcg FEEDING TUBE QMONTH 08/18/20 10/24/20 History docusate sodium 100 mg PO BID 08/18/20 10/24/20 History donepezil 10 mg FEEDING TUBE DAILY 08/18/20 10/24/20 History escitalopram oxalate 5 mg FEEDING TUBE DAILY 08/18/20 10/24/20 History memantine 10 mg FEEDING TUBE BID 08/18/20 10/24/20 History metoclopramide HCl 10 mg FEEDING TUBE QIDACHS 08/18/20 10/24/20 History terazosin 1 mg FEEDING TUBE BEDTIME 08/18/20 10/24/20 History aspirin 81 mg FEEDING TUBE DAILY 10/24/20 10/24/20 History clopidogrel 75 mg FEEDING TUBE DAILY 10/24/20 10/24/20 History pravastatin 20 mg FEEDING TUBE DAILY 10/24/20 10/24/20 History valproic acid (as sodium salt) 1,000 mg FEEDING TUBE TID 10/24/20 10/24/20 History Physical Exam Vital Signs: Vital Signs: Last Vital Signs Temp 98.2 F 10/25/20 08:00 Pulse 92 10/25/20 08:00 Resp 18 10/25/20 08:00 BP 131/86 10/25/20 08:00 Pulse Ox 94 10/25/20 08:00 Body Mass Index 21.4 Const: General: no acute distress Resp: Effort & Inspection: normal respiratory effort Cardio: Rate: regular rate GI: Palpation (GI): Soft to palpation, nontender, no guarding and not rigid Results Labs Result diagrams: 10/25/20 05:45 10/25/20 05:45 Labs: Abnormal lab results 10/25/20 10/25/20 Range/Units 05:45 05:45 RBC 3.35 L (4.60-5.80) X10*6/uL Hgb 9.3 L (14.0-18.0) g/dl Hct 30.6 L (42-52) % MCHC 30.4 L (31.0-36.0) g/dl RDW 16.1 H (11.0-16.0) % Eos % (Auto) 4.2 H (0-4) % Chloride 112 H (96-108) mmol/L BUN 46 H (9-16) mg/dL Short CBC 10/25/20 Range/Units 05:45 WBC 8.3 (4.8-10.8) X10*3/uL Hgb 9.3 L (14.0-18.0) g/dl Hct 30.6 L (42-52) % Plt Count 319 (160-400) X10*3/uL BMP 10/25/20 05:45 Sodium 142 Potassium 4.6 Chloride 112 H Carbon Dioxide 22 BUN 46 H Creatinine 1.32 Calcium 9.2 Urine 10/24/20 Range/Units 12:01 Urine Color YELLOW Urine Appearance CLOUDY Urine pH 6.0 (5.0-8.0) Ur Specific [place] 1.025 (1.005-1.025) Urine Protein 2+ H (NEG-TRACE) MG/DL Urine Glucose (UA) NEG (NEG) MG/DL All other labs normal. Assessment and Plan (1) Ileus: Status: Acute He was admitted for abdominal distension. His CAT scan was suggestive of ileus. He has a very benign exam at this time. Review of his ER records show he had a digital exam done in the ED and liquid stool and gas were evacuated. At this time, there is no surgical intervention necessary. He has PEG tube feedings may be restarted. He is being treated for UTI as well. He has an indwelling Wade catheter. I will re-evaluate him tomorrow.
--- NOTE | 2020-10-25 13:27 | MHC.CLN ---
WHEN TF TO RE-START RECOMMEND VITAL AT MAX GOAL RATE 50CC/HR WITH 240CC FREE WATER FLUSHES Q 4 HRS TO PROVIDE 1800KCALS (25KCALS/KG), 81G PROTEIN (1.2G/KG), 2357CC TOTAL WATER FROM FORMULA AND FLUSHES (34CC/KG) IN ADDITION, WILL ADD MEGHNA TO PROMOTE WOUND HEALING MONITOR TOLERANCE, RESIDUALS AND LYTES
--- NOTE | 2020-10-25 14:17 | MHC.CM.PN ---
Per RN, Daughter/HCP/Jennifer does not want anyone given Patient information, other than herself.
[2020-10-25] MEDS: Doxazosin Mesylate 1 MG TABLET PO (20:15)
--- NOTE | 2020-10-25 22:42 | PC.NURSE ---
Patient TRNSFERRED TO MED-SURG,REPORT WAS GIVEN TO GLORIA SCHRADER
[2020-10-26] MEDS: Enoxaparin Sodium 40 MG/0.4 ML SYRINGE SUBCUT (01:44)
[2020-10-26] MEDS: Piperacillin Sodium/Tazobactam 3.375 GM in 0.9 % Sodium Chloride 50 ML IV ×4 (01:45→21:02)
[2020-10-26] MEDS: 0.9 % Sodium Chloride 1,000 ML 75 ML IVCONT ×2 (06:00→21:02)
[2020-10-26 07:53] VITALS: BP 153/76; PULSE 107; RESP 22; TEMP 36.6; O2SAT 100
[2020-10-26] MEDS: polyethylene glycoL 3350 17 GM POWD.PACK PO (08:26)
[2020-10-26] MEDS: Donepezil HCl 10 MG TABLET PO (08:26)
[2020-10-26] MEDS: 0.9 % Sodium Chloride Flush 3 ML SYRINGE IVFLUSH (08:26)
[2020-10-26] MEDS: Clopidogrel Bisulfate 75 MG TABLET PO (08:26)
[2020-10-26] MEDS: Memantine HCl 10 MG TABLET PO ×2 (08:26→21:29)
[2020-10-26] MEDS: Escitalopram Oxalate 5 MG TABLET PO (08:26)
[2020-10-26] MEDS: Aspirin Enteric Coated 81 MG TABLET.DR PO (08:26)
[2020-10-26] MEDS: Carbidopa/Levodopa 25/100 TABLET 2 TAB PO ×4 (08:27→21:26)
[2020-10-26] MEDS: Metoclopramide HCl 10 MG TABLET PO ×4 (08:27→21:29)
[2020-10-26] MEDS: Pravastatin Sodium 20 MG TABLET PO (08:27)
[2020-10-26] MEDS: Docusate Sodium 100 MG/10 ML LIQUID G-TUBE ×2 (08:27→21:32)
[2020-10-26 08:28] VITALS: BP 153/76; PULSE 107
[2020-10-26] MEDS: amLODIPine Besylate 10 MG TABLET PO (08:28)
[2020-10-26 12:08] VITALS: BP 137/74; PULSE 93; RESP 19; TEMP 36.2; O2SAT 100
--- NOTE | 2020-10-26 13:48 | PM.PNGS ---
Subjective Subjective Date of Service: 10/26/20 Interval history: No events reported Patient non communicative Physical Exam Vital Signs: Vital Signs: Last Vital Signs Temp 97.2 F 10/26/20 12:08 Pulse 93 10/26/20 12:08 Resp 19 10/26/20 12:08 BP 137/74 10/26/20 12:08 Pulse Ox 100 10/26/20 12:08 Body Mass Index 21.4 Chemistry 10/24/20 10/25/20 11:08 05:45 Sodium 138 142 Potassium 4.7 4.6 Carbon Dioxide 22 22 BUN 57 H D 46 H Creatinine 1.44 H 1.32 Calcium 9.2 9.2 Hematology 10/24/20 10/25/20 11:08 05:45 WBC 14.7 H 8.3 Hgb 9.4 L 9.3 L Plt Count 331 D 319 Urinalysis 10/24/20 12:01 Urine Color YELLOW Urine Appearance CLOUDY Urine pH 6.0 Ur Specific Gravit y 1.025 Urine Protein 2+ H Urine Glucose (UA) NEG Urine Ketones NEG Urine Blood 3+ H Urine Nitrite NEG Ur Leukocyte Kellee ase 2+ H Urine RBC 30-49 H Urine WBC 76-150 H Ur Squamous Epith Cells NONE Const: Other: Appears very frail, not communicative General: no acute distress Cardio: Rate: regular rate GI: Other: No guarding or rebound, mildly distended, no apparent tenderness Palpation (GI): Soft to palpation Progress Note: A&P Assessment and plan (1) Ileus: Status: Acute Assessment and Plan: Abdomen remains benign CT scan reviewed -non-obstructive pattern Okay to restart tube feeds, low rate,advance as tolerated Check residuals May need Fleet enema periodically Fall Risk Details Current Medications: Current Medications Generic Name Dose Route Start Last Admin Trade Name Freq PRN Reason Stop Dose Admin Albuterol Sulfate 2 puff 10/24/20 17:13 Albuterol Sulfate 90 Mcg 8 Gm Inhaler INHALE Q4H PRN Shortness Of Breath Amlodipine Besylate 10 mg 10/25/20 09:00 10/26/20 08:28 Amlodipine Besylate 10 Mg Tablet PO 10 mg DAILY RAQUEL Administration Protocol Aspirin 81 mg 10/25/20 09:00 10/26/20 08:26 Aspirin Enteric Coated 81 Mg Tablet. PO 81 mg DAILY RAQUEL Administration Bisacodyl 10 mg 10/25/20 00:53 Bisacodyl 10 Mg Supp.Rect CO DAILY PRN Constipation Carbidopa/Levodopa 2 tab 10/24/20 17:13 10/26/20 12:46 Carbidopa/Levodopa 25/100 Tablet PO 2 tab QID RAQUEL Administration Clopidogrel Bisulfate 75 mg 10/25/20 09:00 10/26/20 08:26 Clopidogrel Bisulfate 75 Mg Tablet PO 75 mg DAILY RAQUEL Administration Docusate Sodium 100 mg 10/24/20 21:21 10/26/20 08:27 Docusate Sodium 100 Mg/10 Ml Liquid G-TUBE 100 mg BID RAQUEL Administration Donepezil HCl 10 mg 10/25/20 09:00 10/26/20 08:26 Donepezil Hcl 10 Mg Tablet PO 10 mg DAILY RAQUEL Administration Doxazosin Mesylate 1 mg 10/24/20 21:00 10/25/20 20:15 Doxazosin Mesylate 1 Mg Tablet PO 1 mg BEDTIME RAQUEL Administration Enoxaparin Sodium 40 mg 10/25/20 02:00 10/26/20 01:44 Enoxaparin Sodium 40 Mg/0.4 Ml Syringe SUBCUT 40 mg Q24H RAQUEL Administration Escitalopram Oxalate 5 mg 10/25/20 09:00 10/26/20 08:26 Escitalopram Oxalate 5 Mg Tablet PO 5 mg DAILY RAQUEL Administration Sodium Chloride 1,000 mls @ 75 mls/hr 10/24/20 14:00 10/26/20 06:00 Ns IVCONT 75 mls/hr .[id number] RAQUEL Administration Piperacillin Sod/Tazobactam 50 mls @ 100 mls/hr 10/24/20 14:00 10/26/20 09:05 Sod 3.375 gm/ Sodium Chloride IV Infused Q6H RAQUEL Infusion Memantine 10 mg 10/24/20 21:00 10/26/20 08:26 Memantine Hcl 10 Mg Tablet PO 10 mg BID RAQUEL Administration Metoclopramide HCl 10 mg 10/25/20 00:53 10/26/20 12:46 Metoclopramide Hcl 10 Mg Tablet PO 10 mg QIDACHS [facility] Administration Pharmacy Consult 1 each 10/24/20 12:47 Consult Rx Perform Med Rec MISCELLANE ONCE PRN Consult order Polyethylene Glycol 17 gm 10/26/20 21:00 Polyethylene Glycol 3350 17 Gm Powd.Pack G-TUBE BID [facility] Pravastatin Sodium 20 mg 10/25/20 09:00 10/26/20 08:27 Pravastatin Sodium 20 Mg Tablet PO 20 mg DAILY [facility]QU[facility] Administration Sodium Chloride 3 ml 10/25/20 00:53 10/26/20 08:26 0.9 % Sodium Chloride Flush 3 Ml Syringe IVFLUSH 3 ml QSHIFT [facility]QUEL Administration Valproic Acid 1,000 mg 10/24/20 15:00 10/26/20 08:27 Valproic Acid (As Sodium Salt) 250 Mg/5 Ml Solution G-TUBE 1,000 mg TID RAQUEL Administration Time Spent With Patient Time: Total time spent is greater than 50% in coordination of care (as documented) at patient's floor/unit and/or counseling patient: Time with patient: 15 - 24 minutes
--- NOTE | 2020-10-26 15:16 | P.PNIM_ITS ---
Subjective Subjective Date of Service: 10/27/20 Interval History: Ielus , uti Physical Exam Vital Signs: Vital Signs: Last Vital Signs Temp 97.2 F 10/26/20 12:08 Pulse 93 10/26/20 12:08 Resp 19 10/26/20 12:08 BP 137/74 10/26/20 12:08 Pulse Ox 100 10/26/20 12:08 Body Mass Index 21.4 Phsyio: constitutional:confused at baseline. Resp: comfortable, Normal respiratory effort CVS: S1,S2,RRR GI: still mild distentded, no rebound or guarding Skin: No rash Neuro: opens eyes . Objective Data Current Medications Generic Name Dose Route Start Last Admin Trade Name Freq PRN Reason Stop Dose Admin Albuterol Sulfate 2 puff 10/24/20 17:13 Albuterol Sulfate 90 Mcg 8 Gm Inhaler INHALE Q4H PRN Shortness Of Breath Amlodipine Besylate 10 mg 10/25/20 09:00 10/26/20 08:28 Amlodipine Besylate 10 Mg Tablet PO 10 mg DAILY RAQUEL Administration Protocol Aspirin 81 mg 10/25/20 09:00 10/26/20 08:26 Aspirin Enteric Coated 81 Mg Tablet.Dr PO 81 mg DAILY RAQUEL Administration Bisacodyl 10 mg 10/25/20 00:53 Bisacodyl 10 Mg Supp.Rect LA DAILY PRN Constipation Carbidopa/Levodopa 2 tab 10/24/20 17:13 10/26/20 12:46 Carbidopa/Levodopa 25/100 Tablet PO 2 tab QID RAQUEL Administration Clopidogrel Bisulfate 75 mg 10/25/20 09:00 10/26/20 08:26 Clopidogrel Bisulfate 75 Mg Tablet PO 75 mg DAILY RAQUEL Administration Docusate Sodium 100 mg 10/24/20 21:21 10/26/20 08:27 Docusate Sodium 100 Mg/10 Ml Liquid G-TUBE 100 mg BID [facility]QUEL Administration Donepezil HCl 10 mg 10/25/20 09:00 10/26/20 08:26 Donepezil Hcl 10 Mg Tablet PO 10 mg DAILY [facility]QUEL Administration Doxazosin Mesylate 1 mg 10/24/20 21:00 10/25/20 20:15 Doxazosin Mesylate 1 Mg Tablet PO 1 mg BEDTIME [facility]QUEL Administration Enoxaparin Sodium 40 mg 10/25/20 02:00 10/26/20 01:44 Enoxaparin Sodium 40 Mg/0.4 Ml Syringe SUBCUT 40 mg Q24H [facility]QUEL Administration Escitalopram Oxalate 5 mg 10/25/20 09:00 10/26/20 08:26 Escitalopram Oxalate 5 Mg Tablet PO 5 mg DAILY RAQUEL Administration Sodium Chloride 1,000 mls @ 75 mls/hr 10/24/20 14:00 10/26/20 06:00 Ns IVCONT 75 mls/hr .[id number] [facility]QUEL Administration Piperacillin Sod/Tazobactam 50 mls @ 100 mls/hr 10/24/20 14:00 10/26/20 14:36 Sod 3.375 gm/ Sodium Chloride IV 100 mls/hr Q6H [facility]QUEL Administration Memantine 10 mg 10/24/20 21:00 10/26/20 08:26 Memantine Hcl 10 Mg Tablet PO 10 mg BID RAQUEL Administration Metoclopramide HCl 10 mg 10/25/20 00:53 10/26/20 12:46 Metoclopramide Hcl 10 Mg Tablet PO 10 mg QIDACHS [facility] Administration Pharmacy Consult 1 each 10/24/20 12:47 Consult Rx Perform Med Rec MISCELLANE ONCE PRN Consult order Polyethylene Glycol 17 gm 10/26/20 21:00 Polyethylene Glycol 3350 17 Gm Powd.Pack G-TUBE BID [facility] Pravastatin Sodium 20 mg 10/25/20 09:00 10/26/20 08:27 Pravastatin Sodium 20 Mg Tablet PO 20 mg DAILY RAQUEL Administration Sodium Chloride 3 ml 10/25/20 00:53 10/26/20 08:26 0.9 % Sodium Chloride Flush 3 Ml Syringe IVFLUSH 3 ml QSHIFT [facility] Administration Valproic Acid 1,000 mg 10/24/20 15:00 10/26/20 14:36 Valproic Acid (As Sodium Salt) 250 Mg/5 Ml Solution G-TUBE 1,000 mg TID [facility] Administration Labs CBC & Chem 7: 10/25/20 05:45 10/27/20 06:23 Microbiology Microbiology Results: Microbiology 10/24/20 11:23 Blood - Venous Blood Culture - Preliminary No growth after 48 hours. 10/24/20 11:07 Blood - Venous Blood Culture - Preliminary No growth after 48 hours. 10/24/20 12:01 Urine clean catch - Clean Catch Midstream Urine Culture - Preliminary Yeast Assessment and Plan (1) Ileus: Status: Acute Assessment and Plan: 80-year-old male with a history of Parkinson's disease, dementia, COPD, seizure disorder, BPH, right leg osteomyelitis/gangrene status post recent right [id number] amputation at [facility] who was sent from senior living facility due to abdominal distension found to have ileus 1.Ileus:Manual disimpaction attempted in the ED 1 bm as per staff IV zosyn per surgical team rec since patent had bm , less distended : Started on tube feeding, patient may need p.r.n. Fleet enema says. Surgery following. PEG feeding started slow rate, monitor for any residuals. 2.UTI: Urine culture pending, blood culture negative at 48 hours On antibiotics for ileus, will cover urine source 3.Mild renal insufficiency--improved Gentle IV fluid Follow renal function Hold Celebrex 4.Dementia Continue donepezil, memantine 5.Seizure disorder Continue valproic acid 6.BPH Continue terazosin 7.Parkinson's disease Continue Sinemet 8.Hypertension Continue Norvasc Mood Continue escitalopram Hyperlipidemia Continue statin Peripheral vascular disease Continue aspirin, Plavix s/p recent right AKA at [facility] d/c on 10/16 with instructions for katherine to be removed in 2-3 weeks Anemia H/H at baseline Follow CBC diet tube feeds on hold due to ileus DVT prophylaxis-Lovenox
--- NOTE | 2020-10-26 15:43 | MHC.CM.PN ---
PER ATTENDING/ INTERDISCIPLINARY ROUNDS PT TO RESTART PEG TUBE FEEDINGS AND TITRATE UP, IF TOLERATING PATIENT WILL THEN RETURN TO [facility]. REFERRAL FOR RETURN TO [facility] SENT VIA [employer] BY [facility].
[2020-10-26 15:45] VITALS: BP 119/73; PULSE 84; RESP 16; TEMP 36.1; O2SAT 98
[2020-10-26] MEDS: polyethylene glycoL 3350 17 GM POWD.PACK G-TUBE (21:25)
[2020-10-26] MEDS: Doxazosin Mesylate 1 MG TABLET PO (21:29)
[2020-10-26 23:48] VITALS: RESP 20; TEMP 35.9
[2020-10-26 23:49] VITALS: BP 111/72; PULSE 90; RESP 20; TEMP 35.9; O2SAT 96
[2020-10-27] MEDS: Piperacillin Sodium/Tazobactam 3.375 GM in 0.9 % Sodium Chloride 50 ML IV ×4 (01:53→19:52)
[2020-10-27] MEDS: Enoxaparin Sodium 40 MG/0.4 ML SYRINGE SUBCUT (01:54)
[2020-10-27 07:24] LABS: Anion Gap 11 (12-20); Blood Urea Nitrogen 21 mg/dL (9-16); Calcium 8.6 mg/dL (8.4-10.2); Carbon Dioxide 20 mmol/L (22-29); Chloride 120 mmol/L (96-108); Creatinine Clr Calc Pharmacy 54.2; Estimated Glomerular Filt Rate > 60; Glucose Random 102 mg/dL (60-115); Potassium 3.3 mmol/l (3.3-5.1); Sodium 148 mmol/L (135-145)
[2020-10-27 08:00] VITALS: BP 127/68; PULSE 92; RESP 20; TEMP 36.2; O2SAT 100
[2020-10-27] MEDS: Metoclopramide HCl 10 MG TABLET PO ×4 (08:53→21:22)
[2020-10-27] MEDS: Escitalopram Oxalate 5 MG TABLET PO (09:42)
[2020-10-27] MEDS: Memantine HCl 10 MG TABLET PO ×2 (09:42→21:22)
[2020-10-27] MEDS: Clopidogrel Bisulfate 75 MG TABLET PO (09:42)
[2020-10-27] MEDS: Docusate Sodium 100 MG/10 ML LIQUID G-TUBE ×2 (09:42→21:22)
[2020-10-27] MEDS: Donepezil HCl 10 MG TABLET PO (09:42)
[2020-10-27] MEDS: Carbidopa/Levodopa 25/100 TABLET 2 TAB PO ×4 (09:42→21:22)
[2020-10-27] MEDS: Pravastatin Sodium 20 MG TABLET PO (09:42)
[2020-10-27] MEDS: amLODIPine Besylate 10 MG TABLET PO (09:42)
[2020-10-27] MEDS: Aspirin Enteric Coated 81 MG TABLET.DR PO (09:42)
[2020-10-27] MEDS: 0.9 % Sodium Chloride Flush 3 ML SYRINGE IVFLUSH (09:43)
[2020-10-27] MEDS: polyethylene glycoL 3350 17 GM POWD.PACK G-TUBE ×2 (09:43→21:22)
[2020-10-27] MEDS: Dextrose 5 % and 0.9 % NaCl 1,000 ML 50 ML IVCONT (11:46)
[2020-10-27 11:53] VITALS: BP 135/73; PULSE 102; RESP 20; TEMP 36.4; O2SAT 93
--- NOTE | 2020-10-27 12:22 | HO.PM.IMPN ---
Subjective Subjective Date of Service: 10/28/20 Interval History: Ielus,toxic metabolic encephalopathy Review of Systems unable to tell ,seems sleepy Physical Exam Vital Signs: Vital Signs: Last Vital Signs Temp 97.6 F 10/27/20 11:53 Pulse 102 H 10/27/20 11:53 Resp 20 10/27/20 11:53 BP 135/73 10/27/20 11:53 Pulse Ox 93 10/27/20 11:53 Body Mass Index 21.4 Physio: constitutional:confused at baseline. Resp: comfortable, Normal respiratory effort CVS: S1,S2,RRR GI: still mild distentded, no rebound or guarding Skin: No rash Neuro: opens eyes . Objective Data Current Medications Generic Name Dose Route Start Last Admin Trade Name Freq PRN Reason Stop Dose Admin Albuterol Sulfate 2 puff 10/24/20 17:13 Albuterol Sulfate 90 Mcg 8 Gm Inhaler INHALE Q4H PRN Shortness Of Breath Amlodipine Besylate 10 mg 10/25/20 09:00 10/27/20 09:42 Amlodipine Besylate 10 Mg Tablet PO 10 mg DAILY RAQUEL Administration Protocol Aspirin 81 mg 10/25/20 09:00 10/27/20 09:42 Aspirin Enteric Coated 81 Mg Tablet.Dr PO 81 mg DAILY RAQUEL Administration Bisacodyl 10 mg 10/25/20 00:53 Bisacodyl 10 Mg Supp.Rect ID DAILY PRN Constipation Carbidopa/Levodopa 2 tab 10/24/20 17:13 10/27/20 09:42 Carbidopa/Levodopa 25/100 Tablet PO 2 tab QID RAQUEL Administration Clopidogrel Bisulfate 75 mg 10/25/20 09:00 10/27/20 09:42 Clopidogrel Bisulfate 75 Mg Tablet PO 75 mg DAILY RAQUEL Administration Docusate Sodium 100 mg 10/24/20 21:21 10/27/20 09:42 Docusate Sodium 100 Mg/10 Ml Liquid G-TUBE 100 mg BID RAQUEL Administration Donepezil HCl 10 mg 10/25/20 09:00 10/27/20 09:42 Donepezil Hcl 10 Mg Tablet PO 10 mg DAILY RAQUEL Administration Doxazosin Mesylate 1 mg 10/24/20 21:00 10/26/20 21:29 Doxazosin Mesylate 1 Mg Tablet PO 1 mg BEDTIME RAQUEL Administration Enoxaparin Sodium 40 mg 10/25/20 02:00 10/27/20 01:54 Enoxaparin Sodium 40 Mg/0.4 Ml Syringe SUBCUT 40 mg Q24H RAQUEL Administration Escitalopram Oxalate 5 mg 10/25/20 09:00 10/27/20 09:42 Escitalopram Oxalate 5 Mg Tablet PO 5 mg DAILY [facility] Administration Piperacillin Sod/Tazobactam 50 mls @ 100 mls/hr 10/24/20 14:00 10/27/20 09:44 Sod 3.375 gm/ Sodium Chloride IV Infused Q6H RAQUEL Infusion Dextrose/Sodium Chloride 1,000 mls @ 50 mls/hr 10/27/20 08:30 10/27/20 11:46 D5ns IVCONT 50 mls/hr .Q20H RAQUEL Administration Memantine 10 mg 10/24/20 21:00 10/27/20 09:42 Memantine Hcl 10 Mg Tablet PO 10 mg BID RAQUEL Administration Metoclopramide HCl 10 mg 10/25/20 00:53 10/27/20 08:53 Metoclopramide Hcl 10 Mg Tablet PO 10 mg QIDACHS [facility] Administration Pharmacy Consult 1 each 10/24/20 12:47 Consult Rx Perform Med Rec MISCELLANE ONCE PRN Consult order Polyethylene Glycol 17 gm 10/26/20 21:00 10/27/20 09:43 Polyethylene Glycol 3350 17 Gm Powd.Pack G-TUBE 17 gm BID [facility] Administration Pravastatin Sodium 20 mg 10/25/20 09:00 10/27/20 09:42 Pravastatin Sodium 20 Mg Tablet PO 20 mg DAILY RAQUEL Administration Sodium Biphosphate/Sodium Phosphate 133 ml 10/26/20 18:01 Sodium Phosphate,[place]-Dibasic 133 Ml Enema ID ONCE PRN Constipation Sodium Chloride 3 ml 10/25/20 00:53 10/27/20 09:43 0.9 % Sodium Chloride Flush 3 Ml Syringe IVFLUSH 3 ml QSHIFT [facility] Administration Valproic Acid 1,000 mg 10/24/20 15:00 10/27/20 09:43 Valproic Acid (As Sodium Salt) 250 Mg/5 Ml Solution G-TUBE 1,000 mg TID [facility] Administration Labs CBC & Chem 7: 10/25/20 05:45 10/28/20 06:02 Microbiology Microbiology Results: Microbiology 10/24/20 12:01 Urine clean catch - Clean Catch Midstream Urine Culture - Final Shanthi albicans 10/24/20 11:23 Blood - Venous Blood Culture - Preliminary No growth after 48 hours. 10/24/20 11:07 Blood - Venous Blood Culture - Preliminary No growth after 48 hours. Assessment and Plan (1) Ileus: Status: Acute Assessment and Plan: 80-year-old male with a history of Parkinson's disease, dementia, COPD, seizure disorder, BPH, right leg osteomyelitis/gangrene status post recent right [id number]-[id number] amputation at [facility] who was sent from long term facility due to abdominal distension found to have ileus 1.Ileus:Manual disimpaction attempted in the ED 1 bm as per staff IV zosyn per surgical team rec since patent had bm , less distended : Started on tube feeding, patient may need p.r.n. Fleet enema says. Surgery following. PEG feeding started slow rate, monitor for any residuals. 2.UTI: Urine culture pending, blood culture negative at 48 hours On antibiotics for ileus, will cover urine source 3.Mild renal insufficiency--improved Gentle IV fluid Follow renal function Hold Celebrex 4.Dementia Continue donepezil, memantine 5.Seizure disorder Continue valproic acid 6.BPH Continue terazosin 7.Parkinson's disease Continue Sinemet 8.Hypertension Continue Norvasc 9.Mood Continue escitalopram 10.Hyperlipidemia Continue statin 11.Peripheral vascular disease Continue aspirin, Plavix 12.s/p recent right AKA at [facility] d/c on 10/16 with instructions for katherine to be removed in 2-3 weeks 13. Anemia H/H at baseline Follow CBC diet:tube feeds on hold due to ileus DVT prophylaxis-Lovenox
--- NOTE | 2020-10-27 12:51 | MHC.CM.PN ---
Addendum entered by Mary Vega RN 10/27/20 15:14: CM SPOKE WITH [employer]IVER WHO RECOMMENDS FEED CHANGE TO [facility], [facility] UPDATED W/REPORTS & CLINICALS AND [employer] DRIVER REPORTS SHE WILL REACH OUT TO HER CONTACT AT [facility]. Original Note: PER MULTIDISCIPLINARY ROUNDS PT IS HYPERNATREMIC, WEAK AND NOT IMPROVING FROM YESTERDAY, NO PLANS FOR DISCHARGE TODAY. PLAN: RETURN TO [facility] WITH BLS TRANSPORT
--- NOTE | 2020-10-27 12:53 | P.PNGS_ITS ---
Subjective Subjective Date of Service: 10/27/20 Interval history: No verbal output No events reported As per nurse, has had watery stools No vomiting So for tolerating tube feeds Physical Exam Vital Signs: Vital Signs: Last Vital Signs Temp 97.6 F 10/27/20 11:53 Pulse 102 H 10/27/20 11:53 Resp 20 10/27/20 11:53 BP 135/73 10/27/20 11:53 Pulse Ox 93 10/27/20 11:53 Body Mass Index 21.4 Const: Other: Not communicating verbally, General: comfortable and no acute distress Resp: Effort & Inspection: normal respiratory effort Cardio: Rate: regular rate GI: Other: Soft, mildly distended, no guarding/rebound/apparent tenderness Progress Note: A&P Assessment and plan (1) Ileus: Status: Acute Assessment and Plan: Has had BMs with water stools Tolerating tube feeds No vomiting Abdomen soft Check for residuals with tube feeds May need Fleet enemas p.r.n. Continues to have a benign abdominal exam Fall Risk Details Current Medications: Current Medications Generic Name Dose Route Start Last Admin Trade Name Freq PRN Reason Stop Dose Admin Albuterol Sulfate 2 puff 10/24/20 17:13 Albuterol Sulfate 90 Mcg 8 Gm Inhaler INHALE Q4H PRN Shortness Of Breath Amlodipine Besylate 10 mg 10/25/20 09:00 10/27/20 09:42 Amlodipine Besylate 10 Mg Tablet PO 10 mg DAILY RAQUEL Administration Protocol Aspirin 81 mg 10/25/20 09:00 10/27/20 09:42 Aspirin Enteric Coated 81 Mg Tablet.Dr PO 81 mg DAILY RAQUEL Administration Bisacodyl 10 mg 10/25/20 00:53 Bisacodyl 10 Mg Supp.Rect OR DAILY PRN Constipation Carbidopa/Levodopa 2 tab 10/24/20 17:13 10/27/20 09:42 Carbidopa/Levodopa 25/100 Tablet PO 2 tab QID RAQUEL Administration Clopidogrel Bisulfate 75 mg 10/25/20 09:00 10/27/20 09:42 Clopidogrel Bisulfate 75 Mg Tablet PO 75 mg DAILY RAQUEL Administration Docusate Sodium 100 mg 10/24/20 21:21 10/27/20 09:42 Docusate Sodium 100 Mg/10 Ml Liquid G-TUBE 100 mg BID RAQUEL Administration Donepezil HCl 10 mg 10/25/20 09:00 10/27/20 09:42 Donepezil Hcl 10 Mg Tablet PO 10 mg DAILY RAQUEL Administration Doxazosin Mesylate 1 mg 10/24/20 21:00 10/26/20 21:29 Doxazosin Mesylate 1 Mg Tablet PO 1 mg BEDTIME RAQUEL Administration Enoxaparin Sodium 40 mg 10/25/20 02:00 10/27/20 01:54 Enoxaparin Sodium 40 Mg/0.4 Ml Syringe SUBCUT 40 mg Q24H RAQUEL Administration Escitalopram Oxalate 5 mg 10/25/20 09:00 10/27/20 09:42 Escitalopram Oxalate 5 Mg Tablet PO 5 mg DAILY [facility] Administration Piperacillin Sod/Tazobactam 50 mls @ 100 mls/hr 10/24/20 14:00 10/27/20 09:44 Sod 3.375 gm/ Sodium Chloride IV Infused Q6H RAQUEL Infusion Dextrose/Sodium Chloride 1,000 mls @ 50 mls/hr 10/27/20 08:30 10/27/20 11:46 D5ns IVCONT 50 mls/hr .Q20H [facility] Administration Memantine 10 mg 10/24/20 21:00 10/27/20 09:42 Memantine Hcl 10 Mg Tablet PO 10 mg BID [facility] Administration Metoclopramide HCl 10 mg 10/25/20 00:53 10/27/20 08:53 Metoclopramide Hcl 10 Mg Tablet PO 10 mg QIDACHS [facility] Administration Omeprazole 20 mg 10/27/20 16:30 Omeprazole 20 Mg/10 Ml Susp.Recon G-TUBE BID@0630,1630 [facility] Pharmacy Consult 1 each 10/24/20 12:47 Consult Rx Perform Med Rec MISCELLANE ONCE PRN Consult order Polyethylene Glycol 17 gm 10/26/20 21:00 10/27/20 09:43 Polyethylene Glycol 3350 17 Gm Powd.Pack G-TUBE 17 gm BID [facility] Administration Pravastatin Sodium 20 mg 10/25/20 09:00 10/27/20 09:42 Pravastatin Sodium 20 Mg Tablet PO 20 mg DAILY [facility] Administration Sodium Biphosphate/Sodium Phosphate 133 ml 10/26/20 18:01 Sodium Phosphate,[place]-Dibasic 133 Ml Enema OR ONCE PRN Constipation Sodium Chloride 3 ml 10/25/20 00:53 10/27/20 09:43 0.9 % Sodium Chloride Flush 3 Ml Syringe IVFLUSH 3 ml QSHIFT [facility]QUEL Administration Valproic Acid 1,000 mg 10/24/20 15:00 10/27/20 09:43 Valproic Acid (As Sodium Salt) 250 Mg/5 Ml Solution G-TUBE 1,000 mg TID RAQUEL Administration Time Spent With Patient Time: Total time spent is greater than 50% in coordination of care (as documented) at patient's floor/unit and/or counseling patient: Time with patient: 15 - 24 minutes
--- NOTE | 2020-10-27 14:19 | MHC.CLN ---
F/U PT CURRENTLY RECEIVING [facility]EVITY AT MAX GOAL RATE 50CC/HR WITH 240CC Q 4HRS PROVIDING 1272KCALS, 53G PROTEIN, 2442CC TOTAL WATER FORMULA DOES NOT MEET PT'S ESTIMATED KCAL/PROTEIN NEEDS RECOMMEND VITAL AT MAX GOAL RATE 50CC/HR WITH 240CC FREE WATER FLUSHES Q 4 HRS TO PROVIDE 1800KCALS (25KCALS/KG), 81G PROTEIN (1.2G/KG), 2357CC TOTAL WATER FROM FORMULA AND FLUSHES (34CC/KG) MEGHNA TO PROMOTE WOUND HEALING START TF AT 20CC/HR AND INCREASE BY 10CC Q 4 HRS UNTIL MAX GOAL ACHIEVED MONITOR TOLERANCE, RESIDUALS AND LYTES
[2020-10-27] MEDS: Dextrose 5 % 1,000 ML 50 ML IVCONT (14:51)
[2020-10-27 15:45] VITALS: BP 109/61; PULSE 87; RESP 16; TEMP 36.6; O2SAT 97
[2020-10-27 17:50] LABS: Sodium 150 mmol/L (135-145)
[2020-10-27 20:48] LABS: Anion Gap 9 (12-20); Blood Urea Nitrogen 15 mg/dL (9-16); Calcium 8.4 mg/dL (8.4-10.2); Carbon Dioxide 24 mmol/L (22-29); Chloride 119 mmol/L (96-108); Creatinine Clr Calc Pharmacy 52.3; Estimated Glomerular Filt Rate > 60; Glucose Random 113 mg/dL (60-115); Potassium 2.9 mmol/l (3.3-5.1); Sodium 149 mmol/L (135-145)
[2020-10-27 21:22] VITALS: BP 109/61; PULSE 87
[2020-10-27] MEDS: Doxazosin Mesylate 1 MG TABLET PO (21:22)
[2020-10-28] VITALS: BP 124/70; PULSE 80; RESP 20; TEMP 36.9; O2SAT 95
[2020-10-28] MEDS: Enoxaparin Sodium 40 MG/0.4 ML SYRINGE SUBCUT (02:04)
[2020-10-28] MEDS: Piperacillin Sodium/Tazobactam 3.375 GM in 0.9 % Sodium Chloride 50 ML IV ×4 (02:14→21:43)
[2020-10-28] MEDS: Potassium Chloride/H20 10 MEQ/100 ML PIGGYBACK 100 MEQ IV ×4 (02:23→04:55)
[2020-10-28 07:15] LABS: Anion Gap 11 (12-20); Blood Urea Nitrogen 14 mg/dL (9-16); Calcium 8.6 mg/dL (8.4-10.2); Carbon Dioxide 21 mmol/L (22-29); Chloride 118 mmol/L (96-108); Creatinine Clr Calc Pharmacy 61.1; Estimated Glomerular Filt Rate > 60; Glucose Random 106 mg/dL (60-115); Potassium 3.5 mmol/l (3.3-5.1); Sodium 146 mmol/L (135-145)
[2020-10-28 07:32] VITALS: BP 134/79; PULSE 103; RESP 20; TEMP 36.9; O2SAT 99
--- NOTE | 2020-10-28 08:13 | PM.PNGS ---
Subjective Subjective Date of Service: 10/28/20 Interval history: No events reported Tolerating current tube feed rate had bowel movements yesterday No episodes of vomiting Physical Exam Vital Signs: Vital Signs: Last Vital Signs Temp 98.4 F 10/28/20 07:32 Pulse 103 H 10/28/20 07:32 Resp 20 10/28/20 07:32 BP 134/79 10/28/20 07:32 Pulse Ox 99 10/28/20 07:32 Body Mass Index 21.4 Chemistry 10/27/20 10/27/20 10/27/20 06:23 17:11 19:57 Sodium 148 H 150 H 149 H Potassium 3.3 D 2.9 L Carbon Dioxide 20 L 24 BUN 21 H D 15 Creatinine 1.07 1.11 Calcium 8.6 D 8.4 10/28/20 06:02 Sodium 146 H Potassium 3.5 D Carbon Dioxide 21 L BUN 14 Creatinine 0.95 Calcium 8.6 Const: Other: No verbal output General: no acute distress Resp: Effort & Inspection: normal respiratory effort GI: Other: Soft, mildly distended, no apparent tenderness, peg tube in place Progress Note: A&P Assessment and plan (1) Ileus: Status: Acute Assessment and Plan: Tolerating tube feeds Advanced rate as tolerated to meet caloric requirements CT scan images reviewed - no obstruction seen May need Fleet enemas p.r.n. - patient had high fecal load in rectum He has had bowel movements no apparent surgical issues at this time Fall Risk Details Current Medications: Current Medications Generic Name Dose Route Start Last Admin Trade Name Freq PRN Reason Stop Dose Admin Albuterol Sulfate 2 puff 10/24/20 17:13 Albuterol Sulfate 90 Mcg 8 Gm Inhaler INHALE Q4H PRN Shortness Of Breath Amlodipine Besylate 10 mg 10/25/20 09:00 10/27/20 09:42 Amlodipine Besylate 10 Mg Tablet PO 10 mg DAILY RAQUEL Administration Protocol Aspirin 81 mg 10/25/20 09:00 10/27/20 09:42 Aspirin Enteric Coated 81 Mg Tablet.Dr PO 81 mg DAILY RAQUEL Administration Bisacodyl 10 mg 10/25/20 00:53 Bisacodyl 10 Mg Supp.Rect [place] DAILY PRN Constipation Carbidopa/Levodopa 2 tab 10/24/20 17:13 10/27/20 21:22 Carbidopa/Levodopa 25/100 Tablet PO 2 tab QID RAQUEL Administration Clopidogrel Bisulfate 75 mg 10/25/20 09:00 10/27/20 09:42 Clopidogrel Bisulfate 75 Mg Tablet PO 75 mg DAILY RAQUEL Administration Docusate Sodium 100 mg 10/24/20 21:21 10/27/20 21:22 Docusate Sodium 100 Mg/10 Ml Liquid G-TUBE 100 mg BID RAQUEL Administration Donepezil HCl 10 mg 10/25/20 09:00 10/27/20 09:42 Donepezil Hcl 10 Mg Tablet PO 10 mg DAILY RAQUEL Administration Doxazosin Mesylate 1 mg 10/24/20 21:00 10/27/20 21:22 Doxazosin Mesylate 1 Mg Tablet PO 1 mg BEDTIME RAQUEL Administration Enoxaparin Sodium 40 mg 10/25/20 02:00 10/28/20 02:04 Enoxaparin Sodium 40 Mg/0.4 Ml Syringe SUBCUT 40 mg Q24H RAQUEL Administration Escitalopram Oxalate 5 mg 10/25/20 09:00 10/27/20 09:42 Escitalopram Oxalate 5 Mg Tablet PO 5 mg DAILY RAQUEL Administration Piperacillin Sod/Tazobactam 50 mls @ 100 mls/hr 10/24/20 14:00 10/28/20 02:45 Sod 3.375 gm/ Sodium Chloride IV Infused Q6H RAQUEL Infusion Dextrose 1,000 mls @ 50 mls/hr 10/27/20 14:15 10/27/20 14:51 D5w IVCONT 50 mls/hr .Q20H RAQUEL Administration Memantine 10 mg 10/24/20 21:00 10/27/20 21:22 Memantine Hcl 10 Mg Tablet PO 10 mg BID RAQUEL Administration Metoclopramide HCl 10 mg 10/25/20 00:53 10/27/20 21:22 Metoclopramide Hcl 10 Mg Tablet PO 10 mg QIDACHS RAQUEL Administration Omeprazole 20 mg 10/27/20 16:30 10/28/20 06:10 Omeprazole 20 Mg/10 Ml Susp.Recon G-TUBE 20 mg BID@0630,1630 [facility] Administration Pharmacy Consult 1 each 10/24/20 12:47 Consult Rx Perform Med Rec MISCELLANE ONCE PRN Consult order Polyethylene Glycol 17 gm 10/26/20 21:00 10/27/20 21:22 Polyethylene Glycol 3350 17 Gm Powd.Pack G-TUBE 17 gm BID RAQUEL Administration Pravastatin Sodium 20 mg 10/25/20 09:00 10/27/20 09:42 Pravastatin Sodium 20 Mg Tablet PO 20 mg DAILY RAQUEL Administration Sodium Biphosphate/Sodium Phosphate 133 ml 10/26/20 18:01 Sodium Phosphate,[place]-Dibasic 133 Ml Enema [place] ONCE PRN Constipation Sodium Chloride 3 ml 10/25/20 00:53 10/27/20 21:34 0.9 % Sodium Chloride Flush 3 Ml Syringe IVFLUSH Not Given QSHIFT RAQUEL Valproic Acid 1,000 mg 10/24/20 15:00 10/27/20 21:22 Valproic Acid (As Sodium Salt) 250 Mg/5 Ml Solution G-TUBE 1,000 mg TID RAQUEL Administration Time Spent With Patient Time: Total time spent is greater than 50% in coordination of care (as documented) at patient's floor/unit and/or counseling patient: Time with patient: 15 - 24 minutes
[2020-10-28] MEDS: Metoclopramide HCl 10 MG TABLET PO ×4 (09:01→21:43)
[2020-10-28] MEDS: 0.9 % Sodium Chloride Flush 3 ML SYRINGE IVFLUSH (09:02)
[2020-10-28] MEDS: Aspirin Enteric Coated 81 MG TABLET.DR PO (10:15)
[2020-10-28] MEDS: Memantine HCl 10 MG TABLET PO ×2 (10:15→21:43)
[2020-10-28] MEDS: Escitalopram Oxalate 5 MG TABLET PO (10:15)
[2020-10-28 10:16] VITALS: BP 149/81; PULSE 90
[2020-10-28] MEDS: amLODIPine Besylate 10 MG TABLET PO (10:16)
[2020-10-28] MEDS: Donepezil HCl 10 MG TABLET PO (10:16)
[2020-10-28] MEDS: Pravastatin Sodium 20 MG TABLET PO (10:16)
[2020-10-28] MEDS: Clopidogrel Bisulfate 75 MG TABLET PO (10:16)
[2020-10-28] MEDS: Carbidopa/Levodopa 25/100 TABLET 2 TAB PO ×4 (10:19→21:43)
--- NOTE | 2020-10-28 11:39 | HO.PM.IMPN ---
Subjective Subjective Date of Service: 10/28/20 Interval History: hypernatremia Review of Systems Seems more awake, try to whisper the name. Physical Exam Vital Signs: Vital Signs: Last Vital Signs Temp 98.4 F 10/28/20 07:32 Pulse 90 10/28/20 10:16 Resp 20 10/28/20 07:32 BP 149/81 H 10/28/20 10:16 Pulse Ox 99 10/28/20 07:32 Body Mass Index 21.4 Physical exam: Constitutional: Not in acute distress confused at baseline. Resp: fair air netry, no rales or wheezing. CVS: S1,S2,RRR GI: seems similar mild distentded, no rebound or guarding Skin: No rash Neuro: opens eyes , whisper names Objective Data Current Medications Generic Name Dose Route Start Last Admin Trade Name Freq PRN Reason Stop Dose Admin Albuterol Sulfate 2 puff 10/24/20 17:13 Albuterol Sulfate 90 Mcg 8 Gm Inhaler INHALE Q4H PRN Shortness Of Breath Amlodipine Besylate 10 mg 10/25/20 09:00 10/28/20 10:16 Amlodipine Besylate 10 Mg Tablet PO 10 mg DAILY RAQUEL Administration Protocol Aspirin 81 mg 10/25/20 09:00 10/28/20 10:15 Aspirin Enteric Coated 81 Mg Tablet.Dr PO 81 mg DAILY RAQUEL Administration Bisacodyl 10 mg 10/25/20 00:53 Bisacodyl 10 Mg Supp.Rect [place] DAILY PRN Constipation Carbidopa/Levodopa 2 tab 10/24/20 17:13 10/28/20 10:19 Carbidopa/Levodopa 25/100 Tablet PO 2 tab QID RAQUEL Administration Clopidogrel Bisulfate 75 mg 10/25/20 09:00 10/28/20 10:16 Clopidogrel Bisulfate 75 Mg Tablet PO 75 mg DAILY RAQUEL Administration Docusate Sodium 100 mg 10/24/20 21:21 10/28/20 10:20 Docusate Sodium 100 Mg/10 Ml Liquid G-TUBE Not Given BID RAQUEL Donepezil HCl 10 mg 10/25/20 09:00 10/28/20 10:16 Donepezil Hcl 10 Mg Tablet PO 10 mg DAILY RAQUEL Administration Doxazosin Mesylate 1 mg 10/24/20 21:00 10/27/20 21:22 Doxazosin Mesylate 1 Mg Tablet PO 1 mg BEDTIME RAQUEL Administration Enoxaparin Sodium 40 mg 10/25/20 02:00 10/28/20 02:04 Enoxaparin Sodium 40 Mg/0.4 Ml Syringe SUBCUT 40 mg Q24H RAQUEL Administration Escitalopram Oxalate 5 mg 10/25/20 09:00 10/28/20 10:15 Escitalopram Oxalate 5 Mg Tablet PO 5 mg DAILY RAQUEL Administration Piperacillin Sod/Tazobactam 50 mls @ 100 mls/hr 10/24/20 14:00 10/28/20 10:20 Sod 3.375 gm/ Sodium Chloride IV Infused Q6H RAQUEL Infusion Dextrose 1,000 mls @ 50 mls/hr 10/27/20 14:15 10/27/20 14:51 D5w IVCONT 50 mls/hr .Q20H RAQUEL Administration Memantine 10 mg 10/24/20 21:00 10/28/20 10:15 Memantine Hcl 10 Mg Tablet PO 10 mg BID RAQUEL Administration Metoclopramide HCl 10 mg 10/25/20 00:53 10/28/20 09:01 Metoclopramide Hcl 10 Mg Tablet PO 10 mg QIDACHS [facility] Administration Omeprazole 20 mg 10/27/20 16:30 10/28/20 06:10 Omeprazole 20 Mg/10 Ml Susp.Recon G-TUBE 20 mg BID@0630,1630 [facility] Administration Pharmacy Consult 1 each 10/24/20 12:47 Consult Rx Perform Med Rec MISCELLANE ONCE PRN Consult order Polyethylene Glycol 17 gm 10/26/20 21:00 10/28/20 10:19 Polyethylene Glycol 3350 17 Gm Powd.Pack G-TUBE Not Given BID [facility] Pravastatin Sodium 20 mg 10/25/20 09:00 10/28/20 10:16 Pravastatin Sodium 20 Mg Tablet PO 20 mg DAILY [facility] Administration Sodium Biphosphate/Sodium Phosphate 133 ml 10/26/20 18:01 Sodium Phosphate,[place]-Dibasic 133 Ml Enema [place] ONCE PRN Constipation Sodium Chloride 3 ml 10/25/20 00:53 10/28/20 09:02 0.9 % Sodium Chloride Flush 3 Ml Syringe IVFLUSH 3 ml QSHIFT RAQUEL Administration Valproic Acid 1,000 mg 10/24/20 15:00 10/28/20 10:19 Valproic Acid (As Sodium Salt) 250 Mg/5 Ml Solution G-TUBE 1,000 mg TID [facility] Administration Labs CBC & Chem 7: 10/25/20 05:45 10/28/20 06:02 Microbiology Microbiology Results: Microbiology 10/24/20 12:01 Urine clean catch - Clean Catch Midstream Urine Culture - Final Shanthi albicans 10/24/20 11:23 Blood - Venous Blood Culture - Preliminary No growth after 48 hours. 10/24/20 11:07 Blood - Venous Blood Culture - Preliminary No growth after 48 hours. Assessment and Plan (1) Acute UTI: Status: Acute (2) Ileus: Status: Acute Assessment and Plan: 80-year-old male with a history of Parkinson's disease, dementia, COPD, seizure disorder, BPH, right leg osteomyelitis/gangrene status post recent right [id number] amputation at [facility] who was sent from [facility] facility due to abdominal distension found to have ileus 1. Hypernatremia: Probably related to dehydration, also NS patient received earlier. Started on D5W yesterday: Sodium slowly improving Seems more awake today. Ileus:Manual disimpaction attempted in the ED IV zosyn per surgical team rec since patient had bm yesterday , similar distended as yesteday: tolerating tube feeding, patient may need p.r.n. Fleet enema says. Surgery following. PEG feeding started slow rate, monitor for any residuals. 2.UTI: Urine culture pending, blood culture negative at 48 hours On antibiotics for ileus, urine source-canadid a? contamination will send repeat urine cultures . blood culture@ 48 hrs 3.Mild renal insufficiency--improved Gentle IV fluid Follow renal function Hold Celebrex 4.Dementia Continue donepezil, memantine 5.Seizure disorder Continue valproic acid 6.BPH Continue terazosin 7.Parkinson's disease Continue Sinemet 8.Hypertension Continue Norvasc 9.Mood Continue escitalopram 10.Hyperlipidemia Continue statin 11.Peripheral vascular disease Continue aspirin, Plavix 12.s/p recent right AKA at [facility] d/c on 10/16 with instructions for katherine to be removed in 2-3 weeks 13. Anemia H/H at baseline Follow CBC diet:tube feeds on hold due to ileus DVT prophylaxis-Lovenox
[2020-10-28] MEDS: Dextrose 5 % 1,000 ML 50 ML IVCONT (11:44)
--- NOTE | 2020-10-28 12:47 | MHC.CLN ---
F/U PT RECEIVING TF VITAL AT MAX GOAL RATE 50CC/HR WITH 240CC FREE WATER FLUSHES Q 4 HRS TO PROVIDE 1800KCALS (25KCALS/KG), 81G PROTEIN (1.2G/KG), 2357CC TOTAL WATER FROM FORMULA AND FLUSHES (34CC/KG) MEGHNA TO PROMOTE WOUND HEALING NSG REPORTS TOLERATING WELL WITH LOW RESIDUALS CONTINUE TO MONITOR TOLERANCE, RESIDUALS AND LYTES COORDINATING DC WITH CM
[2020-10-28 15:25] VITALS: BP 129/74; PULSE 82; RESP 22; TEMP 37.3; O2SAT 98
[2020-10-28 19:10] LABS: Sodium 146 mmol/L (135-145)
--- NOTE | 2020-10-28 19:13 | W.PM.IDCN ---
History of Present Illness Data of Consult Service Date: 10/28/20 Requesting physician: Ben Romero Primary Care Provider: Hermes Obrien MD HPI Reason for consult: abdominal distention,leukocytosis He presents to hospital with abdominal distention and concern over Peg tube feedings going slow. He was hospitalized 08/17-09/08 and had right foot osteomyelitis and then AKA. He has no fever or chills and has pyuria. Cultures pending So far urinalysis kevin. Review of Systems Review of Systems: Yes Unobtainable due to mental condition PMFSH Past Medical History Medical History Anemia Cerebral microvascular disease Colitis COPD (chronic obstructive pulmonary disease) COVID-19 Dementia Epileptic Foot abscess, right Gastroenteritis/colitis, infectious History of right above knee amputation Multifactorial dementia Osteomyelitis of foot, right, acute Parkinson disease Prostatic hyperplasia Functional capacity: bed bound Family History Family History Father No problems noted. Mother Hypertension Tuberculosis Maternal Grandmother Stroke Daughter Stroke Surgical History Surgical History History of skin graft PEG (percutaneous endoscopic gastrostomy) status Social History Social History Household Members: Unknown / Unable to assess Housing: Unknown / Unable to assess Smoking Status: Unknown if ever smoked Use of substances other than those prescribed or required for medical reasons: Unable to respond Currently Displaying Signs/Symptoms of Drug Intoxication Withdrawal: No Advance Directives: No Advance Directives Information Provided: No Do you have thoughts of harming others: None Do you have a plan to hurt others: No Plan Recently lost weight without trying: Unsure service: No Current occupational status: retired Meds Allergies Allergy/AdvReac Type Severity Reaction Status Date / Time No Known Allergies Allergy Verified 10/14/20 10:23 Home Medications Medication Instructions Recorded Confirmed Type acetaminophen 650 mg FEEDING TUBE Q4H PRN 08/18/20 10/24/20 History albuterol sulfate 2 inh INHALATION Q4H PRN 08/18/20 10/24/20 History amlodipine 10 mg FEEDING TUBE DAILY 08/18/20 10/24/20 History bisacodyl 10 mg [place] DAILY PRN 08/18/20 10/24/20 History carbidopa-levodopa 2 tab FEEDING TUBE QID 08/18/20 10/24/20 History celecoxib 200 mg FEEDING TUBE DAILY 08/18/20 10/24/20 History cholecalciferol (vitamin D3) 1,250 mcg FEEDING TUBE QMONTH 08/18/20 10/24/20 History docusate sodium 100 mg PO BID 08/18/20 10/24/20 History donepezil 10 mg FEEDING TUBE DAILY 08/18/20 10/24/20 History escitalopram oxalate 5 mg FEEDING TUBE DAILY 08/18/20 10/24/20 History memantine 10 mg FEEDING TUBE BID 08/18/20 10/24/20 History metoclopramide HCl 10 mg FEEDING TUBE QIDACHS 08/18/20 10/24/20 History terazosin 1 mg FEEDING TUBE BEDTIME 08/18/20 10/24/20 History aspirin 81 mg FEEDING TUBE DAILY 10/24/20 10/24/20 History clopidogrel 75 mg FEEDING TUBE DAILY 10/24/20 10/24/20 History pravastatin 20 mg FEEDING TUBE DAILY 10/24/20 10/24/20 History valproic acid (as sodium salt) 1,000 mg FEEDING TUBE TID 10/24/20 10/24/20 History Physical Exam Vital Signs: Vital Signs: Last Vital Signs Temp 99.2 F 10/28/20 15:25 Pulse 82 10/28/20 15:25 Resp 22 H 10/28/20 15:25 BP 129/74 10/28/20 15:25 Pulse Ox 98 10/28/20 15:25 Body Mass Index 21.4 Const: General: cooperative HENMT: Head: Yes normal to inspection Mouth: moist mucous membranes Eyes: General: appearance normal, both eyes and all related structures Resp: Effort & Inspection: normal respiratory effort Cardio: Rate: regular rate Rhythm: regular rhythm GI: Other: distention abdomen Auscultation: Hypoactive bowel sounds present Back/Spine/Pelvis: Cervical Spine: normal cervical lordosis Extrem: General: Yes normal to inspection Assessment and Plan (1) Chronic constipation: Status: Acute (2) Encephalopathy: Status: Acute (3) Ileus: Problem details: Leukocytosis Concern over UTI or bowel translocation bacteria due to ileus NKDA Status: Acute Would agree with Zosyn Watch cultures (4) Acute UTI: Problem details: Pyuria Status: Acute Would await cultures Continue Zosyn Results Labs CBC & Chem 7: 10/25/20 05:45 10/28/20 18:30 Labs: BMP 10/27/20 10/28/20 10/28/20 19:57 06:02 18:30 Sodium 149 H 146 H 146 H Potassium 2.9 L 3.5 D Chloride 119 H 118 H Carbon Dioxide 24 21 L BUN 15 14 Creatinine 1.11 0.95 Calcium 8.4 8.6 Microbiology Microbiology Results: Microbiology 10/24/20 12:01 Urine clean catch - Clean Catch Midstream Urine Culture - Final Kevin albicans 10/24/20 11:23 Blood - Venous Blood Culture - Preliminary No growth after 48 hours. 10/24/20 11:07 Blood - Venous Blood Culture - Preliminary No growth after 48 hours.
[2020-10-28 20:48] LABS: Sodium 145 mmol/L (135-145)
[2020-10-28] MEDS: Doxazosin Mesylate 1 MG TABLET PO (21:43)
[2020-10-29 01:17] VITALS: BP 107/65; PULSE 87; RESP 20; TEMP 37.3; O2SAT 96
[2020-10-29] MEDS: Piperacillin Sodium/Tazobactam 3.375 GM in 0.9 % Sodium Chloride 50 ML IV ×4 (02:53→20:00)
[2020-10-29] MEDS: Enoxaparin Sodium 40 MG/0.4 ML SYRINGE SUBCUT (02:56)
[2020-10-29] MEDS: Dextrose 5 % 1,000 ML 50 ML IVCONT (07:48)
--- NOTE | 2020-10-29 07:56 | P.PNIM_ITS ---
Subjective Subjective Date of Service: 10/30/20 Interval History: constipation /ileus?, Hypernatremia Physical Exam Vital Signs: Vital Signs: Last Vital Signs Temp 99.2 F 10/29/20 01:17 Pulse 87 10/29/20 01:17 Resp 20 10/29/20 01:17 BP 107/65 10/29/20 01:17 Pulse Ox 96 10/29/20 01:17 Body Mass Index 21.4 Physical exam: Constitutional: Not in acute distress, tried whisper his name confused at baseline. Resp: fair air netry, no rales or wheezing. CVS: S1,S2,RRR GI: seems similar mild distentded, no rebound or guarding Skin: No rash Neuro: opens eyes , whisper names Objective Data Current Medications Generic Name Dose Route Start Last Admin Trade Name Freq PRN Reason Stop Dose Admin Albuterol Sulfate 2 puff 10/24/20 17:13 Albuterol Sulfate 90 Mcg 8 Gm Inhaler INHALE Q4H PRN Shortness Of Breath Amlodipine Besylate 10 mg 10/25/20 09:00 10/28/20 10:16 Amlodipine Besylate 10 Mg Tablet PO 10 mg DAILY RAQUEL Administration Protocol Aspirin 81 mg 10/25/20 09:00 10/28/20 10:15 Aspirin Enteric Coated 81 Mg Tablet.Dr PO 81 mg DAILY RAQUEL Administration Bisacodyl 10 mg 10/25/20 00:53 Bisacodyl 10 Mg Supp.Rect [place] DAILY PRN Constipation Carbidopa/Levodopa 2 tab 10/24/20 17:13 10/28/20 21:43 Carbidopa/Levodopa 25/100 Tablet PO 2 tab QID RAQUEL Administration Clopidogrel Bisulfate 75 mg 10/25/20 09:00 10/28/20 10:16 Clopidogrel Bisulfate 75 Mg Tablet PO 75 mg DAILY RAQUEL Administration Docusate Sodium 100 mg 10/24/20 21:21 10/28/20 21:44 Docusate Sodium 100 Mg/10 Ml Liquid G-TUBE Not Given BID RAQUEL Donepezil HCl 10 mg 10/25/20 09:00 10/28/20 10:16 Donepezil Hcl 10 Mg Tablet PO 10 mg DAILY RAQUEL Administration Doxazosin Mesylate 1 mg 10/24/20 21:00 10/28/20 21:43 Doxazosin Mesylate 1 Mg Tablet PO 1 mg BEDTIME RAQUEL Administration Enoxaparin Sodium 40 mg 10/25/20 02:00 10/29/20 02:56 Enoxaparin Sodium 40 Mg/0.4 Ml Syringe SUBCUT 40 mg Q24H RAQUEL Administration Escitalopram Oxalate 5 mg 10/25/20 09:00 10/28/20 10:15 Escitalopram Oxalate 5 Mg Tablet PO 5 mg DAILY [facility] Administration Piperacillin Sod/Tazobactam 50 mls @ 100 mls/hr 10/24/20 14:00 10/29/20 03:20 Sod 3.375 gm/ Sodium Chloride IV Infused Q6H [facility] Infusion Dextrose 1,000 mls @ 50 mls/hr 10/27/20 14:15 10/29/20 07:48 D5w IVCONT 50 mls/hr .Q20H [facility] Administration Memantine 10 mg 10/24/20 21:00 10/28/20 21:43 Memantine Hcl 10 Mg Tablet PO 10 mg BID RAQUEL Administration Metoclopramide HCl 10 mg 10/25/20 00:53 10/28/20 21:43 Metoclopramide Hcl 10 Mg Tablet PO 10 mg QIDACHS [facility] Administration Omeprazole 20 mg 10/27/20 16:30 10/29/20 05:28 Omeprazole 20 Mg/10 Ml Susp.Recon G-TUBE 20 mg BID@0630,1630 [facility] Administration Pharmacy Consult 1 each 10/24/20 12:47 Consult Rx Perform Med Rec MISCELLANE ONCE PRN Consult order Polyethylene Glycol 17 gm 10/26/20 21:00 10/28/20 21:45 Polyethylene Glycol 3350 17 Gm Powd.Pack G-TUBE Not Given BID [facility] Pravastatin Sodium 20 mg 10/25/20 09:00 10/28/20 10:16 Pravastatin Sodium 20 Mg Tablet PO 20 mg DAILY [facility] Administration Sodium Biphosphate/Sodium Phosphate 133 ml 10/26/20 18:01 Sodium Phosphate,[place]-Dibasic 133 Ml Enema [place] ONCE PRN Constipation Sodium Biphosphate/Sodium Phosphate 133 ml 10/29/20 07:19 Sodium Phosphate,[place]-Dibasic 133 Ml Enema [place] ONCE PRN Constipation Sodium Chloride 3 ml 10/25/20 00:53 10/29/20 07:29 0.9 % Sodium Chloride Flush 3 Ml Syringe IVFLUSH Not Given QSHIFT [facility] Valproic Acid 1,000 mg 10/24/20 15:00 10/28/20 21:43 Valproic Acid (As Sodium Salt) 250 Mg/5 Ml Solution G-TUBE 1,000 mg TID RAQUEL Administration Labs CBC & Chem 7: 10/25/20 05:45 10/29/20 07:04 Microbiology Microbiology Results: Microbiology 10/24/20 12:01 Urine clean catch - Clean Catch Midstream Urine Culture - Final Shanthi albicans 10/24/20 11:23 Blood - Venous Blood Culture - Preliminary No growth after 48 hours. 10/24/20 11:07 Blood - Venous Blood Culture - Preliminary No growth after 48 hours. Assessment and Plan (1) Chronic constipation: Status: Acute (2) Acute UTI: Problem details: Pyuria Status: Acute (3) Ileus: Status: Acute Assessment and Plan: 80-year-old male with a history of Parkinson's disease, dementia, COPD, seizure disorder, BPH, right leg osteomyelitis/gangrene status post recent right [id number] amputation at [facility] who [facility] due to abdominal distension found to have ileus 1. Hypernatremia: Probably related to dehydration, also NS patient received earlier. Started on D5W yesterday: Sodium slowly improved. Seems more awake today. Ileus:Manual disimpaction attempted in the ED IV zosyn per surgical team rec since patient had bm yesterday , similar distended as yesteday: tolerating tub e feeding, patient may need p.r.n. Fleet enema says. also as per staff had 1-2 liquid stools overnight PEG feeding , monitor for any residuals. surgery follow up pending 2.UTI: Urine culture pending, blood culture negative at 48 hours On antibiotics for ileus, urine source-canadid a? contamination will send repeat urine cultures . blood culture@ 48 hrs 3.Mild renal insufficiency--improved Gentle IV fluid Follow renal function Hold Celebrex 4.Dementia Continue donepezil, memantine 5.Seizure disorder Continue valproic acid 6.BPH Continue terazosin 7.Parkinson's disease Continue Sinemet 8.Hypertension Continue Norvasc 9.Mood Continue escitalopram 10.Hyperlipidemia Continue statin 11.Peripheral vascular disease Continue aspirin, Plavix 12.s/p recent right AKA at [facility] d/c on 10/16 with instructions for katherine to be removed in 2-3 weeks 13. Anemia H/H at baseline Follow CBC diet:tube feeds on hold due to ileus DVT prophylaxis-Lovenox
[2020-10-29 08:00] VITALS: BP 120/68; PULSE 87; RESP 18; TEMP 36.4; O2SAT 98
[2020-10-29 08:04] LABS: Sodium 141 mmol/L (135-145)
[2020-10-29] MEDS: Docusate Sodium 100 MG/10 ML LIQUID G-TUBE ×2 (09:06→20:02)
[2020-10-29] MEDS: Metoclopramide HCl 10 MG TABLET PO ×4 (09:06→20:01)
[2020-10-29 09:07] VITALS: BP 120/68; PULSE 87
[2020-10-29] MEDS: Pravastatin Sodium 20 MG TABLET PO (09:07)
[2020-10-29] MEDS: Aspirin Enteric Coated 81 MG TABLET.DR PO (09:07)
[2020-10-29] MEDS: Clopidogrel Bisulfate 75 MG TABLET PO (09:07)
[2020-10-29] MEDS: Memantine HCl 10 MG TABLET PO ×2 (09:07→20:01)
[2020-10-29] MEDS: Escitalopram Oxalate 5 MG TABLET PO (09:07)
[2020-10-29] MEDS: polyethylene glycoL 3350 17 GM POWD.PACK G-TUBE ×2 (09:07→20:01)
[2020-10-29] MEDS: Donepezil HCl 10 MG TABLET PO (09:07)
[2020-10-29] MEDS: amLODIPine Besylate 10 MG TABLET PO (09:07)
[2020-10-29] MEDS: Carbidopa/Levodopa 25/100 TABLET 2 TAB PO ×4 (09:07→20:01)
--- NOTE | 2020-10-29 10:46 | PM.PNGS ---
Subjective Subjective Date of Service: 10/29/20 Interval history: Asked to see today by Dr. Romero as patient is somewhat more distended. Continues to tolerate tube feedings. I spoke with his RN, who noted that he did not receive his usual stool softener or MiraLax yesterday. He has received the medication today. Physical Exam Vital Signs: Vital Signs: Last Vital Signs Temp 97.5 F 10/29/20 08:00 Pulse 87 10/29/20 09:07 Resp 18 10/29/20 08:00 BP 120/68 10/29/20 09:07 Pulse Ox 98 10/29/20 08:00 Body Mass Index 21.4 Const: Other: Appears comfortable GI: Other: Distended but not tight, bowel sounds active, no obvious tenderness Progress Note: A&P Assessment and plan (1) Ileus: Status: Acute Assessment and Plan: Increase distension today, may be due in part to not having received usual bowel regimen medications yesterday. If he does not improve with administration of medications early today, Fleet enema will be administered. Fall Risk Details Current Medications: Current Medications Generic Name Dose Route Start Last Admin Trade Name Freq PRN Reason Stop Dose Admin Albuterol Sulfate 2 puff 10/24/20 17:13 Albuterol Sulfate 90 Mcg 8 Gm Inhaler INHALE Q4H PRN Shortness Of Breath Amlodipine Besylate 10 mg 10/25/20 09:00 10/29/20 09:07 Amlodipine Besylate 10 Mg Tablet PO 10 mg DAILY RAQUEL Administration Protocol Aspirin 81 mg 10/25/20 09:00 10/29/20 09:07 Aspirin Enteric Coated 81 Mg Tablet.Dr PO 81 mg DAILY RAQUEL Administration Bisacodyl 10 mg 10/25/20 00:53 Bisacodyl 10 Mg Supp.Rect [place] DAILY PRN Constipation Carbidopa/Levodopa 2 tab 10/24/20 17:13 10/29/20 09:07 Carbidopa/Levodopa 25/100 Tablet PO 2 tab QID RAQUEL Administration Clopidogrel Bisulfate 75 mg 10/25/20 09:00 10/29/20 09:07 Clopidogrel Bisulfate 75 Mg Tablet PO 75 mg DAILY RAQUEL Administration Docusate Sodium 100 mg 10/24/20 21:21 10/29/20 09:06 Docusate Sodium 100 Mg/10 Ml Liquid G-TUBE 100 mg BID RAQUEL Administration Donepezil HCl 10 mg 10/25/20 09:00 10/29/20 09:07 Donepezil Hcl 10 Mg Tablet PO 10 mg DAILY RAQUEL Administration Doxazosin Mesylate 1 mg 10/24/20 21:00 10/28/20 21:43 Doxazosin Mesylate 1 Mg Tablet PO 1 mg BEDTIME RAQUEL Administration Enoxaparin Sodium 40 mg 10/25/20 02:00 10/29/20 02:56 Enoxaparin Sodium 40 Mg/0.4 Ml Syringe SUBCUT 40 mg Q24H ARQUEL Administration Escitalopram Oxalate 5 mg 10/25/20 09:00 10/29/20 09:07 Escitalopram Oxalate 5 Mg Tablet PO 5 mg DAILY RAQUEL Administration Piperacillin Sod/Tazobactam 50 mls @ 100 mls/hr 10/24/20 14:00 10/29/20 09:38 Sod 3.375 gm/ Sodium Chloride IV Infused Q6H RAQUEL Infusion Sodium Chloride 1,000 mls @ 100 mls/hr 10/29/20 10:30 Ns IVCONT .Q10H RAQUEL Memantine 10 mg 10/24/20 21:00 10/29/20 09:07 Memantine Hcl 10 Mg Tablet PO 10 mg BID RAQUEL Administration Metoclopramide HCl 10 mg 10/25/20 00:53 10/29/20 09:06 Metoclopramide Hcl 10 Mg Tablet PO 10 mg QIDACHS RAQUEL Administration Omeprazole 20 mg 10/27/20 16:30 10/29/20 05:28 Omeprazole 20 Mg/10 Ml Susp.Recon G-TUBE 20 mg BID@0630,1630 [facility] Administration Pharmacy Consult 1 each 10/24/20 12:47 Consult Rx Perform Med Rec MISCELLANE ONCE PRN Consult order Polyethylene Glycol 17 gm 10/26/20 21:00 10/29/20 09:07 Polyethylene Glycol 3350 17 Gm Powd.Pack G-TUBE 17 gm BID RAQUEL Administration Pravastatin Sodium 20 mg 10/25/20 09:00 10/29/20 09:07 Pravastatin Sodium 20 Mg Tablet PO 20 mg DAILY RAQUEL Administration Sodium Biphosphate/Sodium Phosphate 133 ml 10/26/20 18:01 Sodium Phosphate,[place]-Dibasic 133 Ml Enema [place] ONCE PRN Constipation Sodium Biphosphate/Sodium Phosphate 133 ml 10/29/20 07:19 Sodium Phosphate,[place]-Dibasic 133 Ml Enema [place] ONCE PRN Constipation Sodium Chloride 3 ml 10/25/20 00:53 10/29/20 07:29 0.9 % Sodium Chloride Flush 3 Ml Syringe IVFLUSH Not Given QSHIFT RAQUEL Valproic Acid 1,000 mg 10/24/20 15:00 10/29/20 09:06 Valproic Acid (As Sodium Salt) 250 Mg/5 Ml Solution G-TUBE 1,000 mg TID RAQUEL Administration Time Spent With Patient Time: Total time spent is greater than 50% in coordination of care (as documented) at patient's floor/unit and/or counseling patient: Time with patient: less than 15 minutes
[2020-10-29] MEDS: 0.9 % Sodium Chloride 1,000 ML 100 ML IVCONT ×2 (11:13→20:00)
[2020-10-29 11:41] VITALS: BP 119/69; PULSE 84; RESP 17; TEMP 36.5; O2SAT 96
[2020-10-29 15:57] VITALS: BP 117/75; PULSE 80; RESP 18; TEMP 36.3; O2SAT 99
[2020-10-29] MEDS: Doxazosin Mesylate 1 MG TABLET PO (20:02)
[2020-10-30] VITALS: BP 121/71; PULSE 73; RESP 16; TEMP 36.3; O2SAT 98
[2020-10-30] MEDS: Piperacillin Sodium/Tazobactam 3.375 GM in 0.9 % Sodium Chloride 50 ML IV ×4 (02:22→20:36)
[2020-10-30] MEDS: Enoxaparin Sodium 40 MG/0.4 ML SYRINGE SUBCUT (02:22)
[2020-10-30] MEDS: 0.9 % Sodium Chloride 1,000 ML 100 ML IVCONT ×2 (06:23→16:40)
[2020-10-30 07:49] VITALS: BP 160/73; PULSE 77; RESP 19; TEMP 36.4; O2SAT 99
[2020-10-30] MEDS: Donepezil HCl 10 MG TABLET PO (09:29)
[2020-10-30] MEDS: polyethylene glycoL 3350 17 GM POWD.PACK G-TUBE ×2 (09:29→20:36)
[2020-10-30] MEDS: Aspirin Enteric Coated 81 MG TABLET.DR PO (09:30)
[2020-10-30] MEDS: Metoclopramide HCl 10 MG TABLET PO ×4 (09:30→20:37)
[2020-10-30] MEDS: Carbidopa/Levodopa 25/100 TABLET 2 TAB PO ×4 (09:30→20:37)
[2020-10-30] MEDS: 0.9 % Sodium Chloride Flush 3 ML SYRINGE IVFLUSH ×2 (09:30→20:36)
[2020-10-30] MEDS: Memantine HCl 10 MG TABLET PO ×2 (09:30→20:37)
[2020-10-30] MEDS: amLODIPine Besylate 10 MG TABLET PO (09:31)
[2020-10-30] MEDS: Clopidogrel Bisulfate 75 MG TABLET PO (09:31)
[2020-10-30] MEDS: Docusate Sodium 100 MG/10 ML LIQUID G-TUBE ×2 (09:31→20:36)
[2020-10-30] MEDS: Escitalopram Oxalate 5 MG TABLET PO (09:31)
[2020-10-30] MEDS: Pravastatin Sodium 20 MG TABLET PO (09:31)
--- NOTE | 2020-10-30 10:23 | PM.PNGS ---
Subjective Subjective Date of Service: 10/30/20 Interval history: Patient was restarted on his bowel regimen as been having bowel movements overnight. Patient is tolerating his tube feeds without difficulty. No other significant overnight events. Physical Exam Vital Signs: Vital Signs: Last Vital Signs Temp 97.6 F 10/30/20 07:49 Pulse 77 10/30/20 07:49 Resp 19 10/30/20 07:49 BP 160/73 H 10/30/20 07:49 Pulse Ox 99 10/30/20 07:49 Body Mass Index 21.4 Const: General: comfortable and no acute distress GI: Inspection: Yes normal to inspection, Yes distended (Mildly) and Yes incision (Clean dry intact) Palpation (GI): Soft to palpation, not firm, nontender, no guarding and not rigid Percussion: Yes tympanic to percussion (Mildly) Extrem: General: Yes no pedal edema and Yes no calf tenderness Progress Note: A&P Assessment and plan (1) Ileus: Status: Acute Assessment and Plan: Mild ileus but no evidence of bowel obstruction. Patient is having normal bowel movements and is tolerating tube feeds. Continue daily bowel regimen to help with resolution of ileus. Please call with questions we will sign off. Fall Risk Details Current Medications: Current Medications Generic Name Dose Route Start Last Admin Trade Name Freq PRN Reason Stop Dose Admin Albuterol Sulfate 2 puff 10/24/20 17:13 Albuterol Sulfate 90 Mcg 8 Gm Inhaler INHALE Q4H PRN Shortness Of Breath Amlodipine Besylate 10 mg 10/25/20 09:00 10/30/20 09:31 Amlodipine Besylate 10 Mg Tablet PO 10 mg DAILY RAQUEL Administration Protocol Aspirin 81 mg 10/25/20 09:00 10/30/20 09:30 Aspirin Enteric Coated 81 Mg Tablet. PO 81 mg DAILY RAQUEL Administration Bisacodyl 10 mg 10/25/20 00:53 Bisacodyl 10 Mg Supp.Rect [place] DAILY PRN Constipation Carbidopa/Levodopa 2 tab 10/24/20 17:13 10/30/20 09:30 Carbidopa/Levodopa 25/100 Tablet PO 2 tab QID RAQUEL Administration Clopidogrel Bisulfate 75 mg 10/25/20 09:00 10/30/20 09:31 Clopidogrel Bisulfate 75 Mg Tablet PO 75 mg DAILY RAQUEL Administration Docusate Sodium 100 mg 10/24/20 21:21 10/30/20 09:31 Docusate Sodium 100 Mg/10 Ml Liquid G-TUBE 100 mg BID RAQUEL Administration Donepezil HCl 10 mg 10/25/20 09:00 10/30/20 09:29 Donepezil Hcl 10 Mg Tablet PO 10 mg DAILY RAQUEL Administration Doxazosin Mesylate 1 mg 10/24/20 21:00 10/29/20 20:02 Doxazosin Mesylate 1 Mg Tablet PO 1 mg BEDTIME RAQUEL Administration Enoxaparin Sodium 40 mg 10/25/20 02:00 10/30/20 02:22 Enoxaparin Sodium 40 Mg/0.4 Ml Syringe SUBCUT 40 mg Q24H RAQUEL Administration Escitalopram Oxalate 5 mg 10/25/20 09:00 10/30/20 09:31 Escitalopram Oxalate 5 Mg Tablet PO 5 mg DAILY RAQUEL Administration Piperacillin Sod/Tazobactam 50 mls @ 100 mls/hr 10/24/20 14:00 10/30/20 09:29 Sod 3.375 gm/ Sodium Chloride IV 100 mls/hr Q6H RAQUEL Administration Sodium Chloride 1,000 mls @ 100 mls/hr 10/29/20 10:30 10/30/20 06:23 Ns IVCONT 100 mls/hr .Q10H RAQUEL Administration Memantine 10 mg 10/24/20 21:00 10/30/20 09:30 Memantine Hcl 10 Mg Tablet PO 10 mg BID RAQUEL Administration Metoclopramide HCl 10 mg 10/25/20 00:53 10/30/20 09:30 Metoclopramide Hcl 10 Mg Tablet PO 10 mg QIDACHS RAQUEL Administration Omeprazole 20 mg 10/27/20 16:30 10/30/20 05:33 Omeprazole 20 Mg/10 Ml Susp.Recon G-TUBE 20 mg BID@0630,1630 RAQUEL Administration Pharmacy Consult 1 each 10/24/20 12:47 Consult Rx Perform Med Rec MISCELLANE ONCE PRN Consult order Polyethylene Glycol 17 gm 10/26/20 21:00 10/30/20 09:29 Polyethylene Glycol 3350 17 Gm Powd.Pack G-TUBE 17 gm BID RAQUEL Administration Pravastatin Sodium 20 mg 10/25/20 09:00 10/30/20 09:31 Pravastatin Sodium 20 Mg Tablet PO 20 mg DAILY RAQUEL Administration Sodium Biphosphate/Sodium Phosphate 133 ml 10/26/20 18:01 Sodium Phosphate,[place]-Dibasic 133 Ml Enema [place] ONCE PRN Constipation Sodium Biphosphate/Sodium Phosphate 133 ml 10/29/20 07:19 Sodium Phosphate,[place]-Dibasic 133 Ml Enema [place] ONCE PRN Constipation Sodium Chloride 3 ml 10/25/20 00:53 10/30/20 09:30 0.9 % Sodium Chloride Flush 3 Ml Syringe IVFLUSH 3 ml QSHIFT RAQUEL Administration Valproic Acid 1,000 mg 10/24/20 15:00 10/30/20 09:30 Valproic Acid (As Sodium Salt) 250 Mg/5 Ml Solution G-TUBE 1,000 mg TID RAQUEL Administration Time Spent With Patient Time: Total time spent is greater than 50% in coordination of care (as documented) at patient's floor/unit and/or counseling patient: Time with patient: less than 15 minutes
--- NOTE | 2020-10-30 13:14 | HO.PM.IMPN ---
Subjective Subjective Date of Service: 10/31/20 Interval History: Ielus , [place] Review of Systems had bm over night , seems try to wisper his name . Physical Exam Vital Signs: Vital Signs: Last Vital Signs Temp 97.6 F 10/30/20 07:49 Pulse 77 10/30/20 07:49 Resp 19 10/30/20 07:49 BP 160/73 H 10/30/20 07:49 Pulse Ox 99 10/30/20 07:49 Body Mass Index 21.4 Physical exam: Constitutional: Not in acute distress, tried whisper his name confused at baseline. Resp: fair air netry, no rales or wheezing. CVS: S1,S2,RRR GI: seems more softer , distension seems slightly better than yesterday, no rebound or guarding Skin: No rash Neuro: opens eyes , whisper name. Objective Data Current Medications Generic Name Dose Route Start Last Admin Trade Name Freq PRN Reason Stop Dose Admin Albuterol Sulfate 2 puff 10/24/20 17:13 Albuterol Sulfate 90 Mcg 8 Gm Inhaler INHALE Q4H PRN Shortness Of Breath Amlodipine Besylate 10 mg 10/25/20 09:00 10/30/20 09:31 Amlodipine Besylate 10 Mg Tablet PO 10 mg DAILY RAQUEL Administration Protocol Aspirin 81 mg 10/25/20 09:00 10/30/20 09:30 Aspirin Enteric Coated 81 Mg Tablet.Dr PO 81 mg DAILY RAQUEL Administration Bisacodyl 10 mg 10/25/20 00:53 Bisacodyl 10 Mg Supp.Rect [place] DAILY PRN Constipation Carbidopa/Levodopa 2 tab 10/24/20 17:13 10/30/20 09:30 Carbidopa/Levodopa 25/100 Tablet PO 2 tab QID RAQUEL Administration Clopidogrel Bisulfate 75 mg 10/25/20 09:00 10/30/20 09:31 Clopidogrel Bisulfate 75 Mg Tablet PO 75 mg DAILY RAQUEL Administration Docusate Sodium 100 mg 10/24/20 21:21 10/30/20 09:31 Docusate Sodium 100 Mg/10 Ml Liquid G-TUBE 100 mg BID RAQUEL Administration Donepezil HCl 10 mg 10/25/20 09:00 10/30/20 09:29 Donepezil Hcl 10 Mg Tablet PO 10 mg DAILY RAQUEL Administration Doxazosin Mesylate 1 mg 10/24/20 21:00 10/29/20 20:02 Doxazosin Mesylate 1 Mg Tablet PO 1 mg BEDTIME RAQUEL Administration Enoxaparin Sodium 40 mg 10/25/20 02:00 10/30/20 02:22 Enoxaparin Sodium 40 Mg/0.4 Ml Syringe SUBCUT 40 mg Q24H RAQUEL Administration Escitalopram Oxalate 5 mg 10/25/20 09:00 10/30/20 09:31 Escitalopram Oxalate 5 Mg Tablet PO 5 mg DAILY RAQUEL Administration Piperacillin Sod/Tazobactam 50 mls @ 100 mls/hr 10/24/20 14:00 10/30/20 10:23 Sod 3.375 gm/ Sodium Chloride IV Infused Q6H RAQUEL Infusion Sodium Chloride 1,000 mls @ 100 mls/hr 10/29/20 10:30 10/30/20 06:23 Ns IVCONT 100 mls/hr .Q10H RAQUEL Administration Memantine 10 mg 10/24/20 21:00 10/30/20 09:30 Memantine Hcl 10 Mg Tablet PO 10 mg BID RAQUEL Administration Metoclopramide HCl 10 mg 10/25/20 00:53 10/30/20 09:30 Metoclopramide Hcl 10 Mg Tablet PO 10 mg QIDACHS RAQUEL Administration Omeprazole 20 mg 10/27/20 16:30 10/30/20 05:33 Omeprazole 20 Mg/10 Ml Susp.Recon G-TUBE 20 mg BID@0630,1630 [facility] Administration Pharmacy Consult 1 each 10/24/20 12:47 Consult Rx Perform Med Rec MISCELLANE ONCE PRN Consult order Polyethylene Glycol 17 gm 10/26/20 21:00 10/30/20 09:29 Polyethylene Glycol 3350 17 Gm Powd.Pack G-TUBE 17 gm BID RAQUEL Administration Pravastatin Sodium 20 mg 10/25/20 09:00 10/30/20 09:31 Pravastatin Sodium 20 Mg Tablet PO 20 mg DAILY RAQUEL Administration Sodium Biphosphate/Sodium Phosphate 133 ml 10/26/20 18:01 Sodium Phosphate,[place]-Dibasic 133 Ml Enema [place] ONCE PRN Constipation Sodium Biphosphate/Sodium Phosphate 133 ml 10/29/20 07:19 Sodium Phosphate,[place]-Dibasic 133 Ml Enema [place] ONCE PRN Constipation Sodium Chloride 3 ml 10/25/20 00:53 10/30/20 09:30 0.9 % Sodium Chloride Flush 3 Ml Syringe IVFLUSH 3 ml QSHIFT RAQUEL Administration Valproic Acid 1,000 mg 10/24/20 15:00 10/30/20 09:30 Valproic Acid (As Sodium Salt) 250 Mg/5 Ml Solution G-TUBE 1,000 mg TID RAQUEL Administration Labs CBC & Chem 7: 10/25/20 05:45 10/31/20 06:50 Microbiology Microbiology Results: Microbiology 10/24/20 11:23 Blood - Venous Blood Culture - Final No growth after 5 days. 10/24/20 11:07 Blood - Venous Blood Culture - Final No growth after 5 days. 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 Hypernatremia: Probably related to dehydration, also NS patient received earlier. Started on D5W yesterday: Sodium slowly improved. Seems more awake today. 2.Ileus:Manual disimpaction attempted in the ED IV zosyn day 7. since patient had bm yesterday , similar distended as yesteday: tolerating tube feeding, patient may need p.r.n. Zachariah enema says. also as per staff had 1-2 liquid stools overnight PEG feeding , monitor for any residuals. surgery follow up pending 3.UTI: Urine culture pending, blood culture negative at 48 hours On antibiotics for ileus, urine source-canadid a? contamination will send repeat urine cultures . blood culture@ 48 hrs 4.Mild renal insufficiency--improved Gentle IV fluid Follow renal function Hold Celebrex 5.Dementia Continue donepezil, memantine 6.Seizure disorder Continue valproic acid 7.BPH Continue terazosin 8.Parkinson's disease Continue Sinemet 9.Hypertension Continue Norvasc 10.Mood Continue escitalopram 11.Hyperlipidemia Continue statin 12.Peripheral vascular disease Continue aspirin, Plavix 13.s/p recent right AKA at [facility] d/c on 10/16 with instructions for katherine to be removed in 2-3 weeks 14. Anemia H/H at baseline Follow CBC diet:tube feeds on hold due to ileus DVT prophylaxis-Lovenox his daughter miss Rodriguez updated about above.
[2020-10-30 16:00] VITALS: BP 125/63; PULSE 68; RESP 18; TEMP 36.1; O2SAT 98
[2020-10-30 20:37] VITALS: BP 125/63; PULSE 68
[2020-10-30] MEDS: Doxazosin Mesylate 1 MG TABLET PO (20:37)
[2020-10-31] VITALS: BP 143/82; PULSE 77; RESP 18; TEMP 36.2; O2SAT 96
[2020-10-31] MEDS: Enoxaparin Sodium 40 MG/0.4 ML SYRINGE SUBCUT (02:53)
[2020-10-31] MEDS: Piperacillin Sodium/Tazobactam 3.375 GM in 0.9 % Sodium Chloride 50 ML IV ×3 (02:53→14:19)
[2020-10-31] MEDS: 0.9 % Sodium Chloride 1,000 ML 100 ML IVCONT ×2 (02:53→13:08)
[2020-10-31] MEDS: Metoclopramide HCl 10 MG TABLET PO ×4 (07:35→22:06)
[2020-10-31 07:45] VITALS: BP 126/75; PULSE 84; RESP 18; TEMP 36.2; O2SAT 98
[2020-10-31 07:49] LABS: Blood Urea Nitrogen 8 mg/dL (9-16); Creatinine Clr Calc Pharmacy 76.4; Estimated Glomerular Filt Rate > 60; Glucose Random 105 mg/dL (60-115)
[2020-10-31 08:02] LABS: Anion Gap 9 (12-20); Carbon Dioxide 28 mmol/L (22-29); Chloride 105 mmol/L (96-108); Potassium 2.9 mmol/l (3.3-5.1); Sodium 139 mmol/L (135-145)
[2020-10-31] MEDS: Pravastatin Sodium 20 MG TABLET PO (09:57)
[2020-10-31] MEDS: Donepezil HCl 10 MG TABLET PO (09:57)
[2020-10-31] MEDS: Escitalopram Oxalate 5 MG TABLET PO (09:57)
[2020-10-31] MEDS: Aspirin Enteric Coated 81 MG TABLET.DR PO (09:57)
[2020-10-31] MEDS: Memantine HCl 10 MG TABLET PO ×2 (09:57→22:04)
[2020-10-31] MEDS: amLODIPine Besylate 10 MG TABLET PO (09:57)
[2020-10-31] MEDS: Clopidogrel Bisulfate 75 MG TABLET PO (09:57)
--- NOTE | 2020-10-31 09:57 | HO.PM.IMPN ---
Subjective Subjective Date of Service: 11/01/20 Interval History: hypokalemia , Ielus Review of Systems patient is awake does not look in discomfort , passing bm's overnight Physical Exam Vital Signs: Vital Signs: Last Vital Signs Temp 97.1 F 10/31/20 07:45 Pulse 84 10/31/20 07:45 Resp 18 10/31/20 07:45 BP 126/75 10/31/20 07:45 Pulse Ox 98 10/31/20 07:45 Body Mass Index 21.4 Physical exam: Constitutional: Not in acute distress, awake, whisper his name confused at baseline. Resp: fair air netry, no rales or wheezing. CVS: S1,S2,RRR GI: seems more softer , distension seems improving, no rebound or guarding Skin: No rash Neuro: opens eyes , whisper name. Objective Data Current Medications Generic Name Dose Route Start Last Admin Trade Name Freq PRN Reason Stop Dose Admin Albuterol Sulfate 2 puff 10/24/20 17:13 Albuterol Sulfate 90 Mcg 8 Gm Inhaler INHALE Q4H PRN Shortness Of Breath Amlodipine Besylate 10 mg 10/25/20 09:00 10/30/20 09:31 Amlodipine Besylate 10 Mg Tablet PO 10 mg DAILY RAQUEL Administration Protocol Aspirin 81 mg 10/25/20 09:00 10/30/20 09:30 Aspirin Enteric Coated 81 Mg Tablet.Dr PO 81 mg DAILY RAQUEL Administration Bisacodyl 10 mg 10/25/20 00:53 Bisacodyl 10 Mg Supp.Rect [place] DAILY PRN Constipation Carbidopa/Levodopa 2 tab 10/24/20 17:13 10/30/20 20:37 Carbidopa/Levodopa 25/100 Tablet PO 2 tab QID RAQUEL Administration Clopidogrel Bisulfate 75 mg 10/25/20 09:00 10/30/20 09:31 Clopidogrel Bisulfate 75 Mg Tablet PO 75 mg DAILY RAQUEL Administration Docusate Sodium 100 mg 10/24/20 21:21 10/30/20 20:36 Docusate Sodium 100 Mg/10 Ml Liquid G-TUBE 100 mg BID RAQUEL Administration Donepezil HCl 10 mg 10/25/20 09:00 10/30/20 09:29 Donepezil Hcl 10 Mg Tablet PO 10 mg DAILY RAQUEL Administration Doxazosin Mesylate 1 mg 10/24/20 21:00 10/30/20 20:37 Doxazosin Mesylate 1 Mg Tablet PO 1 mg BEDTIME RAQUEL Administration Enoxaparin Sodium 40 mg 10/25/20 02:00 10/31/20 02:53 Enoxaparin Sodium 40 Mg/0.4 Ml Syringe SUBCUT 40 mg Q24H RAQUEL Administration Escitalopram Oxalate 5 mg 10/25/20 09:00 10/30/20 09:31 Escitalopram Oxalate 5 Mg Tablet PO 5 mg DAILY RAQUEL Administration Piperacillin Sod/Tazobactam 50 mls @ 100 mls/hr 10/24/20 14:00 10/31/20 08:06 Sod 3.375 gm/ Sodium Chloride IV Infused Q6H RAQUEL Infusion Sodium Chloride 1,000 mls @ 100 mls/hr 10/29/20 10:30 10/31/20 02:53 Ns IVCONT 100 mls/hr .Q10H RAQUEL Administration Potassium Chloride 10 meq in 100 mls @ 100 mls/hr 10/31/20 10:00 IV 10/31/20 11:59 Q1H RAQUEL Memantine 10 mg 10/24/20 21:00 10/30/20 20:37 Memantine Hcl 10 Mg Tablet PO 10 mg BID RAQUEL Administration Metoclopramide HCl 10 mg 10/25/20 00:53 10/31/20 07:35 Metoclopramide Hcl 10 Mg Tablet PO 10 mg QIDACHS RAQUEL Administration Omeprazole 20 mg 10/27/20 16:30 10/31/20 05:32 Omeprazole 20 Mg/10 Ml Susp.Recon G-TUBE 20 mg BID@0630,1630 [facility] Administration Pharmacy Consult 1 each 10/24/20 12:47 Consult Rx Perform Med Rec MISCELLANE ONCE PRN Consult order Polyethylene Glycol 17 gm 10/26/20 21:00 10/30/20 20:36 Polyethylene Glycol 3350 17 Gm Powd.Pack G-TUBE 17 gm BID RAQUEL Administration Pravastatin Sodium 20 mg 10/25/20 09:00 10/30/20 09:31 Pravastatin Sodium 20 Mg Tablet PO 20 mg DAILY RAQUEL Administration Sodium Biphosphate/Sodium Phosphate 133 ml 10/26/20 18:01 Sodium Phosphate,[place]-Dibasic 133 Ml Enema [place] ONCE PRN Constipation Sodium Biphosphate/Sodium Phosphate 133 ml 10/29/20 07:19 Sodium Phosphate,[place]-Dibasic 133 Ml Enema [place] ONCE PRN Constipation Sodium Chloride 3 ml 10/25/20 00:53 10/31/20 07:36 0.9 % Sodium Chloride Flush 3 Ml Syringe IVFLUSH Not Given QSHIFT RAQUEL Valproic Acid 1,000 mg 10/24/20 15:00 10/30/20 20:36 Valproic Acid (As Sodium Salt) 250 Mg/5 Ml Solution G-TUBE 1,000 mg TID RAQUEL Administration Labs CBC & Chem 7: 10/25/20 05:45 11/01/20 06:15 Microbiology Microbiology Results: Microbiology 10/24/20 11:23 Blood - Venous Blood Culture - Final No growth after 5 days. 10/24/20 11:07 Blood - Venous Blood Culture - Final No growth after 5 days. 10/24/20 12:01 Urine clean catch - Clean Catch Midstream Urine Culture - Final Shanthi albicans Assessment and Plan (1) Ileus: Status: Acute (2) Acute UTI: Problem details: Pyuria Status: Acute (3) Chronic constipation: Status: Acute Assessment and Plan: 80-year-old male with a history of Parkinson's disease, dementia, COPD, seizure disorder, BPH, right leg osteomyelitis/gangrene status post recent right [id number] amputation at [facility] due to abdominal distension found to have ileus 1. Hypernatremia: Probably related to dehydration, also NS patient received earlier. Started on D5W yesterday: Sodium slowly improved. Seems more awake today. 2.Ileus:Manual disimpaction attempted in the ED IV zosyn completed. since patient had bm yesterday , similar distended as yesteday: tolerating tube feeding, patient may need p.r.n. Fleet enema says. also as per staff had 1-2 liquid stools overnight PEG feeding , monitor for any residuals. surgery follow up pending Hypokalemia :we will replace iv and po. recheck bmp in am. 3.UTI/Ielus: Urine culture pending, blood culture negative at 48 hours urine source-canadid a? contamination will send repeat urine cultures . blood culture@ 48 hrs d/w ID -off antibiotucs completed zosyn for 8 days. 4.Mild renal insufficiency--improved Gentle IV fluid Follow renal function Hold Celebrex 5.Dementia Continue donepezil, memantine 6.Seizure disorder Continue valproic acid 7.BPH Continue terazosin 8.Parkinson's disease Continue Sinemet 9.Hypertension Continue Norvasc 10.Mood Continue escitalopram 11.Hyperlipidemia Continue statin 12.Peripheral vascular disease Continue aspirin, Plavix 13.s/p recent right AKA at [facility] d/c on 10/16 with instructions for katherine to be removed in 2-3 weeks 14. Anemia H/H at baseline diet:tube feeds on hold due to ileus DVT prophylaxis-Lovenox his daughter miss Rodriguez updated about above.
[2020-10-31] MEDS: Potassium Chloride Packet 20 MEQ PACKET 40 MEQ G-TUBE (09:58)
[2020-10-31] MEDS: polyethylene glycoL 3350 17 GM POWD.PACK G-TUBE (09:58)
[2020-10-31] MEDS: Carbidopa/Levodopa 25/100 TABLET 2 TAB PO ×4 (09:58→22:05)
[2020-10-31] MEDS: Docusate Sodium 100 MG/10 ML LIQUID G-TUBE (09:58)
[2020-10-31] MEDS: Potassium Chloride/H20 10 MEQ/100 ML PIGGYBACK 100 MEQ IV ×2 (09:59→11:37)
[2020-10-31 10:04] LABS: Magnesium 1.5 mg/dL (1.6-2.6)
[2020-10-31] MEDS: Magnesium Sulfate/D5W 1 GM/100 ML PIGGYBACK IV (13:06)
[2020-10-31] MEDS: 0.9 % Sodium Chloride Flush 3 ML SYRINGE IVFLUSH ×2 (14:19→22:44)
[2020-10-31 15:06] VITALS: BP 151/77; PULSE 80; RESP 16; TEMP 36.4; O2SAT 98
[2020-10-31] MEDS: Acetaminophen Oral Liquid 650 MG/20.3 ML SOLUTION G-TUBE (16:25)
[2020-10-31] MEDS: Potassium Chloride Packet 20 MEQ PACKET G-TUBE (19:44)
[2020-10-31 22:04] VITALS: BP 151/77; PULSE 80
[2020-10-31] MEDS: Doxazosin Mesylate 1 MG TABLET PO (22:04)
[2020-10-31 23:16] VITALS: BP 151/65; PULSE 79; RESP 19; TEMP 37; O2SAT 97
[2020-11-01] MEDS: Enoxaparin Sodium 40 MG/0.4 ML SYRINGE SUBCUT (02:22)
[2020-11-01 07:10] LABS: Anion Gap 11 (12-20); Blood Urea Nitrogen 7 mg/dL (9-16); Carbon Dioxide 26 mmol/L (22-29); Chloride 103 mmol/L (96-108); Creatinine Clr Calc Pharmacy 80.6; Estimated Glomerular Filt Rate > 60; Glucose Random 118 mg/dL (60-115); Potassium 3.4 mmol/l (3.3-5.1); Sodium 137 mmol/L (135-145)
[2020-11-01 07:42] VITALS: BP 130/74; PULSE 93; RESP 18; TEMP 36.2; O2SAT 98
[2020-11-01] MEDS: Docusate Sodium 100 MG/10 ML LIQUID G-TUBE (09:07)
[2020-11-01] MEDS: Metoclopramide HCl 10 MG TABLET PO ×4 (09:08→22:21)
[2020-11-01] MEDS: amLODIPine Besylate 10 MG TABLET PO (09:08)
[2020-11-01] MEDS: Memantine HCl 10 MG TABLET PO ×2 (09:08→22:21)
[2020-11-01 09:09] LABS: Magnesium 1.7 mg/dL (1.6-2.6)
[2020-11-01] MEDS: Aspirin Enteric Coated 81 MG TABLET.DR PO (09:09)
[2020-11-01] MEDS: Escitalopram Oxalate 5 MG TABLET PO (09:09)
[2020-11-01] MEDS: 0.9 % Sodium Chloride Flush 3 ML SYRINGE IVFLUSH ×2 (09:09→17:03)
[2020-11-01] MEDS: Carbidopa/Levodopa 25/100 TABLET 2 TAB PO ×4 (09:10→22:21)
[2020-11-01] MEDS: Pravastatin Sodium 20 MG TABLET PO (09:10)
[2020-11-01] MEDS: Donepezil HCl 10 MG TABLET PO (09:10)
[2020-11-01] MEDS: Clopidogrel Bisulfate 75 MG TABLET PO (09:10)
[2020-11-01] MEDS: polyethylene glycoL 3350 17 GM POWD.PACK G-TUBE (09:11)
--- NOTE | 2020-11-01 11:01 | MHC.CM.PN ---
Per hospitalist, pt likely to be ready for DC tomorrow. Updates sent to [facility] ([facility] currently on the SNF freeze list, CM awaiting their response regarding their ability to take pt back.
--- NOTE | 2020-11-01 15:16 | MHC.CLN ---
F/U PT RECEIVING TF VITAL AT MAX GOAL RATE 50CC/HR WITH 300CC FREE WATER FLUSHES Q 4 HRS TO PROVIDE 1800KCALS (25KCALS/KG), 81G PROTEIN (1.2G/KG), 2717CC TOTAL WATER FROM FORMULA AND FLUSHES (39CC/KG) MEGHNA TO PROMOTE WOUND HEALING NSG REPORTS TOLERATING WELL WITH LOW RESIDUALS CONTINUE TO MONITOR TOLERANCE, RESIDUALS AND LYTES COORDINATING DC WITH -[facility] HAS TF FORMULA AT FACILITY
[2020-11-01 16:00] VITALS: BP 141/70; PULSE 85; RESP 18; TEMP 36.3; O2SAT 100
--- NOTE | 2020-11-01 16:56 | HO.PM.IMPN ---
Subjective Subjective Date of Service: 11/01/20 Interval History: no complaints tolerating tube feeds ROS limited by dementia Physical Exam Vital Signs: Vital Signs: Last Vital Signs Temp 97.4 F 11/01/20 16:00 Pulse 85 11/01/20 16:00 Resp 18 11/01/20 16:00 BP 141/70 H 11/01/20 16:00 Pulse Ox 100 11/01/20 16:00 Body Mass Index 21.4 Gen: in no acute distress HEENT: sclera anicteric, moist mucus membranes Neck: supple Lungs: clear to auscultation bilaterally Heart: regular rate and rhythm, no murmurs Abd: mild distention, PEG tube with no signs of infection Ext: s/p R AKA with wound closed with katherine without signs of infection Skin: warm/well-perfused Neuro: masked facies, disoriented Psych: impaired insight Objective Data Current Medications Generic Name Dose Route Start Last Admin Trade Name Freq PRN Reason Stop Dose Admin Acetaminophen 650 mg 10/31/20 15:49 10/31/20 16:25 Acetaminophen Oral Liquid 650 Mg/20.3 Ml Solution G-TUBE 650 mg Q6H PRN Administration Pain, Mild (Pain Scale 1-3) Albuterol Sulfate 2 puff 10/24/20 17:13 Albuterol Sulfate 90 Mcg 8 Gm Inhaler INHALE Q4H PRN Shortness Of Breath Amlodipine Besylate 10 mg 10/25/20 09:00 11/01/20 09:08 Amlodipine Besylate 10 Mg Tablet PO 10 mg DAILY RAQUEL Administration Protocol Aspirin 81 mg 10/25/20 09:00 11/01/20 09:09 Aspirin Enteric Coated 81 Mg Tablet.Dr PO 81 mg DAILY RAQUEL Administration Bisacodyl 10 mg 10/25/20 00:53 Bisacodyl 10 Mg Supp.Rect MD DAILY PRN Constipation Carbidopa/Levodopa 2 tab 10/24/20 17:13 11/01/20 14:22 Carbidopa/Levodopa 25/100 Tablet PO 2 tab QID RAQUEL Administration Clopidogrel Bisulfate 75 mg 10/25/20 09:00 11/01/20 09:10 Clopidogrel Bisulfate 75 Mg Tablet PO 75 mg DAILY RAQUEL Administration Docusate Sodium 100 mg 10/24/20 21:21 11/01/20 09:07 Docusate Sodium 100 Mg/10 Ml Liquid G-TUBE 100 mg BID RAQUEL Administration Donepezil HCl 10 mg 10/25/20 09:00 11/01/20 09:10 Donepezil Hcl 10 Mg Tablet PO 10 mg DAILY RAQUEL Administration Doxazosin Mesylate 1 mg 10/24/20 21:00 10/31/20 22:04 Doxazosin Mesylate 1 Mg Tablet PO 1 mg BEDTIME RAQUEL Administration Enoxaparin Sodium 40 mg 10/25/20 02:00 11/01/20 02:22 Enoxaparin Sodium 40 Mg/0.4 Ml Syringe SUBCUT 40 mg Q24H RAQUEL Administration Escitalopram Oxalate 5 mg 10/25/20 09:00 11/01/20 09:09 Escitalopram Oxalate 5 Mg Tablet PO 5 mg DAILY RAQUEL Administration Memantine 10 mg 10/24/20 21:00 11/01/20 09:08 Memantine Hcl 10 Mg Tablet PO 10 mg BID RAQUEL Administration Metoclopramide HCl 10 mg 10/25/20 00:53 11/01/20 14:22 Metoclopramide Hcl 10 Mg Tablet PO 10 mg QIDACHS RAQUEL Administration Omeprazole 20 mg 10/27/20 16:30 11/01/20 06:02 Omeprazole 20 Mg/10 Ml Susp.Recon G-TUBE 20 mg BID@4330,2290 RAQUEL Administration Pharmacy Consult 1 each 10/24/20 12:47 Consult Rx Perform Med Rec MISCELLANE ONCE PRN Consult order Polyethylene Glycol 17 gm 10/26/20 21:00 11/01/20 09:11 Polyethylene Glycol 3350 17 Gm Powd.Pack G-TUBE 17 gm BID RAQUEL Administration Pravastatin Sodium 20 mg 10/25/20 09:00 11/01/20 09:10 Pravastatin Sodium 20 Mg Tablet PO 20 mg DAILY RAQUEL Administration Sodium Biphosphate/Sodium Phosphate 133 ml 10/26/20 18:01 Sodium Phosphate,[place]-Dibasic 133 Ml Enema MD ONCE PRN Constipation Sodium Biphosphate/Sodium Phosphate 133 ml 10/29/20 07:19 Sodium Phosphate,[place]-Dibasic 133 Ml Enema MD ONCE PRN Constipation Sodium Chloride 3 ml 10/25/20 00:53 11/01/20 09:09 0.9 % Sodium Chloride Flush 3 Ml Syringe IVFLUSH 3 ml QSHIFT RAQUEL Administration Valproic Acid 1,000 mg 10/24/20 15:00 11/01/20 14:23 Valproic Acid (As Sodium Salt) 250 Mg/5 Ml Solution G-TUBE 1,000 mg TID RAQUEL Administration Labs CBC & Chem 7: 10/25/20 05:45 11/01/20 06:15 Labs: Laboratory Results - last 24 hr 11/01/20 06:15 Sodium 137 Potassium 3.4 Chloride 103 Carbon Dioxide 26 Anion Gap 11 L BUN 7 L Creatinine 0.72 Estim Creat Clear Calc 80.6 Estimated GFR > 60 Random Glucose 118 H Calcium 8.0 L Magnesium 1.7 Microbiology Microbiology Results: Microbiology 10/24/20 11:23 Blood - Venous Blood Culture - Final No growth after 5 days. 10/24/20 11:07 Blood - Venous Blood Culture - Final No growth after 5 days. 10/24/20 12:01 Urine clean catch - Clean Catch Midstream Urine Culture - Final Shanthi albicans Assessment and Plan (1) Ileus: Status: Acute (2) Acute UTI: Problem details: Pyuria Status: Acute (3) Chronic constipation: Status: Acute Assessment and Plan: hospital d#9 80yo M with Parkinson's dementia, COPD, seizure disorder, BPH, recent AKA at [facility] for RLE gangrenous osteomyelitis, sent in from [facility] due to ileus # ileus - resolving, having BMs, continue bowel regimen, Surgery signed off # hyperNa - resolved s/p d5W # hypoK - repleted, resolved # TINA, prerenal - resolved after IV fluid hydration, held celecoxib # UTI - treated with 8d of pip/kermit # HTN - continue amlodipine # PVD - continue statin, DAPT # Parkinson's dementia - continue carbidopa/levodopa, memantine, donepezil # sz disorder - continue VPA # mood disorder - continue escitalopram # BPH - continue terazosin # anemia of chronic disease - Hb stable # s/p recent AKA - will need surg f/u at [facility] to d/c katherine # FEN - tube feeds at goal
[2020-11-01] MEDS: Doxazosin Mesylate 1 MG TABLET PO (22:21)
[2020-11-01 23:34] VITALS: BP 154/75; PULSE 79; RESP 19; TEMP 36.8; O2SAT 96
[2020-11-02] MEDS: 0.9 % Sodium Chloride Flush 3 ML SYRINGE IVFLUSH ×2 (00:58→09:25)
[2020-11-02] MEDS: Enoxaparin Sodium 40 MG/0.4 ML SYRINGE SUBCUT (03:31)
[2020-11-02 07:25] LABS: Hemoglobin 8.5 g/dl (14.0-18.0); Lymphocytes Percent Auto 20.4 % (20-40); MANUAL DIFF FLAG SCAN; Mean Corpuscular Hemoglobin 27.7 pg (27.0-33.0); PLT CLUMP 1; Red Blood Count 3.07 X10*6/uL (4.60-5.80); Red Cell Distribution Width 16.5 % (11.0-16.0); SCAN SMEAR FLAG 1
[2020-11-02 07:26] VITALS: BP 131/70; PULSE 90; RESP 15; TEMP 36.1; O2SAT 95
[2020-11-02 07:27] LABS: Basophils Percent Auto 0.5 % (0-2); Eosinophils Absolute Auto 0.5 X10*3/uL (0.0-0.4); Eosinophils Percent Auto 6.5 % (0-4); Hematocrit 27.4 % (42-52); Imm Gran Abs Auto 0.08 X10*3/uL (0.00-0.03); Lymphocytes Absolute Auto 1.7 X10*3/uL (1.2-4.9); Mean Corpuscular Volume 89.3 fL (80-98); Monocytes Absolute Auto 0.6 X10*3/uL (0.1-1.2); Monocytes Percent Auto 7.5 % (2-11); Neutrophils Absolute Auto 5.2 X10*3/uL (2.0-8.3); Neutrophils Percent Auto 64.1 % (45-73); White Blood Count 8.2 X10*3/uL (4.8-10.8)
[2020-11-02 07:45] LABS: Anion Gap 11 (12-20); Blood Urea Nitrogen 7 mg/dL (9-16); Calcium 8.2 mg/dL (8.4-10.2); Carbon Dioxide 25 mmol/L (22-29); Chloride 103 mmol/L (96-108); Creatinine Clr Calc Pharmacy 77.4; Estimated Glomerular Filt Rate > 60; Glucose Random 116 mg/dL (60-115); Potassium 3.3 mmol/l (3.3-5.1); Sodium 136 mmol/L (135-145)
[2020-11-02 08:25] LABS: SLIDE REVIEW VERIFIED
[2020-11-02] MEDS: Metoclopramide HCl 10 MG TABLET PO ×2 (09:22→13:15)
[2020-11-02] MEDS: amLODIPine Besylate 10 MG TABLET PO (09:23)
[2020-11-02] MEDS: Donepezil HCl 10 MG TABLET PO (09:23)
[2020-11-02] MEDS: Memantine HCl 10 MG TABLET PO (09:23)
[2020-11-02] MEDS: Aspirin Enteric Coated 81 MG TABLET.DR PO (09:24)
[2020-11-02] MEDS: Clopidogrel Bisulfate 75 MG TABLET PO (09:24)
[2020-11-02] MEDS: Escitalopram Oxalate 5 MG TABLET PO (09:24)
[2020-11-02] MEDS: Carbidopa/Levodopa 25/100 TABLET 2 TAB PO ×2 (09:24→13:15)
[2020-11-02] MEDS: Docusate Sodium 100 MG/10 ML LIQUID G-TUBE (09:25)
[2020-11-02] MEDS: Pravastatin Sodium 20 MG TABLET PO (09:25)
[2020-11-02] MEDS: polyethylene glycoL 3350 17 GM POWD.PACK G-TUBE (09:25)
[2020-11-02 10:57] VITALS: BP 132/67; PULSE 85; RESP 16; TEMP 36.4; O2SAT 98
[2020-11-02 11:44] LABS: COVID-19 Test Negative (Negative)
--- NOTE | 2020-11-02 13:00 | MHC.CM.PN ---
PT DISCHARGING TODAY, CM CONTACTED [facility] AND PT IS ABLE TO RETURN, BLS TRANSPORT [facility]IA [facility], [facility]' TIME REQUESTED FOR 4PM, NURSING AWARE OF PT'S DISPOSITION AND DISCHARGE TIME. CM TO UPDATE SNF REFERRAL ONCE DISCHARGE SUMMARY COMPLETE. CM VERIFIED PT'S FOLLOW-UP WITH [facility], APPT IS 11/11/20 AT 12:45PM, [facility] TO ARRANGE TRANSPORT.
--- NOTE | 2020-11-02 15:42 | PM.DS ---
DS: Providers Provider Date of admission: 10/24/20 13:57 Primary care physician: Hermes Obrien MD Consults: 10/24/20 13:57 Consult to General Surgery Routine Consulting Provider: Anival Peter Reason for consultation: ileus Has provider been notified: No 10/28/20 11:43 Consult to Infectious Diseases Routine Consulting Provider: Sofía Ventura Reason for consultation: uti Has provider been notified: No DS: Diagnosis Discharge Diagnosis (1) Ileus: Status: Acute (2) Acute UTI: Status: Acute Problem details: Pyuria (3) Chronic constipation: Status: Acute (4) Hypokalemia: Status: Acute (5) Hypernatremia: Status: Acute (6) Above knee amputation of right lower extremity: Status: Acute (7) On tube feeding diet: Status: Acute (8) Acute kidney failure: Status: Acute DS: Medications Discharge Medications Home Medications: Home Medications Medication Instructions Recorded Confirmed acetaminophen 650 mg FEEDING TUBE Q4H PRN 08/18/20 10/24/20 albuterol sulfate 2 inh INHALATION Q4H PRN 08/18/20 10/24/20 amlodipine 10 mg FEEDING TUBE DAILY 08/18/20 10/24/20 bisacodyl 10 mg TN DAILY PRN 08/18/20 10/24/20 carbidopa-levodopa 2 tab FEEDING TUBE QID 08/18/20 10/24/20 cholecalciferol (vitamin D3) 1,250 mcg FEEDING TUBE QMONTH 08/18/20 10/24/20 docusate sodium 100 mg PO BID 08/18/20 10/24/20 donepezil 10 mg FEEDING TUBE DAILY 08/18/20 10/24/20 escitalopram oxalate 5 mg FEEDING TUBE DAILY 08/18/20 10/24/20 memantine 10 mg FEEDING TUBE BID 08/18/20 10/24/20 metoclopramide HCl 10 mg FEEDING TUBE QIDACHS 08/18/20 10/24/20 terazosin 1 mg FEEDING TUBE BEDTIME 08/18/20 10/24/20 aspirin 81 mg FEEDING TUBE DAILY 10/24/20 10/24/20 clopidogrel 75 mg FEEDING TUBE DAILY 10/24/20 10/24/20 pravastatin 20 mg FEEDING TUBE DAILY 10/24/20 10/24/20 valproic acid (as sodium salt) 1,000 mg FEEDING TUBE TID 10/24/20 10/24/20 Previous Rx's Medication Instructions Recorded omeprazole 20 mg G-TUBE BID@0630,1630 #60 cap 11/02/20 polyethylene glycol 3350 17 g G-TUBE DAILY PRN #30 ea 11/02/20 sodium phosphates [Fleet Enema] 133 ml TN ONCE PRN #133 ml 11/02/20 DS: Summary Hospital Course Hospital Course: from admission history and physical by hospitalist JOHNY Hoang, 10/24/20: This is an 80-year-old male with a history of Parkinson's disease, dementia among others who was sent from nursing facility due to abdominal distension. Patient is primarily nonverbal and bed-bound at baseline. He has Wade catheter as well as PEG tube. He was recently discharged from [facility] for right AKA. He is unable to provide any significant history. Lab work revealed leukocytosis with white count of 14.7 and mild renal insufficiency with creatinine of 1.44 up from a baseline of 1.2-1.3. He underwent a CT scan of his abdomen which showed ileus. The Emergency Room provider discussed the case with the surgical team who requested manual disimpaction. Manual disimpaction was attempted; air and liquid stool was expelled but no hard stool was removed. His urinalysis was also consistent with UTI. He was started on IV antibiotics and a decision was made to admit him for further management. The patient was admitted to the medical-surgical floor. Ileus resolved with repletion of hypokalemia and with aggressive bowel regimen. Tube feeds were advanced to goal with good tolerance. TINA was attributed to prerenal azotemia and resolved after IV fluid hydration. Hypernatremia resolved after free water repletion via IV. UTI was treated with 8 days of piperacillin-tazobactam. Regarding his AKA, follow up was arranged with Vascular Surgery at [facility] for wound check and staple removal on 11/11/20 at 12:45. A repeat basic metabolic panel was ordered to be done in 3 days. He was discharged back to [facility] to continue short-term rehabilitation. Time Spent with Patient Time attestation: Total time spent providing and/or coordinating discharge services: Physical Exam Vital Signs: Vital Signs: Last Vital Signs Temp 97.5 F 11/02/20 10:57 Pulse 85 11/02/20 10:57 Resp 16 11/02/20 10:57 BP 132/67 11/02/20 10:57 Pulse Ox 98 11/02/20 10:57 Body Mass Index 21.4 Gen: in no acute distress HEENT: sclera anicteric, moist mucus membranes Neck: supple Lungs: clear to auscultation bilaterally Heart: regular rate and rhythm, no murmurs Abd: mild distention, PEG tube with no signs of infection Ext: s/p R AKA with wound closed with katherine without signs of infection Skin: warm/well-perfused Neuro: masked facies, disoriented Psych: impaired insight DS: Data Data Completed and Pending Completed studies during hospitalization [Text1]: \ ITS Impressions Chest X-Ray 10/24/20 10:00 IMPRESSION: Hyperexpanded lungs without acute process. Abdomen/Pelvis CT 10/24/20 10:02 IMPRESSION: The abdominal distention is secondary to gaseous distention of the rectosigmoid as well as the right and transverse colon along with dilated small bowel. The descending colon is of normal caliber. An obstructing lesion is not seen and the findings are suggestive of marked ileus. Continued follow-up is recommended. Other incidental findings as described above. Laboratory Tests 10/24/20 10/24/20 10/24/20 11:07 11:07 11:08 WBC 14.7 H RBC 3.39 L Hgb 9.4 L Hct 30.3 L MCV 89.4 MCH 27.7 MCHC 31.0 RDW 16.0 Plt Count 331 D MPV 9.7 Immature Gran % (Auto) 0.3 Neut % (Auto) 72.0 Lymph % (Auto) 17.2 L Lincoln % (Auto) 6.9 Eos % (Auto) 3.3 Baso % (Auto) 0.3 Lymph # (Auto) 2.5 Lincoln # (Auto) 1.0 Eos # (Auto) 0.5 H Baso # (Auto) 0.0 Abs Immat Gran (auto) 0.04 H Absolute Neuts (auto) 10.6 H Absolute Nucleated RBC 0.000 Nucleated RBC % (auto) 0.0 Smear Tech's Comments Hold Blue Top Sodium Potassium Chloride Carbon Dioxide Anion Gap BUN Creatinine Estim Creat Clear Calc Estimated GFR Random Glucose Lactic Acid Calcium Magnesium 2.6 Total Bilirubin Direct Bilirubin AST ALT Alkaline Phosphatase B-Natriuretic Peptide Total Protein Albumin Procalcitonin 0.18 Urine Color Urine Appearance Urine pH Ur Specific Mason Urine Protein Urine Glucose (UA) Urine Ketones Urine Blood Urine Nitrite Ur Leukocyte Esterase Urine RBC Urine WBC Urine WBC Clumps Ur Squamous Epith Cells Urine Bacteria Urine Yeast COVID-19 (JESSIE) COVID-19 Clin [facility] 10/24/20 10/24/20 10/24/20 11:08 11:08 11:08 WBC RBC Hgb Hct MCV MCH MCHC RDW Plt Count MPV Immature Gran % (Auto) Neut % (Auto) Lymph % (Auto) Lincoln % (Auto) Eos % (Auto) Baso % (Auto) Lymph # (Auto) Lincoln # (Auto) Eos # (Auto) Baso # (Auto) Abs Immat Gran (auto) Absolute Neuts (auto) Absolute Nucleated RBC Nucleated RBC % (auto) Smear Tech's Comments Hold Blue Top SEE NOTE Sodium 138 Potassium 4.7 Chloride 107 Carbon Dioxide 22 Anion Gap 14 BUN 57 H D Creatinine 1.44 H Estim Creat Clear Calc 40.3 Estimated GFR 47 Random Glucose 101 Lactic Acid 1.4 Calcium 9.2 Magnesium Total Bilirubin 0.4 Direct Bilirubin 0.3 AST 20 D ALT 31 Alkaline Phosphatase 98 D B-Natriuretic Peptide Total Protein 8.3 H D Albumin 3.1 L D Procalcitonin Urine Color Urine Appearance Urine pH Ur Specific Mason Urine Protein Urine Glucose (UA) Urine Ketones Urine Blood Urine Nitrite Ur Leukocyte Esterase Urine RBC Urine WBC Urine WBC Clumps Ur Squamous Epith Cells Urine Bacteria Urine Yeast COVID-19 (JESSIE) COVID-19 Clin [facility] 10/24/20 10/24/20 10/24/20 11:23 12:01 12:01 WBC RBC Hgb Hct MCV MCH MCHC RDW Plt Count MPV Immature Gran % (Auto) Neut % (Auto) Lymph % (Auto) Lincoln % (Auto) Eos % (Auto) Baso % (Auto) Lymph # (Auto) Lincoln # (Auto) Eos # (Auto) Baso # (Auto) Abs Immat Gran (auto) Absolute Neuts (auto) Absolute Nucleated RBC Nucleated RBC % (auto) Smear Tech's Comments Hold Blue Top Sodium Potassium Chloride Carbon Dioxide Anion Gap BUN Creatinine Estim Creat Clear Calc Estimated GFR Random Glucose Lactic Acid Calcium Magnesium Total Bilirubin Direct Bilirubin AST ALT Alkaline Phosphatase B-Natriuretic Peptide 20 Total Protein Albumin Procalcitonin Urine Color YELLOW Urine Appearance CLOUDY Urine pH 6.0 Ur Specific Mason 1.025 Urine Protein 2+ H Urine Glucose (UA) NEG Urine Ketones NEG Urine Blood 3+ H Urine Nitrite NEG Ur Leukocyte Esterase 2+ H Urine RBC 30-49 H Urine WBC 76-150 H Urine WBC Clumps NOTED Ur Squamous Epith Cells NONE Urine Bacteria TRACE Urine Yeast 2+ COVID-19 (JESSIE) Negative COVID-19 Clin Com See Note 10/25/20 10/25/20 10/27/20 05:45 05:45 06:23 WBC 8.3 RBC 3.35 L Hgb 9.3 L Hct 30.6 L MCV 91.3 MCH 27.8 MCHC 30.4 L RDW 16.1 H Plt Count 319 MPV 9.9 Immature Gran % (Auto) 0.4 Neut % (Auto) 67.7 Lymph % (Auto) 21.0 Lincoln % (Auto) 6.3 Eos % (Auto) 4.2 H Baso % (Auto) 0.4 Lymph # (Auto) 1.7 Lincoln # (Auto) 0.5 Eos # (Auto) 0.4 Baso # (Auto) 0.0 Abs Immat Gran (auto) 0.03 Absolute Neuts (auto) 5.6 Absolute Nucleated RBC 0.000 Nucleated RBC % (auto) 0.0 Smear Tech's Comments Hold Blue Top Sodium 142 148 H Potassium 4.6 3.3 D Chloride 112 H 120 H Carbon Dioxide 22 20 L Anion Gap 13 11 L BUN 46 H 21 H D Creatinine 1.32 1.07 Estim Creat Clear Calc 44.0 54.2 Estimated GFR 52 > 60 Random Glucose 88 102 Lactic Acid Calcium 9.2 8.6 D Magnesium Total Bilirubin Direct Bilirubin AST ALT Alkaline Phosphatase B-Natriuretic Peptide Total Protein Albumin Procalcitonin Urine Color Urine Appearance Urine pH Ur Specific Mason Urine Protein Urine Glucose (UA) Urine Ketones Urine Blood Urine Nitrite Ur Leukocyte Esterase Urine RBC Urine WBC Urine WBC Clumps Ur Squamous Epith Cells Urine Bacteria Urine Yeast COVID-19 (JESSIE) COVID-19 Clin Com 10/27/20 10/27/20 10/28/20 17:11 19:57 06:02 WBC RBC Hgb Hct MCV MCH MCHC RDW Plt Count MPV Immature Gran % (Auto) Neut % (Auto) Lymph % (Auto) Lincoln % (Auto) Eos % (Auto) Baso % (Auto) Lymph # (Auto) Lincoln # (Auto) Eos # (Auto) Baso # (Auto) Abs Immat Gran (auto) Absolute Neuts (auto) Absolute Nucleated RBC Nucleated RBC % (auto) Smear Tech's Comments Hold Blue Top Sodium 150 H 149 H 146 H Potassium 2.9 L 3.5 D Chloride 119 H 118 H Carbon Dioxide 24 21 L Anion Gap 9 L 11 L BUN 15 14 Creatinine 1.11 0.95 Estim Creat Clear Calc 52.3 61.1 Estimated GFR > 60 > 60 Random Glucose 113 106 Lactic Acid Calcium 8.4 8.6 Magnesium Total Bilirubin Direct Bilirubin AST ALT Alkaline Phosphatase B-Natriuretic Peptide Total Protein Albumin Procalcitonin Urine Color Urine Appearance Urine pH Ur Specific Mason Urine Protein Urine Glucose (UA) Urine Ketones Urine Blood Urine Nitrite Ur Leukocyte Esterase Urine RBC Urine WBC Urine WBC Clumps Ur Squamous Epith Cells Urine Bacteria Urine Yeast COVID-19 (JESSIE) COVID-[employer] 10/28/20 10/28/20 10/29/20 18:30 19:59 07:04 WBC RBC Hgb Hct MCV MCH MCHC RDW Plt Count MPV Immature Gran % (Auto) Neut % (Auto) Lymph % (Auto) Lincoln % (Auto) Eos % (Auto) Baso % (Auto) Lymph # (Auto) Lincoln # (Auto) Eos # (Auto) Baso # (Auto) Abs Immat Gran (auto) Absolute Neuts (auto) Absolute Nucleated RBC Nucleated RBC % (auto) Smear Tech's Comments Hold Blue Top Sodium 146 H 145 141 Potassium Chloride Carbon Dioxide Anion Gap BUN Creatinine Estim Creat Clear Calc Estimated GFR Random Glucose Lactic Acid Calcium Magnesium Total Bilirubin Direct Bilirubin AST ALT Alkaline Phosphatase B-Natriuretic Peptide Total Protein Albumin Procalcitonin Urine Color Urine Appearance Urine pH Ur Specific Mason Urine Protein Urine Glucose (UA) Urine Ketones Urine Blood Urine Nitrite Ur Leukocyte Esterase Urine RBC Urine WBC Urine WBC Clumps Ur Squamous Epith Cells Urine Bacteria Urine Yeast COVID-19 (JESSIE) COVIDSwyzzle 10/31/20 11/01/20 11/02/20 06:50 06:15 07:01 WBC 8.2 RBC 3.07 L Hgb 8.5 L Hct 27.4 L MCV 89.3 MCH 27.7 MCHC 31.0 RDW 16.5 H Plt Count TNP MPV Not Reportable Immature Gran % (Auto) 1.0 H Neut % (Auto) 64.1 Lymph % (Auto) 20.4 Lincoln % (Auto) 7.5 Eos % (Auto) 6.5 H Baso % (Auto) 0.5 Lymph # (Auto) 1.7 Lincoln # (Auto) 0.6 Eos # (Auto) 0.5 H Baso # (Auto) 0.0 Abs Immat Gran (auto) 0.08 H Absolute Neuts (auto) 5.2 Absolute Nucleated RBC 0.000 Nucleated RBC % (auto) 0.0 Smear Tech's Comments VERIFIED Hold Blue Top Sodium 139 137 Potassium 2.9 L 3.4 Chloride 105 103 Carbon Dioxide 28 26 Anion Gap 9 L 11 L BUN 8 L 7 L Creatinine 0.76 0.72 Estim Creat Clear Calc 76.4 80.6 Estimated GFR > 60 > 60 Random Glucose 105 118 H Lactic Acid Calcium 8.0 L D 8.0 L Magnesium 1.5 L 1.7 Total Bilirubin Direct Bilirubin AST ALT Alkaline Phosphatase B-Natriuretic Peptide Total Protein Albumin Procalcitonin Urine Color Urine Appearance Urine pH Ur Specific Mason Urine Protein Urine Glucose (UA) Urine Ketones Urine Blood Urine Nitrite Ur Leukocyte Esterase Urine RBC Urine WBC Urine WBC Clumps Ur Squamous Epith Cells Urine Bacteria Urine Yeast COVID-19 (JESSIE) COVID-19 Clin Com 11/02/20 11/02/20 07:01 11:14 WBC RBC Hgb Hct MCV MCH MCHC RDW Plt Count MPV Immature Gran % (Auto) Neut % (Auto) Lymph % (Auto) Lincoln % (Auto) Eos % (Auto) Baso % (Auto) Lymph # (Auto) Lincoln # (Auto) Eos # (Auto) Baso # (Auto) Abs Immat Gran (auto) Absolute Neuts (auto) Absolute Nucleated RBC Nucleated RBC % (auto) Smear Tech's Comments Hold Blue Top Sodium 136 Potassium 3.3 Chloride 103 Carbon Dioxide 25 Anion Gap 11 L BUN 7 L Creatinine 0.75 Estim Creat Clear Calc 77.4 Estimated GFR > 60 Random Glucose 116 H Lactic Acid Calcium 8.2 L Magnesium Total Bilirubin Direct Bilirubin AST ALT Alkaline Phosphatase B-Natriuretic Peptide Total Protein Albumin Procalcitonin Urine Color Urine Appearance Urine pH Ur Specific Mason Urine Protein Urine Glucose (UA) Urine Ketones Urine Blood Urine Nitrite Ur Leukocyte Esterase Urine RBC Urine WBC Urine WBC Clumps Ur Squamous Epith Cells Urine Bacteria Urine Yeast COVID-19 (JESSIE) Negative COVID-19 Clin Com See Note Discharge Plan Discharge Patient Disposition: Xfer SNF Referrals: Janelle Borrego [facility] [Other] (Right AKA follow-up, wound check and staple removal.) [facility] [Outside] (Return to SNF ) Hermes Obrien MD [Primary Care Provider] - Discharge Medications: New polyethylene glycol 3350 17 gram Powder In Packet 17 g G-tube DAILY PRN (Reason: constipation) Qty: 30 RF: 0 Fleet Enema 19-7 gram/118 mL Enema 133 ml TN ONCE PRN (Reason: constipation) Qty: 133 RF: 0 omeprazole 20 mg Capsule,Delayed Release(Dr/Ec) 20 mg G-tube BID@0630,1630 Qty: 60 RF: 0 Continued clopidogrel 75 mg Tablet 75 mg feeding tube DAILY RF: 0 pravastatin 20 mg Tablet 20 mg feeding tube DAILY RF: 0 valproic acid (as sodium salt) 250 mg/5 mL (5 mL) solution 1,000 mg feeding tube TID RF: 0 aspirin 81 mg Tablet,Chewable 81 mg feeding tube DAILY RF: 0 acetaminophen 325 mg Tablet 650 mg feeding tube Q4H PRN (Reason: Fever Or Pain) RF: 0 donepezil 10 mg Tablet 10 mg feeding tube DAILY RF: 0 terazosin 1 mg Capsule 1 mg feeding tube BEDTIME RF: 0 amlodipine 10 mg Tablet 10 mg feeding tube DAILY RF: 0 bisacodyl 10 mg Suppository 10 mg TN DAILY PRN (Reason: Constipation) RF: 0 docusate sodium 100 mg Capsule 100 mg PO BID RF: 0 carbidopa-levodopa 25-100 mg tablet 2 tab feeding tube QID RF: 0 memantine 10 mg Tablet 10 mg feeding tube BID RF: 0 escitalopram oxalate 5 mg Tablet 5 mg feeding tube DAILY RF: 0 cholecalciferol (vitamin D3) 1,250 mcg (50,000 unit) Tablet 1,250 mcg feeding tube QMONTH RF: 0 albuterol sulfate 90 mcg/actuation Aerosol Powdr Breath Activated 2 inh INHALATION Q4H PRN (Reason: Shortness Of Breath) RF: 0 metoclopramide HCl 10 mg tablet 10 mg feeding tube QIDACHS RF: 0 Discontinued celecoxib 200 mg capsule 200 mg feeding tube DAILY RF: 0 Discharge Orders: Discharge Order (Routine); Ordered 11/02/20 Ordered By: Porfirio Guadalupe Diet: other Activity on Discharge: As tolerated Patient Instructions: Ileus (GEN) Other Ambulatory Orders: Basic Metabolic Panel (Routine) Timeframe: 3 Days Facility: [facility] - Location: Laboratory Ordered By: Porfirio Guadalupe Visit Report Forms: Patient Portal Discharge page Care Plan Goals: normal bowel function Health Concerns: ileus, hypernatremia, hypokalemia, recent AKA Plan of Treatment: continue tube feeds stool softeners/laxatives as needed to avoid constipation recheck laboratory studies in 3 days [basic metabolic panel, non-fasting] follow up with [facility] on 11/11 at 12:45pm with Janelle Montaño for wound check and staple removal
[2020-11-02 16:00] VITALS: BP 125/69; PULSE 84; RESP 18; TEMP 36.4; O2SAT 99
== END 2020-11-02 17:09 | disposition skilled nursing facility (03) | DRG 389 ==
LOC: HO.ED 12:52 → HO.IMC 22:28 → HO.S3 10-25 19:59
PROVIDERS: Internal Medicine; Physician Assistant; Physician Assistant Medical; Admitting Provider Internal Medicine; Emergency Provider Emergency Medicine Emergency Medical Services; PCP Family Medicine; Visit Provider Family Medicine
DX: K56.7 Ileus, unspecified (principal); N39.0 Urinary tract infection, site not specified; E87.0 Hyperosmolality and hypernatremia; G20 Parkinson's disease; N40.0 Benign prostatic hyperplasia without lower urinary tract symptoms; G40.909 Epilepsy, unspecified, not intractable, without status epilepticus; E78.5 Hyperlipidemia, unspecified; I10 Essential (primary) hypertension; D64.9 Anemia, unspecified; I73.9 Peripheral vascular disease, unspecified; F39 Unspecified mood [affective] disorder; F02.80 Dementia in other diseases classified elsewhere, unspecified severity, without behavioral disturbance, psychotic disturbance, mood disturbance, and anxiety; N28.9 Disorder of kidney and ureter, unspecified; Z93.1 Gastrostomy status; Z89.611 Acquired absence of right leg above knee; Z96.0 Presence of urogenital implants; Z20.828 Contact with and (suspected) exposure to other viral communicable diseases; Z79.02 Long term (current) use of antithrombotics/antiplatelets; Z79.82 Long term (current) use of aspirin; Z79.899 Other long term (current) drug therapy
CPT/HCPCS: 36415; 71045; 74176; 80048; 80076; 81001; 83605; 83735; 83880; 84145; 84295; 85025; 87040; 87086; 87088; 87635; 96361; 96374; 99024; 99285; J1650; J2543; J3475